=== PATIENT | female | born 1965 | race Caucasian/White ===

== ENCOUNTER 2024-07-08 11:24 | Emergency (ER) | payer SELFPAY ==
[2024-07-08] VITALS (16 sets, daily range): BP systolic 172–215; BP diastolic 90–110; PULSE 65–76; TEMP 36.6; O2SAT 98; BMI 21.8
[2024-07-08 12:30] LABS: Basophils Percent Auto 0.4 % (0.2-2.0); Hemoglobin 12.9 g/dL (12.0-16.0); Immature Granulocytes Abs Auto 0.01 10^3/uL (0.00-0.03); Immature Granulocytes Pct Auto 0.1 % (0.0-0.5); Lymphocytes Absolute Auto 2.1 10^3/uL (1.2-3.8); Lymphocytes Percent Auto 29.7 % (20.5-60.0); Mean Corpuscular HGB Conc 33.1 g/dL (29.9-35.2); Mean Corpuscular Hemoglobin 31.3 pg (26.7-34.0); Mean Corpuscular Volume 94.7 fL (81.0-99.0); Mean Platelet Volume 9.1 fL (9.5-13.5); Monocytes Absolute Auto 0.4 10^3/uL (0.3-0.8); Monocytes Percent Auto 5.6 % (1.7-12.0); Neutrophils Absolute Auto 4.5 10^3/uL (1.4-6.5); Neutrophils Percent Auto 64.2 % (43.0-75.0); Platelet Count 266 10^3/uL (150-450); Red Blood Count 4.12 10^6/uL (4.20-5.40); Red Cell Distribution Width 12.4 % (11.0-15.0)
[2024-07-08] MEDS: OXYMETAZOLINE HCL 0.05% NASAL SPRAY 2 SPRAY NS (12:37)
[2024-07-08 12:41] LABS: Prothrombin Time 9.8 sec (9.0-11.6)
[2024-07-08 12:43] LABS: Alanine Aminotransferase 20 U/L (14-59); Albumin Level 3.6 g/dL (3.4-5.0); Alkaline Phosphatase 122 U/L (46-116); Anion Gap 11.3; Aspartate Amino Transferase 14 U/L (15-37); Bilirubin Total 0.4 mg/dL (0.2-1.0); Carbon Dioxide 27.3 mmol/L (21.0-32.0); Chloride 107 mmol/L (98-107); Estimated GFR (African America >60 (>=60 mL/min/1.73m^2); Estimated GFR (Non-African Ame 57 (>=60 mL/min/1.73m^2); Globulin 3.6 g/dL; Glucose 116 mg/dL (74-106); Potassium 3.6 mmol/L (3.5-5.1); Sodium 142 mmol/L (136-145); Total Protein 7.2 g/dL (6.4-8.2)
[2024-07-08 12:49] LABS: INR <0.93
[2024-07-08] MEDS: CLONIDINE HCL 0.1 MG TABLET PO (13:07)
--- NOTE | 2024-07-08 13:10 | ED_ITS ---
HPI - Epistaxis General Chief Complaint: Epistaxis Stated Complaint: NOSE BLEED Time Seen by Provider: 07/08/24 11:47 Source: patient Mode of arrival: ambulance Limitations: no limitations History of Present Illness HPI Narrative: The patient have history of multiple myeloma being treated by onchology , patient is coming today with nosebleed that started within the last 24 hours and it has not been stopping as explained at least 4 times that she bled and stopped The patient have no history of such bleeding before and she also has a history of anticoagulation Patient has no primary care doctor she denies any history of hypertension although she mentioned the last time she went to her doctor she had some elevated blood pressure Patient denies any nasal trauma Related Data Home Medications ?Medication ?Instructions ?Recorded ?Confirmed cobimetinib 20 mg tablet (Cotellic) 60 mg PO Q24H 07/08/24 07/08/24 vemurafenib 240 mg tablet 1,200 mg PO Q12H 07/08/24 07/08/24 (Zelboraf) Previous Rx's ?Medication ?Instructions ?Recorded amlodipine 10 mg tablet 10 mg PO DAILY #20 tabs 07/08/24 blood pressure monitor #1 ea 07/08/24 cephalexin 500 mg capsule 500 mg PO BID #10 caps 07/08/24 Allergies Allergy/AdvReac Type Severity Reaction Status Date / Time No Known Drug Allergies Allergy Verified 07/08/24 11:26 Review of Systems ROS Status of ROS 10 or more systems reviewed and unremark able except as noted in history and below PFSH PFSH Social History Little interest or pleasure in doing things: not at all Feeling down, depressed, or hopeless: not at all Exam Narrative Exam Narrative: Nurses notes and vital signs reviewed and patient is not hypoxic. General: Well-appearing and in no apparent distress. Skin: Warm, dry, no pallor noted. No rash. Head: Normocephalic, atraumatic. Neck: Supple, non-tender. Eye: Pupils are equal, round and EOMI. No scleral icterus. Ears, Nose, Mouth, and Throat: Patient have a significant bleeding from the right nostril mostly posterior as I cannot see the bleeding source anteriorly Cardiovascular: Regular Rate and Rhythm without murmur, gallop or rub. Respiratory: No accessory muscle use or respiratory distress. Lungs are clear to auscultation, no wheezing, rales or rhonchi Chest Wall: no tenderness Back: No midline thoracic or lumbar vertebral tenderness. No CVA tenderness Musculoskeletal: normal ROM, no calf or popliteal tenderness, no lower extremity edema/swelling GI: Abdomen is soft, non-distended. Normal bowel sounds. No masses appreciated. No tenderness to palpation. No rebound, guarding, or rigidity noted. Neurological: A&O x4. No cranial nerve dysfunction observed. No truncal ataxia. Moves all extremities. Sensation intact. Psychiatric: Cooperative and interactive. Normal mood and affect. Constitutional Vital Signs, click to edit/add: Last Vital Signs Temp 97.8 F 07/08/24 11:26 Pulse 67 07/08/24 13:35 Resp 20 07/08/24 12:10 BP 187/109 H 07/08/24 14:22 Pulse Ox 98 07/08/24 11:26 O2 Del Method Room Air 07/08/24 11:26 Course Vital Signs Vital signs: Vital Signs Temperature 97.8 F 07/08/24 11:26 Pulse Rate 71 07/08/24 11:26 Respiratory Rate 18 07/08/24 11:26 Blood Pressure 196/110 H 07/08/24 11:26 Pulse Oximetry 98 07/08/24 11:26 Oxygen Delivery Method Room Air 07/08/24 11:26 Temperature 97.8 F 07/08/24 11:26 Pulse Rate 67 07/08/24 13:35 Respiratory Rate 20 07/08/24 12:10 Blood Pressure 187/109 H 07/08/24 14:22 Pulse Oximetry 98 07/08/24 11:26 Oxygen Delivery Method Room Air 07/08/24 11:26 MDM - Epistaxis MDM Narrative Medical decision making narrative: Initially pressure was not enough to control the bleeding then the patient had a Afrin applied and the Rhino Rocket applied to the right nostril After inflating and gradually the patient bleeding was controlled CBC and chemistry showed no acute pathology but the patient blood pressure was noted to be elevated around 200 systolic Patient was started on amlodipine and she was given clonidine here in the ER she was discharged with referral to primary care doctor for further evaluation for her blood pressure in addition to coming back tomorrow to remove the Rhino Rocket The patient also provided antibiotic and instructed not to keep the Rhino Rocket for more than 2 days The patient is to follow up with primary care physician in next 2-3 days or to return to the emergency department should any of the signs or symptoms worsen or new symptoms develop. The patient agrees with the following Diagnosis and Treatment plan and the patient will be discharged home. Lab Data Labs: Lab Results 07/08/24 Range/Units 12:20 WBC 7.0 (4.0-11.0) 10^3/uL RBC 4.12 L (4.20-5.40) 10^6/uL Hgb 12.9 (12.0-16.0) g/dL Hct 39.0 (36.0-48.0) % MCV 94.7 (81.0-99.0) fL MCH 31.3 (26.7-34.0) pg MCHC 33.1 (29.9-35.2) g/dL RDW 12.4 (11.0-15.0) % Plt Count 266 (150-450) 10^3/uL MPV 9.1 L (9.5-13.5) fL Neut % (Auto) 64.2 (43.0-75.0) % Lymph % (Auto) 29.7 (20.5-60.0) % Chester % (Auto) 5.6 (1.7-12.0) % Eos % (Auto) 0.0 L (0.9-7.0) % Baso % (Auto) 0.4 (0.2-2.0) % Neut # (Auto) 4.5 (1.4-6.5) 10^3/uL Lymph # (Auto) 2.1 (1.2-3.8) 10^3/uL Chester # (Auto) 0.4 (0.3-0.8) 10^3/uL Eos # (Auto) 0.0 (0.0-0.7) 10^3/uL Baso # (Auto) 0.0 (0.0-0.1) 10^3/uL Abs Immat Gran (auto) 0.01 (0.00-0.03) 10^3/uL Imm/Tot Granulo (auto) 0.1 (0.0-0.5) % PT 9.8 (9.0-11.6) sec INR <0.93 Sodium 142 (136-145) mmol/L Potassium 3.6 (3.5-5.1) mmol/L Chloride 107 (98-107) mmol/L Carbon Dioxide 27.3 (21.0-32.0) mmol/L Anion Gap 11.3 BUN 15.0 (7.0-18.0) mg/dL Creatinine 1.00 (0.55-1.02) mg/dL Est GFR ( Amer) >60 (>=60 mL/min/1.73m^2) Est GFR (Non-Af Amer) 57 L (>=60 mL/min/1.73m^2) BUN/Creatinine Ratio 15.0 Glucose 116 H (74-106) mg/dL Calcium 9.0 (8.5-10.1) mg/dL Total Bilirubin 0.4 (0.2-1.0) mg/dL AST 14 L (15-37) U/L ALT 20 (14-59) U/L Alkaline Phosphatase 122 H (46-116) U/L Total Protein 7.2 (6.4-8.2) g/dL Albumin 3.6 (3.4-5.0) g/dL Globulin 3.6 g/dL Albumin/Globulin Ratio 1.0 Discharge Plan Discharge Chief Complaint: Epistaxis Clinical Impression: Epistaxis, HTN (hypertension) Patient Disposition: Home, Self-Care Time of Disposition Decision: 14:52 Condition: Good Prescriptions / Home Meds: New amlodipine 10 mg tablet 10 mg PO DAILY Qty: 20 0RF cephalexin 500 mg capsule 500 mg PO BID Qty: 10 0RF (DME) blood pressure monitor Kit See Rx Instructions .Route Qty: 1 0RF Rx Instructions: As directed dx HTN No Action Cotellic 20 mg tablet 60 mg PO Q24H Zelboraf 240 mg tablet 1,200 mg PO Q12H Print Language: [place] Instructions: Nosebleed (ED), Hypertension (ED) Referrals: Physician,Non-Staff, MD [Primary Care Provider] - 1 week
--- NOTE | 2024-07-08 13:38 | PC.NURSE ---
1320 - Dr Bennett increased pressure in 7.5 Rhino miamiet d/t still having some small trickling out of R nare
--- NOTE | 2024-07-08 14:41 | PC.NURSE ---
PT NARE STOPPED BLEEDING AT THIS TIME RHINO ROCKET REMAINS IN PLACE
[2024-07-08] MEDS: KETOROLAC TROMETHAMINE 30 MG/ML VIAL IM (14:48)
== END 2024-07-08 15:06 | disposition home or self-care (01) ==
PROVIDERS: Emergency Provider Emergency Medicine
DX: R04.0 Epistaxis (principal); C90.00 Multiple myeloma not having achieved remission; I10 Essential (primary) hypertension
CPT/HCPCS: 30901; 36415; 80053; 85025; 85610; 96372; 99285; J1885

== ENCOUNTER 2024-07-09 14:11 | Emergency (ER) | payer MEDICARE, MEDICAID, SELFPAY ==
[2024-07-09 14:19] VITALS: BP 174/102; PULSE 86; TEMP 36.7; O2SAT 98
[2024-07-09 14:25] VITALS: BP 164/100
--- NOTE | 2024-07-09 14:26 | PC.NURSE ---
Haim rocket in place to right nostril, no bleeding at site. Denies feeling of bleeding in back of throat.
--- OUTSIDE RECORDS SUMMARY | 2024-07-09 14:31 | XMS_ITS | CCD ---
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 Name Role Phone Manuel DE DIOSN.Carly DICK Unavailable Marika HAYES, Thiago Unavailable Errol SWEET, Lacy Unavailable [phone] Unavailable Primary Care Provider UnavailAubrie Cortes Unavailable Manuel BOILERMAKER SHIP.Carly DICK Unavailable [phone] Dora Quintanilla MDek Unavailable Errol SWEET, Lacy Unavailable SHUBHAM Ramos Attending Provider Unavailable Primary Care Provider UnavailAubrie Cortes Attending Unavailable Aubrie Ramos Admitting Unavailable Tali Johnson Unavailable CONNOR Corona, DR VAZQUEZ Attending Unavailable [facility], DR SHOOK Primary Care Unavailable TAINA, DR JACQUIE Medeiros Consulting UnavailEyad Corona, DR VAZQUEZ Admitting Unavailable DOT ESTEVEZ Consulting Unavailable Kayla Guerrero Attending Unavailable Errol SWEET, Lacy Unavailable ABHYANKAR, THIAGO Referring Unavailable Pcp BOILERMAKER SHIP, No Primary Care Provider Unavailabl e ABHYANKAR, THIAGO Referring Unavailable ABHYANKAR, THIAGO Attending Unavailable ABHYANKAR, THIAGO Referring Unavailable ABHYANKAR, THIAGO Referring Unavailable ABHYANKAR, THIAGO Attending Unavailable ABHYANKAR, THIAGO Referring Unavailable ABHYANKAR, THIAGO Referring Unavailable ABHYANKAR, THIAGO Attending Unavailable ABHYANKAR, THIAGO Referring Unavailable Medications Current Medications Medication Drug Class(es) Dates Sig (Normalized) Sig (Original) clindamycin 150 mg oral capsule (2 sources) Lincosamide Antibacterial Start: 09-13-2015 take 2 capsules by mouth four times daily clindamycin (CLEOCIN) 150 MG capsule Indications: Malignant melanoma of skin of chest (HCC) , Cellulitis of chest wall Take 2 Capsules by mouth 4 times daily for 10 days. 80 Capsule 0 09/13/2015 Active cobimetinib 20 mg oral tablet (20 sources) Kinase Inhibitor Start: 10-27-2023 Cobimetinib (Cotellic) 20 mg tablet Active MG PO October 27, 2023 12:00am Start: 12-12-2022 End: 03-24-2024 COTELLIC 20 mg tab Indicatio ns: Malignant melanoma of torso excluding breast (HCC) TAKE 3 TABLETS BY MOUTH ONCE DAILY AT THE SAME TIME FOR 21 DAYS OF A 28 DAY CYCLE. MAY TAKE WITH OR WITHOUT FOOD 63 tablet 4 03/24/2024 Active Start: 08-02-2022 End: 12-10-2022 COTELLIC 20 mg tab Indicatio ns: Malignant melanoma of torso excluding breast (HCC) TAKE 3 TABLETS BY MOUTH ONCE DAILY AT THE SAME TIME FOR 21 DAYS OF A 28 DAY CYCLE. MAY TAKE WITH OR WITHOUT FOOD 63 tablet 4 08/02/2022 12/10/2022 Discontinued Start: 03-16-2021 End: 02-19-2022 COTELLIC 20 mg tab Indicatio ns: Malignant melanoma of torso excluding breast (HCC) TAKE 3 TABLETS BY MOUTH ONCE DAILY AT THE SAME TIME FOR 21 DAYS OF A 28 DAY CYCLE. MAY TAKE WITH OR WITHOUT FOOD 63 tablet 4 09/03/2021 02/19/2022 Discontinued take 1 tablet by [facility] every twenty-four hours Cotellic 20 MG 1 tablet Orally Once a day Active Comment on above: TAKE 3 TABLETS BY MO [facility] ONCE DAILY AT THE SAME TIME FOR 21 DAYS OF A 28 DAY CYCLE. MAY TAKE WITH OR WITHOUT FOOD docusate sodium 100 mg oral capsule (2 sources) Start: 2015 take 1 capsule by mouth twice daily docusate sodium (COLACE) 100 MG capsule Take 1 Capsule by mouth 2 times daily. 60 Capsule 1 08/28/2015 Active doxycycline monohydrate 100 mg oral capsule (1 source) Tetracycline-class Drug Start: 2022 take 1 capsule by mouth every twelve hours Doxycycline Monohydrate 100 MG 1 capsule Orally every 12 hrs for 10 days Oct, Active methylPREDNISolone 4 mg oral tablet (1 source) Corticosteroid Start: 2023 take 1 tablet by mouth once Methylprednisolone (Medrol (Mat)) 4 mg tablets,dose pack Active 0 PO per package directions October 27, 2023 12:00am PO PER PKG DIR for 6 days nicotine 2 mg oral lozenge (6 sources) Cholinergic Nicotinic Agonist Start: 2023 End: 2023 nicotine, polacrilex, (NICORETTE) 2 mg lzmn Indications: Metastatic melanoma (HCC) , Malignant melanoma of skin (HCC) , Malignant melanoma of torso excluding breast (HCC) Place 2 mg between cheek and gum four times daily. 30 Lozenge 3 12/19/2023 04/17/2024 Active tamsulosin hydrochloride 0.4 mg oral capsule (1 source) alpha-Adrenergic Deejay Start: 2022 take 1 capsule by mouth once daily tamsulosin 0.4 mg Cap 0.4 mg = 1 cap(s), Oral, Daily, # 30 cap(s), Refills(s) 0, Pharmacy: [id number] Start Date: 12/04/22 Status: Ordered vemurafenib 240 mg oral tablet (20 sources) Kinase Inhibitor Start: 2023 Vemurafenib (Zelboraf) 240 mg tablet Active MG PO October 27, 2023 12:00am Start: 08-02-2022 End: 03-24-2024 take 4 tablets by mouth every twelve hours vemurafenib (ZELBORAF) 240 mg tab Indications: Malignant melanoma of torso excluding breast (HCC) TAKE 4 TABLETS BY MOUTH EVERY 12 HOURS. MAY TAKE WITH OR WITHOUT FOOD. STORE IN ORIGINAL CONTAINER. AVOID GRAPEFRUIT PRODUCTS 224 tablet 4 03/24/2024 Active Start: 03-16-2021 End: 02-19-2022 take 4 tablets by mouth every twelve hours vemurafenib (ZELBORAF) 240 mg tab Indications: Malignant melanoma of torso excluding breast (HCC) TAKE 4 TABLETS BY MOUTH EVERY 12 HOURS. MAY TAKE WITH OR WITHOUT FOOD. STORE IN ORIGINAL CONTAINER. AVOID GRAPEFRUIT PRODUCTS 224 tablet 4 09/03/2021 02/19/2022 Discontinued Comment on above: TAKE 4 TABLETS BY MO UT EVERY 12 HOURS. MAY TAKE WITH OR WITHOUT FOOD. STORE IN ORIGINAL CONTAINER. AVOID GRAPEFRUIT PRODUCTS Completed/Discontinued Medications Medication Drug Class(es) Dates Sig (Normalized) Sig (Original) nitrofurantoin, macrocrystals 25 mg / nitrofurantoin, monohydrate 75 mg oral capsule (2 sources) Nitrofuran Antibacterial Start: 11-06-2022 take 1 capsule by mouth every twelve hours Macrobid 100 MG 1 cap(s) Orally 2 times a day for 5 day(s) Oct, Not-Taking perflutren lipid microspheres 1.3 mL in NaCl (PF) 0.9% 10 mL injection (DEFINITY) (5 sources) Start: 12-20-2020 End: 03-21-2022 perflutren lipid microspheres 1.3 mL in NaCl (PF) 0.9% 10 mL injection (DEFINITY) petrolatum 0.41 mg/mg topical ointment (10 sources) Start: 05-11-2021 End: 12-24-2022 white petrolatum (AQUAPHOR) 41 % topical ointment Apply to affected area as needed. 05/11/2021 12/24/2022 Discontinued (.All criteria met for discontinuation) Comment on above: Apply to affected ar ea as needed. phenazopyridine hydrochloride 200 mg oral tablet (2 sources) Start: 11-06-2022 take 1 tablet by mouth every eight hours Pyridium 200 MG 1 tablet after meals Orally Three times a day for 2 day(s) Oct, Not-Taking prochlorperazine 10 mg oral tablet (12 sources) Phenothiazine Start: 04-16-2023 End: 12-12-2023 take 1 tablet by mouth every eight hours as needed prochlorperazine (COMPAZINE) 10 mg tablet Indications: Malignant melanoma of torso excluding breast (HCC) , Metastatic melanoma (HCC) , Chemotherapy-induced nausea Take 1 tablet by mouth every 8 hours as needed. 180 tablet 3 04/16/2023 12/12/2023 Start: 05-02-2022 End: 12-19-2022 take 1 tablet by mouth every six hours as needed prochlorperazine (COMPAZINE) 10 mg tablet Take 10 mg by mouth every 6 hours as needed. 05/02/2022 11/19/2022 Discontinued Start: 04-11-2021 End: 07-09-2021 take 1 tablet by mouth every six hours as needed prochlorperazine (COMPAZINE) 10 mg tablet Indications: Metastatic melanoma (HCC) Take 1 tablet by mouth every 6 hours as needed. 30 tablet 1 04/11/2021 07/09/2021 Discontinued Comment on above: Take 10 mg by mouth every 6 hours as needed. Take 1 tablet by maryann th every 6 hours as needed. Take 1 tablet by maryann th every 8 hours as needed. 125 ml sodium chloride 9 mg/ml prefilled syringe (5 sources) Start: 12-20-2020 End: 03-21-2022 sodium chloride 0.9 % (flush) 10 mL (BD POSIFLUSH) Problems Active Problems Problem Classification Problem Date Documented Date Episodic/Chronic Abdominal pain (4 sources) Unspecified abdominal pain; Translations: [UNSPECIFIED ABDOMINAL PAIN] Onset: 11-30-2022 Episodic Calculus of urinary tract (1 source) Ureteric stone 12-03-2022 Episodic Cancer of breast (20 sources) Malignant neoplasm of female breast; Translations: [Malignant neoplasm of unspecified site of unspecified female breast] Onset: 04-18-2016 05-10-2021 Chronic Genitourinary symptoms and ill-defined conditions (4 sources) Dysuria; Translations: [Hematuria, unspecified] Onset: 11-06-2022 Episodic Melanomas of skin (20 sources) Metastatic malignant melanoma ; Translations: [Malignant melanoma of skin, unspecified] Onset: 07-04-2015 05-10-2021 Chronic Nonmalignant breast conditions (2 sources) Fibrocystic changes of bilateral breasts; Translations: [Diffuse cystic mastopathy of right breast] Onset: 07-04-2015 07-04-2015 Chronic Other aftercare (1 source) Other retirement (current) drug therapy; Translations: [OTH CUSTODIAL CURRENT DRUG THERAPY] Onset: 12-03-2022 Episodic Other circulatory disease (20 sources) Device in situ; Translations: [Presence of other vascular implants and grafts] Onset: 05-04-2021 05-04-2021 Chronic Other diseases of kidney and ureters (1 source) Hydronephrosis with renal and ureteral calculous obstruction; Translations: [HYDRONPHROS RENL AND URETRL CALCUL OBST] Onset: 12-03-2022 Episodic Other nervous system disorders (2 sources) Difficulty walking; Translations: [Difficulty in walking, not elsewhere classified] Chronic Other upper respiratory infections (1 source) Acute recurrent frontal sinusitis Episodic Screening and history of mental health and substance abuse codes (1 source) Personal history of nicotine dependence; Translations: [PERSONAL HISTORY OF NICOTINE DEPEND] Onset: 12-03-2022 Episodic Skin and subcutaneous tissue infections (1 source) Cellulitis 12-03-2022 Episodic Substance-related disorders (20 sources) Nicotine dependence; Translations: [Nicotine dependence, unspecified, uncomplicated] Onset: 05-11-2021 05-11-2021 Chronic Unclassified (1 source) CUSTODIAL DETENTION IMMUNOMOD/IMMUNOSUP; Translations: [CUSTODIAL DETENTION IMMUNOMOD/IMMUNOSUP] Onset: 12-03-2022 Urinary tract infections (2 sources) Urinary tract infection, site not specified; Translations: [Urinary tract infectious disease] Episodic Past or Other Problems Problem Classification Problem Date Documented Da te Episodic/Chronic Deficiency and other anemia (20 sources) Anemia; Translations: [Anemia, unspecified] Onset: 04-18-2016 04-18-2016 Episodic Fluid and electrolyte disorders (20 sources) Dehydration; Translations: [Dehydration] Onset: 06-05-2022 Episodic Nausea and vomiting (15 sources) Nausea; Translations: [Nausea] Onset: 04-16-2023 04-16-2023 Episodic Other gastrointestinal disorders (20 sources) Drug-induced constipation; Translations: [Drug induced constipation] Onset: 08-24-2018 08-24-2018 Episodic Residual codes; unclassified (20 sources) Tobacco use and exposure - finding; Translations: [Tobacco use] Onset: 05-04-2021 05-04-2021 Episodic Residual codes; unclassified (2 sources) Family history of breast cancer; Translations: [Family history of malignant neoplasm of breast] Onset: 07-04-2015 07-04-2015 Episodic Results Test Name Value Interpretation Reference Range Facility [facility] 04-09-2024 OVS Visit (SP) Office ([place]) KENNEDY PAULSON ([id number]) 1965 F Date Time Provider Department 04/09/24 10:00 AM THIAGO QUINTANILLA During your visit today, we recorded the following information about you: Temperature Pulse Respiration Blood pressure 97.4 degrees 66/minute 16/minute 150/91 Weight Height 59.4 kg 1.575 m Thiago Quintanilla MD 04/10/2024 8:46 AM Signed NAME: Kennedy Paulson CLINIC NO.: [id number] DATE OF SERVICE: April 09, 2024 (Marika) Some elements in this clinic note that are critical to medical decision making have been carefully reviewed and included from a prior clinic note dated: December 19, 2023 (Marika) Referring Provider: Arabella Lynch, DO Additional Clinicians involved in Kennedy Paulson's care: CC: Metastatic BRAF + Melanoma ASSESSMENT: She originally had L breast mastectomy for melanoma in [address] Mayorga. 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 Started Zelboraf and Cotellic 08/2018. Has maintained an excellent response measured on PET CT - through 04/08/2023 We discussed the potential for failure of BRAF inhibition occurring around 12-18 months but this hasn't been the case. Suspicious left cervical LN - left neck dissection resulted in benign findings with anthracotic changes only Kidney function varies because she can't reliably stay hydrated PLAN: Labs, PET, Mammogram of right breast in 14 weeks RTC in 16 weeks to review Exam on return Continue nicotine lozenges and smoking cessation Continue Zelboraf and Cotellic - HPI: CASE HISTORY: Reverse Chronological Order 04/02/2024 - PET/CT: PRIMARY: No FDG avid neoplasm. Postsurgical changes. LYMPH NODES: No metabolically active lymphadenopathy. METASTASES: No metabolically active metastases. 03/30/2024 - Diagnostic Mammogram Right: There is no mammographic evidence of malignancy. A return to screening mammogram in 1 year is recommended. BI-RADS Category 2: Benign 12/12/2023 - PET/CT: CHEST: No FDG avid neoplastic process. Stable tiny lung nodules below PET resolution likely benign. HEAD/NECK, ABDOMEN/PELVIS, MUSCULOSKELETAL: No FDG avid neoplastic process. 08/08/2023 - PET/CT: Neck: No suspicious hypermetabolic foci Chest: No evidence of FDG avid neoplastic process Abdomen and pelvis: No evidence of FDG avid neoplastic process Skeleton: No hypermetabolic osseous lesions 04/08/2023 - PET/CT remains negative. 10/23/2022 - PET remains negative - small focus of cutaneous activity in the right lateral distal forearm. Possibly inflammatory. 01/15/2022 - PET/CT: NECK: No FDG avid neoplastic process. CHEST: No FDG avid neoplastic process. Several subcentimeter pulmonary nodules stable since at least PET/CT 08/26/2018. Note that PET/CT is not sensitive for pulmonary nodules less than 8 mm. ABDOMEN/PELVIS: No FDG avid neoplastic process. EXTREMITIES/SKELETON: No suspicious FDG avid osseous process. 09/13/2021 - PET CT: NECK: interval resection of previously noted hypermetabolic left cervical lymph node. No new or enlarging hypermetabolic cervical lymphadenopathy. CHEST: stable postoperative changes of left mastectomy and bilateral axillary lymphadenectomy. No hypermetabolic soft tissue in the operative bed to suggest residual/recurrent neoplasm. PATCHY GROUNDGLASS ATTENUATION NON-FDG AVID RIGHT UPPER LOBE SUBPLEURAL OPACITY LATERALLY, NEW SINCE 04/03/2021. SUGGEST FOLLOW UP NONCONTRAST CHEST CT IN 3 MONTHS FOR ADDITIONAL EVALUATION. FEW SMALL (<0.6 CM) NON-FDG AVID PULMONARY NODULES, STABLE SINCE 12/13/2020. No hypermetabolic thoracic lymphadenopathy. ABDOMEN/PELVIS: no fdg avid neoplastic process. No hypermetabolic mass, adenopathy, or fluid collection. Stable nonobstructing right renal calculi. EXTREMITIES/SKELETON: no fdg avid neoplastic osseous process. 04/03/2021 - PET/CT: Head and Neck: New 0.8 cm hypermetabolic left cervical lymph node, presumably metastatic. Chest: No evidence of FDG avid neoplastic process. Multiple small (less than 6 mm) pulmonary nodules are stable compared to 12/13/2020, and not FDG avid. Stable findings, as described Abdomen and pelvis: No evidence of FDG avid neoplastic process. Stable nonobstructing right renal calculi measuring up to 0.5 cm. No hydronephrosis. Musculoskeletal: No neoplastic hypermetabolic lesions 01/03/2021 - Echo from [facility]: Normal EF 56% 12/13/2020 PET/CT: Neck: No suspicious hypermetabolic foci Chest: No evidence of FDG avid neoplastic process Abdomen and pelvis: No evidence of FDG avid neoplastic process Skeleton: No hypermetabolic osseou (more content not included)... Normal [facility] CNPNon 04-05-2024 CNPN Telephone (HEMT[place]) KENNEDY PAULSON ([id number]) 1965 F Date Time Provider Department 04/05/24 BELINDA MCNAMARA During your visit today, we recorded the following information about you: Belinda Mcnamara RN 04/05/2024 10:05 AM Signed ----- Message from Thiago Quintanilla MD sent at 04/03/2024 1:43 PM EDT ----- PET remains negative Belinda Mcnamara RN 04/05/2024 10:07 AM Signed Left negative results on voice mail that pt identified herself. Left call back number for questions or concerns. Belinda Mcnamara RN Allergies As of Date: 04/05/2024 (No Known Allergies) Date Reviewed: 12/19/2023 Reviewed by: Sandie Worley MA - Fully Assessed Prescriptions as of 04/05/2024 - vemurafenib (ZELBORAF) 240 mg tab TAKE 4 TABLETS BY MOUTH EVERY 12 HOURS. MAY TAKE WITH OR WITHOUT FOOD. STORE IN ORIGINAL CONTAINER. AVOID GRAPEFRUIT PRODUCTS - COTELLIC 20 mg tab TAKE 3 TABLETS BY MOUTH ONCE DAILY AT THE SAME TIME FOR 21 DAYS OF A 28 DAY CYCLE. MAY TAKE WITH OR WITHOUT FOOD - nicotine, polacrilex, (NICORETTE) [address] 2 mg between cheek and gum four times daily. Problem List As Of Date 04/05/2024 Noted Resolved Anemia [D64.9] 04/18/2016 Malignant neoplasm of female breast (HCC) [C50.*04/18/2016 Metastatic melanoma (HCC) [C43.9] 04/18/2016 Drug-induced constipation [K59.03] 08/24/2018 Tobacco use [Z72.0] 05/04/2021 Port-A-Cath in place [Z95.828] 05/04/2021 Nicotine use disorder, F17.2 [F17.200] 05/11/2021 Dehydration [E86.0] 06/05/2022 Malignant melanoma of torso excluding breast (H*04/16/2023 Chemotherapy-induced nausea [R11.0, T45.1X5A] 04/16/2023 Encounter Status:Closed by BELINDA MCNAMARA on 04/05/24 Normal [facility] CBC W Auto Differential pane l (Bld)on 04-02-2024 Basophils (Bld) [#/Vol] 0.03 10*3/uL [facility] Basophils/100 WBC (Bld) 0.6 % [facility] Differential cell count method Nom (Bld) Auto [facility] Eosinophils (Bld) [#/Vol] [facility] Eosinophils/100 WBC (Bld) 0.0 % [facility] Erythrocyte distribution width (RBC) [Ratio] 13.8 % 11.5 - 15.0 % [facility] Hematocrit (Bld) [Volume fraction] 35.9 % Low 36.0 - 46.0 % [facility] Hemoglobin (Bld) [Mass/Vol] 12.4 g/dL 11.5 - 15.5 g/dL [facility] Immature granulocytes (Bld) [#/Vol] [facility] Immature granulocytes/100 WBC (Bld) 0.4 % [facility] Interpretation and review of laboratory results Abnormal [facility] Lymphocytes (Bld) [#/Vol] 0.79 10*3/uL Low [facility] Lymphocytes/100 WBC (Bld) 16.6 % [facility] MCH (RBC) [Entitic mass] 32.0 pg 26.0 - 34.0 pg [facility] MCHC (RBC) [Mass/Vol] 34.5 g/dL 30.5 - 36.0 g/dL [facility] MCV (RBC) [Entitic vol] 92.8 fL 80.0 - 100.0 fL [facility] Monocytes (Bld) [#/Vol] 0.40 10*3/uL [facility] Monocytes/100 WBC (Bld) 8.4 % [facility] Neutrophils (Bld) [#/Vol] 3.52 10*3/uL [facility] Neutrophils/100 WBC (Bld) 74.0 % [facility] Nucleated RBC (Bld) [#/Vol] [facility] Nucleated RBC/100 WBC (Bld) [Ratio] 0.0 % /100 WBC [facility] Platelet mean volume (Bld) [Entitic vol] 9.3 fL 9.0 - 12.7 fL [facility] Platelets (Bld) [#/Vol] 199 10*3/uL [facility] RBC (Bld) [#/Vol] 3.87 10*6/uL Low 3.90 - 5.2 0 m/uL [facility] WBC (Bld) [#/Vol] 4.76 10*3/uL [facility] Basophils (Bld) [#/Vol] 0.03 10*3/uL Normal <0.11 [facility] Comment on above: Order Comment: Speci men Type: BLOOD SPECIMENOrdering Facility: [facility] Address: [address] [place] [id number] Performed By: #### 5 7021-8 ####[facility] [id number] [place] [address] Basophils/100 WBC (Bld) 0.6 % Normal [facility] Comment on above: Order Comment: Speci men Type: BLOOD SPECIMENOrdering Facility: [facility] Address: [address] [place] [address] Performed By: #### 5 7021-8 ####[facility] [id number] [place] [address] Differential cell count method Nom (Bld) Auto Normal [facility] Comment on above: Order Comment: Speci men Type: BLOOD SPECIMENOrdering Facility: [facility] Address: [address] [place] [address] Performed By: #### 5 7021-8 ####[facility] [id number] [place] [address] Eosinophils (Bld) [#/Vol] 10*3/uL Normal <0.46 [facility] Comment on above: Order Comment: Speci men Type: BLOOD SPECIMENOrdering Facility: [facility] Address: [address] [place] [address] Performed By: #### 5 7021-8 ####[facility] [id number] [place] [address] Eosinophils/100 WBC (Bld) 0.0 % Normal [facility] Comment on above: Order Comment: Speci men Type: BLOOD SPECIMENOrdering Facility: [facility] Address: [address] [place] [address] Performed By: #### 5 7021-8 ####[facility] [id number] [place] [address] Erythrocyte distribution width (RBC) [Ratio] 13.8 % Normal 11.5-15.0 [facility] Comment on above: Order Comment: Speci men Type: BLOOD SPECIMENOrdering Facility: [facility] Address: [address] [place] [address] Performed By: #### 5 7021-8 ####[facility] [id number] [place] [address] Hematocrit (Bld) [Volume fraction] 35.9 % Low 36.0-46.0 [facility] Comment on above: Order Comment: Speci men Type: BLOOD SPECIMENOrdering Facility: [facility] Address: [address] [place] [address] Performed By: #### 5 7021-8 ####[facility] [id number] [place] [address] Hemoglobin (Bld) [Mass/Vol] 12.4 g/dL Normal 11.5-15.5 [facility] Comment on above: Order Comment: Speci men Type: BLOOD SPECIMENOrdering Facility: [facility] Address: [address] [place] [address] Performed By: #### 5 7021-8 ####[facility] [id number] [place] [address] Immature granulocytes (Bld) [#/Vol] 10*3/uL Normal <0.10 [facility] Comment on above: Order Comment: Speci men Type: BLOOD SPECIMENOrdering Facility: [facility] Address: [address] [place] [address] Performed By: #### 5 7021-8 ####[facility] [id number] [place] [address] Immature granulocytes/100 WBC (Bld) 0.4 % Normal [facility] Comment on above: Order Comment: Speci men Type: BLOOD SPECIMENOrdering Facility: [facility] Address: [address] [place] [address] Performed By: #### 5 7021-8 ####[facility] [id number] [place] [address] Lymphocytes (Bld) [#/Vol] 0.79 10*3/uL Low 1.00-4.00 [facility] Comment on above: Order Comment: Speci men Type: BLOOD SPECIMENOrdering Facility: [facility] Address: [address] [place] [address] Performed By: #### 5 7021-8 ####[facility] [id number] [place] [address] Lymphocytes/100 WBC (Bld) 16.6 % Normal [facility] Comment on above: Order Comment: Speci men Type: BLOOD SPECIMENOrdering Facility: [facility] Address: [address] [place] [address] Performed By: #### 5 7021-8 ####[facility] [id number] [place] [address] MCH (RBC) [Entitic mass] 32.0 pg Normal 26.0-34.0 [facility] Comment on above: Order Comment: Speci men Type: BLOOD SPECIMENOrdering Facility: [facility] Address: [address] [place] [address] Performed By: #### 5 7021-8 ####[facility] [id number] [place] [address] MCHC (RBC) [Mass/Vol] 34.5 g/dL Normal 30.5-36.0 [facility] Comment on above: Order Comment: Speci men Type: BLOOD SPECIMENOrdering Facility: [facility] Address: [address] [place] [address] Performed By: #### 5 7021-8 ####[facility] [id number] [place] [address] MCV (RBC) [Entitic vol] 92.8 fL Normal 80.0-100.0 [facility] [facility] Comment on above: Order Comment: Speci men Type: BLOOD SPECIMENOrdering Facility: [facility] Address: [address] [place] [address] Performed By: #### 5 7021-8 ####[facility] LABCLIA [id number] [place] [address] Monocytes (Bld) [#/Vol] 0.40 10*3/uL Normal <0.87 [facility] Comment on above: Order Comment: Speci men Type: BLOOD SPECIMENOrdering Facility: [facility] Address: [address] [place] [address] Performed By: #### 5 7021-8 ####[facility] [id number] [place] [address] Monocytes/100 WBC (Bld) 8.4 % Normal [facility] Comment on above: Order Comment: Speci men Type: BLOOD SPECIMENOrdering Facility: [facility] Address: [address] [place] [address] Performed By: #### 5 7021-8 ####[facility]CL[facility] [id number] [place] [address] Neutrophils (Bld) [#/Vol] 3.52 10*3/uL Normal 1.45-7.50 [facility] Comment on above: Order Comment: Speci men Type: BLOOD SPECIMENOrdering Facility: [facility] Address: [address] [place] [address] Performed By: #### 5 7021-8 ####[facility]CL[facility] [id number] [place] [address] Neutrophils/100 WBC (Bld) 74.0 % Normal [facility] Comment on above: Order Comment: Speci men Type: BLOOD SPECIMENOrdering Facility: [facility] Address: [address] [place] [address] Performed By: #### 5 7021-8 ####[facility]CL[facility] [id number] [place] [address] Nucleated RBC (Bld) [#/Vol] 10*3/uL Normal <0.01 [facility] Comment on above: Order Comment: Speci men Type: BLOOD SPECIMENOrdering Facility: [facility] Address: [address] [place] [address] Performed By: #### 5 7021-8 ####[facility] [id number] [place] [address] Nucleated RBC/100 WBC (Bld) [Ratio] 0.0 /100 WBC Normal [facility] Comment on above: Order Comment: Speci men Type: BLOOD SPECIMENOrdering Facility: [facility] Address: [address] [place], [place] [address] Performed By: #### 5 7021-8 ####[facility] [id number] [place] [address] Platelet mean volume (Bld) [Entitic vol] 9.3 fL Normal 9.0-12.7 [facility] Comment on above: Order Comment: Speci men Type: BLOOD SPECIMENOrdering Facility: [facility] Address: [address] [place] [address] Performed By: #### 5 7021-8 ####[facility] LABIA [id number] [place] [address] Platelets (Bld) [#/Vol] 199 10*3/uL Normal 150-400 [facility] Comment on above: Order Comment: Speci men Type: BLOOD SPECIMENOrdering Facility: [facility] Address: [address] [place] [address] Performed By: #### 5 7021-8 ####[facility] [id number] [place] [address] RBC (Bld) [#/Vol] 3.87 10*6/uL Low 3.90-5.20 [facility] Comment on above: Order Comment: Speci men Type: BLOOD SPECIMENOrdering Facility: [facility] Address: [address] [place] [address] Performed By: #### 5 7021-8 ####[facility] LABIA [id number] [place] [address] WBC (Bld) [#/Vol] 4.76 10*3/uL Normal 3.70-11.00 [facility] Comment on above: Order Comment: Speci men Type: BLOOD SPECIMENOrdering Facility: [facility] Address: [address] [place] [address] [place] [address] Performed By: #### 5 7021-8 ####[facility] [id number] [place] [address] Comprehensive metabolic 2000 panelOrdered By: Louise Cuello on 04-02-2024 Albumin [Mass/Vol] 4.7 g/dL 3.9 - 4.9 g/dL [facility] ALP [Catalytic activity/Vol] 117 U/L 34 - 123 U/L [facility] ALT [Catalytic activity/Vol] 10 U/L 7 - 38 U/L [facility] Anion gap [Moles/Vol] 12 mmol/L 8 - 15 mmol/L [facility] AST [Catalytic activity/Vol] 13 U/L 13 - 35 U/L [facility] Bilirubin [Mass/Vol] 0.4 mg/dL 0.2 - 1.3 mg/dL [facility] Calcium [Mass/Vol] 9.6 mg/dL 8.5 - 10. 2 mg/dL [facility] Chloride [Moles/Vol] 110 mmol/L High 98 - 107 mmol/L [facility] CO2 [Moles/Vol] 21 mmol/L Low 22 - 30 mmol/L [facility] Creatinine [Mass/Vol] 0.99 mg/dL High 0.58 - 0.96 mg/dL [facility] GFR/1.73 sq M.predicted among non-blacks MDRD (S/P/Bld) [Vol rate/Area] 67 mL/min/{1.73_m2} - PINF [facility] Comment on above: Estimated Glomerular Filtration Rate (eGFR) is calculated using the 2020 CKD-EPI creatinine equation. This equation utilizes serum creatinine, sex, and age as parameters. The creatinine assay has traceable calibration to isotope dilution-mass spectrometry. Refer to KDIGO guidelines for clinical interpretation. In patients with unstable renal function, e.g. those with acute kidney injury, the eGFR may not accurately reflect actual GFR. Glucose [Mass/Vol] 102 mg/dL High 74 - 99 mg/dL [facility] Comment on above: The [place] Diabete s Association (ADA) provides guidance for cutoff values for fasting glucose and random glucose. The ADA defines fasting as no caloric intake for at least 8 hours. Fasting plasma glucose results between 100 to 125 mg/dL indicate increased risk for diabetes (prediabetes). Fasting plasma glucose results greater than or equal to 126 mg/dL meet the criteria for diagnosis of diabetes. In the absence of unequivocal hyperglycemia, results should be confirmed by repeat testing. In a patient with classic symptoms of hyperglycemia or hyperglycemic crisis, random plasma glucose results greater than or equal to 200 mg/dL meet the criteria for diagnosis of diabetes. Reference: Standards of Medical Care in Diabetes 2016, [place] Diabetes Association. Diabetes Care. 2016.39(Suppl 1). Interpretation and review of laboratory results Abnormal [facility] Potassium [Moles/Vol] 3.5 mmol/L Low 3.7 - 5.1 mmol/L [facility] Protein [Mass/Vol] 7.0 g/dL 6.3 - 8.0 g/dL [facility] Sodium [Moles/Vol] 143 mmol/L 136 - 144 mmol/L [facility] Urea nitrogen [Mass/Vol] 13 mg/dL 7 - 21 mg/dL [facility] Comprehensive metabolic 2000 panelon 04-02-2024 Albumin [Mass/Vol] 4.7 g/dL Normal 3.9-4.9 [facility] Comment on above: Order Comment: Speci men Type: BLOOD SPECIMENOrdering Facility: [facility] Address: [address] [place] [address] Performed By: #### 2 4323-8, 2531-0 ####[facility]CL[facility] [id number] [place] [address] ALP [Catalytic activity/Vol] 117 U/L Normal 34-123 [facility] Comment on above: Order Comment: Speci men Type: BLOOD SPECIMENOrdering Facility: [facility] Address: [address] [place] [address] Performed By: #### 2 4323-8, 2531-0 ####[facility]CL[facility] [id number] [place] [address] ALT [Catalytic activity/Vol] 10 U/L Normal 7-38 [facility] Comment on above: Order Comment: Speci men Type: BLOOD SPECIMENOrdering Facility: [facility] Address: [address] [place] [address] Performed By: #### 2 4323-8, 2531-0 ####[facility]CL[facility] [id number] [place] [address] Anion gap [Moles/Vol] 12 mmol/L Normal 8-15 [facility] Comment on above: Order Comment: Speci men Type: BLOOD SPECIMENOrdering Facility: [facility] Address: [address] [place] [address] Performed By: #### 2 432-8, 2531-0 ####[facility]CL[facility] [id number] [place] [address] AST [Catalytic activity/Vol] 13 U/L Normal 13-35 [facility] Comment on above: Order Comment: Speci men Type: BLOOD SPECIMENOrdering Facility: [facility] Address: [address] [place] [address] Performed By: #### 2 432-8, 2531-0 ####[facility]CL[facility] [id number] [place] [address] Bilirubin [Mass/Vol] 0.4 mg/dL Normal 0.2-1.3 [facility] Comment on above: Order Comment: Speci men Type: BLOOD SPECIMENOrdering Facility: [facility] Address: [address] [place] [address] Performed By: #### 2 4323-8, 2531-0 ####[facility]CL[facility] [id number] [place] [address] Calcium [Mass/Vol] 9.6 mg/dL Normal 8.5-10.2 [facility] Comment on above: Order Comment: Speci men Type: BLOOD SPECIMENOrdering Facility: [facility] Address: [address] [place], [place] [address] Performed By: #### 2 4323-8, 2532-0 ####[facility]CL[facility] [id number] [place] [address] Chloride [Moles/Vol] 110 mmol/L High 98-107 [facility] Comment on above: Order Comment: Speci men Type: BLOOD SPECIMENOrdering Facility: [facility] Address: [address] [place] [address] Performed By: #### 2 4323-8, 0 ####[facility]CLIA [id number] [place] [address] CO2 [Moles/Vol] 21 mmol/L Low 22-30 [facility] Comment on above: Order Comment: Speci men Type: BLOOD SPECIMENOrdering Facility: [facility] Address: [address] [place] [address] Performed By: #### 2 4323-8, ####[facility]CLIA [id number] [place] [address] Creatinine [Mass/Vol] 0.99 mg/dL High 0.58-0.96 [facility] Comment on above: Order Comment: Speci men Type: BLOOD SPECIMENOrdering Facility: [facility] Address: [address] [place] [address] Performed By: #### 2 4323-8, ####[facility]CLIA [id number] [place] [address] Creatinine and Glomerular filtration rate.predicted panel (S/P/Bld) 67 mL/min/1.73m??? Normal >=60 [facility] Comment on above: Order Comment: Speci men Type: BLOOD SPECIMENOrdering Facility: [facility] Address: [address] [place] [address] Result Comment: Johanna mated Glomerular Filtration Rate (eGFR) is calculated using the 2020 CKD-EPI creatinine equation. This equation utilizes serum creatinine, sex, and age as parameters. The creatinine assay has traceable calibration to isotope dilution-mass spectrometry. Refer to KDIGO guidelines for clinical interpretation. In patients with unstable renal function, e.g. those with acute kidney injury, the eGFR may not accurately reflect actual GFR. Performed By: #### 2 4323, ####[facility]CLIA [id number] [place] [address] Glucose [Mass/Vol] 102 mg/dL High 74-99 [facility] Comment on above: Order Comment: Speci men Type: BLOOD SPECIMENOrdering Facility: [facility] Address: [address] [place], [place] [address] Result Comment: The [place] Diabetes Association (ADA) provides guidance for cutoff values for fasting glucose and random glucose. The ADA defines fasting as no caloric intake for at least 8 hours. Fasting plasma glucose results between 100 to 125 mg/dL indicate increased risk for diabetes (prediabetes). Fasting plasma glucose results greater than or equal to 126 mg/dL meet the criteria for diagnosis of diabetes. In the absence of unequivocal hyperglycemia, results should be confirmed by repeat testing. In a patient with classic symptoms of hyperglycemia or hyperglycemic crisis, random plasma glucose results greater than or equal to 200 mg/dL meet the criteria for diagnosis of diabetes. Reference: Standards of Medical Care in Diabetes 2016, [place] Diabetes Association. Diabetes Care. 2016.39(Suppl 1). Performed By: #### 2 4328, ####[facility]CLIA [id number] [place] [address] Potassium [Moles/Vol] 3.5 mmol/L Low 3.7-5.1 [facility] Comment on above: Order Comment: Speci men Type: BLOOD SPECIMENOrdering Facility: [facility] Address: [address] [place] [address] Performed By: #### 2 4328, ####[facility]CLIA [id number] [place] [address] Protein [Mass/Vol] 7.0 g/dL Normal 6.3-8.0 [facility] Comment on above: Order Comment: Speci men Type: BLOOD SPECIMENOrdering Facility: [facility] Address: [address] [place], [place] [address] Performed By: #### 2 43210-02, ####[facility] LABCLIA [id number] [place] [address] Sodium [Moles/Vol] 143 mmol/L Normal 136-144 [facility] Comment on above: Order Comment: Speci men Type: BLOOD SPECIMENOrdering Facility: [facility] Address: [address] [place] [address] Performed By: #### 2 4323-8, 2532-0 ####[facility] LABCLIA [id number] [place] [address] Urea nitrogen [Mass/Vol] 13 mg/dL Normal 7-21 [facility] Comment on above: Order Comment: Speci men Type: BLOOD SPECIMENOrdering Facility: [facility] Address: [address] [place] [address] Performed By: #### 2 4323-8, 2532-0 ####[facility] LABCLIA [id number] [place] [address] GLUCOSE, BLOOD (POC)on 04-02 Glucose [Mass/Vol] 100 mg/dL Abnormal 74 - 99 mg/dL [facility] Comment on above: Location:[facility], [address] , [place], [place], [address] The Accu-Chek Inform II glucose meter has not been approved for testing on patients receiving intensive medical intervention or therapy and results from this point of care glucose test should not be used for patient management decisions in these cases. Inaccurate results may also occur from other interfering factors, such as N-acetylcysteine (blood concentrations of greater than 5mg/dL), galactose, extremes of hematocrit (<10 or >65), or high doses of ascorbic acid (vitamin C) greater than 3mg/dL. Consider alternate testing mechanisms (e.g. core lab, blood gas instrument) in the above situations. Interpretation and review of laboratory results Abnormal [facility] LACTATE DEHYDROGENASEon LDH [Catalytic activity/Vol] 184 U/L 135 - 214 U/L [facility] LDH SerPl-cCncon 04-02-2024 LDH [Catalytic activity/Vol] 184 U/L Normal 135-214 [facility] Comment on above: Order Comment: Speci men Type: BLOOD SPECIMENOrdering Facility: [facility] Address: [facility] [place] [address] Performed By: #### 2 4323-8, 2532-0 ####[facility] LABCLIA [id number] [place] [address] LDH [Catalytic activity/Vol] on 04-02-2024 Interpretation and review of laboratory results Normal [facility] NM PET/CT WHOLE BODY SUBQon 04-02-2024 NM PET/CT WHOLE BODY SUBQ * * *Final Report* * * DATE OF EXAM: Apr 02 2024 1:36PM NRN [id number] - NM PET/CT WHOLE BODY SUBQ / PROCEDURE REASON: multiple diagnoses * * * * Physician Interpretation * * * * RESULT: EXAMINATION: BODY FDG PET-CT CLINICAL HISTORY: Melanoma EXAM CATEGORY: Subsequent treatment strategy. TECHNIQUE: Radiopharmaceutical was administered intravenously followed by PET imaging from the skull vertex to feet. Free breathing, low dose CT of the same body region was acquired without IV contrast for attenuation correction and anatomic localization. Unenhanced imaging is limited for the evaluation of some pathology and the acquired CT was not designed to produce diagnostic CT scan quality. Physiologic/non-patholo gic uptake in some body regions could confound or obscure some pathology. * CT Dose-Length Product (DLP): 287 mGy*cm * CT Dose Reduction Employed: Yes * Blood glucose: 100 mg/dL * Injected activity: 7.2 mCi * Uptake Time: 55 minutes * Radiopharmaceutical: N04-Adfmalxlbzluqeeycg (FDG) COMPARISON: PET/CT 12/12/2023 RESULT: REFERENCES: FDG uptake is used as a surrogate marker for glucose metabolism. All reported standardized uptake values represent maximum SUV (SUVmax) per body weight, unless otherwise specified. SUV reference values, as follows: * Blood Pool (Descending Aorta): SUVmax 2.5 * Background Liver: SUVmax 2.8; SUVmean 2.2 Localizer Images: No additional findings. HEAD AND NECK: Head: No radiotracer avid lesion or mass effect in the imaged intracranial compartment. Aerodigestive Tract: No radiotracer avid lesion. Lymph Nodes: No radiotracer avid lymphadenopathy. Neck Soft Tissues: No radiotracer avid thyroid nodule. CHEST: Lungs and Pleura: No radiotracer avid mass, nodule, or consolidation. No pleural effusion. Scattered subcentimeter opacities below the resolution for PET. Lymph Nodes: No radiotracer avid lymphadenopathy. Surgical changes in the bilateral axillary regions. Mediastinum: No radiotracer avid mass. Cardiovascular: Blood pool activity. No pericardial effusion. Normal heart size. Right-sided chest port. Chest Wall: No radiotracer avid soft tissue lesion. Left mastectomy. ABDOMEN AND PELVIS: Hepatobiliary: No radiotracer avid lesion. No measurable mass. Spleen: No radiotracer avid lesion. No splenomegaly. Pancreas: No radiotracer avid lesion. Adrenals: No radiotracer avid nodule. Urinary Tract: Physiologic radiotracer excretion in the renal collecting systems and urinary bladder. No hydronephrosis. GI Tract: No radiotracer avid lesion. No bowel dilation. Linear activity in the esophagus possibly inflammatory. Peritoneum: No radiotracer avid lesion. No ascites. Lymph Nodes: No radiotracer avid lymphadenopathy. Vasculature: Blood pool activity. Pelvic Organs: No radiotracer avid lesion. Activity in the vulvar region can be related to tracer excretion or inflammation MUSCULOSKELETAL: Bones: No radiotracer avid lesion. No lytic or sclerotic lesion. Soft Tissues: No radiotracer avid lesion. IMPRESSION: PRIMARY: No FDG avid neoplasm. Postsurgical changes. LYMPH NODES: No metabolically active lymphadenopathy. METASTASES: No metabolically active metastases. Transcribe Date/Time: Apr 02 2024 4:52P Dictated by: ANDREW CUEVAS MD This examination was interpreted and the report reviewed and electronically signed by: ANDREW CUEVAS MD on Apr 02 2024 5:16PM EST Thank you for allowing us to participate in the care of your patient. Should there be any questions regarding this interpretation, please call [phone]. If you are unable to reach us at the number above, please feel free to contact [facility]Radiology at [phone]. [id number] Normal [facility] PET+CT Whole body Bone W 18F -NaF Emma 04-02-2024 IMPRESSION: PRIMARY: No FDG avid neoplasm. Postsurgical changes. LYMPH NODES: No metabolically active lymphadenopathy. METASTASES: No metabolically active metastases. Transcribe Date/Time: Apr 02 2024 4:52P Dictated by: ANDREW CUEVAS MD This examination was interpreted and the report reviewed and electronically signed by: ANDREW CUEVAS MD on Apr 02 2024 5:16PM EST Thank you for allowing us to participate in the care of your patient. Should there be any questions regarding this interpretation, please call [phone]. If you are unable to reach us at the number above, please feel free [facility] at [phone]. DIVISION OF RADIOLOGY * * *Final Report* * * DATE OF EXAM: Apr 02 2024 1:36PM NRN [id number] - NM PET/CT WHOLE BODY SUBQ / PROCEDURE REASON: multiple diagnoses * * * * Physician Interpretation * * * * RESULT: EXAMINATION: BODY FDG PET-CT CLINICAL HISTORY: Melanoma EXAM CATEGORY: Subsequent treatment strategy. TECHNIQUE: Radiopharmaceutical was administered intravenously followed by PET imaging from the skull vertex to feet. Free breathing, low dose CT of the same body region was acquired without IV contrast for attenuation correction and anatomic localization. Unenhanced imaging is limited for the evaluation of some pathology and the acquired CT was not designed to produce diagnostic CT scan quality. Physiologic/non-patholo gic uptake in some body regions could confound or obscure some pathology. * CT Dose-Length Product (DLP): 287 mGy*cm * CT Dose Reduction Employed: Yes * Blood glucose: 100 mg/dL * Injected activity: 7.2 mCi * Uptake Time: 55 minutes * Radiopharmaceutical: W21-Qadzdetlwpnxhysbeh (FDG) COMPARISON: PET/CT 12/12/2023 RESULT: REFERENCES: FDG uptake is used as a surrogate marker for glucose metabolism. All reported standardized uptake values represent maximum SUV (SUVmax) per body weight, unless otherwise specified. SUV reference values, as follows: * Blood Pool (Descending Aorta): SUVmax 2.5 * Background Liver: SUVmax 2.8; SUVmean 2.2 Localizer Images: No additional findings. HEAD AND NECK: Head: No radiotracer avid lesion or mass effect in the imaged intracranial compartment. Aerodigestive Tract: No radiotracer avid lesion. Lymph Nodes: No radiotracer avid lymphadenopathy. Neck Soft Tissues: No radiotracer avid thyroid nodule. CHEST: Lungs & Pleura: No radiotracer avid mass, nodule, or consolidation. No pleural effusion. Scattered subcentimeter opacities below the resolution for PET. Lymph Nodes: No radiotracer avid lymphadenopathy. Surgical changes in the bilateral axillary regions. Mediastinum: No radiotracer avid mass. Cardiovascular: Blood pool activity. No pericardial effusion. Normal heart size. Right-sided chest port. Chest Wall: No radiotracer avid soft tissue lesion. Left mastectomy. ABDOMEN AND PELVIS: Hepatobiliary: No radiotracer avid lesion. No measurable mass. Spleen: No radiotracer avid lesion. No splenomegaly. Pancreas: No radiotracer avid lesion. Adrenals: No radiotracer avid nodule. Urinary Tract: Physiologic radiotracer excretion in the renal collecting systems and urinary bladder. No hydronephrosis. GI Tract: No radiotracer avid lesion. No bowel dilation. Linear activity in the esophagus possibly inflammatory. Peritoneum: No radiotracer avid lesion. No ascites. Lymph Nodes: No radiotracer avid lymphadenopathy. Vasculature: Blood pool activity. Pelvic Organs: No radiotracer avid lesion. Activity in the vulvar region can be related to tracer excretion or inflammation MUSCULOSKELETAL: Bones: No radiotracer avid lesion. No lytic or sclerotic lesion. Soft Tissues: No radiotracer avid lesion. DIVISION OF RADIOLOGY Provider, [facility] - 04/02/2024 * * *Final Report* * * DATE OF EXAM: Apr 02 2024 1:36PM NRN [id number] - NM PET/CT WHOLE BODY SUBQ / PROCEDURE REASON: multiple diagnoses * * * * Physician Interpretation * * * * RESULT: EXAMINATION: BODY FDG PET-CT CLINICAL HISTORY: Melanoma EXAM CATEGORY: Subsequent treatment strategy. TECHNIQUE: Radiopharmaceutical was administered intravenously followed by PET imaging from the skull vertex to feet. Free breathing, low dose CT of the same body region was acquired without IV contrast for attenuation correction and anatomic localization. Unenhanced imaging is limited for the evaluation of some pathology and the acquired CT was not designed to produce diagnostic CT scan quality. Physiologic/non-patholo gic uptake in some body regions could confound or obscure some pathology. * CT Dose-Length Product (DLP): 287 mGy*cm * CT Dose Reduction Employed: Yes * Blood glucose: 100 mg/dL * Injected activity: 7.2 mCi * Uptake Time: 55 minutes * Radiopharmaceutical: S50-Gppiocgjbumjdokfit (FDG) COMPARISON: PET/CT 12/12/2023 RESULT: REFERENCES: FDG uptake is used as a surrogate marker for glucose metabolism. All reported standardized uptake values represent maximum SUV (SUVmax) per body weight, unless otherwise specified. SUV reference values, as follows: * Blood Pool (Descending Aorta): SUVmax 2.5 * Background Liver: SUVmax 2.8; SUVmean 2.2 Localizer Images: No additional findings. HEAD AND NECK: Head: No radiotracer avid lesion or mass effect in the imaged intracranial compartment. Aerodigestive Tract: No radiotracer avid lesion. Lymph Nodes: No radiotracer avid lymphadenopathy. Neck Soft Tissues: No radiotracer avid thyroid nodule. CHEST: Lungs & Pleura: No radiotracer avid mass, nodule, or consolidation. No pleural effusion. Scattered subcentimeter opacities below the resolution for PET. Lymph Nodes: No radiotracer avid lymphadenopathy. Surgical changes in the bilateral axillary regions. Mediastinum: No radiotracer avid mass. Cardiovascular: Blood pool activity. No pericardial effusion. Normal heart size. Right-sided chest port. Chest Wall: No radiotracer avid soft tissue lesion. Left mastectomy. ABDOMEN AND PELVIS: Hepatobiliary: No radiotracer avid lesion. No measurable mass. Spleen: No radiotracer avid lesion. No splenomegaly. Pancreas: No radiotracer avid lesion. Adrenals: No radiotracer avid nodule. Urinary Tract: Physiologic radiotracer excretion in the renal collecting systems and urinary bladder. No hydronephrosis. GI Tract: No radiotracer avid lesion. No bowel dilation. Linear activity in the esophagus possibly inflammatory. Peritoneum: No radiotracer avid lesion. No ascites. Lymph Nodes: No radiotracer avid lymphadenopathy. Vasculature: Blood pool activity. Pelvic Organs: No radiotracer avid lesion. Activity in the vulvar region can be related to tracer excretion or inflammation MUSCULOSKELETAL: Bones: No radiotracer avid lesion. No lytic or sclerotic lesion. Soft Tissues: No radiotracer avid lesion. IMPRESSION IMPRESSION: PRIMARY: No FDG avid neoplasm. Postsurgical changes. LYMPH NODES: No metabolically active lymphadenopathy. METASTASES: No metabolically active metastases. Transcribe Date/Time: Apr 02 2024 4:52P Dictated by: ANDREW CUEVAS MD This examination was interpreted and the report reviewed and electronically signed by: ANDREW CUEVAS MD on Apr 02 2024 5:16PM EST Thank you for allowing us to participate in the care of your patient. Should there be any questions regarding this interpretation, please call [phone]. If you are unable to reach us at the number above, please feel free to contact [facility] at [phone]. [facility] Rad[facility] Study observation (narrative) [facility] PET+CT Whole body Bone W 18F -NaF IVOrdered By: [facility]cf Provider on 04-02-2024 [facility] DBT Breast - right diagnosti c for implanton 03-30-2024 IMPRESSION: There is no mammographic evidence of malignancy. A return to screening mammogram in 1 year is recommended. BI-RADS Category 2: Benign RISK: Based on the Tyrer-Cuzick (TC) risk assessment model, this patient has a 11.6% lifetime risk of developing breast cancer, meaning they are at average risk for developing breast cancer.However, this is only an estimate based on available history provided on the patient's questionnaire.We encourage all patients talk with their providers about these results, further recommendations for managing breast health, and appropriate supplemental screening options if the patient has dense breast tissue. Tipple Operator: BETH Transcribe Date/Time: Mar 30 2024 11:46A Dictated by : MARYSE GONZALEZ MD This examination was interpreted and the report reviewed and electronically signed by: MARYSE GONZALEZ MD on Mar 30 2024 12:31PM EST [facility] * * *Final Report* * * DATE OF EXAM: Mar 30 2024 12:11PM [facility] 0629 - SAMEERA GÉNESISG Greg MOLINA RT / PROCEDURE REASON: multiple diagnoses * * * * Physician Interpretation * * * * RESULT: [facility] [id number] [place] [address] HISTORY: Patient is 58 years old and is seen for diagnostic exam. The patient has history of left mastectomy due to metastatic melanoma in 2017. COMPARISON STUDIES: The present examination has been compared to a prior imaging study dated 10/06/2020 (mammogram). MAMMOGRAM TECHNIQUE: The study was acquired using full field digital technology and interpreted from soft copy. Digital Breast Tomosynthesis (DBT) images were obtained and used to assist in the interpretation of this examination. Computer-aided detection was utilized by the radiologist in the interpretation of this examination. MAMMOGRAM FINDINGS: The breast is heterogeneously dense, which may obscure small masses. There are post-operative changes in the right axilla. Chemotherapy port projects over the right axilla. No suspicious masses, calcifications or other abnormalities are seen in the right breast. [facility] Provider, Andreea Winston [facility] - 03/30/2024 * * *Final Report* * * DATE OF EXAM: Mar 30 2024 12:11PM [facility] 0629 - SAMEERA KIM MOLINA RT / PROCEDURE REASON: multiple diagnoses * * * * Physician Interpretation * * * * RESULT: [facility] [id number] [place] [address] HISTORY: Patient is 58 years old and is seen for diagnostic exam. The patient has history of left mastectomy due to metastatic melanoma in 2017. COMPARISON STUDIES: The present examination has been compared to a prior imaging study dated 10/06/2020 (mammogram). MAMMOGRAM TECHNIQUE: The study was acquired using full field digital technology and interpreted from soft copy. Digital Breast Tomosynthesis (DBT) images were obtained and used to assist in the interpretation of this examination. Computer-aided detection was utilized by the radiologist in the interpretation of this examination. MAMMOGRAM FINDINGS: The breast is heterogeneously dense, which may obscure small masses. There are post-operative changes in the right axilla. Chemotherapy port projects over the right axilla. No suspicious masses, calcifications or other abnormalities are seen in the right breast. IMPRESSION IMPRESSION: There is no mammographic evidence of malignancy. A return to screening mammogram in 1 year is recommended. BI-RADS Category 2: Benign RISK: Based on the Tyrer-Cuzick (TC) risk assessment model, this patient has a 11.6% lifetime risk of developing breast cancer, meaning they are at average risk for developing breast cancer.However, this is only an estimate based on available history provided on the patient's questionnaire.We encourage all patients talk with their providers about these results, further recommendations for managing breast health, and appropriate supplemental screening options if the patient has dense breast tissue. Tipple Operator: BETH Transcribe Date/Time: Mar 30 2024 11:46A Dictated by : MARYSE GONZALEZ MD This examination was interpreted and the report reviewed and electronically signed by: MARYSE GONZALEZ MD on Mar 30 2024 12:31PM EST [facility] Rad[facility] Study observation (narrative) [facility] DBT Breast - right diagnosti c for implantOrdered By: [facility]cf Provider on 03-30-2024 [facility] SAMEERA DIAG W TRACY RTon 024 SAMEERA DIAG W TRACY RT * * *Final Report* * * DATE OF EXAM: Mar 30 2024 12:11PM [facility] 0629 - SAMEERA GÉNESISG W TRACY RT / PROCEDURE REASON: multiple diagnoses * * * * Physician Interpretation * * * * RESULT: [facility] [id number] [place] [address] HISTORY: Patient is 58 years old and is seen for diagnostic exam. The patient has history of left mastectomy due to metastatic melanoma in 2017. COMPARISON STUDIES: The present examination has been compared to a prior imaging study dated 10/06/2020 (mammogram). MAMMOGRAM TECHNIQUE: The study was acquired using full field digital technology and interpreted from soft copy. Digital Breast Tomosynthesis (DBT) images were obtained and used to assist in the interpretation of this examination. Computer-aided detection was utilized by the radiologist in the interpretation of this examination. MAMMOGRAM FINDINGS: The breast is heterogeneously dense, which may obscure small masses. There are post-operative changes in the right axilla. Chemotherapy port projects over the right axilla. No suspicious masses, calcifications or other abnormalities are seen in the right breast. IMPRESSION: There is no mammographic evidence of malignancy. A return to screening mammogram in 1 year is recommended. BI-RADS Category 2: Benign RISK: Based on the Tyrer-Cuzick (TC) risk assessment model, this patient has a 11.6% lifetime risk of developing breast cancer, meaning they are at average risk for developing breast cancer.However, this is only an estimate based on available history provided on the patient's questionnaire.We encourage all patients talk with their providers about these results, further recommendations for managing breast health, and appropriate supplemental screening options if the patient has dense breast tissue. Tipple Operator: BETH Transcribe Date/Time: Mar 30 2024 11:46A Dictated by : MARYSE GONZALEZ MD This examination was interpreted and the report reviewed and electronically signed by: MARYSE GONZALEZ MD on Mar 30 2024 12:31PM EST [id number] [facility] CNOVSPon 12-19-2023 CNOVSP Visit (SP) Office ([place]) LORENEKENNEDY RABAGO ([id number]) 1965 F Date Time Provider Department 12/19/23 10:00 AM THIAGO QUINTANILLA During your visit today, we recorded the following information about you: Temperature Pulse Respiration Blood pressure 97.3 degrees 69/minute 18/minute 189/100 Weight 61.1 kg Thiago Quintanilla MD 12/20/2023 4:08 PM Signed NAME: Kennedy Paulson CLINIC NO.: [id number] DATE OF SERVICE: December 19, 2023 (Marika) Some elements in this clinic note that are critical to medical decision making have been carefully reviewed and included from a prior clinic note dated: August 22, 2023 (Marika) Referring Provider: Arabella Lynch DO Additional Clinicians involved in Kennedy Paulson's care: CC: Metastatic BRAF + Melanoma ASSESSMENT: She originally had L breast mastectomy for melanoma in [address] Mayorga. 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 Started Zelboraf and Cotellic 08/2018. Has maintained an excellent response measured on PET CT - through 04/08/2023 We discussed the potential for failure of BRAF inhibition occurring around 12-18 months but this hasn't been the case. Suspicious left cervical LN - left neck dissection resulted in benign findings with anthracotic changes only Kidney function varies because she can't reliably stay hydrated PLAN: Labs, PET, Mammogram of right breast in 14 weeks RTC in 16 weeks to review Exam on return Rx sent for nicotine lozenges Continue Zelboraf and Cotellic - HPI: CASE HISTORY: Reverse Chronological Order 12/12/2023 - PET/CT: CHEST: No FDG avid neoplastic process. Stable tiny lung nodules below PET resolution likely benign. HEAD/NECK, ABDOMEN/PELVIS, MUSCULOSKELETAL: No FDG avid neoplastic process. 08/08/2023 - PET/CT: Neck: No suspicious hypermetabolic foci Chest: No evidence of FDG avid neoplastic process Abdomen and pelvis: No evidence of FDG avid neoplastic process Skeleton: No hypermetabolic osseous lesions 04/08/2023 - PET/CT remains negative. 10/23/2022 -PET remains negative - small focus of cutaneous activity in the right lateral distal forearm. Possibly inflammatory. 01/15/2022 - PET/CT: NECK: No FDG avid neoplastic process. CHEST: No FDG avid neoplastic process. Several subcentimeter pulmonary nodules stable since at least PET/CT 08/26/2018. Note that PET/CT is not sensitive for pulmonary nodules less than 8 mm. ABDOMEN/PELVIS: No FDG avid neoplastic process. EXTREMITIES/SKELETON: No suspicious FDG avid osseous process. 09/13/2021 - PET CT: NECK: interval resection of previously noted hypermetabolic left cervical lymph node. No new or enlarging hypermetabolic cervical lymphadenopathy. CHEST: stable postoperative changes of left mastectomy and bilateral axillary lymphadenectomy. No hypermetabolic soft tissue in the operative bed to suggest residual/recurrent neoplasm. PATCHY GROUNDGLASS ATTENUATION NON-FDG AVID RIGHT UPPER LOBE SUBPLEURAL OPACITY LATERALLY, NEW SINCE 04/03/2021. SUGGEST FOLLOW UP NONCONTRAST CHEST CT IN 3 MONTHS FOR ADDITIONAL EVALUATION. FEW SMALL (<0.6 CM) NON-FDG AVID PULMONARY NODULES, STABLE SINCE 12/13/2020. No hypermetabolic thoracic lymphadenopathy. ABDOMEN/PELVIS: no fdg avid neoplastic process. No hypermetabolic mass, adenopathy, or fluid collection. Stable nonobstructing right renal calculi. EXTREMITIES/SKELETON: no fdg avid neoplastic osseous process. 04/03/2021 - PET/CT: Head and Neck: New 0.8 cm hypermetabolic left cervical lymph node, presumably metastatic. Chest: No evidence of FDG avid neoplastic process. Multiple small (less than 6 mm) pulmonary nodules are stable compared to 12/13/2020, and not FDG avid. Stable findings, as described Abdomen and pelvis: No evidence of FDG avid neoplastic process. Stable nonobstructing right renal calculi measuring up to 0.5 cm. No hydronephrosis. Musculoskeletal: No neoplastic hypermetabolic lesions 01/03/2021 - Echo from TB: Normal EF 56% 12/13/2020 PET/CT: Neck: No suspicious hypermetabolic foci Chest: No evidence of FDG avid neoplastic process Abdomen and pelvis: No evidence of FDG avid neoplastic process Skeleton: No hypermetabolic osseous lesions 08/23/2020 PET/CT: HEAD AND NECK: No FDG avid neoplastic process. No mass, adenopathy, or fluid collection. CHEST: No FDG avid neoplastic process. No mass, adenopathy, or fluid collection. Stable tiny nodularity in both lungs unchanged. Tree-in-bud clustered nodularity anterolateral lingula not changed likely inflammatory. ABDOMEN/PELVIS: No FDG avid neoplastic process. No mass (more content not included)... Normal [facility] PET+CT Whole body Bone W 18F -NaF Emma 12-18-2023 IMPRESSION: HEAD/NECK: * No FDG avid neoplastic process. CHEST: * No FDG avid neoplastic process. Stable tiny lung nodules below PET resolution likely benign. ABDOMEN/PELVIS: * No FDG avid neoplastic process. MUSCULOSKELETAL: * No FDG avid neoplastic process. Transcribe Date/Time: Dec 18 2023 11:10A Dictated by: CHELI TRUONG MD This examination was interpreted and the report reviewed and electronically signed by: CHELI TRUONG MD on Dec 18 2023 11:17AM EST Thank you for allowing us to participate in the care of your patient. Should there be any questions regarding this interpretation, please call [phone]. If you are unable to reach us at the number above, please feel free to contact [facility] at [phone]. DIVISION OF RADIOLOGY * * *Final Report* * * DATE OF EXAM: Dec 12 2023 1:56PM NRN [id number] - NM PET/CT WHOLE BODY SUBQ / PROCEDURE REASON: Malignant melanoma of skin (HCC) * * * * Physician Interpretation * * * * RESULT: EXAMINATION: BODY FDG PET-CT CLINICAL HISTORY: 58 years old Female with Malignant melanoma of skin (HCC) . INDICATION: Subsequent treatment strategy. TECHNIQUE: Radiopharmaceutical was administered IV followed about 60 minutes later by PET imaging from vertex to feet. Free breathing, low dose CT of the same body region was acquired without IV contrast for attenuation correction and anatomic localization. * CT Dose-Length Product (DLP): 266 mGy*cm * CT Dose Reduction Employed: Yes * Blood glucose (mg/dL): 99 * Radiopharmaceutical Dose: 7.2 mCi * Radiopharmaceutical: C40-Ndxpicgbyvtlxsfgsi (FDG) COMPARISON: 08/08/2023 CORRELATION: No intervening imaging RESULT: REFERENCES: SUV reference values: * Blood pool (descending aorta) activity: SUVmax 2.1 * Background liver activity: SUVmax 3.0; SUVmean 2.2 Health Nurse (topogram) images: Unremarkable. Notes and limitations: * Standardized uptake values indicate the highest activity concentration (SUVmax) at a given location but can be variable and are not absolute. * Physiologic/non-neoplas tic uptake is common in the brain, extraocular muscles, oral cavity, tonsils, salivary glands, vocal cords, myocardium, liver, GI tract, urinary tract, and bone marrow among others. Certain regions and organ systems can have more intense uptake, which could confound or obscure some pathology. * Unenhanced imaging is limited for the evaluation of some pathology and the acquired CT was not designed to produce or replace diagnostic CT scan quality. * PET-CT is often not sensitive for pulmonary nodules less than 8 mm. HEAD AND NECK: Imaged Head: Physiologic uptake in the brain with no definite evidence of focal abnormalities. Neck & Lymph Nodes: No abnormal uptake. Thyroid: No abnormal uptake. CHEST: Lungs & Airways: No FDG avid lung nodules. Small nodules like 0.3 cm right upper lobe (4:1677) stable. Pleura & Pericardium: No abnormal uptake. Cardiovascular: No abnormal uptake. Mediastinum & Lymph Nodes: No abnormal uptake. Status post left mastectomy and bilateral axillary lymphadenectomy. . ABDOMEN AND PELVIS: Hepatobiliary: No abnormal uptake. Spleen: No abnormal uptake. Pancreas: No abnormal uptake. Adrenals: No abnormal uptake. Urinary Tract: No abnormal uptake. GI Tract: No abnormal uptake. Peritoneum: No abnormal uptake. Vasculature: No abnormal uptake. Retroperitoneum & Lymph Nodes: No abnormal uptake. Pelvis: No abnormal uptake. MUSCULOSKELETAL: Osseous: No abnormal uptake. Degenerative changes. Soft Tissues: No abnormal uptake. DIVISION OF RADIOLOGY Provider, [facility] - 12/18/2023 * * *Final Report* * * DATE OF EXAM: Dec 12 2023 1:56PM NRN [id number] - NM PET/CT WHOLE BODY SUBQ / PROCEDURE REASON: Malignant melanoma of skin (HCC) * * * * Physician Interpretation * * * * RESULT: EXAMINATION: BODY FDG PET-CT CLINICAL HISTORY: 58 years old Female with Malignant melanoma of skin (HCC) . INDICATION: Subsequent treatment strategy. TECHNIQUE: Radiopharmaceutical was administered IV followed about 60 minutes later by PET imaging from vertex to feet. Free breathing, low dose CT of the same body region was acquired without IV contrast for attenuation correction and anatomic localization. * CT Dose-Length Product (DLP): 266 mGy*cm * CT Dose Reduction Employed: Yes * Blood glucose (mg/dL): 99 * Radiopharmaceutical Dose: 7.2 mCi * Radiopharmaceutical: T51-Tjmbsebxbihpfluibw (FDG) COMPARISON: 08/08/2023 CORRELATION: No intervening imaging RESULT: REFERENCES: SUV reference values: * Blood pool (descending aorta) activity: SUVmax 2.1 * Background liver activity: SUVmax 3.0; SUVmean 2.2 Health Nurse (topogram) images: Unremarkable. Notes and limitations: * Standardized uptake values indicate the highest activity concentration (SUVmax) at a given location but can be variable and are not absolute. * Physiologic/non-neoplas tic uptake is common in the brain, extraocular muscles, oral cavity, tonsils, salivary glands, vocal cords, myocardium, liver, GI tract, urinary tract, and bone marrow among others. Certain regions and organ systems can have more intense uptake, which could confound or obscure some pathology. * Unenhanced imaging is limited for the evaluation of some pathology and the acquired CT was not designed to produce or replace diagnostic CT scan quality. * PET-CT is often not sensitive for pulmonary nodules less than 8 mm. HEAD AND NECK: Imaged Head: Physiologic uptake in the brain with no definite evidence of focal abnormalities. Neck & Lymph Nodes: No abnormal uptake. Thyroid: No abnormal uptake. CHEST: Lungs & Airways: No FDG avid lung nodules. Small nodules like 0.3 cm right upper lobe (4:1677) stable. Pleura & Pericardium: No abnormal uptake. Cardiovascular: No abnormal uptake. Mediastinum & Lymph Nodes: No abnormal uptake. Status post left mastectomy and bilateral axillary lymphadenectomy. . ABDOMEN AND PELVIS: Hepatobiliary: No abnormal uptake. Spleen: No abnormal uptake. Pancreas: No abnormal uptake. Adrenals: No abnormal uptake. Urinary Tract: No abnormal uptake. GI Tract: No abnormal uptake. Peritoneum: No abnormal uptake. Vasculature: No abnormal uptake. Retroperitoneum & Lymph Nodes: No abnormal uptake. Pelvis: No abnormal uptake. MUSCULOSKELETAL: Osseous: No abnormal uptake. Degenerative changes. Soft Tissues: No abnormal uptake. IMPRESSION IMPRESSION: HEAD/NECK: * No FDG avid neoplastic process. CHEST: * No FDG avid neoplastic process. Stable tiny lung nodules below PET resolution likely benign. ABDOMEN/PELVIS: * No FDG avid neoplastic process. MUSCULOSKELETAL: * No FDG avid neoplastic process. Transcribe Date/Time: Dec 18 2023 11:10A Dictated by: CHELI TRUONG MD This examination was interpreted and the report reviewed and electronically signed by: CHELI TRUONG MD on Dec 18 2023 11:17AM EST Thank you for allowing us to participate in the care of your patient. Should there be any questions regarding this interpretation, please call [phone]. If you are unable to reach us at the number above, please feel free to contact [facility] at [phone]. [facility] PET+CT Whole body Bone W 18F -NaF IVOrdered By: Ccf Provider on 12-18-2023 [facility] 12-17-2023 KAPILN Telephone ([place]) KENNEDY PAULSON ([id number]) 1965 F Date Time Provider Department 12/17/23 LACY PEÑA During your visit today, we recorded the following information about you: Lacy Peña RN 12/17/2023 3:49 PM Signed Pt calling for her PET results. Results from 12/12/23 are still pending. Pt notified and verbalizes understanding. MICKI Monique Rebecca, RN 12/18/2023 1:14 PM Signed Results final. Call placed to pt to review. No answer. Message left requesting call back. MICKI Monique Rebecca, RN 12/18/2023 3:15 PM Signed Missed call from pt. Return call made to pt. No answer. Message left requesting call back. MICKI Monique Rebecca, RN 12/18/2023 3:17 PM Signed Pt notified of results. Explained to pt that Dr would review in greater detail at tomorrow's appointment. Pt verbalizes understanding. Lacy Peña RN Allergies As of Date: 12/17/2023 (No Known Allergies) Date Reviewed: 08/22/2023 Reviewed by: Vicki Hernandez MA - Fully Assessed Reason for Visit: Care Coordination [2848] Cmt: PET Results Prescriptions as of 12/18/2023 - COTELLIC 20 mg tab TAKE 3 TABLETS BY MOUTH ONCE DAILY AT THE SAME TIME FOR 21 DAYS OF A 28 DAY CYCLE. MAY TAKE WITH OR WITHOUT FOOD - vemurafenib (ZELBORAF) 240 mg tab TAKE 4 TABLETS BY MOUTH EVERY 12 HOURS. MAY TAKE WITH OR WITHOUT FOOD. STORE IN ORIGINAL CONTAINER. AVOID GRAPEFRUIT PRODUCTS Problem List As Of Date 12/17/2023 Noted Resolved Anemia [D64.9] 04/18/2016 Malignant neoplasm of female breast (HCC) [C50.*04/18/2016 Metastatic melanoma (HCC) [C43.9] 04/18/2016 Drug-induced constipation [K59.03] 08/24/2018 Tobacco use [Z72.0] 05/04/2021 Port-A-Cath in place [Z95.828] 05/04/2021 Nicotine use disorder, F17.2 [F17.200] 05/11/2021 Dehydration [E86.0] 06/05/2022 Malignant melanoma of torso excluding breast (H*04/16/2023 Chemotherapy-induced nausea [R11.0, T45.1X5A] 04/16/2023 Encounter Status:Closed by LACY PEÑA on 12/18/23 Normal [facility] CBC W Auto Differential pane l (Bld)on 12-12-2023 Basophils (Bld) [#/Vol[facility] Basophils/100 WBC (Bld) 0.4 % [facility] Differential cell count method Nom (Bld) Auto [facility] Eosinophils (Bld) [#/Vol] [facility] Eosinophils/100 WBC (Bld) 0.2 % [facility] Erythrocyte distribution width (RBC) [Ratio] 14.4 % 11.5 - 15.0 % [facility] Hematocrit (Bld) [Volume fraction] 35.3 % Low 36.0 - 46.0 % [facility] Hemoglobin (Bld) [Mass/Vol] 11.6 g/dL 11.5 - 15.5 g/dL [facility] Immature granulocytes (Bld) [#/Vol] NINF [facility] Immature granulocytes/100 WBC (Bld) 0.2 % [facility] Interpretation and review of laboratory results Abnormal [facility] Lymphocytes (Bld) [#/Vol] 1.40 10*3/uL [facility] Lymphocytes/100 WBC (Bld) 26.1 % [facility] MCH (RBC) [Entitic mass] 31.2 pg 26.0 - 34.0 pg [facility] MCHC (RBC) [Mass/Vol] 32.9 g/dL 30.5 - 36.0 g/dL [facility] MCV (RBC) [Entitic vol] 94.9 fL 80.0 - 100.0 fL [facility] Monocytes (Bld) [#/Vol] 0.59 10*3/uL [facility] Monocytes/100 WBC (Bld) 11.0 % [facility] Neutrophils (Bld) [#/Vol] 3.33 10*3/uL [facility] Neutrophils/100 WBC (Bld) 62.1 % [facility] Nucleated RBC (Bld) [#/Vol] NINF [facility] Nucleated RBC/100 WBC (Bld) [Ratio] 0.0 % /100 WBC [facility] Platelet mean volume (Bld) [Entitic vol] 9.4 fL 9.0 - 12.7 fL [facility] Platelets (Bld) [#/Vol] 209 10*3/uL [facility] RBC (Bld) [#/Vol] 3.72 10*6/uL Low 3.90 - 5.2 0 m/uL [facility] WBC (Bld) [#/Vol] 5.36 10*3/uL [facility] Basophils (Bld) [#/Vol] 10*3/uL Normal <0.11 [facility] Comment on above: Order Comment: Speci men Type: BLOOD SPECIMENOrdering Facility: [facility] Address: [address] [place] [address] Performed By: #### 5 7021-8 ####[facility]CL[facility] [id number] [place] [address] Basophils/100 WBC (Bld) 0.4 % Normal [facility] Comment on above: Order Comment: Speci men Type: BLOOD SPECIMENOrdering Facility: [facility] Address: [address] [place] [address] Performed By: #### 5 7021-8 ####[facility]CL[facility] [id number] [place] [address] Differential cell count method Nom (Bld) Auto Normal [facility] Comment on above: Order Comment: Speci men Type: BLOOD SPECIMENOrdering Facility: [facility] Address: [address] [place] [address] Performed By: #### 5 7021-8 ####[facility] [id number] [place] [address] Eosinophils (Bld) [#/Vol] 10*3/uL Normal <0.46 [facility] Comment on above: Order Comment: Speci men Type: BLOOD SPECIMENOrdering Facility: [facility] Address: [address] [place] [address] Performed By: #### 5 7021-8 ####[facility] [id number] [place] [address] Eosinophils/100 WBC (Bld) 0.2 % Normal [facility] Comment on above: Order Comment: Speci men Type: BLOOD SPECIMENOrdering Facility: [facility] Address: [address] [place] [address] Performed By: #### 5 7021-8 ####[facility] [id number] [place] [address] Erythrocyte distribution width (RBC) [Ratio] 14.4 % Normal 11.5-15.0 [facility] Comment on above: Order Comment: Speci men Type: BLOOD SPECIMENOrdering Facility: [facility] Address: [address] [place] [address] Performed By: #### 5 7021-8 ####[facility] [id number] [place] [address] Hematocrit (Bld) [Volume fraction] 35.3 % Low 36.0-46.0 [facility] Comment on above: Order Comment: Speci men Type: BLOOD SPECIMENOrdering Facility: [facility] Address: [address] [place] [address] Performed By: #### 5 7021-8 ####[facility] [id number] [place] [address] Hemoglobin (Bld) [Mass/Vol] 11.6 g/dL Normal 11.5-15.5 [facility] Comment on above: Order Comment: Speci men Type: BLOOD SPECIMENOrdering Facility: [facility] Address: [address] [place] [address] Performed By: #### 5 7021-8 ####[facility] [id number] [place] [address] Immature granulocytes (Bld) [#/Vol] 10*3/uL Normal <0.10 [facility] Comment on above: Order Comment: Speci men Type: BLOOD SPECIMENOrdering Facility: [facility] Address: [address] [place] [address] Performed By: #### 5 7021-8 ####[facility] [id number] [place] [address] Immature granulocytes/100 WBC (Bld) 0.2 % Normal [facility] Comment on above: Order Comment: Speci men Type: BLOOD SPECIMENOrdering Facility: [facility] Address: [address] [place] [address] Performed By: #### 5 7021-8 ####[facility] [id number] [place] [address] Lymphocytes (Bld) [#/Vol] 1.40 10*3/uL Normal 1.00-4.00 [facility] Comment on above: Order Comment: Speci men Type: BLOOD SPECIMENOrdering Facility: [facility] Address: [address] [place] [address] Performed By: #### 5 7021-8 ####[facility] [id number] [place] [address] Lymphocytes/100 WBC (Bld) 26.1 % Normal [facility] Comment on above: Order Comment: Speci men Type: BLOOD SPECIMENOrdering Facility: [facility] Address: [address] [place] [address] Performed By: #### 5 7021-8 ####[facility] [id number] [place] [address] MCH (RBC) [Entitic mass] 31.2 pg Normal 26.0-34.0 [facility] Comment on above: Order Comment: Speci men Type: BLOOD SPECIMENOrdering Facility: [facility] Address: [address] [place] [address] Performed By: #### 5 7021-8 ####[facility] LABIA [id number] [place] [address] MCHC (RBC) [Mass/Vol] 32.9 g/dL Normal 30.5-36.0 [facility] Comment on above: Order Comment: Speci men Type: BLOOD SPECIMENOrdering Facility: [facility] Address: [address] [place] [address] Performed By: #### 5 7021-8 ####[facility] LABIA [id number] [place] [address] MCV (RBC) [Entitic vol] 94.9 fL Normal 80.0-100.0 [facility] Comment on above: Order Comment: Speci men Type: BLOOD SPECIMENOrdering Facility: [facility] Address: [address] [place] [address] Performed By: #### 5 7021-8 ####[facility] LABIA [id number] [place] [address] Monocytes (Bld) [#/Vol] 0.59 10*3/uL Normal <0.87 [facility] Comment on above: Order Comment: Speci men Type: BLOOD SPECIMENOrdering Facility: [facility] Address: [address] [place] [address] Performed By: #### 5 7021-8 ####[facility]IA [id number] [place] [address] Monocytes/100 WBC (Bld) 11.0 % Normal [facility] Comment on above: Order Comment: Speci men Type: BLOOD SPECIMENOrdering Facility: [facility] Address: [address] [place] [address] Performed By: #### 5 7021-8 ####[facility] [id number] [place] [address] Neutrophils (Bld) [#/Vol] 3.33 10*3/uL Normal 1.45-7.50 [facility] Comment on above: Order Comment: Speci men Type: BLOOD SPECIMENOrdering Facility: [facility] Address: [address] [place] [address] Performed By: #### 5 7021-8 ####[facility] [id number] [place] [address] Neutrophils/100 WBC (Bld) 62.1 % Normal [facility] Comment on above: Order Comment: Speci men Type: BLOOD SPECIMENOrdering Facility: [facility] Address: [address] [place] [address] Performed By: #### 5 7021-8 ####[facility] [id number] [place] [address] Nucleated RBC (Bld) [#/Vol] 10*3/uL Normal <0.01 [facility] Comment on above: Order Comment: Speci men Type: BLOOD SPECIMENOrdering Facility: [facility] Address: [address] [place] [address] Performed By: #### 5 7021-8 ####[facility] [id number] [place] [address] Nucleated RBC/100 WBC (Bld) [Ratio] 0.0 /100 WBC Normal [facility] Comment on above: Order Comment: Speci men Type: BLOOD SPECIMENOrdering Facility: [facility] Address: [address] [place] [address] Performed By: #### 5 7021-8 ####[facility] [id number] [place] [address] Platelet mean volume (Bld) [Entitic vol] 9.4 fL Normal 9.0-12.7 [facility] Comment on above: Order Comment: Speci men Type: BLOOD SPECIMENOrdering Facility: [facility] Address: [address] [place] [address] Performed By: #### 5 7021-8 ####[facility]CL[facility] [id number] [place] [address] Platelets (Bld) [#/Vol] 209 10*3/uL Normal 150-400 [facility] Comment on above: Order Comment: Speci men Type: BLOOD SPECIMENOrdering Facility: [facility] Address: [address] [place] [address] Performed By: #### 5 7021-8 ####[facility] LABIA [id number] [place] [address] RBC (Bld) [#/Vol] 3.72 10*6/uL Low 3.90-5.20 [facility] Comment on above: Order Comment: Speci men Type: BLOOD SPECIMENOrdering Facility: [facility] Address: [address] [place] [address] Performed By: #### 5 7021-8 ####[facility] LABIA [id number] [place] [address] WBC (Bld) [#/Vol] 5.36 10*3/uL Normal 3.70-11.00 [facility] Comment on above: Order Comment: Speci men Type: BLOOD SPECIMENOrdering Facility: [facility] Address: [address] [place] [address] Performed By: #### 5 7021-8 ####[facility] LABIA [id number] [place] [address] Comprehensive metabolic 2000 panelOrdered By: Jeny Galloway on 12-12-2023 Albumin [Mass/Vol] 4.5 g/dL 3.9 - 4.9 g/dL [facility] ALP [Catalytic activity/Vol] 132 U/L High 34 - 123 U/L [facility] ALT [Catalytic activity/Vol] 10 U/L 7 - 38 U/L [facility] Anion gap [Moles/Vol] 9 mmol/L 9 - 18 mmol/L [facility] AST [Catalytic activity/Vol] 14 U/L 13 - 35 U/L [facility] Bilirubin [Mass/Vol] 0.4 mg/dL 0.2 - 1.3 mg/dL [facility] Calcium [Mass/Vol] 9.9 mg/dL 8.5 - 10. 2 mg/dL [facility] Chloride [Moles/Vol] 112 mmol/L High 97 - 105 mmol/L [facility] CO2 [Moles/Vol] 26 mmol/L 22 - 30 mmol/L [facility] Creatinine [Mass/Vol] 0.96 mg/dL 0.58 - 0.96 mg/dL [facility] GFR/1.73 sq M.predicted among non-blacks MDRD (S/P/Bld) [Vol rate/Area] 69 mL/min/{1.73_m2} - PINF [facility] Comment on above: Estimated Glomerular Filtration Rate (eGFR) is calculated using the 2020 CKD-EPI creatinine equation. This equation utilizes serum creatinine, sex, and age as parameters. The creatinine assay has traceable calibration to isotope dilution-mass spectrometry. Refer to KDIGO guidelines for clinical interpretation. In patients with unstable renal function, e.g. those with acute kidney injury, the eGFR may not accurately reflect actual GFR. Glucose [Mass/Vol] 105 mg/dL High 74 - 99 mg/dL [facility] Comment on above: The [place] Diabete s Association (ADA) provides guidance for cutoff values for fasting glucose and random glucose. The ADA defines fasting as no caloric intake for at least 8 hours. Fasting plasma glucose results between 100 to 125 mg/dL indicate increased risk for diabetes (prediabetes). Fasting plasma glucose results greater than or equal to 126 mg/dL meet the criteria for diagnosis of diabetes. In the absence of unequivocal hyperglycemia, results should be confirmed by repeat testing. In a patient with classic symptoms of hyperglycemia or hyperglycemic crisis, random plasma glucose results greater than or equal to 200 mg/dL meet the criteria for diagnosis of diabetes. Reference: Standards of Medical Care in Diabetes 2016, [place] Diabetes Association. Diabetes Care. 2016.39(Suppl 1). Interpretation and review of laboratory results Abnormal [facility] Potassium [Moles/Vol] 3.7 mmol/L 3.7 - 5.1 mmol/L [facility] Protein [Mass/Vol] 7.4 g/dL 6.3 - 8.0 g/dL [facility] Sodium [Moles/Vol] 147 mmol/L High 136 - 144 mmol/L [facility] Urea nitrogen [Mass/Vol] 9 mg/dL 7 - 21 mg/dL [facility] Comprehensive metabolic 2000 panelon 12-12-2023 Albumin [Mass/Vol] 4.5 g/dL Normal 3.9-4.9 [facility] Comment on above: Order Comment: Speci men Type: BLOOD SPECIMENOrdering Facility: [facility] Address: [address] [place] [address] Performed By: #### 2 4323-8, 2531-0 ####[facility]CL[facility] [id number] [place] [address] ALP [Catalytic activity/Vol] 132 U/L High 34-123 [facility] Comment on above: Order Comment: Speci men Type: BLOOD SPECIMENOrdering Facility: [facility] Address: [address] [place], [place] [address] Performed By: #### 2 4323-8, 2531-0 ####[facility] LABIA [id number] [place] [address] ALT [Catalytic activity/Vol] 10 U/L Normal 7-38 [facility] Comment on above: Order Comment: Speci men Type: BLOOD SPECIMENOrdering Facility: [facility] Address: [address] [place] [address] Performed By: #### 2 4323-8, 2531-0 ####[facility] LABIA [id number] [place] [address] Anion gap [Moles/Vol] 9 mmol/L Normal 9-18 [facility] Comment on above: Order Comment: Speci men Type: BLOOD SPECIMENOrdering Facility: [facility] Address: [address] [place] [address] Performed By: #### 2 4323-8, 2531-0 ####[facility]CL[facility] [id number] [place] [address] AST [Catalytic activity/Vol] 14 U/L Normal 13-35 [facility] Comment on above: Order Comment: Speci men Type: BLOOD SPECIMENOrdering Facility: [facility] Address: [address] [place], [place] [address] Performed By: #### 2 432-8, 2531-0 ####[facility]CL[facility] [id number] [place] [address] Bilirubin [Mass/Vol] 0.4 mg/dL Normal 0.2-1.3 [facility] Comment on above: Order Comment: Speci men Type: BLOOD SPECIMENOrdering Facility: [facility] Address: [address] [place] [address] Performed By: #### 2 4328, 0 ####[facility]CL[facility] [id number] [place] [address] Calcium [Mass/Vol] 9.9 mg/dL Normal 8.5-10.2 [facility] Comment on above: Order Comment: Speci men Type: BLOOD SPECIMENOrdering Facility: [facility] Address: [address] [place], [place] [address] Performed By: #### 2 4323-8, 2531-0 ####[facility]CL[facility] [id number] [place] [address] Chloride [Moles/Vol] 112 mmol/L High 97-105 [facility] Comment on above: Order Comment: Speci men Type: BLOOD SPECIMENOrdering Facility: [facility] Address: [address] [place], [place] [address] Performed By: #### 2 4323-8, 2531-0 ####[facility]CLIA [id number] [place] [address] CO2 [Moles/Vol] 26 mmol/L Normal 22-30 [facility] Comment on above: Order Comment: Speci men Type: BLOOD SPECIMENOrdering Facility: [facility] Address: [address] [place] [address] Performed By: #### 2 4323-8, 2531-0 ####[facility] LABCLIA [id number] [place] [address] Creatinine [Mass/Vol] 0.96 mg/dL Normal 0.58-0.96 [facility] Comment on above: Order Comment: Speci men Type: BLOOD SPECIMENOrdering Facility: [facility] Address: [address] [place] [address] Performed By: #### 2 4323-8, 0 ####[facility]CL[facility] [id number] [place] [address] Creatinine and Glomerular filtration rate.predicted panel (S/P/Bld) 69 mL/min/1.73m??? Normal >=60 [facility] Comment on above: Order Comment: Speci men Type: BLOOD SPECIMENOrdering Facility: [facility] Address: [address] [place] [address] Result Comment: Johanna mated Glomerular Filtration Rate (eGFR) is calculated using the 2020 CKD-EPI creatinine equation. This equation utilizes serum creatinine, sex, and age as parameters. The creatinine assay has traceable calibration to isotope dilution-mass spectrometry. Refer to KDIGO guidelines for clinical interpretation. In patients with unstable renal function, e.g. those with acute kidney injury, the eGFR may not accurately reflect actual GFR. Performed By: #### 2 4323-8, 2531-0 ####[facility] LABIA [id number] [place] [address] Glucose [Mass/Vol] 105 mg/dL High 74-99 [facility] Comment on above: Order Comment: Speci men Type: BLOOD SPECIMENOrdering Facility: [facility] Address: [address] [place], [place] [address] Result Comment: The [place] Diabetes Association (ADA) provides guidance for cutoff values for fasting glucose and random glucose. The ADA defines fasting as no caloric intake for at least 8 hours. Fasting plasma glucose results between 100 to 125 mg/dL indicate increased risk for diabetes (prediabetes). Fasting plasma glucose results greater than or equal to 126 mg/dL meet the criteria for diagnosis of diabetes. In the absence of unequivocal hyperglycemia, results should be confirmed by repeat testing. In a patient with classic symptoms of hyperglycemia or hyperglycemic crisis, random plasma glucose results greater than or equal to 200 mg/dL meet the criteria for diagnosis of diabetes. Reference: Standards of Medical Care in Diabetes 2016, [place] Diabetes Association. Diabetes Care. 2016.39(Suppl 1). Performed By: #### 2 43238, 0 ####[facility]CL[facility] [id number] [place] [address] Potassium [Moles/Vol] 3.7 mmol/L Normal 3.7-5.1 [facility] Comment on above: Order Comment: Speci men Type: BLOOD SPECIMENOrdering Facility: [facility] Address: [address] [place] [address] Performed By: #### 2 43210-02, 0 ####[facility] LABIA [id number] [place] [address] Protein [Mass/Vol] 7.4 g/dL Normal 6.3-8.0 [facility] Comment on above: Order Comment: Speci men Type: BLOOD SPECIMENOrdering Facility: [facility] Address: [address] [place] [address] Performed By: #### 2 43210-02, 0 ####[facility]CL[facility] [id number] [place] [address] Sodium [Moles/Vol] 147 mmol/L High 136-144 [facility] Comment on above: Order Comment: Speci men Type: BLOOD SPECIMENOrdering Facility: [facility] Address: [address] [place] [address] Performed By: #### 2 4328, 0 ####[facility]CL[facility] [id number] [place] [address] Urea nitrogen [Mass/Vol] 9 mg/dL Normal 7-21 [facility] Comment on above: Order Comment: Speci men Type: BLOOD SPECIMENOrdering Facility: [facility] Address: [address] [place] [address] Performed By: #### 2 4323-8, 2532-0 ####[facility] [id number] [place] [address] GLUCOSE, BLOOD (POC)on 12-11 Glucose [Mass/Vol] 99 mg/dL 74 - 99 mg/dL [facility] Comment on above: Location:[facility], [address] , [place], [place], [address] The Accu-Chek Inform II glucose meter has not been approved for testing on patients receiving intensive medical intervention or therapy and results from this point of care glucose test should not be used for patient management decisions in these cases. Inaccurate results may also occur from other interfering factors, such as N-acetylcysteine (blood concentrations of greater than 5mg/dL), galactose, extremes of hematocrit (<10 or >65), or high doses of ascorbic acid (vitamin C) greater than 3mg/dL. Consider alternate testing mechanisms (e.g. core lab, blood gas instrument) in the above situations. [facility] LD LACTATE DEHYDROon 024 LDH [Catalytic activity/Vol] 205 U/L 135 - 214 U/L [facility] Comment on above: Hemolysis present. T he origin of the hemolysis, in vitro versus an in vivo hemolytic process, cannot be distinguished via this assay alone. In vitro hemolysis may lead to non-physiological (spurious) elevation in lactate dehydrogenase (LDH) results. The result should be interpreted in context of the clinical setting and other test results. Suggest reorder as clinically indicated. LDH SerPl-cCncon 12-12-2023 LDH [Catalytic activity/Vol] 205 U/L Normal 135-214 [facility] Comment on above: Order Comment: Speci men Type: BLOOD SPECIMENOrdering Facility: [facility] Address: [address] [place], [place] [address] Result Comment: Hemo lysis present. The origin of the hemolysis, in vitro versus an in vivo hemolytic process, cannot be distinguished via this assay alone. In vitro hemolysis may lead to non-physiological (spurious) elevation in lactate dehydrogenase (LDH) results. The result should be interpreted in context of the clinical setting and other test results. Suggest reorder as clinically indicated. Performed By: #### 2 4323-8, 2532-0 ####[facility] LABCLIA [id number] [place] [address] LDH [Catalytic activity/Vol] on 12-12-2023 Interpretation and review of laboratory results Normal [facility] NM PET/CT WHOLE BODY SUBQon 12-12-2023 NM PET/CT WHOLE BODY SUBQ * * *Final Report* * * DATE OF EXAM: Dec 12 2023 1:56PM NRN 0064 - NM PET/CT WHOLE BODY SUBQ / PROCEDURE REASON: Malignant melanoma of skin (HCC) * * * * Physician Interpretation * * * * RESULT: EXAMINATION: BODY FDG PET-CT CLINICAL HISTORY: 58 years old Female with Malignant melanoma of skin (HCC) . INDICATION: Subsequent treatment strategy. TECHNIQUE: Radiopharmaceutical was administered IV followed about 60 minutes later by PET imaging from vertex to feet. Free breathing, low dose CT of the same body region was acquired without IV contrast for attenuation correction and anatomic localization. * CT Dose-Length Product (DLP): 266 mGy*cm * CT Dose Reduction Employed: Yes * Blood glucose (mg/dL): 99 * Radiopharmaceutical Dose: 7.2 mCi * Radiopharmaceutical: N66-[id number] (FDG) COMPARISON: 08/08/2023 CORRELATION: No intervening imaging RESULT: REFERENCES: SUV reference values: * Blood pool (descending aorta) activity: SUVmax 2.1 * Background liver activity: SUVmax 3.0; SUVmean 2.2 Health Nurse (topogram) images: Unremarkable. Notes and limitations: * Standardized uptake values indicate the highest activity concentration (SUVmax) at a given location but can be variable and are not absolute. * Physiologic/non-neoplas tic uptake is common in the brain, extraocular muscles, oral cavity, tonsils, salivary glands, vocal cords, myocardium, liver, GI tract, urinary tract, and bone marrow among others. Certain regions and organ systems can have more intense uptake, which could confound or obscure some pathology. * Unenhanced imaging is limited for the evaluation of some pathology and the acquired CT was not designed to produce or replace diagnostic CT scan quality. * PET-CT is often not sensitive for pulmonary nodules less than 8 mm. HEAD AND NECK: Imaged Head: Physiologic uptake in the brain with no definite evidence of focal abnormalities. Neck and Lymph Nodes: No abnormal uptake. Thyroid: No abnormal uptake. CHEST: Lungs and Airways: No FDG avid lung nodules. Small nodules like 0.3 cm right upper lobe (4:1677) stable. Pleura and Pericardium: No abnormal uptake. Cardiovascular: No abnormal uptake. Mediastinum and Lymph Nodes: No abnormal uptake. Status post left mastectomy and bilateral axillary lymphadenectomy. . ABDOMEN AND PELVIS: Hepatobiliary: No abnormal uptake. Spleen: No abnormal uptake. Pancreas: No abnormal uptake. Adrenals: No abnormal uptake. Urinary Tract: No abnormal uptake. GI Tract: No abnormal uptake. Peritoneum: No abnormal uptake. Vasculature: No abnormal uptake. Retroperitoneum and Lymph Nodes: No abnormal uptake. Pelvis: No abnormal uptake. MUSCULOSKELETAL: Osseous: No abnormal uptake. Degenerative changes. Soft Tissues: No abnormal uptake. IMPRESSION: HEAD/NECK: * No FDG avid neoplastic process. CHEST: * No FDG avid neoplastic process. Stable tiny lung nodules below PET resolution likely benign. ABDOMEN/PELVIS: * No FDG avid neoplastic process. MUSCULOSKELETAL: * No FDG avid neoplastic process. Transcribe Date/Time: Dec 18 2023 11:10A Dictated by: CHELI TRUONG MD This examination was interpreted and the report reviewed and electronically signed by: CHELI TRUONG MD on Dec 18 2023 11:17AM EST Thank you for allowing us to participate in the care of your patient. Should there be any questions regarding this interpretation, please call [phone]. If you are unable to reach us at the number above, please feel free to contact [facility] at [phone]. [id number] Normal [facility] PET+CT Whole body Bone W 18F -NaF Emma 12-12-2023 Radiology Study observation (narrative) [facility] CNPJamee 11-07-2023 CNPN Telephone (Journeys) KENNEDY PAULSON ([id number]) 1965 F Date Time Provider Department 11/07/23 LACY PEÑA During your visit today, we recorded the following information about you: Lacy Peña, MICKI 11/07/2023 11:23 AM Signed Pt taking Zelboraf AND Cotellic. Would like to start taking Centrum Silver MVI. Calls to make sure that it will not interfere w/ her treatment. Per Up To Date: No interactions noted. Pt notified and verbalizes understanding. Lacy Peña RN Allergies As of Date: 11/07/2023 (No Known Allergies) Date Reviewed: 08/22/2023 Reviewed by: Vicki Hernandez MA - Fully Assessed Reason for Visit: Care Coordination [6354] Cmt: Medication Question Prescriptions as of 11/07/2023 - COTELLIC 20 mg tab TAKE 3 TABLETS BY MOUTH ONCE DAILY AT THE SAME TIME FOR 21 DAYS OF A 28 DAY CYCLE. MAY TAKE WITH OR WITHOUT FOOD - vemurafenib (ZELBORAF) 240 mg tab TAKE 4 TABLETS BY MOUTH EVERY 12 HOURS. MAY TAKE WITH OR WITHOUT FOOD. STORE IN ORIGINAL CONTAINER. AVOID GRAPEFRUIT PRODUCTS - prochlorperazine (COMPAZINE) 10 mg tablet Take 1 tablet by mouth every 8 hours as needed. Problem List As Of Date 11/07/2023 Noted Resolved Anemia [D64.9] 04/18/2016 Malignant neoplasm of female breast (HCC) [C50.*04/18/2016 Metastatic melanoma (HCC) [C43.9] 04/18/2016 Drug-induced constipation [K59.03] 08/24/2018 Tobacco use [Z72.0] 05/04/2021 Port-A-Cath in place [Z95.828] 05/04/2021 Nicotine use disorder, F17.2 [F17.200] 05/11/2021 Dehydration [E86.0] 06/05/2022 Malignant melanoma of torso excluding breast (H*04/16/2023 Chemotherapy-induced nausea [R11.0, T45.1X5A] 04/16/2023 Encounter Status:Closed by LACY PEÑA on 11/07/23 [facility] CNOVSPon 08-22-2023 CNOVSP Visit (SP) Office ([place]) LORENEKENNEDY RABAGO ([id number]) 1965 F Date Time Provider Department 08/22/23 10:45 AM THIAGO QUINTANILLA During your visit today, we recorded the following information about you: Temperature Pulse Respiration Blood pressure 97.6 degrees 72/minute 16/minute 138/90 Weight 60.4 kg Thiago Quintanilla MD 08/24/2023 10:05 AM Signed NAME: Chauncey Paulsona CLINIC NO.: [id number] DATE OF SERVICE: August 22, 2023 (Marika) Some elements in this clinic note that are critical to medical decision making have been carefully reviewed and included from a prior clinic note dated: April 16, 2023 (Marika). Referring Provider: Arabella Lynch DO Additional Clinicians involved in Kennedy Paulson's care: CC: Metastatic BRAF + Melanoma ASSESSMENT: She originally had L breast mastectomy for melanoma in [address] Mayorga. 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 Started Zelboraf and Cotellic 08/2018. Has maintained an excellent response measured on PET CT - through 04/08/2023 We discussed the potential for failure of BRAF inhibition occurring around 12-18 months but this hasn't been the case. Suspicious left cervical LN - left neck dissection resulted in benign findings with anthracotic changes only Kidney function varies because she can't reliably stay hydrated PLAN: Labs and PET in 16 weeks RTC afterwards to review. Exam on return Continue Zelboraf and Cotellic - HPI: CASE HISTORY: Reverse Chronological Order 08/08/2023 - PET/CT: Neck: No suspicious hypermetabolic foci Chest: No evidence of FDG avid neoplastic process Abdomen and pelvis: No evidence of FDG avid neoplastic process Skeleton: No hypermetabolic osseous lesions 04/08/2023 - PET/CT remains negative. 10/23/2022 -PET remains negative - small focus of cutaneous activity in the right lateral distal forearm. Possibly inflammatory. 01/15/2022 - PET/CT: NECK: No FDG avid neoplastic process. CHEST: No FDG avid neoplastic process. Several subcentimeter pulmonary nodules stable since at least PET/CT 08/26/2018. Note that PET/CT is not sensitive for pulmonary nodules less than 8 mm. ABDOMEN/PELVIS: No FDG avid neoplastic process. EXTREMITIES/SKELETON: No suspicious FDG avid osseous process. 09/13/2021 - PET CT: NECK: interval resection of previously noted hypermetabolic left cervical lymph node. No new or enlarging hypermetabolic cervical lymphadenopathy. CHEST: stable postoperative changes of left mastectomy and bilateral axillary lymphadenectomy. No hypermetabolic soft tissue in the operative bed to suggest residual/recurrent neoplasm. PATCHY GROUNDGLASS ATTENUATION NON-FDG AVID RIGHT UPPER LOBE SUBPLEURAL OPACITY LATERALLY, NEW SINCE 04/03/2021. SUGGEST FOLLOW UP NONCONTRAST CHEST CT IN 3 MONTHS FOR ADDITIONAL EVALUATION. FEW SMALL (<0.6 CM) NON-FDG AVID PULMONARY NODULES, STABLE SINCE 12/13/2020. No hypermetabolic thoracic lymphadenopathy. ABDOMEN/PELVIS: no fdg avid neoplastic process. No hypermetabolic mass, adenopathy, or fluid collection. Stable nonobstructing right renal calculi. EXTREMITIES/SKELETON: no fdg avid neoplastic osseous process. 04/03/2021 - PET/CT: Head and Neck: New 0.8 cm hypermetabolic left cervical lymph node, presumably metastatic. Chest: No evidence of FDG avid neoplastic process. Multiple small (less than 6 mm) pulmonary nodules are stable compared to 12/13/2020, and not FDG avid. Stable findings, as described Abdomen and pelvis: No evidence of FDG avid neoplastic process. Stable nonobstructing right renal calculi measuring up to 0.5 cm. No hydronephrosis. Musculoskeletal: No neoplastic hypermetabolic lesions 01/03/2021 - Echo from TB: Normal EF 56% 12/13/2020 PET/CT: Neck: No suspicious hypermetabolic foci Chest: No evidence of FDG avid neoplastic process Abdomen and pelvis: No evidence of FDG avid neoplastic process Skeleton: No hypermetabolic osseous lesions 08/23/2020 PET/CT: HEAD AND NECK: No FDG avid neoplastic process. No mass, adenopathy, or fluid collection. CHEST: No FDG avid neoplastic process. No mass, adenopathy, or fluid collection. Stable tiny nodularity in both lungs unchanged. Tree-in-bud clustered nodularity anterolateral lingula not changed likely inflammatory. ABDOMEN/PELVIS: No FDG avid neoplastic process. No mass, adenopathy, or fluid collection. EXTREMITIES/SKELETON: No FDG avid osseous process. No destructive/traumatic bony abnormality. 05/22/2020 PET/CT: Head and Neck: No hypermetabolic foci Chest: No evidence of FDG avid neoplastic process. Stapilar (more content not included)... Normal [facility] CNPJamee 08-11-2023 CNPN Telephone ([place]) KENNEDY PAULSON ([id number]) 1965 F Date Time Provider Department 08/11/23 LACY PEÑA During your visit today, we recorded the following information about you: Lacy Peña RN 08/11/2023 8:50 AM Signed ----- Message from Thiago Quintanilla MD sent at 08/09/2023 9:37 AM EST ----- Bisi's scan remains negative! Lacy Peña RN 08/11/2023 8:53 AM Signed Pt notified and verbalizes understanding. Lacy Peña RN Allergies As of Date: 08/11/2023 (No Known Allergies) Date Reviewed: 04/16/2023 Reviewed by: Naima Hughes MA - Fully Assessed Reason for Visit: Care Coordination [3491] Cmt: PET Results Prescriptions as of 08/11/2023 - vemurafenib (ZELBORAF) 240 mg tab TAKE 4 TABLETS BY MOUTH EVERY 12 HOURS. MAY TAKE WITH OR WITHOUT FOOD. STORE IN ORIGINAL CONTAINER. AVOID GRAPEFRUIT PRODUCTS - cobimetinib (COTELLIC) 20 mg tab TAKE 3 TABLETS BY MOUTH ONCE DAILY AT THE SAME TIME FOR 21 DAYS OF A 28 DAY CYCLE. MAY TAKE WITH OR WITHOUT FOOD - prochlorperazine (COMPAZINE) 10 mg tablet Take 1 tablet by mouth every 8 hours as needed. Problem List As Of Date 08/11/2023 Noted Resolved Anemia [D64.9] 04/18/2016 Malignant neoplasm of female breast (HCC) [C50.*04/18/2016 Metastatic melanoma (HCC) [C43.9] 04/18/2016 Drug-induced constipation [K59.03] 08/24/2018 Tobacco use [Z72.0] 05/04/2021 Port-A-Cath in place [Z95.828] 05/04/2021 Nicotine use disorder, F17.2 [F17.200] 05/11/2021 Dehydration [E86.0] 06/05/2022 Malignant melanoma of torso excluding breast (H*04/16/2023 Chemotherapy-induced nausea [R11.0, T45.1X5A] 04/16/2023 Encounter Status:Closed by LACY PEÑA on 08/11/23 Normal [facility] CBC W Auto Differential pane l (Bld)on 08-08-2023 Basophils (Bld) [#/Vol] 0.03 10*3/uL [facility] Basophils/100 WBC (Bld) 0.5 % [facility] Differential cell count method Nom (Bld) Auto [facility] Eosinophils (Bld) [#/Vol] 0.11 10*3/uL [facility] Eosinophils/100 WBC (Bld) 1.9 % [facility] Erythrocyte distribution width (RBC) [Ratio] 12.9 % 11.5 - 15.0 % [facility] Hematocrit (Bld) [Volume fraction] 38.3 % 36.0 - 46.0 % [facility] Hemoglobin (Bld) [Mass/Vol] 12.8 g/dL 11.5 - 15.5 g/dL [facility] Immature granulocytes (Bld) [#/Vol] [facility] Immature granulocytes/100 WBC (Bld) 0.3 % [facility] Lymphocytes (Bld) [#/Vol] 2.42 10*3/uL [facility] Lymphocytes/100 WBC (Bld) 42.2 % [facility] MCH (RBC) [Entitic mass] 31.7 pg 26.0 - 34.0 pg [facility] MCHC (RBC) [Mass/Vol] 33.4 g/dL 30.5 - 36.0 g/dL [facility] MCV (RBC) [Entitic vol] 94.8 fL 80.0 - 100.0 fL [facility] Monocytes (Bld) [#/Vol] 0.39 10*3/uL [facility] Monocytes/100 WBC (Bld) 6.8 % [facility] Neutrophils (Bld) [#/Vol] 2.76 10*3/uL [facility] Neutrophils/100 WBC (Bld) 48.3 % [facility] Nucleated RBC (Bld) [#/Vol] [facility] Nucleated RBC/100 WBC (Bld) [Ratio] 0.0 % /100 WBC [facility] Platelet mean volume (Bld) [Entitic vol] 9.2 fL 9.0 - 12.7 fL [facility] Platelets (Bld) [#/Vol] 211 10*3/uL [facility] RBC (Bld) [#/Vol] 4.04 10*6/uL 3.90 - 5.2 0 m/uL [facility] WBC (Bld) [#/Vol] 5.73 10*3/uL [facility] Basophils (Bld) [#/Vol] 0.03 10*3/uL Normal <0.11 [facility] Comment on above: Order Comment: Speci men Type: BLOOD SPECIMENOrdering Facility: [facility] Address: [address] [place] [address] Performed By: #### 5 7021-8 ####[facility] [id number] [place] [address] Basophils/100 WBC (Bld) 0.5 % Normal [facility] Comment on above: Order Comment: Speci men Type: BLOOD SPECIMENOrdering Facility: [facility] Address: [address] [place] [address] Performed By: #### 5 7021-8 ####[facility] [id number] [place] [address] Differential cell count method Nom (Bld) Auto Normal [facility] Comment on above: Order Comment: Speci men Type: BLOOD SPECIMENOrdering Facility: [facility] Address: [address] [place] [address] Performed By: #### 5 7021-8 ####[facility] [id number] [place] [address] Eosinophils (Bld) [#/Vol] 0.11 10*3/uL Normal <0.46 [facility] Comment on above: Order Comment: Speci men Type: BLOOD SPECIMENOrdering Facility: [facility] Address: [address] [place] [address] Performed By: #### 5 7021-8 ####[facility] [id number] [place] [address] Eosinophils/100 WBC (Bld) 1.9 % Normal [facility] Comment on above: Order Comment: Speci men Type: BLOOD SPECIMENOrdering Facility: [facility] Address: [address] [place] [address] Performed By: #### 5 7021-8 ####[facility] [id number] [place] [address] Erythrocyte distribution width (RBC) [Ratio] 12.9 % Normal 11.5-15.0 [facility] Comment on above: Order Comment: Speci men Type: BLOOD SPECIMENOrdering Facility: [facility] Address: [address] [place] [address] Performed By: #### 5 7021-8 ####[facility] [id number] [place] [address] Hematocrit (Bld) [Volume fraction] 38.3 % Normal 36.0-46.0 [facility] Comment on above: Order Comment: Speci men Type: BLOOD SPECIMENOrdering Facility: [facility] Address: [address] [place] [address] Performed By: #### 5 7021-8 ####[facility] [id number] [place] [address] Hemoglobin (Bld) [Mass/Vol] 12.8 g/dL Normal 11.5-15.5 [facility] Comment on above: Order Comment: Speci men Type: BLOOD SPECIMENOrdering Facility: [facility] Address: [address] [place] [address] Performed By: #### 5 7021-8 ####[facility] [id number] [place] [address] Immature granulocytes (Bld) [#/Vol] 10*3/uL Normal <0.10 [facility] Comment on above: Order Comment: Speci men Type: BLOOD SPECIMENOrdering Facility: [facility] Address: [address] [place] [address] Performed By: #### 5 7021-8 ####[facility] [id number] [place] [address] Immature granulocytes/100 WBC (Bld) 0.3 % Normal [facility] Comment on above: Order Comment: Speci men Type: BLOOD SPECIMENOrdering Facility: [facility] Address: [address] [place] [address] Performed By: #### 5 7021-8 ####[facility] [id number] [place] [address] Lymphocytes (Bld) [#/Vol] 2.42 10*3/uL Normal 1.00-4.00 [facility] Comment on above: Order Comment: Speci men Type: BLOOD SPECIMENOrdering Facility: [facility] Address: [address] [place] [address] Performed By: #### 5 7021-8 ####[facility] [id number] [place] [address] Lymphocytes/100 WBC (Bld) 42.2 % Normal [facility] Comment on above: Order Comment: Speci men Type: BLOOD SPECIMENOrdering Facility: [facility] Address: [address] [place] [address] Performed By: #### 5 7021-8 ####[facility] [id number] [place] [address] MCH (RBC) [Entitic mass] 31.7 pg Normal 26.0-34.0 [facility] Comment on above: Order Comment: Speci men Type: BLOOD SPECIMENOrdering Facility: [facility] Address: [address] [place] [address] Performed By: #### 5 7021-8 ####[facility] [id number] [place] [address] MCHC (RBC) [Mass/Vol] 33.4 g/dL Normal 30.5-36.0 [facility] Comment on above: Order Comment: Speci men Type: BLOOD SPECIMENOrdering Facility: [facility] Address: [address] [place] [address] Performed By: #### 5 7021-8 ####[facility] [id number] [place] [address] MCV (RBC) [Entitic vol] 94.8 fL Normal 80.0-100.0 [facility] Comment on above: Order Comment: Speci men Type: BLOOD SPECIMENOrdering Facility: [facility] Address: [address] [place] [address] Performed By: #### 5 7021-8 ####[facility] [id number] [place] [address] Monocytes (Bld) [#/Vol] 0.39 10*3/uL Normal <0.87 [facility] Comment on above: Order Comment: Speci men Type: BLOOD SPECIMENOrdering Facility: [facility] Address: [address] [place] [address] Performed By: #### 5 7021-8 ####[facility] [id number] [place] [address] Monocytes/100 WBC (Bld) 6.8 % Normal [facility] Comment on above: Order Comment: Speci men Type: BLOOD SPECIMENOrdering Facility: [facility] Address: [address] [place] [address] Performed By: #### 5 7021-8 ####[facility] [id number] [place] [address] Neutrophils (Bld) [#/Vol] 2.76 10*3/uL Normal 1.45-7.50 [facility] Comment on above: Order Comment: Speci men Type: BLOOD SPECIMENOrdering Facility: [facility] Address: [address] [place] [address] Performed By: #### 5 7021-8 ####[facility] [id number] [place] [address] Neutrophils/100 WBC (Bld) 48.3 % Normal [facility] Comment on above: Order Comment: Speci men Type: BLOOD SPECIMENOrdering Facility: [facility] Address: [address] [place] [address] Performed By: #### 5 7021-8 ####[facility] [id number] [place] [address] Nucleated RBC (Bld) [#/Vol] 10*3/uL Normal <0.01 [facility] Comment on above: Order Comment: Speci men Type: BLOOD SPECIMENOrdering Facility: [facility] Address: [address] [place] [address] Performed By: #### 5 7021-8 ####[facility] [id number] [place] [address] Nucleated RBC/100 WBC (Bld) [Ratio] 0.0 /100 WBC Normal [facility] Comment on above: Order Comment: Speci men Type: BLOOD SPECIMENOrdering Facility: [facility] Address: [address] [place] [address] Performed By: #### 5 7021-8 ####[facility] [id number] [place] [address] Platelet mean volume (Bld) [Entitic vol] 9.2 fL Normal 9.0-12.7 [facility] Comment on above: Order Comment: Speci men Type: BLOOD SPECIMENOrdering Facility: [facility] Address: [address] [place] [address] Performed By: #### 5 7021-8 ####[facility] [id number] [place] [address] Platelets (Bld) [#/Vol] 211 10*3/uL Normal 150-400 [facility] Comment on above: Order Comment: Speci men Type: BLOOD SPECIMENOrdering Facility: [facility] Address: [address] [place] [address] Performed By: #### 5 7021-8 ####[facility] [id number] [place] [address] RBC (Bld) [#/Vol] 4.04 10*6/uL Normal 3.90-5.20 [facility] Comment on above: Order Comment: Speci men Type: BLOOD SPECIMENOrdering Facility: [facility] Address: [place] [address] Performed By: #### 5 7021-8 ####[facility] [id number] [place] [address] WBC (Bld) [#/Vol] 5.73 10*3/uL Normal 3.70-11.00 [facility] Comment on above: Order Comment: Speci men Type: BLOOD SPECIMENOrdering Facility: [facility] Address: [place] [address] Performed By: #### 5 7021-8 ####[facility] [id number] [place] [address] Comprehensive metabolic 2000 panelOrdered By: Jeny Galloway on 08-08-2023 Albumin [Mass/Vol] 4.7 g/dL 3.9 - 4.9 g/dL [facility] ALP [Catalytic activity/Vol] 119 U/L 34 - 123 U/L [facility] ALT [Catalytic activity/Vol] 11 U/L 7 - 38 U/L [facility] Anion gap [Moles/Vol] 10 mmol/L 9 - 18 mmol/L [facility] AST [Catalytic activity/Vol] 16 U/L 13 - 35 U/L [facility] Bilirubin [Mass/Vol] 0.4 mg/dL 0.2 - 1.3 mg/dL [facility] Calcium [Mass/Vol] 9.6 mg/dL 8.5 - 10. 2 mg/dL [facility] Chloride [Moles/Vol] 108 mmol/L High 97 - 105 mmol/L [facility] CO2 [Moles/Vol] 24 mmol/L 22 - 30 mmol/L [facility] Creatinine [Mass/Vol] 1.02 mg/dL High 0.58 - 0.96 mg/dL [facility] GFR/1.73 sq M.predicted among non-blacks MDRD (S/P/Bld) [Vol rate/Area] 64 mL/min/{1.73_m2} - PINF [facility] Comment on above: Estimated Glomerular Filtration Rate (eGFR) is calculated using the 2020 CKD-EPI creatinine equation. This equation utilizes serum creatinine, sex, and age as parameters. The creatinine assay has traceable calibration to isotope dilution-mass spectrometry. Refer to KDIGO guidelines for clinical interpretation. In patients with unstable renal function, e.g. those with acute kidney injury, the eGFR may not accurately reflect actual GFR. Glucose [Mass/Vol] 90 mg/dL 74 - 99 mg/dL [facility] Comment on above: The [place] Diabete s Association (ADA) provides guidance for cutoff values for fasting glucose and random glucose. The ADA defines fasting as no caloric intake for at least 8 hours. Fasting plasma glucose results between 100 to 125 mg/dL indicate increased risk for diabetes (prediabetes). Fasting plasma glucose results greater than or equal to 126 mg/dL meet the criteria for diagnosis of diabetes. In the absence of unequivocal hyperglycemia, results should be confirmed by repeat testing. In a patient with classic symptoms of hyperglycemia or hyperglycemic crisis, random plasma glucose results greater than or equal to 200 mg/dL meet the criteria for diagnosis of diabetes. Reference: Standards of Medical Care in Diabetes 2016, [place] Diabetes Association. Diabetes Care. 2016.39(Suppl 1). Interpretation and review of laboratory results Abnormal [facility] Potassium [Moles/Vol] 3.8 mmol/L 3.7 - 5.1 mmol/L [facility] Protein [Mass/Vol] 7.1 g/dL 6.3 - 8.0 g/dL [facility] Sodium [Moles/Vol] 142 mmol/L 136 - 144 mmol/L [facility] Urea nitrogen [Mass/Vol] 13 mg/dL 7 - 21 mg/dL [facility] Comprehensive metabolic 2000 panelon 08-08-2023 Albumin [Mass/Vol] 4.7 g/dL Normal 3.9-4.9 [facility] Comment on above: Order Comment: Speci men Type: BLOOD SPECIMENOrdering Facility: [facility] Address: [place] [address] Performed By: #### 2 4323-8, 2532-0 ####[facility] [id number] [place] [address] ALP [Catalytic activity/Vol] 119 U/L Normal 34-123 [facility] Comment on above: Order Comment: Speci men Type: BLOOD SPECIMENOrdering Facility: [facility] Address: [address] [place] [address] Performed By: #### 2 4328, 2531-0 ####[facility]CLIA [id number] [place] [address] ALT [Catalytic activity/Vol] 11 U/L Normal 7-38 [facility] Comment on above: Order Comment: Speci men Type: BLOOD SPECIMENOrdering Facility: [facility] Address: [address] [place] [address] Performed By: #### 2 4323-02, 2531-0 ####[facility]IA [id number] [place] [address] Anion gap [Moles/Vol] 10 mmol/L Normal 9-18 [facility] Comment on above: Order Comment: Speci men Type: BLOOD SPECIMENOrdering Facility: [facility] Address: [address] [place] [address] Performed By: #### 2 4328, 2531-0 ####[facility] [id number] [place] [address] AST [Catalytic activity/Vol] 16 U/L Normal 13-35 [facility] Comment on above: Order Comment: Speci men Type: BLOOD SPECIMENOrdering Facility: [facility] Address: [address] [place] [id number] Performed By: #### 2 8, 2531-0 ####[facility] [id number] [place] [address] Bilirubin [Mass/Vol] 0.4 mg/dL Normal 0.2-1.3 [facility] Comment on above: Order Comment: Speci men Type: BLOOD SPECIMENOrdering Facility: [facility] Address: [address] [place] [address] Performed By: #### 2 4323-02, 2531-0 ####[facility] [id number] [place] [address] Calcium [Mass/Vol] 9.6 mg/dL Normal 8.5-10.2 [facility] Comment on above: Order Comment: Speci men Type: BLOOD SPECIMENOrdering Facility: [facility] Address: [address] [place] [address] Performed By: #### 2 4323-8, 2531-0 ####[facility] [id number] [place] [address] Chloride [Moles/Vol] 108 mmol/L High 97-105 [facility] Comment on above: Order Comment: Speci men Type: BLOOD SPECIMENOrdering Facility: [facility] Address: [address] [place] [address] Performed By: #### 2 4323-8, 2531-0 ####[facility] [id number] [place] [address] CO2 [Moles/Vol] 24 mmol/L Normal 22-30 [facility] Comment on above: Order Comment: Speci men Type: BLOOD SPECIMENOrdering Facility: [facility] Address: [address] [place] [address] Performed By: #### 2 4323-8, 2531-0 ####[facility] [id number] [place] [address] Creatinine [Mass/Vol] 1.02 mg/dL High 0.58-0.96 [facility] Comment on above: Order Comment: Speci men Type: BLOOD SPECIMENOrdering Facility: [facility] Address: [address] [place] [address] Performed By: #### 2 4323-8, 2531-0 ####[facility] [id number] [place] [address] Creatinine and Glomerular filtration rate.predicted panel (S/P/Bld) 64 mL/min/1.73m??? Normal >=60 [facility] Comment on above: Order Comment: Alvarado harvey Type: BLOOD SPECIMENOrdering Facility: [facility] Address: [address] [place] [address] Result Comment: Johanna mated Glomerular Filtration Rate (eGFR) is calculated using the 2020 CKD-EPI creatinine equation. This equation utilizes serum creatinine, sex, and age as parameters. The creatinine assay has traceable calibration to isotope dilution-mass spectrometry. Refer to KDIGO guidelines for clinical interpretation. In patients with unstable renal function, e.g. those with acute kidney injury, the eGFR may not accurately reflect actual GFR. Performed By: #### 2 4323-8, 253-0 ####[facility]IA [id number] [place] [address] Glucose [Mass/Vol] 90 mg/dL Normal 74-99 [facility] Comment on above: Order Comment: Alvarado harvey Type: BLOOD SPECIMENOrdering Facility: [facility] Address: [place] [address] Result Comment: The [place] Diabetes Association (ADA) provides guidance for cutoff values for fasting glucose and random glucose. The ADA defines fasting as no caloric intake for at least 8 hours. Fasting plasma glucose results between 100 to 125 mg/dL indicate increased risk for diabetes (prediabetes). Fasting plasma glucose results greater than or equal to 126 mg/dL meet the criteria for diagnosis of diabetes. In the absence of unequivocal hyperglycemia, results should be confirmed by repeat testing. In a patient with classic symptoms of hyperglycemia or hyperglycemic crisis, random plasma glucose results greater than or equal to 200 mg/dL meet the criteria for diagnosis of diabetes. Reference: Standards of Medical Care in Diabetes 2016, [place] Diabetes Association. Diabetes Care. 2016.39(Suppl 1). Performed By: #### 2 4323-8, 2531-0 ####[facility] [id number] [place] [address] Potassium [Moles/Vol] 3.8 mmol/L Normal 3.7-5.1 [facility] Comment on above: Order Comment: Alvarado harvey Type: BLOOD SPECIMENOrdering Facility: [facility] Address: [address] [place] [address] Performed By: #### 2 4323-8, 2531-0 ####[facility] LABCL[facility] [id number] [place] [address] Protein [Mass/Vol] 7.1 g/dL Normal 6.3-8.0 [facility] Comment on above: Order Comment: Speci men Type: BLOOD SPECIMENOrdering Facility: [facility] Address: [address] [place] [address] Performed By: #### 2 4323-8, 2531-0 ####[facility] LABCLIA [id number] [place] [address] Sodium [Moles/Vol] 142 mmol/L Normal 136-144 [facility] Comment on above: Order Comment: Speci men Type: BLOOD SPECIMENOrdering Facility: [facility] Address: [address] [place] [address] Performed By: #### 2 4323-8, 2531-0 ####[facility] [id number] [place] [address] Urea nitrogen [Mass/Vol] 13 mg/dL Normal 7-21 [facility] Comment on above: Order Comment: Speci men Type: BLOOD SPECIMENOrdering Facility: [facility] Address: [address] [place] [address] Performed By: #### 2 4323-8, 2531-0 ####[facility] [id number] [place] [address] GLUCOSE, BLOOD (POC)on 08-08 Glucose [Mass/Vol] 88 mg/dL 74 - 99 mg/dL [facility] Comment on above: Location:[facility], [address] [place] [address] , [place], [place], [address] The Accu-Chek Inform II glucose meter has not been approved for testing on patients receiving intensive medical intervention or therapy and results from this point of care glucose test should not be used for patient management decisions in these cases. Inaccurate results may also occur from other interfering factors, such as N-acetylcysteine (blood concentrations of greater than 5mg/dL), galactose, extremes of hematocrit (<10 or >65), or high doses of ascorbic acid (vitamin C) greater than 3mg/dL. Consider alternate testing mechanisms (e.g. core lab, blood gas instrument) in the above situations. [facility] LD LACTATE DEHYDROon 024 LDH [Catalytic activity/Vol] 222 U/L High 135 - 214 U/L [facility] LDH SerPl-cCncon 08-08-2023 LDH [Catalytic activity/Vol] 222 U/L High 135-214 [facility] Comment on above: Order Comment: Speci men Type: BLOOD SPECIMENOrdering Facility: [facility] Address: [facility] [place] [id number] Performed By: #### 2 4323-8, 2532-0 ####[facility] LABCLIA [id number] [place] [address] LDH [Catalytic activity/Vol] on 08-08-2023 Interpretation and review of laboratory results Abnormal [facility] NM PET/CT WHOLE BODY SUBQon 08-08-2023 NM PET/CT WHOLE BODY SUBQ * * *Final Report* * * DATE OF EXAM: Aug 08 2023 1:52PM NRN [id number] - NM PET/CT WHOLE BODY SUBQ / PROCEDURE REASON: multiple diagnoses * * * * Physician Interpretation * * * * RESULT: FDG PET/CT SCAN: CLINICAL HISTORY: Melanoma. INDICATION: Initial treatment strategy. TECHNIQUE: 7 mCi 18-FDG IV, followed about 1 hour later by PET imaging from top of the skull to feet. Non contrast CT was performed for attenuation correction and anatomic localization purposes. CT Dose-Length Product (DLP): 274 mGy*cm. CT Dose Reduction Employed: Yes BLOOD GLUCOSE: 88 mg/dL Comparison: Prior PET CT dated 04/08/2023. RESULT: HEAD AND NECK: Likely physiological activity in the oral cavity, tonsillar regions, salivary glands, visualized brain,larynx. No suspicious hypermetabolic foci. There is no hypermetabolic cervical lymphadenopathy. CHEST: Right-sided chest port. There is no hypermetabolic hilar or mediastinal lymphadenopathy. Surgical changes in the axillary regions. There is no hypermetabolic axillary lymphadenopathy. There are no hypermetabolic foci in the lungs. ABDOMEN AND PELVIS: The liver is slightly heterogeneous activity but no focal lesions are identified. There are no hypermetabolic foci in the liver, spleen, adrenals. There is no hypermetabolic abdominal or pelvic lymphadenopathy. Physiologic activity is noted in the liver, renal collecting system, bladder and bowel. SKELETON: There are no hypermetabolic osseous lesions. Injection site activity in the right elbow region. Linear activity laterally in the right proximal forearm possibly due to trauma or inflammation. Mild activity in the left proximal foot possibly due to inflammation. Health Nurse (topogram) images:No additional findings IMPRESSION: 1. Neck: No suspicious hypermetabolic foci 2. Chest: No evidence of FDG avid neoplastic process 3. Abdomen and pelvis: No evidence of FDG avid neoplastic process 4. Skeleton: No hypermetabolic osseous lesions Transcribe Date/Time: Aug 08 2023 2:10P Dictated by: ANDREW CUEVAS MD This examination was interpreted and the report reviewed and electronically signed by: ANDREW CUEVAS MD on Aug 08 2023 2:20PM EST Thank you for allowing us to participate in the care of your patient. Should there be any questions regarding this interpretation, please call [phone]. If you are unable to reach us at the number above, please feel free to contact [facility]Radiology at [phone]. [id number] Normal [facility] PET+CT Whole body Bone W 18F -NaF Emma 08-08-2023 IMPRESSION: 1. Neck: No suspicious hypermetabolic foci 2. Chest: No evidence of FDG avid neoplastic process 3. Abdomen and pelvis: No evidence of FDG avid neoplastic process 4. Skeleton: No hypermetabolic osseous lesions Transcribe Date/Time: Aug 08 2023 2:10P Dictated by: ANDREW CUEVAS MD This examination was interpreted and the report reviewed and electronically signed by: ANDREW CUEVAS MD on Aug 08 2023 2:20PM EST Thank you for allowing us to participate in the care of your patient. Should there be any questions regarding this interpretation, please call [phone]. If you are unable to reach us at the number above, please feel [facility] [phone]. DIVISION OF RADIOLOGY * * *Final Report* * * DATE OF EXAM: Aug 08 2023 1:52PM NRN [id number] - NM PET/CT WHOLE BODY SUBQ / PROCEDURE REASON: multiple diagnoses * * * * Physician Interpretation * * * * RESULT: FDG PET/CT SCAN: CLINICAL HISTORY: Melanoma. INDICATION: Initial treatment strategy. TECHNIQUE: 7 mCi 18-FDG IV, followed about 1 hour later by PET imaging from top of the skull to feet. Non contrast CT was performed for attenuation correction and anatomic localization purposes. CT Dose-Length Product (DLP): 274 mGy*cm. CT Dose Reduction Employed: Yes BLOOD GLUCOSE: 88 mg/dL Comparison: Prior PET CT dated 04/08/2023. RESULT: HEAD AND NECK: Likely physiological activity in the oral cavity, tonsillar regions, salivary glands, visualized brain,larynx. No suspicious hypermetabolic foci. There is no hypermetabolic cervical lymphadenopathy. CHEST: Right-sided chest port. There is no hypermetabolic hilar or mediastinal lymphadenopathy. Surgical changes in the axillary regions. There is no hypermetabolic axillary lymphadenopathy. There are no hypermetabolic foci in the lungs. ABDOMEN AND PELVIS: The liver is slightly heterogeneous activity but no focal lesions are identified. There are no hypermetabolic foci in the liver, spleen, adrenals. There is no hypermetabolic abdominal or pelvic lymphadenopathy. Physiologic activity is noted in the liver, renal collecting system, bladder and bowel. SKELETON: There are no hypermetabolic osseous lesions. Injection site activity in the right elbow region. Linear activity laterally in the right proximal forearm possibly due to trauma or inflammation. Mild activity in the left proximal foot possibly due to inflammation. Health Nurse (topogram) images:No additional findings DIVISION OF RADIOLOGY Provider, Andreea Barraza - 08/08/2023 * * *Final Report* * * DATE OF EXAM: Aug 08 2023 1:52PM NRN [id number] - NE PET/CT WHOLE BODY SUBQ / PROCEDURE REASON: multiple diagnoses * * * * Physician Interpretation * * * * RESULT: FDG PET/CT SCAN: CLINICAL HISTORY: Melanoma. INDICATION: Initial treatment strategy. TECHNIQUE: 7 mCi 18-FDG IV, followed about 1 hour later by PET imaging from top of the skull to feet. Non contrast CT was performed for attenuation correction and anatomic localization purposes. CT Dose-Length Product (DLP): 274 mGy*cm. CT Dose Reduction Employed: Yes BLOOD GLUCOSE: 88 mg/dL Comparison: Prior PET CT dated 04/08/2023. RESULT: HEAD AND NECK: Likely physiological activity in the oral cavity, tonsillar regions, salivary glands, visualized brain,larynx. No suspicious hypermetabolic foci. There is no hypermetabolic cervical lymphadenopathy. CHEST: Right-sided chest port. There is no hypermetabolic hilar or mediastinal lymphadenopathy. Surgical changes in the axillary regions. There is no hypermetabolic axillary lymphadenopathy. There are no hypermetabolic foci in the lungs. ABDOMEN AND PELVIS: The liver is slightly heterogeneous activity but no focal lesions are identified. There are no hypermetabolic foci in the liver, spleen, adrenals. There is no hypermetabolic abdominal or pelvic lymphadenopathy. Physiologic activity is noted in the liver, renal collecting system, bladder and bowel. SKELETON: There are no hypermetabolic osseous lesions. Injection site activity in the right elbow region. Linear activity laterally in the right proximal forearm possibly due to trauma or inflammation. Mild activity in the left proximal foot possibly due to inflammation. Health Nurse (topogram) images:No additional findings IMPRESSION IMPRESSION: 1. Neck: No suspicious hypermetabolic foci 2. Chest: No evidence of FDG avid neoplastic process 3. Abdomen and pelvis: No evidence of FDG avid neoplastic process 4. Skeleton: No hypermetabolic osseous lesions Transcribe Date/Time: Aug 08 2023 2:10P Dictated by: ANDREW CUEVAS MD This examination was interpreted and the report reviewed and electronically signed by: ANDREW CUEVAS MD on Aug 08 2023 2:20PM EST Thank you for allowing us to participate in the care of your patient. Should there be any questions regarding this interpretation, please call [phone]. If you are unable to reach us at the number above, please feel free to contact [facility] at [phone]. [facility] Radiology Study observation (narrative) [facility] PET+CT Whole body Bone W 18F -NaF IVOrdered By: [facility] Provider on 08-08-2023 [facility] PET+CT Whole body Bone W 18F -NaF Emma 04-09-2023 IMPRESSION: HEAD/NECK: * No FDG avid neoplastic process. CHEST: * Postsurgical changes of the bilateral axillae and left breast with no FDG avid neoplastic process. ABDOMEN/PELVIS: * No FDG avid neoplastic process. BONES/EXTREMITIES: * No suspicious FDG avid osseous lesion. Transcribe Date/Time: Apr 09 2023 9:52A Dictated by: KAY LAW MD This examination was interpreted and the report reviewed and electronically signed by: SAEID KAT MD on Apr 09 2023 12:56PM EST Thank you for allowing us to participate in the care of your patient. Should there be any questions regarding this interpretation, please call [phone]. If you are unable to reach us at the number above, please feel free to contact [facility] at [phone]. 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 INDICATION: Subsequent treatment strategy TECHNIQUE: 7.2 mCi of F18-FDG administered IV followed about 60 minutes later by PET imaging from skull vertex to toes. Free breathing low dose CT was performed without contrast for attenuation correction and anatomic localization. - Blood glucose before FDG injection: 93 mg/dL CT Dose-Length Product (DLP): 267 mGy*cm CT Dose Reduction Employed: Automated exposure control (AEC) COMPARISON: FDG PET/CT 10/23/2022, 05/29/2022, 01/15/2022, 09/13/2021, 05/01/2016 CORRELATION: CT abdomen/pelvis 07/28/2018 RESULTS: REFERENCES: SUV reference values: - Mediastinal blood pool activity (max SUV): 2.7 - Background liver activity (max SUV): 3.0 Health Nurse (topogram) images: No additional findings. HEAD AND NECK: Physiologic uptake in the visualized brain, extraocular muscles, parapharyngeal soft tissues, base of tongue, salivary glands, and vocal cords. Head & Neck: No focal tracer avid lesion. Lymph nodes: No tracer avid lymph nodes. Thyroid: No tracer avid lesion. CHEST: Lungs & Airways: No tracer avid consolidation, mass, or nodule. * Please note, PET/CT is not sensitive for pulmonary nodules less than than 8 mm. Pleura: No tracer avid lesion. No pleural effusion. Mediastinum: No tracer avid mass. Lymph Nodes: No tracer avid lymph nodes. Cardiovascular: Physiologic blood pool and myocardial activity. Atherosclerotic calcification without thoracic aortic aneurysm. Chest Wall: Center venous port catheter with the tip terminating in the lower third SVC. Surgical clips in the bilateral axillae. Left mastectomy. No tracer avid lesion. ABDOMEN AND PELVIS: Physiologic activity in the GI and tracts. Liver: No tracer avid lesion. Biliary: Unremarkable gallbladder. Spleen: No tracer avid lesion. No splenomegaly. Pancreas: No tracer avid lesion. Adrenals: No tracer avid lesion. Kidneys: No focal tracer avid lesion. No hydronephrosis or calculi. GI Tract: No focal tracer avid lesion. No dilated bowel. Lymph Nodes: No tracer avid lymph nodes. Mesentery/Peritoneum: No tracer avid lesion. No ascites. Retroperitoneum: No tracer avid lesion. Vasculature: No abdominal aortic aneurysm. Pelvis: Midline FDG activity in the vaginal introitus is likely physiologic. No suspicious tracer avid lesion. Abdominal Wall: No tracer avid lesion. BONES AND EXTREMITIES: No tracer avid lesion or suspicious osseous lesion. Multifocal degenerative osseous changes. 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 INDICATION: Subsequent treatment strategy TECHNIQUE: 7.2 mCi of F18-FDG administered IV followed about 60 minutes later by PET imaging from skull vertex to toes. Free breathing low dose CT was performed without contrast for attenuation correction and anatomic localization. - Blood glucose before FDG injection: 93 mg/dL CT Dose-Length Product (DLP): 267 mGy*cm CT Dose Reduction Employed: Automated exposure control (AEC) COMPARISON: FDG PET/CT 10/23/2022, 05/29/2022, 01/15/2022, 09/13/2021, 05/01/2016 CORRELATION: CT abdomen/pelvis 07/28/2018 RESULTS: REFERENCES: SUV reference values: - Mediastinal blood pool activity (max SUV): 2.7 - Background liver activity (max SUV): 3.0 Health Nurse (topogram) images: No additional findings. HEAD AND NECK: Physiologic uptake in the visualized brain, extraocular muscles, parapharyngeal soft tissues, base of tongue, salivary glands, and vocal cords. Head & Neck: No focal tracer avid lesion. Lymph nodes: No tracer avid lymph nodes. Thyroid: No tracer avid lesion. CHEST: Lungs & Airways: No tracer avid consolidation, mass, or nodule. * Please note, PET/CT is not sensitive for pulmonary nodules less than than 8 mm. Pleura: No tracer avid lesion. No pleural effusion. Mediastinum: No tracer avid mass. Lymph Nodes: No tracer avid lymph nodes. Cardiovascular: Physiologic blood pool and myocardial activity. Atherosclerotic calcification without thoracic aortic aneurysm. Chest Wall: Center venous port catheter with the tip terminating in the lower third SVC. Surgical clips in the bilateral axillae. Left mastectomy. No tracer avid lesion. ABDOMEN AND PELVIS: Physiologic activity in the GI and tracts. Liver: No tracer avid lesion. Biliary: Unremarkable gallbladder. Spleen: No tracer avid lesion. No splenomegaly. Pancreas: No tracer avid lesion. Adrenals: No tracer avid lesion. Kidneys: No focal tracer avid lesion. No hydronephrosis or calculi. GI Tract: No focal tracer avid lesion. No dilated bowel. Lymph Nodes: No tracer avid lymph nodes. Mesentery/Peritoneum: No tracer avid lesion. No ascites. Retroperitoneum: No tracer avid lesion. Vasculature: No abdominal aortic aneurysm. Pelvis: Midline FDG activity in the vaginal introitus is likely physiologic. No suspicious tracer avid lesion. Abdominal Wall: No tracer avid lesion. BONES AND EXTREMITIES: No tracer avid lesion or suspicious osseous lesion. Multifocal degenerative osseous changes. IMPRESSION IMPRESSION: HEAD/NECK: * No FDG avid neoplastic process. CHEST: * Postsurgical changes of the bilateral axillae and left breast with no FDG avid neoplastic process. ABDOMEN/PELVIS: * No FDG avid neoplastic process. BONES/EXTREMITIES: * No suspicious FDG avid osseous lesion. Transcribe Date/Time: Apr 09 2023 9:52A Dictated by: KAY LAW MD This examination was interpreted and the report reviewed and electronically signed by: SAEID KAT MD on Apr 09 2023 12:56PM EST Thank you for allowing us to participate in the care of your patient. Should there be any questions regarding this interpretation, please call [phone]. If you are unable to reach us at the number above, please feel free to contact [facility] at [phone]. [facility] PET+CT Whole body Bone W 18F -NaF IVOrdered By: [facility] Provider on 04-09-2023 [facility] CBC W Auto Differential pane l (Bld)on 04-08-2023 Basophils (Bld) [#/Vol] 0.03 10*3/uL [facility] Basophils/100 WBC (Bld) 0.5 % [facility] Differential cell count method Nom (Bld) Auto [facility] Eosinophils (Bld) [#/Vol] [facility] Eosinophils/100 WBC (Bld) 0.2 % [facility] Erythrocyte distribution width (RBC) [Ratio] 13.3 % 11.5 - 15.0 % [facility] Hematocrit (Bld) [Volume fraction] 40.5 % 36.0 - 46.0 % [facility] Hemoglobin (Bld) [Mass/Vol] 13.4 g/dL 11.5 - 15.5 g/dL [facility] Immature granulocytes (Bld) [#/Vol] [facility] Immature granulocytes/100 WBC (Bld) 0.2 % [facility] Lymphocytes (Bld) [#/Vol] 2.91 10*3/uL [facility] Lymphocytes/100 WBC (Bld) 47.6 % [facility] MCH (RBC) [Entitic mass] 30.0 pg 26.0 - 34.0 pg [facility] MCHC (RBC) [Mass/Vol] 33.1 g/dL 30.5 - 36.0 g/dL [facility] MCV (RBC) [Entitic vol] 90.8 fL 80.0 - 100.0 fL [facility] Monocytes (Bld) [#/Vol] 0.46 10*3/uL NINF [facility] Monocytes/100 WBC (Bld) 7.5 % [facility] Neutrophils (Bld) [#/Vol] 2.69 10*3/uL [facility] Neutrophils/100 WBC (Bld) 44.0 % [facility] Nucleated RBC (Bld) [#/Vol] NINF [facility] Nucleated RBC/100 WBC (Bld) [Ratio] 0.0 % /100 WBC [facility] Platelet mean volume (Bld) [Entitic vol] 9.0 fL 9.0 - 12.7 fL [facility] Platelets (Bld) [#/Vol] 236 10*3/uL [facility] RBC (Bld) [#/Vol] 4.46 10*6/uL 3.90 - 5.2 0 m/uL [facility] WBC (Bld) [#/Vol] 6.11 10*3/uL [facility] Comprehensive metabolic 2000 panelOrdered By: Louise Cuello on 04-08-2023 Albumin [Mass/Vol] 5.0 g/dL High 3.9 - 4.9 g/dL [facility] ALP [Catalytic activity/Vol] 126 U/L High 34 - 123 U/L [facility] ALT [Catalytic activity/Vol] 10 U/L 7 - 38 U/L [facility] Anion gap [Moles/Vol] 12 mmol/L 9 - 18 mmol/L [facility] AST [Catalytic activity/Vol] 16 U/L 13 - 35 U/L [facility] Bilirubin [Mass/Vol] 0.5 mg/dL 0.2 - 1.3 mg/dL [facility] Calcium [Mass/Vol] 9.8 mg/dL 8.5 - 10. 2 mg/dL [facility] Chloride [Moles/Vol] 107 mmol/L High 97 - 105 mmol/L [facility] CO2 [Moles/Vol] 25 mmol/L 22 - 30 mmol/L [facility] Creatinine [Mass/Vol] 1.01 mg/dL High 0.58 - 0.96 mg/dL [facility] GFR/1.73 sq M.predicted among non-blacks MDRD (S/P/Bld) [Vol rate/Area] 65 mL/min/{1.73_m2} - PINF [facility] Comment on above: Estimated Glomerular Filtration Rate (eGFR) is calculated using the 2020 CKD-EPI creatinine equation. This equation utilizes serum creatinine, sex, and age as parameters. The creatinine assay has traceable calibration to isotope dilution-mass spectrometry. Refer to KDIGO guidelines for clinical interpretation. In patients with unstable renal function, e.g. those with acute kidney injury, the eGFR may not accurately reflect actual GFR. Glucose [Mass/Vol] 99 mg/dL 74 - 99 mg/dL [facility] Comment on above: The [place] Diabete s Association (ADA) provides guidance for cutoff values for fasting glucose and random glucose. The ADA defines fasting as no caloric intake for at least 8 hours. Fasting plasma glucose results between 100 to 125 mg/dL indicate increased risk for diabetes (prediabetes). Fasting plasma glucose results greater than or equal to 126 mg/dL meet the criteria for diagnosis of diabetes. In the absence of unequivocal hyperglycemia, results should be confirmed by repeat testing. In a patient with classic symptoms of hyperglycemia or hyperglycemic crisis, random plasma glucose results greater than or equal to 200 mg/dL meet the criteria for diagnosis of diabetes. Reference: Standards of Medical Care in Diabetes 2016, [place] Diabetes Association. Diabetes Care. 2016.39(Suppl 1). Interpretation and review of laboratory results Abnormal [facility] Potassium [Moles/Vol] 4.2 mmol/L 3.7 - 5.1 mmol/L [facility] Protein [Mass/Vol] 7.3 g/dL 6.3 - 8.0 g/dL [facility] Sodium [Moles/Vol] 144 mmol/L 136 - 144 mmol/L [facility] Urea nitrogen [Mass/Vol] 13 mg/dL 7 - 21 mg/dL [facility] GLUCOSE, BLOOD (POC)on 04-08 Glucose [Mass/Vol] 93 mg/dL 74 - 99 mg/dL [facility] Comment on above: Location:[facility], [address] [place] [address] , [place], [place], [address] The Accu-Chek Inform II glucose meter has not been approved for testing on patients receiving intensive medical intervention or therapy and results from this point of care glucose test should not be used for patient management decisions in these cases. Inaccurate results may also occur from other interfering factors, such as N-acetylcysteine (blood concentrations of greater than 5mg/dL), galactose, extremes of hematocrit (<10 or >65), or high doses of ascorbic acid (vitamin C) greater than 3mg/dL. Consider alternate testing mechanisms (e.g. core lab, blood gas instrument) in the above situations. [facility] LD LACTATE DEHYDROon 023 LDH [Catalytic activity/Vol] 208 U/L 135 - 214 U/L [facility] LDH [Catalytic activity/Vol] on 04-08-2023 Interpretation and review of laboratory results Normal [facility] PET+CT Whole body Bone W 18F -NaF Emma 04-08-2023 Radiology Study observation (narrative) [facility] RAD - Ultrasound Reporton RAD - Ultrasound Report [id number] D:127 Normal [facility] ED Note-Physicianon 12-15-19 ED Note-Physician [id number]#1.00 CD:127 Normal [facility] Lab Reportson 12-14-2022 Lab Reports [id number]#1.00C D:127 Normal [facility] Facesheeton 12-04-2022 Facesheet [id number] [id number]#1.00 CD:127 Normal [facility] RAD - CT Reporton 12-04-2022 RAD - CT Report [id number]#1.00 CD:127 Normal [facility] CBC AUTO DIFFon 11-30-2022 BASO # 0.0 103/ul Normal 0.0-0.1 [facility] Comment on above: Performed By: #### C BC #### [facility] [address] [place] [address] Dr. Zaheer Martinez Basophils/100 WBC (Bld) 0.4 % Normal 0.2-2.0 [facility] Comment on above: Performed By: #### C BC #### [facility] [address] [place] [address] Dr. Zaheer Martinez EO # 0.0 103/ul Normal 0.0-0.7 [facility] Comment on above: Performed By: #### C BC #### [facility] [address] [place] [address] Dr. Zaheer Martinez Eosinophils/100 WBC (Bld) 0.0 % Critically low 0.9-7.0 [facility] Comment on above: Performed By: #### C BC #### [facility] [address] [place] [address] Dr. Zaheer Martinez Erythrocyte distribution width (RBC) [Ratio] 12.8 % Normal 11.0-15.0 [facility] Comment on above: Performed By: #### C BC #### [facility] [address] [place] [address] Dr. Zaheer Martinez Hematocrit (Bld) [Volume fraction] 33.4 % Critically low 36.0-48.0 [facility] Comment on above: Performed By: #### C BC #### [facility] [address] [place] [address] Dr. Zaheer Martinez Hemoglobin (Bld) [Mass/Vol] 11.0 g/dL Critically low 12.0-16.0 [facility] Comment on above: Performed By: #### C BC #### [facility] [address] [place] [address] Dr. Zaheer Martinez IG # 0.02 10e3/ul Normal 0.00-0.03 [facility] Comment on above: Performed By: #### C BC #### [facility] [address] [place] [address] Dr. Zaheer Martinez IG % 0.3 % Normal 0.0-0.5 [facility] Comment on above: Performed By: #### C BC #### [facility] [address] [place] [address] Dr. Zaheer Martinez LYMPH # 1.4 103/ul Normal 1.2-3.8 [facility] Comment on above: Performed By: #### C BC #### [facility] [address] [place] [address] Dr. Zaheer Martinez Lymphocytes/100 WBC (Bld) 20.2 % Critically low 20.5-60.0 [facility] Comment on above: Performed By: #### C BC #### [facility] [address] [place] [address] Dr. Zaheer Martinez MANUAL DIFF REQ NO Normal [facility] Comment on above: Performed By: #### C BC #### [facility] [address] [place] [address] Dr. Zaheer Martinez MCH (RBC) [Entitic mass] 29.4 pg Normal 26.7-34.0 [facility] Comment on above: Performed By: #### C BC #### [facility] [address] [place] [address] Dr. Zaheer Martinez MCHC (RBC) [Mass/Vol] 32.9 g/dL Normal 29.9-35.2 [facility] Comment on above: Performed By: #### C BC #### [facility] [address] [place] [address] Dr. Zaheer Martinez MCV (RBC) [Entitic vol] 89.3 fL Normal 81.0-99.0 [facility] Comment on above: Performed By: #### C BC #### [facility] [address] [place] [address] Dr. Zaheer Martinez MONO # 0.6 103/ul Normal 0.3-0.8 [facility] Comment on above: Performed By: #### C BC #### [facility] [address] [place] [address] Dr. Zaheer Martinez Monocytes/100 WBC (Bld) 7.9 % Normal 1.7-12.0 [facility] Comment on above: Performed By: #### C BC #### [facility] [address] [place] [address] Dr. Zaheer Martinez NEUT # 5.1 103/ul Normal 1.4-6.5 [facility] Comment on above: Performed By: #### C BC #### [facility] [address] [place] [address] Dr. Zaheer Martinez Neutrophils/100 WBC (Bld) 71.2 % Normal 43.0-75.0 [facility] Comment on above: Performed By: #### C BC #### [facility] [address] [place] [address] Dr. Zaheer Martinez Platelet mean volume (Bld) [Entitic vol] 8.6 fL Critically low 9.5-13.5 [facility] Comment on above: Performed By: #### C BC #### [facility] [address] [place] [address] Dr. Zaheer Martinez PLT 277 103/ul Normal 150-450 [facility] Comment on above: Performed By: #### C BC #### [facility] [address] [place] [address] Dr. Zaheer Martinez RBC 3.74 106/ul Critically low 4.20-5.40 [facility] Comment on above: Performed By: #### C BC #### [facility] [address] [place] [address] Dr. Zaheer Martinez WBC 7.1 103/ul Normal 4.0-11.0 [facility] Comment on above: Performed By: #### C BC #### [facility] [address] [place] [address] ABD/PELVIS WO CONon 11-30 CT ABD/PELVIS WO CON CT ABDOMEN AND PELVIS WITHOUT CONTRAST: 11/30/2022 2:07 PM EDT Clinical Data: UNSPECIFIED ABDOMINAL PAIN Comparison: No previous Unenhanced helically acquired data per protocol. The lack of IV contrast material hampers evaluation of the viscera, for adenopathy, and of the vasculature. The lack of oral contrast medium to some extent hampers evaluation of the bowel. All CT scans at this facility use dose modulation, iterative reconstruction, and/or weight based dosing when appropriate to reduce radiation dose to as low as reasonably achievable. FINDINGS: LOWER THORAX: Unremarkable. LIVER: No acute findings. SPLEEN: No acute findings. GB/BILIARY: No acute findings at CT. PANCREAS: No acute findings. ADRENALS: No acute findings. KIDNEYS/URETERS: Potential punctate left renal calculus. No left hydronephrosis or hydroureter. No right renal calculi. The right kidney is larger than the left and is of lower density than the left. There is significant right hydronephrosis and hydroureter to a position just superior just proximal to the UV junction. At this point there is a 6 mm ureteral calculus. VESSELS: No AAA ABDOMINAL NODES: No obvious adenopathy. PELVIC NODES: No obvious adenopathy. BLADDER: Nearly empty. No calculi REPRODUCTIVE: The uterus is anteverted. What may be the right ovary is fairly small. The left is unremarkable PERITONEUM: No free air. No free fluid. EXTRAPERITONEUM: No acute findings. BOWEL: No GI obstruction. Moderate amount of stool within aspects of the colon. Mild vague hyperdensity aspects of large bowel may represent ingested medication BODY WALL: No acute findings. BONES: No acute findings. Modest levoscoliosis centered upper lumbar region. OTHER: No acute findings. IMPRESSION: 1. Greater than 6 mm calculus distal right ureter. Significant right hydronephrosis and hydroureter. Edematous right kidney.. Electronically authenticated by: DOT ESTEVEZ Date: 2022-11-30 15:12 Normal [facility] ER URINE PROFILEon 3 Bilirubin Ql (U) Negative Normal NEGATIVE [facility] Comment on above: Performed By: #### E MJ ICRO #### [facility] [address] [address] [address] Zaheer Martinez Clarity (U) CLOUDY Abnormal CLEAR [facility] Comment on above: Performed By: #### E MJ UMJACKIRO #### [facility] [address] [place], [place] [address] Dr. Zaheer Martinez Color (U) RED Abnormal YELLOW [facility] Comment on above: Performed By: #### E CHETANR, UMICRO #### [facility] [address] [place] [address] Dr. Zaheer MIRANDA A micrscopic examination will be performed if indicated. Normal [facility] Comment on above: Performed By: #### Fariba BARKER UMICRO #### [facility] [address] [place] [address] Dr. Zaheer Martinez Glucose Ql (U) Negative Normal NEGATIVE [facility] Comment on above: Performed By: #### Fariba BARKER UMICRO #### [facility] [address] [place] [address] Dr. Zaheer Martinez Hemoglobin Ql (U) LARGE Abnormal NEGATIVE [facility] Comment on above: Performed By: #### Fariba BARKER UMICRO #### [facility] [address] [place] [address] Dr. Zaheer Martinez Ketones Ql (U) Negative Normal NEGATIVE [facility] Comment on above: Performed By: #### Fariba BARKER UMICRO #### [facility] [address] [place] [address] Dr. Zaheer Martinez LEUKOCYTES Negative Normal NEGATIVE [facility] Comment on above: Performed By: #### Fariba BARKER UMICRO #### [facility] [address] [place] [address] Dr. Zaheer Martinez Nitrite Ql (U) Negative Normal NEGATIVE [facility] Comment on above: Performed By: #### Fariba BARKER UMICRO #### [facility] [address] [place] [address] Dr. Zaheer Martinez pH (U) 6.5 [pH] Normal 5-9 [facility] Comment on above: Performed By: #### Fariba BARKER UMICRO #### [facility] [address] [place] [address] Dr. Zaheer Martinez Protein (U) [Mass/Vol] 100 mg/dL Abnormal NEGATIVE/ TRACE [facility] Comment on above: Performed By: #### Fariba BARKER UMICRO #### [facility] [address] [place] [address] Dr. Zaheer Martinez SPEC GRAVITY 1.020 Normal 1.005-<=1.02 5 [facility] Comment on above: Performed By: #### CAPRI CHRISTIANSON #### [facility] [address] [place] [address] Dr. Zaheer Martinez UR MICRO IND INDICATED Normal [facility] Comment on above: Performed By: #### CAPRI CHRISTIANSON #### [facility] [address] [place] [address] Dr. Zaheer Martinez Urobilinogen Qn (U) 0.2 {Ben'U}/dL Normal 0.2 - 1. 0 [facility] Comment on above: Performed By: #### CAPRI CHRISTIANSON #### [facility] [address] [place] [address] Dr. Zaheer Martinez PROF CHEM 8 (BAS METB)on Anion gap [Moles/Vol] 13.8 mmol/L Normal [facility] Comment on above: Performed By: #### B MP #### [facility] [address] [place] [address] Dr. Zaheer Martinez Calcium [Mass/Vol] 9.0 mg/dL Normal 8.5-10.1 [facility] Comment on above: Performed By: #### B MP #### [facility] [address] [place] [address] Dr. Zaheer Martinez Chloride [Moles/Vol] 103 mmol/L Normal 98-107 [facility] Comment on above: Performed By: #### B MP #### [facility] [address] [place] [address] Dr. Zaheer Martinez CO2 [Moles/Vol] 25.9 mmol/L Normal 21.0-32.[address] [facility] Comment on above: Performed By: #### B MP #### [facility] [address] [place] [address] Dr. Zaheer Martinez Creatinine [Mass/Vol] 1.20 mg/dL Critically high 0.55-1.02 [facility] Comment on above: Performed By: #### B MP #### [facility] [address] [address] [address] Zaheer Martinez EGFR-AF NIUEAN 56 mL/min/1.73m2 Critically low >=60 [facility] Comment on above: Performed By: #### B MP #### [facility] [id number] Zaheer Martinez EGFR-NON AF NIUEAN 46 mL/min/1.73m2 Critically low >=60 [facility] Comment on above: Performed By: #### B MP #### [facility] [address] [address] [address] Zaheer Martinez Glucose [Mass/Vol] 104 mg/dL Normal 74-106 [facility] Comment on above: Performed By: #### B MP #### [facility] [address] [address] [address] Zaheer Martinez Potassium [Moles/Vol] 2.7 mmol/L Critically low 3.5-5.1 [facility] Comment on above: Performed By: #### B MP #### [facility] [address] [address] [address] Zaheer Martinez Sodium [Moles/Vol] 138 mmol/L Normal 136-145 [facility] [place] Comment on above: Performed By: #### B MP #### [facility] [address] [address] [address] Zaheer Martinez Urea nitrogen [Mass/Vol] 21.0 mg/dL Critically high 7.0-18.0 [facility] Comment on above: Performed By: #### B MP #### [facility] [address] [address] [address] Zaheer Martinez Urea nitrogen/Creatinine [Mass ratio] 17.5 mg/mg Normal [facility] Comment on above: Performed By: #### B MP #### [facility] [id number] Zaheer Martinez URINE MICROSCOPIC ONLYon BACTERIA NONE SEEN Normal NONE SEEN [facility] Comment on above: Performed By: #### E CAPRI BARKER #### [facility] [address] [place] [address] Dr. Zaheer Martinez Bacteria identified Cx Nom (U) NOT INDICATED Normal [facility] Comment on above: Performed By: #### Fariba BARKER UMICRO #### [facility] [address] [place] [address] Dr. Zaheer Martinez CAST NONE SEEN Normal NONE SEEN [facility] Comment on above: Performed By: #### Fariba BARKER, UMICRO #### [facility] [address] [place] [address] Dr. Zaheer Martinez Crystals LM Nom (Urine sed) NONE SEEN Normal NONE SEEN [facility] Comment on above: Performed By: #### Fariba BARKER UMICRO #### [facility] [address] [place] [address] Dr. Zaheer Martinez Epithelial cells LM Ql (Urine sed) RARE Normal NONE SEEN /RARE [facility] Comment on above: Performed By: #### Fariba BARKER UMICRO #### [facility] [address] [place] [address] Dr. Zaheer Martinez MUCOUS NONE SEEN Normal NONE SEEN [facility] Comment on above: Performed By: #### Fariba BARKER UMICRO #### [facility] [address] [place] [address] Dr. Zaheer Martinez RBC (U) [#/Vol] /uL Abnormal 0-2 [facility] Comment on above: Performed By: #### Fariba BARKER UMICRO #### [facility] [address] [place] [address] Dr. Zaheer Martinez WBC 5-10 Abnormal NONE SEEN [facility] Comment on above: Performed By: #### Fariba BARKER, UMICRO #### [facility] [address] [place] [address] Dr. Zaheer Martinez Urinalysis - AUTOMATEDon Appearance (U) cloudy [employer] Other Bilirubin Ql (U) Negative [employer] Other Color (U) yellow [employer] Other Glucose Ql (U) Negative [employer] Other Hemoglobin Ql (U) large [email or web address] Other Ketones Ql (U) Negative [employer] Other Leukocyte esterase Test strip Ql (U) small [employer] Other Nitrite Ql (U) Negative [employer] Other pH (U) 7.0 [pH] [employer] Other Protein Ql (U) 30 [employer] Other Specific gravity (U) [Rel density] 1.010 [employer] Other Urobilinogen (U) [Mass/Vol] 0.2 mg/dL [employer] Other Urinalysis - AUTOMATED [employer] Other Urine Cultureon 11-06-2022 Bacteria identified Cx Nom (U) ORGANISM: Escherichia coli (O:ESCCOL) Closter Count >100,000 Aerobic EH Charge ([id number]) -- SUSCEPTIBILITY - ORGANISM: O:ESCCOL ANTIBIOTIC INTERPRETATION EH Amikacin S <16 Amoxacillin/K Clavulanate S <8 Ampicillin S <8 Ampicillin/Sulbactam S <4 Aztreonam S <4 Cefazolin S <2 Cefepime S <2 Ceftazidime S <1 Ceftazidime/Avibactam S <4 Ceftolozane/Tazobactam S <2 Ceftriaxone S <1 Cefuroxime S <4 Ciprofloxacin S <0.25 Ertapenem S <0.5 Gentamicin S <2 Levofloxacin S <0.5 Meropenem S <1 Meropenem/Vaborbactam S <2 Nitrofurantoin S <32 Piperacillin/Tazobactam S <8 Tetracycline S <4 Tigecycline S <2 Tobramycin S <2 Trimethoprim/Sulfametho xazole S <0.5 S = SUSCEPTIBLE I = INTERMEDIATE R = RESISTANT BLANK = DATA NOT AVAILABLE, OR DRUG NOT ADVISABLE OR TESTED R* = RESISTANCE DUE TO EXTENDED SPECTRUM BETA-LACTAMASES ESBL = EXTENDED SPECTRUM BETA-LACTAMASE TFG = THYMIDINE-DEPENDENT STRAIN ALONSO = BETA-LACTAMASE POSITIVE IB = INDUCIBLE BETA-LACTAMASE. APPEARS IN PLACE OF 'S' WITH SPECIES KNOWN TO POSSESS INDUCIBLE BETA-LACTAMASES. POTENTIALLY THEY MAY BECOME RESISTANT TO ALL B-LACTAM DRUGS. PERFORMED BY: [place] [address] PATHOLOGIST ENGINEER ASSISTANT JOÃO SULLIVAN M.D. Normal [facility] Comment on above: Performed By: #### C UU #### [address] CBC W Auto Differential pane l (Bld)on 10-23-2022 Basophils (Bld) [#/Vol] 0.04 10*3/uL [facility] Basophils/100 WBC (Bld) 0.7 % [facility] Differential cell count method Nom (Bld) Auto [facility] Eosinophils (Bld) [#/Vol] [facility] Eosinophils/100 WBC (Bld) 0.2 % [facility] Erythrocyte distribution width (RBC) [Ratio] 13.3 % 11.5 - 15.0 % [facility] Hematocrit (Bld) [Volume fraction] 39.0 % 36.0 - 46.0 % [facility] Hemoglobin (Bld) [Mass/Vol] 13.2 g/dL 11.5 - 15.5 g/dL [facility] Immature granulocytes (Bld) [#/Vol] [facility] Immature granulocytes/100 WBC (Bld) 0.2 % [facility] Interpretation and review of laboratory results Abnormal [facility] Lymphocytes (Bld) [#/Vol] 2.43 10*3/uL [facility] Lymphocytes/100 WBC (Bld) 42.7 % [facility] MCH (RBC) [Entitic mass] 30.8 pg 26.0 - 34.0 pg [facility] MCHC (RBC) [Mass/Vol] 33.8 g/dL 30.5 - 36.0 g/dL [facility] MCV (RBC) [Entitic vol] 90.9 fL 80.0 - 100.0 fL [facility] Monocytes (Bld) [#/Vol] 0.44 10*3/[facility]L [facility] Monocytes/100 WBC (Bld) 7.7 % [facility] Neutrophils (Bld) [#/Vol] 2.76 10*3/uL [facility] Neutrophils/100 WBC (Bld) 48.5 % [facility] Nucleated RBC (Bld) [#/Vol] NINF [facility] Nucleated RBC/100 WBC (Bld) [Ratio] 0.0 % /100 WBC [facility] Platelet mean volume (Bld) [Entitic vol] 8.9 fL Low 9.0 - 12.7 fL [facility] Platelets (Bld) [#/Vol] 254 10*3/uL [facility] RBC (Bld) [#/Vol] 4.29 10*6/uL 3.90 - 5.2 0 m/uL [facility] WBC (Bld) [#/Vol] 5.69 10*3/uL [facility] This is an appended report. These results have been appended to a previously verified report. [facility] Comprehensive metabolic 2000 panelon 10-23-2022 Albumin [Mass/Vol] 4.6 g/dL 3.9 - 4.9 g/dL [facility] ALP [Catalytic activity/Vol] 127 U/L High 34 - 123 U/L [facility] ALT [Catalytic activity/Vol] 11 U/L 7 - 38 U/L [facility] Anion gap [Moles/Vol] 11 mmol/L 9 - 18 mmol/L [facility] AST [Catalytic activity/Vol] 17 U/L 13 - 35 U/L [facility] Bilirubin [Mass/Vol] 0.4 mg/dL 0.2 - 1.3 mg/dL [facility] Calcium [Mass/Vol] 9.3 mg/dL 8.5 - 10. 2 mg/dL [facility] Chloride [Moles/Vol] 107 mmol/L High 97 - 105 mmol/L [facility] CO2 [Moles/Vol] 25 mmol/L 22 - 30 mmol/L [facility] Creatinine [Mass/Vol] 1.07 mg/dL High 0.58 - 0.96 mg/dL [facility] GFR/1.73 sq M.predicted among non-blacks MDRD (S/P/Bld) [Vol rate/Area] 61 mL/min/{1.73_m2} - PINF [facility] Comment on above: Estimated Glomerular Filtration Rate (eGFR) is calculated using the 2020 CKD-EPI creatinine equation. This equation utilizes serum creatinine, sex, and age as parameters. The creatinine assay has traceable calibration to isotope dilution-mass spectrometry. Refer to KDIGO guidelines for clinical interpretation. In patients with unstable renal function, e.g. those with acute kidney injury, the eGFR may not accurately reflect actual GFR. Glucose [Mass/Vol] 100 mg/dL High 74 - 99 mg/dL [facility] Comment on above: The [place] Diabete s Association (ADA) provides guidance for cutoff values for fasting glucose and random glucose. The ADA defines fasting as no caloric intake for at least 8 hours. Fasting plasma glucose results between 100 to 125 mg/dL indicate increased risk for diabetes (prediabetes). Fasting plasma glucose results greater than or equal to 126 mg/dL meet the criteria for diagnosis of diabetes. In the absence of unequivocal hyperglycemia, results should be confirmed by repeat testing. In a patient with classic symptoms of hyperglycemia or hyperglycemic crisis, random plasma glucose results greater than or equal to 200 mg/dL meet the criteria for diagnosis of diabetes. Reference: Standards of Medical Care in Diabetes 2016, [place] Diabetes Association. Diabetes Care. 2016.39(Suppl 1). Interpretation and review of laboratory results Abnormal [facility] Potassium [Moles/Vol] 3.4 mmol/L Low 3.7 - 5.1 mmol/L [facility] Protein [Mass/Vol] 7.0 g/dL 6.3 - 8.0 g/dL [facility] Sodium [Moles/Vol] 143 mmol/L 136 - 144 mmol/L [facility] Urea nitrogen [Mass/Vol] 15 mg/dL 7 - 21 mg/dL [facility] GLUCOSE, BLOOD (POC)on 10-23 Glucose [Mass/Vol] 96 mg/dL 74 - 99 mg/dL [facility] Comment on above: Location:[facility], [address] [place] [address] , [place], [place], [facility] The Accu-Chek Inform II glucose meter has not been approved for testing on patients receiving intensive medical intervention or therapy and results from this point of care glucose test should not be used for patient management decisions in these cases. Inaccurate results may also occur from other interfering factors, such as N-acetylcysteine (blood concentrations of greater than 5mg/dL), galactose, extremes of hematocrit (<10 or >65), or high doses of ascorbic acid (vitamin C) greater than 3mg/dL. Consider alternate testing mechanisms (e.g. core lab, blood gas instrument) in the above situations. [facility] LD LACTATE DEHYDROOrdered By : Jeny Galloway on 10-23-2022 LDH [Catalytic activity/Vol] 227 U/L High 135 - 214 U/L [facility] LDH [Catalytic activity/Vol] Ordered By: Jeny Galloway on 10-23-2022 Interpretation and review of laboratory results Abnormal [facility] PET+CT Whole body Bone W 18F -NaF Emma 10-23-2022 IMPRESSION: 1. Neck: No suspicious hypermetabolic foci 2. Chest: No evidence of FDG avid neoplastic process 3. Abdomen and pelvis: No evidence of FDG avid neoplastic process 4. Skeleton: No hypermetabolic osseous lesions. Small focus of cutaneous activity in the right lateral distal forearm. Possibly inflammatory. Clinical correlation suggested Transcribe Date/Time: Oct 23 2022 5:50P Dictated by: ANDREW CUEVAS MD This examination was interpreted and the report reviewed and electronically signed by: ANDREW CUEVAS MD on Oct 23 2022 6:02PM EST Thank you for allowing us to participate in the care of your patient. Should there be any questions regarding this interpretation, please call [phone]. If you are unable to reach us at the number above, please feel free to contact [facility]iology at [phone]. DIVISION OF RADIOLOGY * * *Final Report* * * DATE OF EXAM: Oct 23 2022 11:23AM NRN [id number] - NM PET/CT WHOLE BODY SUBQ / PROCEDURE REASON: Malignant melanoma of skin (HCC) * * * * Physician Interpretation * * * * RESULT: FDG PET/CT SCAN: CLINICAL HISTORY: Melanoma. INDICATION: Subsequent treatment strategy. TECHNIQUE: 6.8 mCi 18-FDG IV, followed about 1 hour later by PET imaging from top of the skull to feet. Non contrast CT was performed for attenuation correction and anatomic localization purposes. CT Dose-Length Product (DLP): 266 mGy*cm. CT Dose Reduction Employed: Yes BLOOD GLUCOSE: 96 mg/dL Comparison: Prior PET CT dated 05/29/2022. RESULT: HEAD AND NECK: Likely physiological activity in the oral cavity, tonsillar regions, salivary glands, visualized brain. Few mildly active upper cervical lymph nodes likely reactive. Surgical changes in the left neck. CHEST: Right-sided chest port. There is no hypermetabolic hilar or mediastinal lymphadenopathy. There is no hypermetabolic axillary lymphadenopathy. Surgical changes in the axillary regions. There are no hypermetabolic foci in the lungs. ABDOMEN AND PELVIS: The liver is slightly heterogeneous activity but no focal lesions are identified. There are no hypermetabolic foci in the liver, spleen, adrenals. There is no hypermetabolic abdominal or pelvic lymphadenopathy. Physiologic activity is noted in the liver, renal collecting system, bladder and bowel. Activity in the distal urethral region likely contamination. SKELETON: There are no hypermetabolic osseous lesions. Small cutaneous activity in the right distal forearm laterally possibly inflammatory. Clinical correlation suggested. Health Nurse (topogram) images:No additional findings. DIVISION OF RADIOLOGY Provider, [facility] - 10/23/2022 * * *Final Report* * * DATE OF EXAM: Oct 23 2022 11:23AM NRN [id number] - NM PET/CT WHOLE BODY SUBQ / PROCEDURE REASON: Malignant melanoma of skin (HCC) * * * * Physician Interpretation * * * * RESULT: FDG PET/CT SCAN: CLINICAL HISTORY: Melanoma. INDICATION: Subsequent treatment strategy. TECHNIQUE: 6.8 mCi 18-FDG IV, followed about 1 hour later by PET imaging from top of the skull to feet. Non contrast CT was performed for attenuation correction and anatomic localization purposes. CT Dose-Length Product (DLP): 266 mGy*cm. CT Dose Reduction Employed: Yes BLOOD GLUCOSE: 96 mg/dL Comparison: Prior PET CT dated 05/29/2022. RESULT: HEAD AND NECK: Likely physiological activity in the oral cavity, tonsillar regions, salivary glands, visualized brain. Few mildly active upper cervical lymph nodes likely reactive. Surgical changes in the left neck. CHEST: Right-sided chest port. There is no hypermetabolic hilar or mediastinal lymphadenopathy. There is no hypermetabolic axillary lymphadenopathy. Surgical changes in the axillary regions. There are no hypermetabolic foci in the lungs. ABDOMEN AND PELVIS: The liver is slightly heterogeneous activity but no focal lesions are identified. There are no hypermetabolic foci in the liver, spleen, adrenals. There is no hypermetabolic abdominal or pelvic lymphadenopathy. Physiologic activity is noted in the liver, renal collecting system, bladder and bowel. Activity in the distal urethral region likely contamination. SKELETON: There are no hypermetabolic osseous lesions. Small cutaneous activity in the right distal forearm laterally possibly inflammatory. Clinical correlation suggested. Health Nurse (topogram) images:No additional findings. IMPRESSION IMPRESSION: 1. Neck: No suspicious hypermetabolic foci 2. Chest: No evidence of FDG avid neoplastic process 3. Abdomen and pelvis: No evidence of FDG avid neoplastic process 4. Skeleton: No hypermetabolic osseous lesions. Small focus of cutaneous activity in the right lateral distal forearm. Possibly inflammatory. Clinical correlation suggested Transcribe Date/Time: Oct 23 2022 5:50P Dictated by: ANDREW CUEVAS MD This examination was interpreted and the report reviewed and electronically signed by: ANDREW CUEVAS MD on Oct 23 2022 6:02PM EST Thank you for allowing us to participate in the care of your patient. Should there be any questions regarding this interpretation, please call [phone]. If you are unable to reach us at the number above, please feel free to contact [facility] at [phone]. [facility] Radiology Study observation (narrative) [facility] PET+CT Whole body Bone W 18F -NaF IVOrdered By: [facility] Provider on 10-23-2022 [facility] CBC W Auto Differential pane l (Bld)on 05-29-2022 Basophils (Bld) [#/Vol[facility] Basophils/100 WBC (Bld) 0.5 % [facility] Differential cell count method Nom (Bld) Auto [facility] Eosinophils (Bld) [#/Vol] NINF [facility] Eosinophils/100 WBC (Bld) 0.2 % [facility] Erythrocyte distribution width (RBC) [Ratio] 13.6 % 11.5 - 15.0 % [facility] Hematocrit (Bld) [Volume fraction] 36.7 % 36.0 - 46.0 % [facility] Hemoglobin (Bld) [Mass/Vol] 12.1 g/dL 11.5 - 15.5 g/dL [facility] Immature granulocytes (Bld) [#/Vol] NINF [facility] Immature granulocytes/100 WBC (Bld) 0.2 % [facility] Lymphocytes (Bld) [#/Vol] 1.44 10*3/uL [facility] Lymphocytes/100 WBC (Bld) 33.0 % [facility] MCH (RBC) [Entitic mass] 30.3 pg 26.0 - 34.0 pg [facility] MCHC (RBC) [Mass/Vol] 33.0 g/dL 30.5 - 36.0 g/dL [facility] MCV (RBC) [Entitic vol] 91.8 fL 80.0 - 100.0 fL [facility] Monocytes (Bld) [#/Vol] 0.41 10*3/uL [facility] Monocytes/100 WBC (Bld) 9.4 % [facility] Neutrophils (Bld) [#/Vol] 2.47 10*3/uL [facility] Neutrophils/100 WBC (Bld) 56.7 % [facility] Nucleated RBC (Bld) [#/Vol] NINF [facility] Nucleated RBC/100 WBC (Bld) [Ratio] 0.0 % /100 WBC [facility] Platelet mean volume (Bld) [Entitic vol] 9.0 fL 9.0 - 12.7 fL [facility] Platelets (Bld) [#/Vol] 205 10*3/uL [facility] RBC (Bld) [#/Vol] 4.00 10*6/uL 3.90 - 5.2 0 m/uL [facility] WBC (Bld) [#/Vol] 4.36 10*3/uL [facility] This is an appended report. These results have been appended to a previously verified report. [facility] Comprehensive metabolic 2000 panelon 05-29-2022 Albumin [Mass/Vol] 4.6 g/dL 3.9 - 4.9 g/dL [facility] ALP [Catalytic activity/Vol] 136 U/L High 34 - 123 U/L [facility] ALT [Catalytic activity/Vol] 10 U/L 7 - 38 U/L [facility] Anion gap [Moles/Vol] 7 mmol/L Low 9 - 18 mmol/L [facility] AST [Catalytic activity/Vol] 15 U/L 13 - 35 U/L [facility] Bilirubin [Mass/Vol] 0.2 mg/dL 0.2 - 1.3 mg/dL [facility] Calcium [Mass/Vol] 9.8 mg/dL 8.5 - 10. 2 mg/dL [facility] Chloride [Moles/Vol] 107 mmol/L High 97 - 105 mmol/L [facility] CO2 [Moles/Vol] 28 mmol/L 22 - 30 mmol/L [facility] Creatinine [Mass/Vol] 1.06 mg/dL High 0.58 - 0.96 mg/dL [facility] GFR/1.73 sq M.predicted among non-blacks MDRD (S/P/Bld) [Vol rate/Area] 62 mL/min/{1.73_m2} - PINF [facility] Comment on above: Estimated Glomerular Filtration Rate (eGFR) is calculated using the 2020 CKD-EPI creatinine equation. This equation utilizes serum creatinine, sex, and age as parameters. The creatinine assay has traceable calibration to isotope dilution-mass spectrometry. Refer to KDIGO guidelines for clinical interpretation. In patients with unstable renal function, e.g. those with acute kidney injury, the eGFR may not accurately reflect actual GFR. Glucose [Mass/Vol] 98 mg/dL 74 - 99 mg/dL [facility] Comment on above: The [place] Diabete s Association (ADA) provides guidance for cutoff values for fasting glucose and random glucose. The ADA defines fasting as no caloric intake for at least 8 hours. Fasting plasma glucose results between 100 to 125 mg/dL indicate increased risk for diabetes (prediabetes). Fasting plasma glucose results greater than or equal to 126 mg/dL meet the criteria for diagnosis of diabetes. In the absence of unequivocal hyperglycemia, results should be confirmed by repeat testing. In a patient with classic symptoms of hyperglycemia or hyperglycemic crisis, random plasma glucose results greater than or equal to 200 mg/dL meet the criteria for diagnosis of diabetes. Reference: Standards of Medical Care in Diabetes 2016, [place] Diabetes Association. Diabetes Care. 2016.39(Suppl 1). Interpretation and review of laboratory results Abnormal [facility] Potassium [Moles/Vol] 3.4 mmol/L Low 3.7 - 5.1 mmol/L [facility] Protein [Mass/Vol] 6.7 g/dL 6.3 - 8.0 g/dL [facility] Sodium [Moles/Vol] 142 mmol/L 136 - 144 mmol/L [facility] Urea nitrogen [Mass/Vol] 13 mg/dL 7 - 21 mg/dL [facility] GLUCOSE, BLOOD (POC)on 05-29 Glucose [Mass/Vol] 93 mg/dL 74 - 99 mg/dL [facility] Comment on above: Location:[facility], [address] [place] [address] [place], [place], [facility] The Accu-Chek Inform II glucose meter has not been approved for testing on patients receiving intensive medical intervention or therapy and results from this point of care glucose test should not be used for patient management decisions in these cases. Inaccurate results may also occur from other interfering factors, such as N-acetylcysteine (blood concentrations of greater than 5mg/dL), galactose, extremes of hematocrit (<10 or >65), or high doses of ascorbic acid (vitamin C) greater than 3mg/dL. Consider alternate testing mechanisms (e.g. core lab, blood gas instrument) in the above situations. [facility] LD LACTATE DEHYDROOrdered By : Jeny Galloway on 05-29-2022 LDH [Catalytic activity/Vol] 216 U/L High 135 - 214 U/L [facility] LDH [Catalytic activity/Vol] Ordered By: Jeny Galloway on 05-29-2022 Interpretation and review of laboratory results Abnormal [facility] PET+CT Whole body Bone W 18F -NaF Emma 05-29-2022 IMPRESSION: 1. Neck: No suspicious hypermetabolic foci 2. Chest: No evidence of FDG avid neoplastic process 3. Abdomen and pelvis: No evidence of FDG avid neoplastic process 4. Skeleton: No hypermetabolic osseous lesions Transcribe Date/Time: May 29 2022 5:34P Dictated by: ANDREW CUEVAS MD This examination was interpreted and the report reviewed and electronically signed by: ANDREW CUEVAS MD on May 29 2022 11:25PM EST Thank you for allowing us to participate in the care of your patient. Should there be any questions regarding this interpretation, please call [phone]. If you are unable to reach us at the number above, please feel free to contact [facility] at [phone]. DIVISION OF RADIOLOGY * * *Final Report* * * DATE OF EXAM: May 29 2022 3:08PM NRN [id number] - NM PET/CT WHOLE BODY SUBQ / PROCEDURE REASON: Malignant melanoma of skin (HCC) * * * * Physician Interpretation * * * * RESULT: FDG PET/CT SCAN: CLINICAL HISTORY: Melanoma. INDICATION: Subsequent treatment strategy. TECHNIQUE: 92 mCi 18-FDG IV, followed about 1 hour later by PET imaging from top of the skull to feet. Non contrast CT was performed for attenuation correction and anatomic localization purposes. CT Dose-Length Product (DLP): 285 mGy*cm. CT Dose Reduction Employed: Yes Comparison: Prior PET CT dated 01/15/2022 RESULT: HEAD AND NECK: Likely physiological activity in the oral cavity, tonsillar regions, salivary glands, visualized brain. No suspicious hypermetabolic foci. There is no hypermetabolic cervical lymphadenopathy. CHEST: Right-sided chest port. There is no hypermetabolic hilar or mediastinal lymphadenopathy. Surgical clips in the bilateral axillary regions. There is no hypermetabolic axillary lymphadenopathy. Scattered subcentimeter non-FDG avid lung nodules. There are no hypermetabolic foci in the lungs. ABDOMEN AND PELVIS: The liver is slightly heterogeneous activity but no focal lesions are identified. There are no hypermetabolic foci in the liver, spleen, adrenals. Right renal calculi. There is no hypermetabolic abdominal or pelvic lymphadenopathy. Physiologic activity is noted in the liver, renal collecting system, bladder and bowel. SKELETON and extremities: There are no hypermetabolic osseous lesions. Activity in the feet and ankles is likely inflammatory. Health Nurse (topogram) images:No additional findings. DIVISION OF RADIOLOGY Provider, Andreea Barraza - 05/29/2022 * * *Final Report* * * DATE OF EXAM: May 29 2022 3:08PM NRN [id number] - NM PET/CT WHOLE BODY SUBQ / PROCEDURE REASON: Malignant melanoma of skin (HCC) * * * * Physician Interpretation * * * * RESULT: FDG PET/CT SCAN: CLINICAL HISTORY: Melanoma. INDICATION: Subsequent treatment strategy. TECHNIQUE: 92 mCi 18-FDG IV, followed about 1 hour later by PET imaging from top of the skull to feet. Non contrast CT was performed for attenuation correction and anatomic localization purposes. CT Dose-Length Product (DLP): 285 mGy*cm. CT Dose Reduction Employed: Yes Comparison: Prior PET CT dated 01/15/2022 RESULT: HEAD AND NECK: Likely physiological activity in the oral cavity, tonsillar regions, salivary glands, visualized brain. No suspicious hypermetabolic foci. There is no hypermetabolic cervical lymphadenopathy. CHEST: Right-sided chest port. There is no hypermetabolic hilar or mediastinal lymphadenopathy. Surgical clips in the bilateral axillary regions. There is no hypermetabolic axillary lymphadenopathy. Scattered subcentimeter non-FDG avid lung nodules. There are no hypermetabolic foci in the lungs. ABDOMEN AND PELVIS: The liver is slightly heterogeneous activity but no focal lesions are identified. There are no hypermetabolic foci in the liver, spleen, adrenals. Right renal calculi. There is no hypermetabolic abdominal or pelvic lymphadenopathy. Physiologic activity is noted in the liver, renal collecting system, bladder and bowel. SKELETON and extremities: There are no hypermetabolic osseous lesions. Activity in the feet and ankles is likely inflammatory. Health Nurse (topogram) images:No additional findings. IMPRESSION IMPRESSION: 1. Neck: No suspicious hypermetabolic foci 2. Chest: No evidence of FDG avid neoplastic process 3. Abdomen and pelvis: No evidence of FDG avid neoplastic process 4. Skeleton: No hypermetabolic osseous lesions Transcribe Date/Time: May 29 2022 5:34P Dictated by: ANDREW CUEVAS MD This examination was interpreted and the report reviewed and electronically signed by: ANDREW CUEVAS MD on May 29 2022 11:25PM EST Thank you for allowing us to participate in the care of your patient. Should there be any questions regarding this interpretation, please call [phone]. If you are unable to reach us at the number above, please feel free to contact [facility] at [phone]. [facility] Rad[facility] Study observation (narrative) [facility] PET+CT Whole body Bone W 18F -NaF IVOrdered By: [facility] Provider on 05-29-2022 [facility] CBC W Auto Differential pane l (Bld)on 01-15-2022 Basophils (Bld) [#/Vol] 0.03 10*3/uL [facility] Basophils/100 WBC (Bld) 0.6 % [facility] Differential cell count method Nom (Bld) Auto [facility] Eosinophils (Bld) [#/Vol] [facility] Eosinophils/100 WBC (Bld) 0.2 % [facility] Erythrocyte distribution width (RBC) [Ratio] 13.2 % 11.5 - 15.0 % [facility] Hematocrit (Bld) [Volume fraction] 35.7 % Low 36.0 - 46.0 % [facility] Hemoglobin (Bld) [Mass/Vol] 12.1 g/dL 11.5 - 15.5 g/dL [facility] Immature granulocytes (Bld) [#/Vol] [facility] Immature granulocytes/100 WBC (Bld) 0.0 % [facility] Interpretation and review of laboratory results Abnormal [facility] Lymphocytes (Bld) [#/Vol] 2.08 10*3/uL [facility] Lymphocytes/100 WBC (Bld) 44.8 % [facility] MCH (RBC) [Entitic mass] 29.8 pg 26.0 - 34.0 pg [facility] MCHC (RBC) [Mass/Vol] 33.9 g/dL 30.5 - 36.0 g/dL [facility] MCV (RBC) [Entitic vol] 87.9 fL 80.0 - 100.0 fL [facility] Monocytes (Bld) [#/Vol] 0.34 10*3/uL [facility] Monocytes/100 WBC (Bld) 7.3 % [facility] Neutrophils (Bld) [#/Vol] 2.18 10*3/uL [facility] Neutrophils/100 WBC (Bld) 47.1 % [facility] Nucleated RBC (Bld) [#/Vol] NINF [facility] Nucleated RBC/100 WBC (Bld) [Ratio] 0.0 % /100 WBC [facility] Platelet mean volume (Bld) [Entitic vol] 8.8 fL Low 9.0 - 12.7 fL [facility] Platelets (Bld) [#/Vol] 265 10*3/uL [facility] RBC (Bld) [#/Vol] 4.06 10*6/uL 3.90 - 5.2 0 m/uL [facility] WBC (Bld) [#/Vol] 4.64 10*3/uL [facility] This is an appended report. These results have been appended to a previously verified report. [facility] Comprehensive metabolic 2000 panelon 01-15-2022 Albumin [Mass/Vol] 4.6 g/dL 3.9 - 4.9 g/dL [facility] ALP [Catalytic activity/Vol] 157 U/L High 34 - 123 U/L [facility] ALT [Catalytic activity/Vol] 8 U/L 7 - 38 U/L [facility] Anion gap [Moles/Vol] 8 mmol/L Low 9 - 18 mmol/L [facility] AST [Catalytic activity/Vol] 14 U/L 13 - 35 U/L [facility] Bilirubin [Mass/Vol] 0.3 mg/dL 0.2 - 1.3 mg/dL [facility] Calcium [Mass/Vol] 9.4 mg/dL 8.5 - 10. 2 mg/dL [facility] Chloride [Moles/Vol] 109 mmol/L High 97 - 105 mmol/L [facility] CO2 [Moles/Vol] 22 mmol/L 22 - 30 mmol/L [facility] Creatinine [Mass/Vol] 0.90 mg/dL 0.58 - 0.96 mg/dL [facility] GFR/1.73 sq M.predicted among non-blacks MDRD (S/P/Bld) [Vol rate/Area] 76 mL/min/{1.73_m2} - [facility] Comment on above: Estimated Glomerular Filtration Rate (eGFR) is calculated using the 2020 CKD-EPI creatinine equation. This equation utilizes serum creatinine, sex, and age as parameters. The creatinine assay has traceable calibration to isotope dilution-mass spectrometry. Refer to KDIGO guidelines for clinical interpretation. In patients with unstable renal function, e.g. those with acute kidney injury, the eGFR may not accurately reflect actual GFR. Glucose [Mass/Vol] 102 mg/dL High 74 - 99 mg/dL [facility] Comment on above: The [place] Diabete s Association (ADA) provides guidance for cutoff values for fasting glucose and random glucose. The ADA defines fasting as no caloric intake for at least 8 hours. Fasting plasma glucose results between 100 to 125 mg/dL indicate increased risk for diabetes (prediabetes). Fasting plasma glucose results greater than or equal to 126 mg/dL meet the criteria for diagnosis of diabetes. In the absence of unequivocal hyperglycemia, results should be confirmed by repeat testing. In a patient with classic symptoms of hyperglycemia or hyperglycemic crisis, random plasma glucose results greater than or equal to 200 mg/dL meet the criteria for diagnosis of diabetes. Reference: Standards of Medical Care in Diabetes 2016, [place] Diabetes Association. Diabetes Care. 2016.39(Suppl 1). Interpretation and review of laboratory results Abnormal [facility] Potassium [Moles/Vol] 3.4 mmol/L Low 3.7 - 5.1 mmol/L [facility] Protein [Mass/Vol] 6.8 g/dL 6.3 - 8.0 g/dL [facility] Sodium [Moles/Vol] 139 mmol/L 136 - 144 mmol/L [facility] Urea nitrogen [Mass/Vol] 12 mg/dL 7 - 21 mg/dL [facility] GLUCOSE, BLOOD (POC)on 01-15 Glucose [Mass/Vol] 98 mg/dL 74 - 99 mg/dL [facility] Comment on above: Location:[facility], [address] [place] [address] , [place], [place], [facility] The Accu-Chek Inform II glucose meter has not been approved for testing on patients receiving intensive medical intervention or therapy and results from this point of care glucose test should not be used for patient management decisions in these cases. Inaccurate results may also occur from other interfering factors, such as N-acetylcysteine (blood concentrations of greater than 5mg/dL), galactose, extremes of hematocrit (<10 or >65), or high doses of ascorbic acid (vitamin C) greater than 3mg/dL. Consider alternate testing mechanisms (e.g. core lab, blood gas instrument) in the above situations. [facility] LD LACTATE DEHYDROOrdered By : Yoelamy Clements on 01-15-2022 LDH [Catalytic activity/Vol] 207 U/L 135 - 214 U/L [facility] LDH [Catalytic activity/Vol] Ordered By: Yoel Penay on 01-15-2022 Interpretation and review of laboratory results Normal [facility] PET+CT Whole body Bone W 18F -NaF Emma 01-15-2022 IMPRESSION: 1. NECK: No FDG avid neoplastic process. 2. CHEST: No FDG avid neoplastic process. Several subcentimeter pulmonary nodules stable since at least PET/CT 08/26/2018. Note that PET/CT is not sensitive for pulmonary nodules less than 8 mm. 3. ABDOMEN/PELVIS: No FDG avid neoplastic process. 4. EXTREMITIES/SKELETON: No suspicious FDG avid osseous process. Transcribe Date/Time: Jan 15 2022 10:42A Dictated by: JORGE LUIS MCKEON MD This examination was interpreted and the report reviewed and electronically signed by: MITCH STORY MD on Jan 15 2022 11:36AM EST Thank you for allowing us to participate in the care of your patient. Should there be any questions regarding this interpretation, please call [phone]. If you are unable to reach us at the number above, please feel free to contact [facility] at [phone]. [email or web address]_ DIVISION OF RADIOLOGY * * *Final Report* * * DATE OF EXAM: Jan 15 2022 10:41AM NRN [id number] - NM PET/CT WHOLE BODY SUBQ / PROCEDURE REASON: Malignant melanoma of skin (HCC) * * * * Physician Interpretation * * * * RESULT: EXAMINATION: NM PET/CT WHOLE BODY SUBQ HISTORY: Malignant melanoma of skin (HCC). INDICATION: Study performed for subsequent treatment strategy. TECHNIQUE: F18-FDG administered IV was followed about 60 minutes later by PET imaging from skull vertex to toes. Free breathing low dose CT was performed without contrast for attenuation correction and anatomic localization. Blood glucose before FDG injection: 98 mg/dL FDG radionuclide dose: 7.[address] Dose-Length Product (DLP): 300 mGy*cm. CT Dose Reduction Employed: Automated exposure control (AEC) was used COMPARISON: FDG PET/CT dated 09/13/2011, 04/03/2021, and 08/26/2018 CORRELATION: CT neck soft tissue 05/18/[address] abdomen/pelvis 07/28/2018 RESULT: REFERENCE: - Mediastinal blood pool: Max SUV 2.1 - Liver background activity: Max SUV 2.4 NECK: Physiologic FDG uptake seen in the visualized brain, parapharyngeal soft tissues, base of tongue, vocal cords, and salivary glands. Surgical clips in the left lower neck. No hypermetabolic cervical lymphadenopathy or masses. No focal hypermetabolic thyroid lesion. CHEST: Physiologic FDG uptake in the heart and mediastinum. Right chest wall port catheter with tip in the mid SVC. Lungs and tracheobronchial tree: Biapical scarring. Interval resolution of patchy groundglass opacity in the right middle lobe seen on prior PET/CT 09/13/2021. 0.8 cm groundglass opacity in the left apex (5:112), unchanged since PET/CT 08/26/2018. Stable 0.5 cm nodule in the right apex (5:122) and 0.3 cm nodule in the right middle lobe (5:165). Note that PET/CT is not sensitive for pulmonary nodules less than 8 mm. No hypermetabolic pulmonary consolidation, mass or nodules. Pleura: No hypermetabolic pleural or pericardial effusion, or pleural mass. Mediastinum and Lymph nodes: No hypermetabolic axillary, hilar, or mediastinal lymphadenopathy. No hypermetabolic mediastinal mass. Chest wall: Postsurgical changes in the axilla. Left mastectomy. ABDOMEN AND PELVIS: Physiologic FDG uptake seen in the and GI tracts. Liver: No hypermetabolic hepatic lesions. Biliary: No bile duct dilation. Gallbladder is unremarkable. Spleen: No hypermetabolic splenic mass. No splenomegaly. Pancreas: No hypermetabolic mass or duct dilation. Adrenals: No hypermetabolic adrenal lesion. Kidneys: Subcentimeter nonobstructing calculi in the right kidney. No hydronephrosis or hypermetabolic lesion. GI tract: No dilation or wall thickening. Lymph nodes: No hypermetabolic abdominal or pelvic lymphadenopathy. Mesentery/Peritoneum: No ascites or mass. Vasculature: Vascular patency cannot be assessed due to lack of IV contrast. There are atherosclerotic calcifications without aneurysmal dilation. BONES AND EXTREMITIES: No suspicious FDG avid osseous foci are detected. The imaged portions of the skeleton disclose age-related degenerative changes, with no detectable destructive lytic or sclerotic lesions. Levoscoliosis of the thoracolumbar spine. SUPPORT ARCHITECT (TOPOGRAM) IMAGES: No additional findings. ====== [facility]_DO_NOT_USE_ DIVISION OF RADIOLOGY Provider, Jennifer Tish medeiros Lynn - 01/15/2022 * * *Final Report* * * DATE OF EXAM: Jan 15 2022 10:41AM NRN [id number] - NM PET/CT WHOLE BODY SUBQ / PROCEDURE REASON: Malignant melanoma of skin (HCC) * * * * Physician Interpretation * * * * RESULT: EXAMINATION: NM PET/CT WHOLE BODY SUBQ HISTORY: Malignant melanoma of skin (HCC). INDICATION: Study performed for subsequent treatment strategy. TECHNIQUE: F18-FDG administered IV was followed about 60 minutes later by PET imaging from skull vertex to toes. Free breathing low dose CT was performed without contrast for attenuation correction and anatomic localization. Blood glucose before FDG injection: 98 mg/dL FDG radionuclide dose: 7.[address] Dose-Length Product (DLP): 300 mGy*cm. CT Dose Reduction Employed: Automated exposure control (AEC) was used COMPARISON: FDG PET/CT dated 09/13/2011, 04/03/2021, and 08/26/2018 CORRELATION: CT neck soft tissue 05/18/[address] abdomen/pelvis 07/28/2018 RESULT: REFERENCE: - Mediastinal blood pool: Max SUV 2.1 - Liver background activity: Max SUV 2.4 NECK: Physiologic FDG uptake seen in the visualized brain, parapharyngeal soft tissues, base of tongue, vocal cords, and salivary glands. Surgical clips in the left lower neck. No hypermetabolic cervical lymphadenopathy or masses. No focal hypermetabolic thyroid lesion. CHEST: Physiologic FDG uptake in the heart and mediastinum. Right chest wall port catheter with tip in the mid SVC. Lungs and tracheobronchial tree: Biapical scarring. Interval resolution of patchy groundglass opacity in the right middle lobe seen on prior PET/CT 09/13/2021. 0.8 cm groundglass opacity in the left apex (5:112), unchanged since PET/CT 08/26/2018. Stable 0.5 cm nodule in the right apex (5:122) and 0.3 cm nodule in the right middle lobe (5:165). Note that PET/CT is not sensitive for pulmonary nodules less than 8 mm. No hypermetabolic pulmonary consolidation, mass or nodules. Pleura: No hypermetabolic pleural or pericardial effusion, or pleural mass. Mediastinum and Lymph nodes: No hypermetabolic axillary, hilar, or mediastinal lymphadenopathy. No hypermetabolic mediastinal mass. Chest wall: Postsurgical changes in the axilla. Left mastectomy. ABDOMEN AND PELVIS: Physiologic FDG uptake seen in the and GI tracts. Liver: No hypermetabolic hepatic lesions. Biliary: No bile duct dilation. Gallbladder is unremarkable. Spleen: No hypermetabolic splenic mass. No splenomegaly. Pancreas: No hypermetabolic mass or duct dilation. Adrenals: No hypermetabolic adrenal lesion. Kidneys: Subcentimeter nonobstructing calculi in the right kidney. No hydronephrosis or hypermetabolic lesion. GI tract: No dilation or wall thickening. Lymph nodes: No hypermetabolic abdominal or pelvic lymphadenopathy. Mesentery/Peritoneum: No ascites or mass. Vasculature: Vascular patency cannot be assessed due to lack of IV contrast. There are atherosclerotic calcifications without aneurysmal dilation. BONES AND EXTREMITIES: No suspicious FDG avid osseous foci are detected. The imaged portions of the skeleton disclose age-related degenerative changes, with no detectable destructive lytic or sclerotic lesions. Levoscoliosis of the thoracolumbar spine. SUPPORT ARCHITECT (TOPOGRAM) IMAGES: No additional findings. ====== IMPRESSION IMPRESSION: 1. NECK: No FDG avid neoplastic process. 2. CHEST: No FDG avid neoplastic process. Several subcentimeter pulmonary nodules stable since at least PET/CT 08/26/2018. Note that PET/CT is not sensitive for pulmonary nodules less than 8 mm. 3. ABDOMEN/PELVIS: No FDG avid neoplastic process. 4. EXTREMITIES/SKELETON: No suspicious FDG avid osseous process. Transcribe Date/Time: Jan 15 2022 10:42A Dictated by: JORGE LUIS MCKEON MD This examination was interpreted and the report reviewed and electronically signed by: MITCH STORY MD on Jan 15 2022 11:36AM EST Thank you for allowing us to participate in the care of your patient. Should there be any questions regarding this interpretation, please call [phone]. If you are unable to reach us at the number above, please feel free to contact [facility] at [phone]. [facility] Radiology Study observation (narrative) [facility] PET+CT Whole body Bone W 18F -NaF IVOrdered By: [facility] Provider on 01-15-2022 [facility] PET+CT Whole body Bone W 18F -NaF Emma 09-14-2021 IMPRESSION: 1. NECK: * INTERVAL RESECTION OF PREVIOUSLY NOTED HYPERMETABOLIC LEFT CERVICAL LYMPH NODE. * NO NEW OR ENLARGING HYPERMETABOLIC CERVICAL LYMPHADENOPATHY. 2. CHEST: * STABLE POSTOPERATIVE CHANGES OF LEFT MASTECTOMY AND BILATERAL AXILLARY LYMPHADENECTOMY. * NO HYPERMETABOLIC SOFT TISSUE IN THE OPERATIVE BED TO SUGGEST RESIDUAL/RECURRENT NEOPLASM. * PATCHY GROUNDGLASS ATTENUATION NON-FDG AVID RIGHT UPPER LOBE SUBPLEURAL OPACITY LATERALLY, NEW SINCE 04/03/2021. SUGGEST FOLLOW UP NONCONTRAST CHEST CT IN 3 MONTHS FOR ADDITIONAL EVALUATION. * FEW SMALL (<0.6 CM) NON-FDG AVID PULMONARY NODULES, STABLE SINCE 12/13/2020. * NO HYPERMETABOLIC THORACIC LYMPHADENOPATHY. 3. ABDOMEN/PELVIS: * NO FDG AVID NEOPLASTIC PROCESS. * NO HYPERMETABOLIC MASS, ADENOPATHY, OR FLUID COLLECTION. * STABLE NONOBSTRUCTING RIGHT RENAL CALCULI. 4. EXTREMITIES/SKELETON: * NO FDG AVID NEOPLASTIC OSSEOUS PROCESS.. Transcribe Date/Time: Sep 13 2021 10:36A Dictated by: SHAZIA HU MD This examination was interpreted and the report reviewed and electronically signed by: KIRSTIN ENRIQUE MD on Sep 14 2021 9:58AM EST Thank you for allowing us to participate in the care of your patient. Should there be any questions regarding this interpretation, please call [phone]. If you are unable to reach us at the number above, please feel free to contact [facility] at [phone]. DIVISION OF RADIOLOGY * * *Final Report* * * DATE OF EXAM: Sep 13 2021 10:35AM NRN [id number] - NM PET/CT WHOLE BODY SUBQ / PROCEDURE REASON: multiple diagnoses * * * * Physician Interpretation * * * * RESULT: EXAMINATION: SKULL [id number] FDG PET/CT SCAN HISTORY: 56 years old Female with Metastatic BRAF + Melanoma status post 3 x 2.5 cm promise level IV melanoma resected from the anterior chest wall (near xyphoid process) May of 2015 and subsequent recurrence with?left breast mastectomy (for melanoma) in 2017. Current therapy:Zelboraf and Cotellic started 08/2018. ? INDICATION: Indication for PET: Subsequent Treatment Strategy TECHNIQUE: F18-FDG administered IV was followed about 60 minutes later by PET imaging from skull vertex to toes (whole body). Free breathing low dose CT was performed without contrast for attenuation correction and anatomic localization. FDG radionuclide dose: 7.[address] Dose-Length Product (DLP): 260 mGy*cm CT Dose Reduction Employed: Automated exposure control (AEC) COMPARISON: PET/CT dated 04/03/2021, 12/13/2020 CORRELATION: None . RESULT: REFERENCE: Mediastinal blood pool: Max SUV 1.6 Liver: Max SUV 2.5 Health Nurse (topogram) images: No additional findings. HEAD AND NECK: Physiologic uptake seen in the visualized brain, parapharyngeal soft tissues, base of tongue, vocal cords, and salivary glands. Uptake throughout the visualized cerebral and cerebellar hemispheres appear symmetric without discrete hyper or hypometabolic foci. Mass: No FDG avid mass. Lymph Nodes: No FDG avid cervical lymphadenopathy. Surgical clips in the region of the previously noted hypermetabolic LEFT level 4 node from interval dissection. Thyroid: No FDG avid thyroid lesion. CHEST: Physiologic uptake in the heart and mediastinum. Lines, tubes, and devices: RIGHT IJ portacatheter tip in the middle third SVC. Lungs and tracheobronchial tree: There is patchy groundglass attenuation non-FDG avid right upper lobe subpleural opacity laterally (4:162, max SUV 0.9), new since 04/03/2021. Few pulmonary nodules are again noted which do not demonstrate significant FDG avidity above the background blood pool. For example, 1.0 cm groundglass nodule in the LEFT lung apex (7:112) appears unchanged in size from multiple prior studies. Additional scattered small (less than 0.6 cm) pulmonary nodules are noted including a 0.4 cm RIGHT middle lobe nodule (7:151) and 0.4 cm subpleural right lower lobe (7:176). Note that PET/CT is not sensitive for pulmonary nodules less than 0.8 cm. Pleura: No FDG avid pleural effusion or pleural mass. Mediastinum and Lymph nodes: No FDG avid supraclavicular, mediastinal, hilar lymphadenopathy. Heart and great vessels: -Aorta: Normal in course and caliber. -Pulmonary vasculature: Normal in caliber. -Heart: Physiologic heart and blood pool activity. -Pericardium: No FDG avid effusion. Chest wall and axilla: Stable postoperative changes of bilateral axillary lymphadenectomy and LEFT mastectomy. No FDG avid soft tissue in the surgical beds to suggest residual/recurrent neoplasm. ABDOMEN AND PELVIS: Physiologic uptake seen in the and GI tracts. Liver: No FDG avid mass. Normal morphology. Biliary: The gallbladder is unremarkable. Spleen: No FDG avid mass. No splenomegaly. Pancreas: No FDG avid mass or pancreas duct dilation. Adrenals: No FDG avid lesion.. Kidneys: Excreted activity limits evaluation of kidneys and collecting system. No obstructing stones, hydronephrosis, or FDG avid lesions. . Few RIGHT-sided nonobstructing stones measuring up to 0.5 cm in the LOWER pole calyx, unchanged. GI tract: No FDG avid lesions. No bowel dilation or wall thickening. Lymph nodes: No abdominal or pelvic FDG avid lymphadenopathy. Mesentery/Peritoneum: No ascites or FDG avid mass. Retroperitoneum: No mass. Vasculature: Vascular patency cannot be assessed due to lack of IV contrast. There are atherosclerotic calcifications without aneurysmal dilation. Pelvis: No FDG avid mass or ascites.. Excreted activity limites evaluation of bladder. Abdominopelvic wall: Unremarkable BONES AND EXTREMITIES: No suspicious FDG avid foci are detected. Age-related degenerative changes throughout the imaged axial and appendicular skeleton. Levoscoliosis of the lumbar spine centered at L2-3. DIVISION OF RADIOLOGY Provider, [facility] - 09/14/2021 * * *Final Report* * * DATE OF EXAM: Sep 13 2021 10:35AM NRN [id number] - NM PET/CT WHOLE BODY SUBQ / PROCEDURE REASON: multiple diagnoses * * * * Physician Interpretation * * * * RESULT: EXAMINATION: SKULL [id number] FDG PET/CT SCAN HISTORY: 56 years old Female with Metastatic BRAF + Melanoma status post 3 x 2.5 cm promise level IV melanoma resected from the anterior chest wall (near xyphoid process) May of 2015 and subsequent recurrence with?left breast mastectomy (for melanoma) in 2017. Current therapy:Zelboraf and Cotellic started 08/2018. ? INDICATION: Indication for PET: Subsequent Treatment Strategy TECHNIQUE: F18-FDG administered IV was followed about 60 minutes later by PET imaging from skull vertex to toes (whole body). Free breathing low dose CT was performed without contrast for attenuation correction and anatomic localization. FDG radionuclide dose: 7.[address] Dose-Length Product (DLP): 260 mGy*cm CT Dose Reduction Employed: Automated exposure control (AEC) COMPARISON: PET/CT dated 04/03/2021, 12/13/2020 CORRELATION: None . RESULT: REFERENCE: Mediastinal blood pool: Max SUV 1.6 Liver: Max SUV 2.5 Health Nurse (topogram) images: No additional findings. HEAD AND NECK: Physiologic uptake seen in the visualized brain, parapharyngeal soft tissues, base of tongue, vocal cords, and salivary glands. Uptake throughout the visualized cerebral and cerebellar hemispheres appear symmetric without discrete hyper or hypometabolic foci. Mass: No FDG avid mass. Lymph Nodes: No FDG avid cervical lymphadenopathy. Surgical clips in the region of the previously noted hypermetabolic LEFT level 4 node from interval dissection. Thyroid: No FDG avid thyroid lesion. CHEST: Physiologic uptake in the heart and mediastinum. Lines, tubes, and devices: RIGHT IJ portacatheter tip in the middle third SVC. Lungs and tracheobronchial tree: There is patchy groundglass attenuation non-FDG avid right upper lobe subpleural opacity laterally (4:162, max SUV 0.9), new since 04/03/2021. Few pulmonary nodules are again noted which do not demonstrate significant FDG avidity above the background blood pool. For example, 1.0 cm groundglass nodule in the LEFT lung apex (7:112) appears unchanged in size from multiple prior studies. Additional scattered small (less than 0.6 cm) pulmonary nodules are noted including a 0.4 cm RIGHT middle lobe nodule (7:151) and 0.4 cm subpleural right lower lobe (7:176). Note that PET/CT is not sensitive for pulmonary nodules less than 0.8 cm. Pleura: No FDG avid pleural effusion or pleural mass. Mediastinum and Lymph nodes: No FDG avid supraclavicular, mediastinal, hilar lymphadenopathy. Heart and great vessels: -Aorta: Normal in course and caliber. -Pulmonary vasculature: Normal in caliber. -Heart: Physiologic heart and blood pool activity. -Pericardium: No FDG avid effusion. Chest wall and axilla: Stable postoperative changes of bilateral axillary lymphadenectomy and LEFT mastectomy. No FDG avid soft tissue in the surgical beds to suggest residual/recurrent neoplasm. ABDOMEN AND PELVIS: Physiologic uptake seen in the and GI tracts. Liver: No FDG avid mass. Normal morphology. Biliary: The gallbladder is unremarkable. Spleen: No FDG avid mass. No splenomegaly. Pancreas: No FDG avid mass or pancreas duct dilation. Adrenals: No FDG avid lesion.. Kidneys: Excreted activity limits evaluation of kidneys and collecting system. No obstructing stones, hydronephrosis, or FDG avid lesions. . Few RIGHT-sided nonobstructing stones measuring up to 0.5 cm in the LOWER pole calyx, unchanged. GI tract: No FDG avid lesions. No bowel dilation or wall thickening. Lymph nodes: No abdominal or pelvic FDG avid lymphadenopathy. Mesentery/Peritoneum: No ascites or FDG avid mass. Retroperitoneum: No mass. Vasculature: Vascular patency cannot be assessed due to lack of IV contrast. There are atherosclerotic calcifications without aneurysmal dilation. Pelvis: No FDG avid mass or ascites.. Excreted activity limites evaluation of bladder. Abdominopelvic wall: Unremarkable BONES AND EXTREMITIES: No suspicious FDG avid foci are detected. Age-related degenerative changes throughout the imaged axial and appendicular skeleton. Levoscoliosis of the lumbar spine centered at L2-3. IMPRESSION IMPRESSION: 1. NECK: * INTERVAL RESECTION OF PREVIOUSLY NOTED HYPERMETABOLIC LEFT CERVICAL LYMPH NODE. * NO NEW OR ENLARGING HYPERMETABOLIC CERVICAL LYMPHADENOPATHY. 2. CHEST: * STABLE POSTOPERATIVE CHANGES OF LEFT MASTECTOMY AND BILATERAL AXILLARY LYMPHADENECTOMY. * NO HYPERMETABOLIC SOFT TISSUE IN THE OPERATIVE BED TO SUGGEST RESIDUAL/RECURRENT NEOPLASM. * PATCHY GROUNDGLASS ATTENUATI (more content not included)... [facility] PET+CT Whole body Bone W 18F -NaF IVOrdered By: [facility] Provider on 09-14-2021 [facility] GLUCOSE, BLOOD (POC)on 09-13 Glucose [Mass/Vol] 94 mg/dL 74 - 99 mg/dL [facility] Comment on above: Location:[facility], [address] [place] [address] , [place], [place], [address] The Accu-Chek Inform II glucose meter has not been approved for testing on patients receiving intensive medical intervention or therapy and results from this point of care glucose test should not be used for patient management decisions in these cases. Inaccurate results may also occur from other interfering factors, such as N-acetylcysteine (blood concentrations of greater than 5mg/dL), galactose, extremes of hematocrit (<10 or >65), or high doses of ascorbic acid (vitamin C) greater than 3mg/dL. Consider alternate testing mechanisms (e.g. core lab, blood gas instrument) in the above situations. [facility] PET+CT Whole body Bone W 18F -NaF Emma 09-13-2021 Radiology Study observation (narrative) [facility] XR Chest PA and Lateralon IMPRESSION: Findings as described above. Tipple Operator: PSCB Transcribe Date/Time: May 04 2021 3:34P Dictated by : HANSA WATERS MD This examination was interpreted and the report reviewed and electronically signed by: HANSA WATERS MD on May 04 2021 3:38PM [facility] DIVISION OF RADIOLOGY * * *Final Report* * * DATE OF EXAM: May 04 2021 3:26PM [id number] [id number] - XR CHEST 2V FRONTAL/LAT / PROCEDURE REASON: multiple diagnoses * * * * Physician Interpretation * * * * EXAMINATION: CHEST RADIOGRAPH (2 VIEW FRONTAL & LATERAL) CLINICAL HISTORY: Preop examination Metastatic melanoma (HCC) MQ: XC2_6 EXAM DATE/TIME: 05/04/2021 3:26 PM COMPARISON: No relevant prior studies available. RESULT: Lines, tubes, and devices: There is a right chest port catheter in place, with tip extending to the mid SVC. Lungs and pleura: There are biapical scarring and subpleural opacities, likely postinflammatory. The lungs are otherwise clear without consolidations. No mass lesion noted. No pleural effusions or pneumothorax. Cardiomediastinal silhouette: Unremarkable cardiomediastinal silhouette. Bones and soft tissues: The spine shows degenerative changes. There are surgical clips overlying the bilateral axillae. DIVISION OF RADIOLOGY Provider, [facility] T[facility] - 05/04/2021 * * *Final Report* * * DATE OF EXAM: May 04 2021 3:26PM [id number] [id number] - XR CHEST 2V FRONTAL/LAT / PROCEDURE REASON: multiple diagnoses * * * * Physician Interpretation * * * * EXAMINATION: CHEST RADIOGRAPH (2 VIEW FRONTAL & LATERAL) CLINICAL HISTORY: Preop examination Metastatic melanoma (HCC) MQ: XC2_6 EXAM DATE/TIME: 05/04/2021 3:26 PM COMPARISON: No relevant prior studies available. RESULT: Lines, tubes, and devices: There is a right chest port catheter in place, with tip extending to the mid SVC. Lungs and pleura: There are biapical scarring and subpleural opacities, likely postinflammatory. The lungs are otherwise clear without consolidations. No mass lesion noted. No pleural effusions or pneumothorax. Cardiomediastinal silhouette: Unremarkable cardiomediastinal silhouette. Bones and soft tissues: The spine shows degenerative changes. There are surgical clips overlying the bilateral axillae. IMPRESSION IMPRESSION: Findings as described above. Tipple Operator: PSCB Transcribe Date/Time: May 04 2021 3:34P Dictated by : HANSA WATERS MD This examination was interpreted and the report reviewed and electronically signed by: HANSA WATERS MD on May 04 2021 3:38PM EST [facility] Radiology Study observation (narrative) [facility] XR Chest PA and LateralOrder ed By: [facility] Provider on 05-04-2021 [facility] Vital Signs Date Time Vital Sign Value Performing Clinician Facility 04-09-2024 09:49-0400 Body height 157.5 cm Thiago Quintanilla MD Work Phone: [facility] 04-09-2024 09:49-0400 Body mass index (BMI) [Ratio] 23.95 kg/m2 Thiago Quintanilla MD Work Phone: [facility] 04-09-2024 09:49-0400 Body temperature 97.39 [degF] Thiago Quintanilla MD Work Phone: [facility] 04-09-2024 09:49-0400 Body weight 59.4 kg Thiago Quintanilla MD Work Phone: [facility] 04-09-2024 09:49-0400 Diastolic blood pressure 91 mm[Hg] Thiago Quintanilla MD Work Phone: [facility] 04-09-2024 09:49-0400 Heart rate 66 /min Thiago Quintanilla MD Work Phone: [facility] 04-09-2024 09:49-0400 Respiratory rate 16 /min Thiago Quintanilla MD Work Phone: [facility] 04-09-2024 09:49-0400 SaO2% (BldA) [Mass fraction] 99 % Thiago Quintanilla MD Work Phone: [facility] 04-09-2024 09:49-0400 Systolic blood pressure 150 mm[Hg] Thiago Quintanilla MD Work Phone: [facility] 12-19-2023 09:52-0400 Body mass index (BMI) [Ratio] 24.61 kg/m2 Thiago Quintanilla MD Work Phone: [facility] 12-19-2023 09:52-0400 Body temperature 97.3 [degF] Thiago Quintanilla MD Work Phone: [facility] 12-19-2023 09:52-0400 Body weight 61.05 kg Thiago Quintanilla MD Work Phone: [facility] 12-19-2023 09:52-0400 Diastolic blood pressure 100 mm[Hg] Thiago Quintanilla MD Work Phone: [facility] 12-19-2023 09:52-0400 Heart rate 69 /min Thiago Quintanilla MD Work Phone: [facility] 12-19-2023 09:52-0400 Respiratory rate 18 /min Thiago Quintanilla MD Work Phone: [facility] 12-19-2023 09:52-0400 SaO2% (BldA) [Mass fraction] 99 % Thiago Quintanilla MD Work Phone: [facility] 12-19-2023 09:52-0400 Systolic blood pressure 189 mm[Hg] Thiago Quintanilla MD Work Phone: [facility] 10-27-2023 13:59-0400 Body height 157.48 cm [facility] 10-27-2023 13:59-0400 Body mass index (BMI) [Ratio] 24.3 kg/m2 [facility] 10-27-2023 13:59-0400 Body temperature 98 [degF] [facility] 10-27-2023 13:59-0400 Body weight 60.32 kg [facility] 10-27-2023 13:59-0400 Heart rate 101 /min [facility] 10-27-2023 13:59-0400 Respiratory rate 16 /min [facility] 10-27-2023 13:59-0400 SaO2% (BldA) [Mass fraction] 97 % [facility] 08-22-2023 10:35-0500 Body temperature 97.59 [degF] Thiago Quintanilla MD Work Phone: [facility] 08-22-2023 10:35-0500 Body weight 60.4 kg Thiago Quintanilla MD Work Phone: [facility] 08-22-2023 10:35-0500 Diastolic blood pressure 90 mm[Hg] Thiago Quintanilla MD Work Phone: [facility] 08-22-2023 10:35-0500 Heart rate 72 /min Thiago Quintanilla MD Work Phone: [facility] 08-22-2023 10:35-0500 Respiratory rate 16 /min Thiago Quintanilla MD Work Phone: [facility] 08-22-2023 10:35-0500 SaO2% (BldA) [Mass fraction] 99 % Thiago Quintanilla MD Work Phone: [facility] 08-22-2023 10:35-0500 Systolic blood pressure 138 mm[Hg] Thiago Quintanilla MD Work Phone: [facility] 11-21-2022 17:20-0400 Body height 157.48 cm Tali Johnson Other [facility] Other 11-21-2022 17:20-0400 Body mass index (BMI) [Ratio] 24.1 kg/m2 Tali Johnson Other [facility] Other 11-21-2022 17:20-0400 Body temperature 97.8 [degF] Tali Johnson Other [facility] Other 11-21-2022 17:20-0400 Body weight 59.78 kg Tali Johnson Other [facility] Other 11-21-2022 17:20-0400 Diastolic blood pressure 89 mm[Hg] Tali Johnson Other [facility] Other 11-21-2022 17:20-0400 Respiratory rate 18 /min Tali Johnson Other [facility] Other 11-21-2022 17:20-0400 SaO2% (BldA) [Mass fraction] 99 % Tali Johnson Other [facility] Other 11-21-2022 17:20-0400 Systolic blood pressure 162 mm[Hg] Tali Johnson Other [facility] Other 11-19-2022 13:56-0400 Body height 157.5 cm Thiago Quintanilla MD Work Phone: [facility] 04-25-2023 13:56-0400 Body temperature 97.2 [degF] Thiago Quintanilla MD Work Phone: [facility] 11-19-2022 13:56-0400 Body weight 59.33 kg Thiago Quintanilla MD Work Phone: [facility] 11-19-2022 13:56-0400 Diastolic blood pressure 85 mm[Hg] Thiago Quintanilla MD Work Phone: [facility] 11-19-2022 13:56-0400 Heart rate 75 /min Thiago Quintanilla MD Work Phone: [facility] 11-19-2022 13:56-0400 Respiratory rate 16 /min Thiago Quintanilla MD Work Phone: [facility] 11-19-2022 13:56-0400 SaO2% (BldA) [Mass fraction] 99 % Thiago Quintanilla MD Work Phone: [facility] 11-19-2022 13:56-0400 Systolic blood pressure 150 mm[Hg] Thiago Quintanilla MD Work Phone: [facility] 11-06-2022 12:35-0400 Body height 157.48 cm Aubrie Ramos Other [facility] Other 11-06-2022 12:35-0400 Body mass index (BMI) [Ratio] 21.95 kg/m2 Aubrie Ramos Other [facility] Other 11-06-2022 12:35-0400 Body temperature 98.2 [degF] Aubrie Ramos Other [facility] Other 11-06-2022 12:35-0400 Body weight 54.43 kg Aubrie Ramos Other [facility] Other 11-06-2022 12:35-0400 Diastolic blood pressure 113 mm[Hg] Aubrie Ramos Other [facility] Other 11-06-2022 12:35-0400 Respiratory rate 18 /min Aubrie Ramos Other [facility] Other 11-06-2022 12:35-0400 SaO2% (BldA) [Mass fraction] 100 % Aubrie Ramos Other [facility] Other 11-06-2022 12:35-0400 Systolic blood pressure 181 mm[Hg] Aubrie Ramos Other [facility] Other 06-24-2022 13:10-0500 Body temperature 98.1 [degF] Chair Shooger Work Phone: [facility] 06-24-2022 13:10-0500 Diastolic blood pressure 80 mm[Hg] Chair Nadya Work Phone: [facility] 06-24-2022 13:10-0500 Heart rate 67 /min Chair Nadya Work Phone: [facility] 06-24-2022 13:10-0500 Respiratory rate 16 /min Chair [place] Work Phone: [facility] 06-24-2022 13:10-0500 Systolic blood pressure 147 mm[Hg] Chair Nadya Work Phone: [facility] Encounters Encounter Date Encounter Type Care Provider Facility Start: 06-14-2024 End: 06-14-2024 ambulatory Saadia Lacy MA [facility] Start: 06-14-2024 End: 06-14-2024 Patient encounter procedure Saadia Layc MA [facility] Comment on above: Population Health Na vigation Outreach (ACO No PCP . - SharePoint Worksheet - Multiple Locations) Start: 04-09-2024 End: 04-09-2024 ambulatory THIAGO QUINTANILLA Facility:[facility] Start: 04-09-2024 End: 04-09-2024 Office outpatient visit 25 minutes Thiago Quintanilla MD Work Phone: Hematology/Oncology Comment on above: Malignant melanoma o f skin of breast (HCC) (Primary Dx); Metastatic melanoma (HCC); Malignant melanoma of torso excluding breast (HCC) Start: 04-05-2024 End: 04-05-2024 Telephone encounter Belinda Mcnamara RN Hematology/Oncology Start: 04-02-2024 End: 04-02-2024 ambulatory [facility] Facility:[facility] Start: 04-02-2024 End: 04-02-2024 Subsequent hospital visit by physician Arrival Time Radiology Work Phone: Radiology Pet CT Comment on above: Metastatic melanoma (HCC) [C43.9] Start: 03-30-2024 ambulatory [facility] Facilit y:[facility] Start: 03-30-2024 End: 03-30-2024 Subsequent hospital visit by physician Screen/Diag Mammo [facility] Work Phone: [facility] Radiology Mammography Start: 03-24-2024 End: 03-24-2024 Refill Thiago Quintanilla MD Work Phone: Hematology/Oncology Comment on above: Refill Request Start: 12-19-2023 End: 12-19-2023 [facility] Start: 12-19-2023 End: 12-19-2023 Office outpatient visit 25 minutes Thiago Quintanilla MD Work Phone: Hematology/Oncology Comment on above: Metastatic melanoma (HCC) (Primary Dx); Malignant melanoma of skin (HCC); Malignant melanoma of torso excluding breast (HCC); Malignant melanoma of skin of breast (HCC) Start: 12-17-2023 Telephone encounter Lacy bronson RN Work Phone: Hematology/Oncology Comment on above: Care Coordination (P ET Results) Start: 12-12-2023 End: 12-12-2023 ambulatory [facility] Facility:[facility] Start: 12-12-2023 End: 12-12-2023 Subsequent hospital visit by physician Arrival Time Radiology Work Phone: Radiology Pet CT Comment on above: Malignant melanoma o f skin (HCC) [C43.9] Start: 11-07-2023 Telephone encounter Lacy bronson RN Work Phone: Hematology/Oncology Comment on above: Care Coordination (M edication Question) Start: 10-30-2023 Refill Thiago smith MD Work Phone: Hematology/Oncology Comment on above: Refill Request Start: 10-27-2023 End: 10-27-2023 ambulatory [facility] Work Phone: Start: 10-27-2023 End: 10-27-2023 Patient encounter procedure [facility] Work Phone: Start: 08-22-2023 End: 08-22-2023 ambulatory THIAGO QUINTANILLA Facility:[facility] Start: 08-22-2023 End: 08-22-2023 Office outpatient visit 25 minutes Thiago Quintanilla MD Work Phone: Hematology/Oncology Comment on above: Malignant melanoma o f skin (HCC) (Primary Dx); Malignant melanoma of torso excluding breast (HCC); Metastatic melanoma (HCC); Chemotherapy-induced nausea; Dehydration Start: 08-08-2023 End: 08-08-2023 ambulatory THIAGO LM Facility:[facility] Start: 08-08-2023 End: 08-08-2023 Subsequent hospital visit by physician Arrival Time Radiology Work Phone: Radiology Pet CT Comment on above: Malignant melanoma o f torso excluding breast (HCC) [C43.59] Start: 06-10-2023 Refill Thiago smith MD Work Phone: Hematology/Oncology Comment on above: Refill Request Start: 04-08-2023 End: 04-08-2023 Subsequent hospital visit by physician Arrival Time Radiology Work Phone: Radiology Pet CT Comment on above: Malignant melanoma o f skin (HCC) [C43.9] Start: 01-29-2023 Refill Thiago smith MD Work Phone: Hematology/Oncology Comment on above: Refill Request Start: 12-25-2022 End: 12-26-2022 ambulatory Kayla Guerrero Facility:[facility] Start: 12-25-2022 End: 12-25-2022 Patient encounter procedure [facility] Start: 12-20-2022 Refill Thiago smith MD Work Phone: Hematology/Oncology Comment on above: Refill Request Start: 12-04-2022 ambulatory Kayla Guerrero Facility:[facility] Start: 12-03-2022 ambulatory Kayla Guerrero Facility:[facility] Start: 11-30-2022 End: 11-30-[address] TAYLOR RYAN . Facility: Start: 11-21-2022 End: 11-21-2022 ambulatory Tali Johnson Other [employer] Other Start: 11-21-2022 Office outpatient vi sit 15 minutes Tali Johnson [facility] Start: 11-19-2022 End: 11-19-2022 Office outpatient visit 25 minutes Thiago Quintanilla MD Work Phone: Hematology/Oncology Comment on above: Malignant melanoma o f skin (HCC) (Primary Dx); Metastatic melanoma (HCC) Start: 11-10-2022 Letter encounter Oscar hayes Start: 11-06-2022 Office outpatient ne w 30 minutes Aubrie Ramos [facility] Start: 11-06-2022 Telephone encounter Lelo Sharp RN Hematology/Oncology Comment on above: Results Start: 11-06-2022 End: 11-06-2022 ambulatory Aubrie Ramos [employer] Other Start: 11-06-2022 End: 11-06-2022 Departed Referred [employer] WORKER-C Aubrie Ramos Work Phone: [facility] [place] Work Phone: Start: 10-23-2022 End: 10-23-2022 Subsequent hospital visit by physician Arrival Time Radiology Work Phone: Radiology Pet CT Comment on above: Malignant melanoma o f skin (HCC) [C43.9] Start: 08-05-2022 Letter encounter marioRocael freddy Start: 06-24-2022 End: 06-24-2022 ambulatory Chair 21 Nadya Work Phone: Hematology/Oncology Comment on above: Dehydration (Primary Dx) Start: 05-31-2022 Telephone encounter Lacy Peña Hematology/Oncology Comment on above: Care Coordination (S can Results) Start: 05-29-2022 End: 05-29-2022 Subsequent hospital visit by physician Arrival Time Radiology Work Phone: Radiology Pet CT Comment on above: Malignant melanoma o f skin (HCC) [C43.9] Start: 02-15-2022 Refill Thiago smith MD Work Phone: Hematology/Oncology Comment on above: Refill Request Start: 02-04-2022 Telephone encounter Lacy bronson RN Work Phone: Hematology/Oncology Comment on above: Care Coordination (E mergency Room Call Back) Start: 02-01-2022 Telephone encounter Lacy bronson RN Work Phone: Hematology/Oncology Comment on above: Care Coordination (S kin changes, Itching, Burning Pain) Start: 01-15-2022 End: 01-15-2022 Subsequent hospital visit by physician Arrival Time Radiology Work Phone: Radiology Pet CT Comment on above: Malignant melanoma o f skin (HCC) [C43.9] Start: 09-13-2021 End: 09-13-2021 Subsequent hospital visit by physician Arrival Time Radiology Work Phone: Radiology Pet CT Comment on above: Malignant melanoma o f skin (HCC) [C43.9] Start: 05-04-2021 End: 05-04-2021 Preprocedural examination done Xr Daja Work Phone: [facility] Start: 05-04-2021 End: 05-04-2021 Subsequent hospital visit by physician Xr [facility] Work Phone: Radiology Comment on above: Preop examination [Z 01.818] Procedures Date Procedure Procedure Detail Performing Clinician Start: 04-02-[address] attenuation whole body Thiago Quintanilla MD Work Phone: Start: 04-02-2024 End: 04-02-2024 Blood count complete auto&auto difrntl wbc Thiago Quintanilla MD Work Phone: Start: 03-30-2024 Digital breast tomosynthesis unilateral Thiago Quintanilla MD Work Phone: Start: 12-12-[address] attenuation whole body Thiago Quintanilla MD Work Phone: Start: 12-12-2023 End: 12-12-2023 Blood count complete auto&auto difrntl wbc Thiago Quintanilla MD Work Phone: Start: 08-08-[address] attenuation whole body Thiago Quintanilla MD Work Phone: Start: 08-08-2023 End: 08-08-2023 Blood count complete auto&auto difrntl wbc Thiago Quintanilla MD Work Phone: Start: 04-08-[address] attenuation whole body Thiago Quintanilla MD Work Phone: Start: 04-08-2023 End: 04-08-2023 Blood count complete auto&auto difrntl wbc Thiago Quintanilla MD Work Phone: Start: 10-23-[address] attenuation whole body Thiago Quintanilla MD Work Phone: Start: 10-23-2022 End: 10-23-2022 Blood count complete auto&auto difrntl wbc Thiago Quintanilla MD Work Phone: Start: 05-29-[address] attenuation whole body Thiago Quintanilla MD Work Phone: Start: 05-29-2022 End: 05-29-2022 Blood count complete auto&auto difrntl wbc Thiago Quintanilla MD Work Phone: Start: 01-23-2022 Adult depression scr eening assessment Lacy Peña RN Work Phone: Start: 01-15-[address] attenuation whole body Thiago Quintanilla MD Work Phone: Start: 01-15-2022 End: 01-15-2022 Blood count complete auto&auto difrntl wbc Thiago Quintanilla MD Work Phone: Start: 09-13-[address] attenuation whole body Thiago Quintanilla MD Work Phone: Start: 09-13-2021 Gluc bld gluc mntr d ev cleared fda spec home use [facility] Provider Start: 05-04-2021 Radiologic exam ches t 2 views Ana Paula Nguyen PA-C Work Phone: Start: 10-06-2020 Mammography Lacy bronson RN Work Phone: Plan of Treatment Date Care Activity Detail Author Start: 04-02-2027 Diabetes Screening Diabetes Screenin g [facility] Start: 12-11-2026 Diabetes Screening Diabetes Screenin g [facility] Start: 08-08-2026 Diabetes Screening Diabetes Screenin g [facility] Start: 04-08-2026 Diabetes Screening Diabetes Screenin g [facility] Start: 10-23-2025 DIABETES SCREEN DIABETES SCREEN [facility] Start: 05-29-2025 DIABETES SCREEN DIABETES SCREEN [facility] Start: 01-15-2025 DIABETES SCREEN DIABETES SCREEN [facility] Start: 08-04-2024 End: 08-04-2024 Follow-up encounter 08/04/2024 10:40 AM EST Visit (SP) Office Hematology/Oncology [address] [place] [address] [place] [address] Thiago Quintanilla MD [address] [place] [address] 16 WEEK FOLLOW UP Hematology/Oncology Comment on above: 16 WEEK FOLLOW UP Start: 07-30-2024 End: 07-30-2024 Follow-up encounter 07/30/2024 11:45 AM EST Visit (SP) Office Hematology/Oncology [address] [facility] [place] [address] Thiago Quintanilla MD [address] [facility] [place] [address] 16 WEEK FOLLOW UP Hematology/Oncology Comment on above: 16 WEEK FOLLOW UP Start: 07-16-2024 End: 04-09-2025 CBC W Auto Differential panel - Blood COMPLETE BLOOD COUNT AND DIFFERENTIAL Lab Routine Metastatic melanoma (HCC) Malignant melanoma of skin of breast (HCC) Expected: 07/16/2024 (Approximate), Expires: 04/09/2025 [facility] Comment on above: Expected: 07/16/2024 (Approximate), Expires: 04/09/2025 Start: 07-16-2024 End: 04-09-2025 Comprehensive metabolic 2000 panel - Serum or Plasma COMPREHENSIVE METABOLIC PANEL Lab Routine Metastatic melanoma (HCC) Malignant melanoma of skin of breast (HCC) Expected: 07/16/2024 (Approximate), Expires: 04/09/2025 [facility] Comment on above: Expected: 07/16/2024 (Approximate), Expires: 04/09/2025 Start: 07-16-2024 End: 04-09-2025 Lactate dehydrogenase [Enzymatic activity/volume] in Serum or Plasma LACTATE DEHYDROGENASE Lab Routine Metastatic melanoma (HCC) Malignant melanoma of skin of breast (HCC) Expected: 07/16/2024 (Approximate), Expires: 04/09/2025 [facility] Work Phone: Comment on above: Expected: 07/16/2024 (Approximate), Expires: 04/09/2025 Start: 07-16-2024 End: 05-09-2025 PET+CT Whole body Bone W 18F-NaF IV NM PET/CT WHOLE BODY SUBSEQUENT Radiology Routine Metastatic melanoma (HCC) Malignant melanoma of skin of breast (HCC) Expected: 07/16/2024 (Approximate), Expires: 05/09/2025 [facility] Comment on above: Expected: 07/16/2024 (Approximate), Expires: 05/09/2025 Start: 07-16-2024 End: 07-16-2024 Patient encounter procedure 07/16/2024 12:00 PM EST Appointment Radiology Pet CT [address] [place] [address] Comment on above: PET Start: 04-09-2024 End: 04-09-2024 Follow-up encounter 04/09/2024 10:00 AM EDT Visit (SP) Office Hematology/Oncology [address] [place] [address] Thiago Quintanilla MD [address] [facility] [place] [address] follow up after pet scan and lab Hematology/Oncology Comment on above: follow up after pet scan and lab Start: 04-02-2024 End: 04-02-2024 Patient encounter procedure 04/02/2024 12:15 PM EDT Appointment Radiology Pet [facility] [address] [place] [address] Pet scan and lab Radiology Pet CT Comment on above: Pet scan and lab Start: 03-30-2024 End: 03-30-2024 Patient encounter procedure 03/30/2024 11:40 AM EDT Appointment [facility] Radiology Mammography [address] [place], [place] [id number] Diagnostic R Mammogram Dr Thiago Quintanilla [facility] Radiology Mammography Comment on above: Diagnostic R Mammogr am Dr Thiago Quintanilla Start: 03-28-2024 Covid-19 Vaccine ( season) Covid-19 Vaccine ( season) [facility] Start: 03-28-2024 Covid-19 Vaccine ( season) Covid-19 Vaccine ( season) [facility] Start: 03-28-2024 Influenza vaccination [facility] Start: 03-26-2024 End: 12-18-2024 CBC W Auto Differential panel - Blood COMPLETE BLOOD COUNT AND DIFFERENTIAL Lab Routine Metastatic melanoma (HCC) Malignant melanoma of skin (HCC) Malignant melanoma of skin of breast (HCC) Expected: 03/26/2024 (Approximate), Expires: 12/18/2024 [facility] Comment on above: Expected: 03/26/2024 (Approximate), Expires: 12/18/2024 Start: 03-26-2024 End: 12-18-2024 Comprehensive metabolic 2000 panel - Serum or Plasma COMPREHENSIVE METABOLIC PANEL Lab Routine Metastatic melanoma (HCC) Malignant melanoma of skin (HCC) Malignant melanoma of skin of breast (HCC) Expected: 03/26/2024 (Approximate), Expires: 12/18/2024 [facility] Comment on above: Expected: 03/26/2024 (Approximate), Expires: 12/18/2024 Start: 03-26-2024 End: 12-18-2024 Lactate dehydrogenase [Enzymatic activity/volume] in Serum or Plasma LACTATE DEHYDROGENASE Lab Routine Metastatic melanoma (HCC) Malignant melanoma of skin (HCC) Malignant melanoma of skin of breast (HCC) Expected: 03/26/2024 (Approximate), Expires: 12/18/2024 [facility] Comment on above: Expected: 03/26/2024 (Approximate), Expires: 12/18/2024 Start: 03-26-2024 End: 01-17-2025 MG Breast - right Diagnostic for implant SAMEERA DIAGNOSTIC RIGHT Radiology Routine Metastatic melanoma (HCC) Malignant melanoma of skin of breast (HCC) Expected: 03/26/2024 (Approximate), Expires: 01/17/2025 [facility] Comment on above: Expected: 03/26/2024 (Approximate), Expires: 01/17/2025 Start: 03-26-2024 End: 01-17-2025 PET+CT Whole body Bone W 18F-NaF IV NM PET/CT WHOLE BODY SUBSEQUENT Radiology Routine Metastatic melanoma (HCC) Malignant melanoma of skin (HCC) Malignant melanoma of skin of breast (HCC) Expected: 03/26/2024 (Approximate), Expires: 01/17/2025 [facility] Work Phone: Comment on above: Expected: 03/26/2024 (Approximate), Expires: 01/17/2025 Start: 12-19-2023 End: 12-19-2023 Follow-up encounter 12/19/2023 10:00 AM EDT Visit (SP) Office Hematology/Oncology [address] [place] [address] Thiago Quintanilla MD [address] [facility] [place] [address] 17 week follow up after pet scan 12/11 and lab Hematology/Oncology Comment on above: [address] pet scan 12/11 and lab Start: 12-12-2023 End: 08-22-2024 CBC W Auto Differential panel - Blood CBC + DIFF Lab Routine Malignant melanoma of skin (HCC) Expected: 12/12/2023 (Approximate), Expires: 08/22/2024 [facility] Work Phone: Comment on above: Expected: 12/12/2023 (Approximate), Expires: 08/22/2024 Start: 12-12-2023 End: 08-22-2024 Comprehensive metabolic 2000 panel - Serum or Plasma COMP METABOLIC PANEL Lab Routine Malignant melanoma of skin (HCC) Expected: 12/12/2023 (Approximate), Expires: 08/22/2024 [facility] Work Phone: Comment on above: Expected: 12/12/2023 (Approximate), Expires: 08/22/2024 Start: 12-12-2023 End: 08-22-2024 Lactate dehydrogenase [Enzymatic activity/volume] in Serum or Plasma LD LACTATE DEHYDRO Lab Routine Malignant melanoma of skin (HCC) Expected: 12/12/2023 (Approximate), Expires: 08/22/2024 [facility] Work Phone: Comment on above: Expected: 12/12/2023 (Approximate), Expires: 08/22/2024 Start: 12-12-2023 End: 09-20-2024 NM PET/CT WHOLE BODY SUBSEQUENT NM PET/CT WHOLE BODY SUBSEQUENT Radiology Routine Malignant melanoma of skin (HCC) Expected: 12/12/2023 (Approximate), Expires: 09/20/2024 [facility] Work Phone: Comment on above: Expected: 12/12/2023 (Approximate), Expires: 09/20/2024 Start: 07-28-2023 Behavioral Health Screening Behavioral Health Screening [facility] Start: 07-28-2023 Depression Assessment Depression Ass essment [facility] Start: 04-08-2023 End: 11-20-2023 CBC W Auto Differential panel - Blood CBC + DIFF Lab Routine Malignant melanoma of skin (HCC) Expected: 04/08/2023 (Approximate), Expires: 11/20/2023 [facility] Work Phone: Comment on above: Expected: 04/08/2023 (Approximate), Expires: 11/20/2023 Start: 04-08-2023 End: 11-20-2023 Comprehensive metabolic 2000 panel - Serum or Plasma COMP METABOLIC PANEL Lab Routine Malignant melanoma of skin (HCC) Expected: 04/08/2023 (Approximate), Expires: 11/20/2023 [facility] Work Phone: Comment on above: Expected: 04/08/2023 (Approximate), Expires: 11/20/2023 Start: 04-08-2023 End: 11-20-2023 Lactate dehydrogenase [Enzymatic activity/volume] in Serum or Plasma LD LACTATE DEHYDRO Lab Routine Malignant melanoma of skin (HCC) Expected: 04/08/2023 (Approximate), Expires: 11/20/2023 [facility] Work Phone: Comment on above: Expected: 04/08/2023 (Approximate), Expires: 11/20/2023 Start: 04-08-2023 End: 12-19-2023 NM PET/CT WHOLE BODY SUBSEQUENT NM PET/CT WHOLE BODY SUBSEQUENT Radiology Routine Malignant melanoma of skin (HCC) Expected: 04/08/2023 (Approximate), Expires: 12/19/2023 [facility] Work Phone: Comment on above: Expected: 04/08/2023 (Approximate), Expires: 12/19/2023 Start: 03-28-2023 Covid-19 Vaccine ( season) Covid-19 Vaccine () [facility] Start: 03-28-[address] [facility] Start: 01-23-2023 Adult depression screening assessment DEPRESSION SCREENING [facility] Start: 11-06-2022 Bacteria identified in Urine by Culture Urine Culture [facility] Start: 07-28-2022 [facility] Start: 04-27-2022 Influenza vaccination [facility] Start: 03-28-2022 Influenza vaccination INFLUENZA (#1) [facility] Start: 10-06-2021 Mammography [facility] Start: 10-06-2021 Screening for malign ant neoplasm of breast Mammogram Screening [facility] Start: 07-28-2021 DEPRESSION ASSESSMENT [facility] Start: 07-19-2016 Screening for malign ant neoplasm of breast Mammography [facility] Start: 2016 Measurement of occul t blood in single stool specimen FIT [facility] Start: 2016 Screening for malign ant neoplasm of colon CRC Screening [facility] Start: 2016 Shingles (RZV) Vacci ne (1 of 2) Shingles (RZV) Vaccine (1 of 2) [facility] Start: 2016 SHINGRIX VACCINE (1 of 2) SHINGRIX VACCINE (1 of 2) [facility] Start: 2011 Cholesterol [Mass/volume] in Serum or Plasma Cholesterol [facility] Start: 2011 COLOGUARD (FIT-DNA) COLOGUARD (FIT-D NA) [facility] Start: 2011 Colonoscopy COLONOSCOPY [facility] Start: 2011 COLORECTAL CANCER SCREENING COLORECTAL CANCER SCREENING [facility] Start: [address] COLONOGRAPHY [facility] Start: 2011 FECAL OCCULT BLOOD FECAL OCCULT BLOO D [facility] Start: 2011 Lipid 1996 panel - Serum or Plasma Lipid Screening [facility] Start: 2011 Lipid panel Lipid Screening [facility] Start: 2011 LIPID SCREEN LIPID SCREEN [facility] Start: 2011 Screening for malign ant neoplasm of colon [facility] Start: 2011 SIGMOIDOSCOPY SIGMOIDOSCOPY [facility] Start: 1996 HPV TESTING HPV TESTING [facility] Start: 1996 Screening for malign ant neoplasm of cervix HPV Testing [facility] Start: 1987 PAP TESTING PAP TESTING [facility] Start: 1987 Screening for malign ant neoplasm of cervix [facility] Start: 1985 Hepatitis B Vaccine (1 of 3 - 19+ 3-dose series) Hepatitis B Vaccine (1 of 3 - 19+ 3-dose series) [facility] Start: 1985 SHINGRIX VACCINE (1 of 2) SHINGRIX VACCINE (1 of 2) [facility] Start: 1985 Urine microalbumin profile [facility] Start: 1984 Anxiety Screening Anxiety Screening [facility] Start: 1984 Depression Screening Depression Scre ening [facility] Start: 1984 HEPATITIS C SCREENING HEPATITIS C SC REENING [facility] Start: 1984 Hepatitis C screening M [facility] Start: 1984 HIV SCREENING HIV SCREENING [facility] Start: 1984 HIV screening HIV Screening [facility] Start: 1984 Tetanus + diphtheria + acellular pertussis vaccine (product) Tdap Booster [facility] Start: 1981 HIV screening HIV Test [facility] Start: 1972 PNEUMOCOCCAL (1 - PCV) PNEUMOCOCCAL (1 - PCV) [facility] Start: 1972 Pneumococcal vaccination [facility] Start: 1971 COVID-19 VACCINE (#1) COVID-19 VACCI NE (#1) [facility] Start: 1967 Dermatology visit Dermatology visit [facility] Start: 1966 COVID-19 VACCINE (#1) COVID-19 VACCI NE (#1) [facility] Start: 1966 HEPATITIS B (1 of 3 - 3-dose series) HEPATITIS B (1 of 3 - 3-dose series) [facility] Start: 1966 Hepatitis B Vaccine (1 of 3 - 3-dose series) Hepatitis B Vaccine (1 of 3 - 3-dose series) [facility] Start: 1966 Screening for malign ant neoplasm of colon [facility] Immunizations Immunization Date Immunization Notes Care Provider Arturo pina NEGATED: Highlighted row has not occurred!08-10-2018 influenza, high dose seasonal, preservative-free Patient Objection Aubrie Ramos Other [employer] Other Payers Date Payer Category Payer Self-pay 2020 Medicaid MEDICAID [facility] MEDICAID [id number] 2020-Present [phone] [address] [place] [address] Medicaid [id number] 2020 Medicaid MEDICAID [facility] MEDICAID [id number] 2020-Present [phone] [address] [place] [address] Medicaid [id number] 2020 Medicare MEDICARE MEDICAR E A AND B [id number] 2020-Present [phone] [place] [address] Medicare [id number] 2020 Medicare MEDICARE MEDICAR E A AND B [id number] 2020-Present [phone] [place] [address] Medicare [id number] 2015 Private Health Insurance [employer] - HMO/PPO/POS [employer] ALF/HMO/ELECTCHO ICE/MANAGED CHOICE [id number] 2015-Present [employer] [address] [place] [address] POS [id number] 1966 Unknown [id number] 1959 Medicaid [id number] 1958 Medicare [id number] Unknown [id number] Social History Date Type Detail Facility Start: 02-28-2020 End: 11-19-2022 Tobacco smoking status NHIS Smokes tobacco daily [facility] History of tobacco use Cigarette Smoker [facility] Start: 02-28-2020 End: 04-16-2023 Cigarettes smoked current (pack per day) - Reported 0.5 [facility] Start: 02-28-2020 End: 11-19-2022 Tobacco use and exposure Smokeless tobacco non-user [facility] Start: 01-23-2022 End: 04-09-2024 Alcohol intake Ex-drinker (finding) [facility] Start: 1965 Sex Assigned At Female [facility] Start: 04-04-2021 End: 06-24-2022 Exposure to SARS-CoV-2 (event) Not sure [facility] Start: 10-27-2023 History of tobacco use Smoker (findi ng) [facility] Start: 07-04-2015 Tobacco use and exposure Former smokeless tobacco user [facility] End: 07-04-2013 History of tobacco use User of smokeless tobacco [facility] Start: 09-20-2015 Alcohol intake Current non-dr ribbon inker of alcohol (finding) [facility] Start: 07-04-2015 Tobacco Comment switched to e-cig [facility] Start: 1965 Sex Assigned At Not on file [facility] Start: 11-19-2022 End: 04-16-2023 Sex Assigned At [facility] History of tobacco use Passive smoker [facility] Tobacco smoking status No Smokin g Status Entered [facility] Start: 01-14-2022 Gender identity Identifies as female gender (finding) [facility] Adult Depression Screening Assessment 0 [facility] Clinical Notes 05-04-2021 to 06-14-2024 Saadia Lacy MA - 06/14/2024 10:53 AM Thiago Mclaughlin MD - 04/09/2024 10:00 AM EDTPatient InstructionsTelephone Encounter - Belinda Mcnamara RN - 04/05/2024 10:05 AM EDTPatient Instructions Note Date & Type Note Facility 06-14-2024 Note HNO ID: [id number] Author: SAADIA LACY MA Service: ? Author Type: Heat Treat Puller Type: Progress Notes Filed: 06/14/2024 11:16 Note Text: POPULATION HEALTH NAVIGATION OUTREACH Action/FYI Patient Outreach for Establishing Care with Primary Care Has patient established care a primary care provider and/or has an appointment to establish care? No - Calling to see if patient would like to establish care with a [facility] primary care provider. Outcomes: Ran and updated Care Everywhere. No updates found. Called patient - left message on voice mail - patient not on MyChart. Reason for Outreach Care Gap/HCC or Scheduling Wellness Visits Care Gaps due: Establish Care Appointment Patient Contacted: Unable or unnecessary to reach patient: Left message Navigation Signature: Saadia Lacy MA June 14, 2024 10:53 AM [facility] 06-14-2024 History of Presen t illness Narrative POPULATION HEALTH NAVIGATION OUTREACH Action/FYI Patient Outreach for Establishing Care with Primary Care Has patient established care a primary care provider and/or has an appointment to establish care? No - Calling to see if patient would like to establish care with a [facility] primary care provider. Outcomes: Ran and updated Care Everywhere. No updates found. Called patient - left message on voice mail - patient not on MyChart. Reason for Outreach Care Gap/HCC or Scheduling Wellness Visits Care Gaps due: Establish Care Appointment Patient Contacted: Unable or unnecessary to reach patient: Left message Navigation Signature: Saadia Lacy MA June 14, 2024 10:53 AM documented in this encounter [facility] 06-14-2024 Note Patient Outreach (TRACEY TNMACEY) KENNEDY PAULSON ([id number]) 1965 F Date Time Provider Department 06/14/24 SAADIA LACY During your visit today, we recorded the following information about you: Saadia Lacy MA 06/14/2024 11:16 AM Signed POPULATION HEALTH NAVIGATION OUTREACH Action/ Patient Outreach for Establishing Care with Primary Care Has patient established care a primary care provider and/or has an appointment to establish care? No - Calling to see if patient would like to establish care with a [facility] primary care provider. Outcomes: Ran and updated Care Everywhere. No updates found. Called patient - left message on voice mail - patient not on [employer]. Reason for Outreach Care Gap/HCC or Scheduling Wellness Visits Care Gaps due: Establish Care Appointment Patient Contacted: Unable or unnecessary to reach patient: Left message Navigation Signature: Saadia Lacy MA June 14, 2024 10:53 AM Allergies As of Date: 06/14/2024 (No Known Allergies) Date Reviewed: 04/09/2024 Reviewed by: Sandie Worley MA - Fully Assessed Reason for Visit: Population Health Navigation Outreach [3910] Cmt: ACO No PCP . - SharePoint Worksheet - Multiple Locations Prescriptions as of 06/14/2024 - vemurafenib (ZELBORAF) 240 mg tab TAKE 4 TABLETS BY MOUTH EVERY 12 HOURS. MAY TAKE WITH OR WITHOUT FOOD. STORE IN ORIGINAL CONTAINER. AVOID GRAPEFRUIT PRODUCTS - COTELLIC 20 mg tab TAKE 3 TABLETS BY MOUTH ONCE DAILY AT THE SAME TIME FOR 21 DAYS OF A 28 DAY CYCLE. MAY TAKE WITH OR WITHOUT FOOD Problem List As Of Date 06/14/2024 Noted Resolved Anemia [D64.9] 04/18/2016 Malignant neoplasm of female breast (HCC) [C50.*04/18/2016 Metastatic melanoma (HCC) [C43.9] 04/18/2016 Drug-induced constipation [K59.03] 08/24/2018 Tobacco use [Z72.0] 05/04/2021 Port-A-Cath in place [Z95.828] 05/04/2021 Nicotine use disorder, F17.2 [F17.200] 05/11/2021 Dehydration [E86.0] 06/05/2022 Malignant melanoma of torso excluding breast (H*04/16/2023 Chemotherapy-induced nausea [R11.0, T45.1X5A] 04/16/2023 Encounter Status:Closed by SAADIA LACY on 06/14/24 [facility] 04-09-2024 History of Presen t illness Narrative Images from the original note were not included. NAME: Kennedy Paulson CLINIC NO.: [id number] DATE OF SERVICE: April 09, 2024 (sailm) Some elements in this clinic note that are critical to medical decision making have been carefully reviewed and included from a prior clinic note dated: December 19, 2023 (Marika) Referring Provider: Arabella Lynch DO Additional Clinicians involved in Kennedy Paulson's care: CC: Metastatic BRAF + Melanoma ASSESSMENT: She originally had L breast mastectomy for melanoma in [address] Mayorga. 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 Started Zelboraf and Cotellic 08/2018. Has maintained an excellent response measured on PET CT - through 04/08/2023 We discussed the potential for failure of BRAF inhibition occurring around 12-18 months but this hasn't been the case. Suspicious left cervical LN - left neck dissection resulted in benign findings with anthracotic changes only Kidney function varies because she can't reliably stay hydrated PLAN: Labs, PET, Mammogram of right breast in 14 weeks RTC in 16 weeks to review Exam on return Continue nicotine lozenges and smoking cessation Continue Zelboraf and Cotellic HPI: CASE HISTORY: Reverse Chronological Order 04/02/2024 - PET/CT: PRIMARY: No FDG avid neoplasm. Postsurgical changes. LYMPH NODES: No metabolically active lymphadenopathy. METASTASES: No metabolically active metastases. 03/30/2024 - Diagnostic Mammogram Right: There is no mammographic evidence of malignancy. A return to screening mammogram in 1 year is recommended. BI-RADS Category 2: Benign 12/12/2023 - PET/CT: CHEST: No FDG avid neoplastic process. Stable tiny lung nodules below PET resolution likely benign. HEAD/NECK, ABDOMEN/PELVIS, MUSCULOSKELETAL: No FDG avid neoplastic process. 08/08/2023 - PET/CT: Neck: No suspicious hypermetabolic foci Chest: No evidence of FDG avid neoplastic process Abdomen and pelvis: No evidence of FDG avid neoplastic process Skeleton: No hypermetabolic osseous lesions 04/08/2023 - PET/CT remains negative. 10/23/2022 - PET remains negative - small focus of cutaneous activity in the right lateral distal forearm. Possibly inflammatory. 01/15/2022 - PET/CT: NECK: No FDG avid neoplastic process. CHEST: No FDG avid neoplastic process. Several subcentimeter pulmonary nodules stable since at least PET/CT 08/26/2018. Note that PET/CT is not sensitive for pulmonary nodules less than 8 mm. ABDOMEN/PELVIS: No FDG avid neoplastic process. EXTREMITIES/SKELETON: No suspicious FDG avid osseous process. 09/13/2021 - PET CT: NECK: interval resection of previously noted hypermetabolic left cervical lymph node. No new or enlarging hypermetabolic cervical lymphadenopathy. CHEST: stable postoperative changes of left mastectomy and bilateral axillary lymphadenectomy. No hypermetabolic soft tissue in the operative bed to suggest residual/recurrent neoplasm. PATCHY GROUNDGLASS ATTENUATION NON-FDG AVID RIGHT UPPER LOBE SUBPLEURAL OPACITY LATERALLY, NEW SINCE 04/03/2021. SUGGEST FOLLOW UP NONCONTRAST CHEST CT IN 3 MONTHS FOR ADDITIONAL EVALUATION. FEW SMALL (<0.6 CM) NON-FDG AVID PULMONARY NODULES, STABLE SINCE 12/13/2020. No hypermetabolic thoracic lymphadenopathy. ABDOMEN/PELVIS: no fdg avid neoplastic process. No hypermetabolic mass, adenopathy, or fluid collection. Stable nonobstructing right renal calculi. EXTREMITIES/SKELETON: no fdg avid neoplastic osseous process. 04/03/2021 - PET/CT: Head and Neck: New 0.8 cm hypermetabolic left cervical lymph node, presumably metastatic. Chest: No evidence of FDG avid neoplastic process. Multiple small (less than 6 mm) pulmonary nodules are stable compared to 12/13/2020, and not FDG avid. Stable findings, as described Abdomen and pelvis: No evidence of FDG avid neoplastic process. Stable nonobstructing right renal calculi measuring up to 0.5 cm. No hydronephrosis. Musculoskeletal: No neoplastic hypermetabolic lesions 01/03/2021 - Echo from TB: Normal EF 56% 12/13/2020 PET/CT: Neck: No suspicious hypermetabolic foci Chest: No evidence of FDG avid neoplastic process Abdomen and pelvis: No evidence of FDG avid neoplastic process Skeleton: No hypermetabolic osseous lesions 08/23/2020 PET/CT: HEAD AND NECK: No FDG avid neoplastic process. No mass, adenopathy, or fluid collection. CHEST: No FDG avid neoplastic process. No mass, adenopathy, or fluid collection. Stable tiny nodularity in both lungs unchanged. Tree-in-bud clustered nodularity anterolateral lingula not changed likely inflammatory. ABDOMEN/PELVIS: No FDG avid neoplastic process. No mass, adenopathy, or fluid collection. EXTREMITIES/SKELETON: No FDG avid osseous process. No destructive/traumatic bony abnormality. 05/22/2020 PET/CT: Head and Neck: No hypermetabolic foci Chest: No evidence of FDG avid neoplastic process. Stable bilateral sub-5 mm pulmonary nodules. Recommend follow-up imaging. Abdomen and pelvis: No evidence of FDG avid neoplastic process Musculoskeletal: New focal uptake in the posterior right mid thigh is favored to be vascular in origin, and may be secondary to active atherosclerosis, although thrombosis cannot be excluded. Recommend clinical correlation regarding the need for Doppler evaluation. 02/18/2020 - PET/CT: NECK: No FDG avid neoplastic process. No hypermetabolic mass, adenopathy, or fluid collection. CHEST: No FDG avid neoplastic process. No hypermetabolic mass, adenopathy, or fluid collection. ABDOMEN/PELVIS: No FDG avid neoplastic process. No hypermetabolic mass, adenopathy, or fluid collection. BONES AND SOFT TISSUES: Interval resolution of previously seen mild FDG activity associated with the right T11/T12 paraspinal soft tissues. Interval reduction in FDG avidity by osteolytic right transverse process of T11. No suspicious FDG avid osseous process. 11/03/2019 - PET/CT: Neck: No suspicious hypermetabolic foci Chest: Interval resolution of the previously present hypermetabolic focus in the left parasternal region. Significant interval improvement in the right paraspinal soft tissue mass now with mild residual focus of uptake. Abdomen and pelvis: No evidence of FDG avid metastases Skeleton: significant interval decrease in size and activity associated with the right T11/T12 region costovertebral region mass, now a small residual focus of mild uptake 09/16/2018 - Started on vemurafenib/cobemetinib 08/26/2018- PET/CT: FDG avid left anterior and the right posterior chest wall soft tissue mass is consistent with metastases. T12 and the right posterior medial 12th rib destruction by adjacent soft tissue metastases. 08/14/2018 - Excision of the soft tissue mass where the mass was excised in total. Pathology showed malignant melanoma. Pathologically, there were 2 excisions and in the first excision 7.3 cm in size was negative for neoplasm. The second mass was 2.4 cm in size with results consistent with melanoma. Her melanoma was BRAF positive. 07/28/2018 - CT Scan: Showed a soft tissue mass 5.9 x 4.1 cm in axial dimension extending off the field of view along the right paraspinal muscles extending to the pleura with lytic change of the adjacent ribs and vertebral bodies. There was also pancreatic head enlargement poorly visualized on noncontrast exam. PET scan 05/01/16 showed right axillary node uptake and uptake in Left internal mammary nodes. Updated Visit, April 09, 2024: Bisi returns today for a follow up. PET/CT and mammogram show no evidence of malignancy. Will defer our exam as she is expecting one soon with dermatology. She continues working on smoking cessation, she is managing stress well at home. Updated Visit, December 19, 2023: Bisi returns today for a follow up. She is doing well overall. Last week's PET scan is stable and negative. Defer exam today as she has no concerns. Nausea and diarrhea during 3rd week of treatment continues, resolves during her off week. I encouraged her to establish with a PCP. I ordered mammograms - her last was about 2 years ago. She would like to quit smoking and asked for assistance - I suggested nicotine gum and/or patches, I prescribed lozenges for her as well. Updated Visit, August 22, 2023: Bisi returns today, feeling good. She is still smoking. Kidney function is unchanged. LDH is slightly elevated, she typically fluctuates. Labs unremarkable. PET in 16 weeks. She reports nausea and diarrhea during the 3rd week of anti-braf treatment treatment. She has been dating her previous S/O again. Updated Visit, April 16, 2023: Exam is benign. Labs are stable and without concerning abnormalities. Physical exam today, noted below. Updated Visit, November 19, 2022: No palpable abnormality on exam However had and age spot on her lateral right bicep that was taken off just prior to Pet - (Ak. Keratosis) Updated Visit, June 05, 2022: Continues on BRAF and MET inhibition with continued excellent response and no evidence of disease. Minimal AE's Updated Visit, January 23, 2022: Bisi returns in follow up for metastatic melanoma currently controlled with Zelboraf/Cotellic (Vemurafenib/Cobemetanib). She continues to do very well. She is smoking less. PET/CT was reviewed and no uptake noted. Updated Visit, September 27, 2021: Bisi is 56 and continues on treatment with Vemurafenib/Cobemetanib (Zelboraf/Cotellic). A year ago she and her son were kicked out of their house (broke-up with her SO 08/2020) Adult daughter, son and daughter's 4 yo son all live together and all are doing ok. Reviewed scans and no new disease noted. Small opacity in Right upper lobe - will need follow up CT in 3 months. Smoking less since COVID-19 early 06/2021. Minor symptoms. Updated Visit, May 24, 2021: Bisi is 56 yo and returns to review her results from ercent cervical eldon dissection which thankfully came back benign. She is relieved and is doing well. Neck is healing nicely. She will continue with BRAF/MEK inhibition. Updated Visit, April 11, 2021: Bisi is 55 yo and continues to do well clinically but has a left cervical LN that is 0.8 cm with FDG uptake that is new and concerning for metastatic disease. Would like to send for biopsy to confirm diagnostic suspicion and maximize tissue sampling for molecular studies. Node is difficult to palpate Updated Visit, December 20, 2020: Bisi is 55 years old and returns for monitoring of her BRAF positive melanoma began on her left chest wall. She is status post left mastectomy and axillary eldon dissection in July 2018. Her current PET scan remains JUDITH. Updated Visit, August 30, 2020: Bisi is 55 Yo and returns for BRAF + melanoma that began in her left chest wall. She is s/p left mastectomy and axillary eldon dissection and remains on Zelboraf and Cotellic with excellent disease control. Mammograms pending Broke up with her boyfriend and he asked her to move out. Has to find a new place moving with daughter. She is otherwise doing well. We reviewed her PET CT which remains without disease progression. Updated Visit, May 29, 2020: Bisi is 55 years old and has BRAF positive metastatic melanoma and returns for review of her restaging PET scan. Doing well overall and is very active. PET reviewed and no correlation on exam of right posterior thigh is un revealing. She has no pain associated with deep palpation and there is no mass either. We will continue monitoring. 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 She has been on Zelboraf and Cotellic since August 2018 and presents to review her PET scans from late last month. Overall review is detailed below but demonstrates no evidence of recurrence. Updated Visit, November 10, 2019: Kennedy Paulson presents today Hematology and Oncology evaluation. She is a 54 year old female who presents in follow-up on Zelboraf and Cotellic for BRAF positive melanoma. She had a hx of a 3 x 2.5 cm promise level IV melanoma resected from the chest wall May of 2015. She was taken to surgery by Dr Mayorga. She did have resection of 2/13 nodes out of the axilla consistent with melanoma. PET scan 05/01/16 showed right axillary node uptake and uptake in Left internal mammary nodes. She was then taken back to surgery by Dr Mayorga who excised two additional nodes. There was nothing to excise in the internal mammary chain he could find. Then in July 2018, she presented with back pain and was found to have a right sided paraspinal mass. CT scan on July 28 showed a soft tissue mass 5.9 x 4.1 cm in axial dimension extending off the field of view along the right paraspinal muscles extending to the pleura with lytic change of the adjacent ribs and vertebral bodies. There was also pancreatic head enlargement poorly visualized on noncontrast exam. Ultrasound of the chest on August 14 showed a 9.2 cm mass in the right posterior paraspinal thorax. She was taken on August 14, 2018 to have an excision of the soft tissue mass where the mass was excised in total. Pathology showed malignant melanoma. Pathologically, there were 2 excisions and in the first excision 7.3 cm in size was negative for neoplasm. The second mass was 2.4 cm in size with results consistent with melanoma. Her melanoma was BRAF positive. She was started on vemurafenib/cobemetinib 09/16/18 with patients pain quickly escalating. She had a wonderful response with resolution of pain and exam findings in her back. She continues to do well but is somewhat surprised with the discussion of potential failure of therapy in the next several months based on normal failure rates and times noted in the current literature. PATHOLOGIC PROFILE/MOLECULAR DATA: Reviewed on November 10, 2019 05/09/2021 Left Cervical Neck Dissection: Specimen #: [id number] Submitting Physician: NATHAN KIDD MD FINAL DIAGNOSIS 1. Left level 2, dissection (A) - Five lymph nodes, negative for malignancy (0/5). 2. Left level 3, dissection (B) - Twelve lymph nodes, negative for malignancy (0/12). 3. Left level 4, dissection (C) - Seventeen lymph nodes, negative for malignancy (0/17). She was taken on August 14, 2018 to have an excision of the soft tissue mass where the mass was excised in total. Pathology showed malignant melanoma. Pathologically, there were 2 excisions and in the first excision 7.3 cm in size was negative for neoplasm. The second mass was 2.4 cm in size with results consistent with melanoma. 2. See EMR 1. See EMR REVIEW OF SYSTEMS Per HPI and otherwise negative by full review of organ systems. ECOG PERFORMANCE STATUS: 0 PHYSICAL EXAMINATION: Vitals: BP 150/91 Pulse 66 Temp (Src) 97.4 (Temporal) Resp 16 Ht 5' 2.008 (1.58m) Wt 130 lb 15.3 oz (59.4kg) SpO2 99% BMI 23.95 kg/(m^2). Body surface area is 1.61 meters squared. Exam limited to gross visualization where appropriate. Gen.: This is an age-appropriate patient in no acute distress. Head: Appears atraumatic with no visible lesions. Eyes: Pupils equally round and reactive to light, extraocular muscles are intact. Neck: Supple. Respiratory: Appears to be respiring comfortably. Neurologic: Nonfocal to gross visualization. Alert and oriented 3. Psychiatric: No evidence of inappropriate anxiety or depression. Skin: Visible areas of skin without rash, lesions, wounds or petechiae. Prior breast and skin exam: (Zoie Posey) 04/16/2023: entire skin surface evaluated with no evidence of concerning lesion. Did not examine skin overlying pubis or between buttocks. Right breast normal female with no lumps or masses. Bilateral axillary eldon exam is negative. Underside of right breast is a horizontal scar that is healed and without in-transit lesions. Left breast mastectomy sight is healed and without concerning lesions and no in-transit lesions. ALLERGIES: ALLERGIES No Known Allergies MEDICATIONS: vemurafenib (ZELBORAF) 240 mg tab TAKE 4 TABLETS BY MOUTH EVERY 12 HOURS. MAY TAKE WITH OR WITHOUT FOOD. STORE IN ORIGINAL CONTAINER. AVOID GRAPEFRUIT PRODUCTS COTELLIC 20 mg tab TAKE 3 TABLETS BY MOUTH ONCE DAILY AT THE SAME TIME FOR 21 DAYS OF A 28 DAY CYCLE. MAY TAKE WITH OR WITHOUT FOOD nicotine, polacrilex, (NICORETTE) [address] 2 mg between cheek and gum four times daily. LABORATORY VALUES: WBC (k/uL) Date Value 04/02/2024 4.76 RBC (m/uL) Date Value 04/02/2024 3.87 (L) Hemoglobin (g/dL) Date Value 04/02/2024 12.4 Hematocrit (%) Date Value 04/02/2024 35.9 (L) MCV (fL) Date Value 04/02/2024 92.8 MCH (pg) Date Value 04/02/2024 32.0 MCHC (g/dL) Date Value 04/02/2024 34.5 RDW-CV (%) Date Value 04/02/2024 13.8 Platelet Count (k/uL) Date Value 04/02/2024 199 MPV (fL) Date Value 04/02/2024 9.3 Glucose (mg/dL) Date Value 04/02/2024 102 (H) BUN (mg/dL) Date Value 04/02/2024 13 Creatinine (mg/dL) Date Value 04/02/2024 0.99 (H) Sodium (mmol/L) Date Value 04/02/2024 143 Potassium (mmol/L) Date Value 04/02/2024 3.5 (L) Chloride (mmol/L) Date Value 04/02/2024 110 (H) CO2 (mmol/L) Date Value 04/02/2024 21 (L) Protein, Total (g/dL) Date Value 04/02/2024 7.0 Albumin (g/dL) Date Value 04/02/2024 4.7 Calcium, Total (mg/dL) Date Value 04/02/2024 9.6 Alkaline Phosphatase (U/L) Date Value 04/02/2024 117 Bilirubin, Total (mg/dL) Date Value 04/02/2024 0.4 AST (U/L) Date Value 04/02/2024 13 ALT (U/L) Date Value 04/02/2024 10 DIAGNOSIS: (C43.52) Malignant melanoma of skin of breast (HCC) (primary encounter diagnosis) Plan: LACTATE DEHYDROGENASE, COMPLETE BLOOD COUNT AND DIFFERENTIAL, COMPREHENSIVE METABOLIC PANEL, NM PET/CT WHOLE BODY SUBSEQUENT (C43.9) Metastatic melanoma (HCC) Plan: LACTATE DEHYDROGENASE, COMPLETE BLOOD COUNT AND DIFFERENTIAL, COMPREHENSIVE METABOLIC PANEL, NM PET/CT WHOLE BODY SUBSEQUENT (C43.59) Malignant melanoma of torso excluding breast (HCC) PAST MEDICAL HISTORY Diagnosis Date Melanoma (HCC) PAST SURGICAL HISTORY Procedure Laterality Date AXILLARY LYMPHADENECTOMY Right 2016 BONE BIOPSY,TROCAR/NEEDLE SUPERF 2019 spine biopsy MASTECTOMY, MODIFIED RADICAL Left 2016 AND SKIN BIOPSY HX 2015 melanoma mid chest TUBAL LIGATION HX Social History Tobacco Use Smoking status: Every Day Current packs/day: 0.50 Average packs/day: 0.5 packs/day for 30.0 years (15.0 ttl pk-yrs) Types: Cigarettes Passive exposure: Current Smokeless tobacco: Never Vaping Use Vaping status: Never Used Substance Use Topics Alcohol use: Not Currently Drug use: No FAMILY HISTORY Problem Relation Age of Onset Cancer Mother Breast Cancer Mother Stroke Father I spent a total of 30 minutes on the date of the service which included preparing to see the patient, [id number] patient care, completing clinical documentation, performing a medically appropriate examination, counseling and educating the patient/family/caregiver, ordering medications, tests, or procedures, independently interpreting results (not separately reported), communicating results to the patient/family/caregiver, and care coordination (not separately reported). Thiago Quintanilla MD, CPE Hematology and Oncology Services Provided at: [place], [place] Scribe Attestation: This note was scribed by Kusum Mario on April 09, 2024 under the direction and supervision of Dr. Thiago Quintanilla. I attest that all of the information documented is correct to the best of my knowledge. Provider Attestation: I, Thiago Quintanilla MD, attest that all information documented by the above scribe is correct, and was supervised by me and under my direction. CC: Dr. Mayorga. Arabella Lynch, DO [facility] [id number] documented in this encounter [facility] 04-09-2024 Instructions Kusum Mario - 04/09/2024 10:00 AM EDT Labs, PET, Mammogram of right breast in 14 weeks RTC in 16 weeks to review Exam on return Continue nicotine lozenges and smoking cessation Continue Zelboraf and Cotellic documented in this encounter [facility] 04-09-2024 Note HNO ID: [id number] Author: THIAGO QUINTANILLA MD Service: ? Author Type: Physician Type: Progress Notes Filed: 04/10/2024 08:46 Note Text: NAME: Kennedy Paulson CLINIC NO.: [id number] DATE OF SERVICE: April 09, 2024 ([facility]) Some elements in this clinic note that are critical to medical decision making have been carefully reviewed and included from a prior clinic note dated: December 19, 2023 (Marika) Referring Provider: Arabella Lynch, DO Additional Clinicians involved in Kennedy Paulson's care: CC: Metastatic BRAF + Melanoma ASSESSMENT: She originally had L breast mastectomy for melanoma in [address] Mayorga. 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 Started Zelboraf and Cotellic 08/2018. Has maintained an excellent response measured on PET CT - through 04/08/2023 We discussed the potential for failure of BRAF inhibition occurring around 12-18 months but this hasn't been the case. Suspicious left cervical LN - left neck dissection resulted in benign findings with anthracotic changes only Kidney function varies because she can't reliably stay hydrated PLAN: Labs, PET, Mammogram of right breast in 14 weeks RTC in 16 weeks to review Exam on return Continue nicotine lozenges and smoking cessation Continue Zelboraf and Cotellic HPI: CASE HISTORY: Reverse Chronological Order 04/02/2024 - PET/CT: PRIMARY: No FDG avid neoplasm. Postsurgical changes. LYMPH NODES: No metabolically active lymphadenopathy. METASTASES: No metabolically active metastases. 03/30/2024 - Diagnostic Mammogram Right: There is no mammographic evidence of malignancy. A return to screening mammogram in 1 year is recommended. BI-RADS Category 2: Benign 12/12/2023 - PET/CT: CHEST: No FDG avid neoplastic process. Stable tiny lung nodules below PET resolution likely benign. HEAD/NECK, ABDOMEN/PELVIS, MUSCULOSKELETAL: No FDG avid neoplastic process. 08/08/2023 - PET/CT: Neck: No suspicious hypermetabolic foci Chest: No evidence of FDG avid neoplastic process Abdomen and pelvis: No evidence of FDG avid neoplastic process Skeleton: No hypermetabolic osseous lesions 04/08/2023 - PET/CT remains negative. 10/23/2022 - PET remains negative - small focus of cutaneous activity in the right lateral distal forearm. Possibly inflammatory. 01/15/2022 - PET/CT: NECK: No FDG avid neoplastic process. CHEST: No FDG avid neoplastic process. Several subcentimeter pulmonary nodules stable since at least PET/CT 08/26/2018. Note that PET/CT is not sensitive for pulmonary nodules less than 8 mm. ABDOMEN/PELVIS: No FDG avid neoplastic process. EXTREMITIES/SKELETON: No suspicious FDG avid osseous process. 09/13/2021 - PET CT: NECK: interval resection of previously noted hypermetabolic left cervical lymph node. No new or enlarging hypermetabolic cervical lymphadenopathy. CHEST: stable postoperative changes of left mastectomy and bilateral axillary lymphadenectomy. No hypermetabolic soft tissue in the operative bed to suggest residual/recurrent neoplasm. PATCHY GROUNDGLASS ATTENUATION NON-FDG AVID RIGHT UPPER LOBE SUBPLEURAL OPACITY LATERALLY, NEW SINCE 04/03/2021. SUGGEST FOLLOW UP NONCONTRAST CHEST CT IN 3 MONTHS FOR ADDITIONAL EVALUATION. FEW SMALL (<0.6 CM) NON-FDG AVID PULMONARY NODULES, STABLE SINCE 12/13/2020. No hypermetabolic thoracic lymphadenopathy. ABDOMEN/PELVIS: no fdg avid neoplastic process. No hypermetabolic mass, adenopathy, or fluid collection. Stable nonobstructing right renal calculi. EXTREMITIES/SKELETON: no fdg avid neoplastic osseous process. 04/03/2021 - PET/CT: Head and Neck: New 0.8 cm hypermetabolic left cervical lymph node, presumably metastatic. Chest: No evidence of FDG avid neoplastic process. Multiple small (less than 6 mm) pulmonary nodules are stable compared to 12/13/2020, and not FDG avid. Stable findings, as described Abdomen and pelvis: No evidence of FDG avid neoplastic process. Stable nonobstructing right renal calculi measuring up to 0.5 cm. No hydronephrosis. Musculoskeletal: No neoplastic hypermetabolic lesions 01/03/2021 - Echo from [facility]: Normal EF 56% 12/13/2020 PET/CT: Neck: No suspicious hypermetabolic foci Chest: No evidence of FDG avid neoplastic process Abdomen and pelvis: No evidence of FDG avid neoplastic process Skeleton: No hypermetabolic osseous lesions 08/23/2020 PET/CT: HEAD AND NECK: No FDG avid neoplastic process. No mass, adenopathy, or fluid collection. CHEST: No FDG avid neoplastic process. No mass, adenopathy, or fluid collection. Stable tiny nodularity in both lungs unchanged. Tree-in-bud clustered nodularity anterolateral lingula not changed (more content not included)... [facility] 04-05-2024 Telephone encounter Note Left negative results on voice mail that pt identified herself. Left call back number for questions or concerns. Belinda Mcnamara RN [facility] 04-05-2024 Telephone encounter Note ----- Message from Thiago Quintanilla MD sent at 04/03/2024 1:43 PM EDT ----- PET remains negative [facility] 04-05-2024 Miscellaneous Notes Left negative results on voice mail that pt identified herself. Left call back number for questions or concerns. Belinda Mcnamara RN ----- Message from Thiago Quintanilla MD sent at 04/03/2024 1:43 PM EDT ----- PET remains negative documented in this encounter [facility] 04-02-2024 History of Presen t illness Narrative Radiology Service Progress Note DATE OF SERVICE: April 02, 2024 TIME: 12:05 PM PATIENT IDENTITY VERIFICATION COMPLETED USING TWO (2) STANDARD IDENTIFIERS: Name and Date of confirmed by patient verbally. FALL SCREENING: Has the patient had 2 falls in the last year or 1 fall with injury or currently using an Ambulatory Assistive Device (Walker, Cane, Wheelchair, Crutches, etc.)? No PATIENT GENDER DATA: Female. status: : No status: NO. EXAM: CT -CON TRAST INDUCED NEPHROPATHY RISK FACTORS: Not applicable CREATININE: Creatinine Date Value Ref Range Status 12/12/2023 0.96 0.58 - 0.96 mg/dL Final 08/08/2023 1.02 (H) 0.58 - 0.96 mg/dL Final 04/08/2023 1.01 (H) 0.58 - 0.96 mg/dL Final Estimated Glomerular Filtration Rate Date Value Ref Range Status 12/12/2023 69 >=60 mL/min/1.73m Final Comment: Estimated Glomerular Filtration Rate (eGFR) is calculated using the 2020 CKD-EPI creatinine equation. This equation utilizes serum creatinine, sex, and age as parameters. The creatinine assay has traceable calibration to isotope dilution-mass spectrometry. Refer to KDIGO guidelines for clinical interpretation. In patients with unstable renal function, e.g. those with acute kidney injury, the eGFR may not accurately reflect actual GFR. eGFR- Date Value Ref Range Status 09/13/2021 >60 Final P.O.C.T. RESULTS: N/A April 02, 2024 TREATMENT: N/A IV SITE: Ambulatory: A peripheral IV was started in the Left antecubital site with a Angio cath: 22 gauge. IV SITE APPEARANCE: Clean,Dry and Intact SIGNATURE: Ministerio Parikh RN PATIENT NAME: Kennedy Paulson DATE: April 02, 2024 TIME: 12:05 PM RADIOLOGY SERVICE PROGRESS NOTE SERVICE DATE: 04/02/2024 SERVICE TIME: 1:14 PM PATIENT IDENTITY VERIFICATION COMPLETED USING TWO (2) STANDARD IDENTIFIERS: Name and Date of confirmed by patient verbally POST EXAM PIV STATUS: Discontinued PROCEDURE TYPE: NM INJECT: PET/CT BODY SCAN. 7.2 mCi F18 FDG. No other medications given.. ADMINISTRATION TIME: 1205 PATIENT DISCHARGED TO: Ambulatory patient, left NM department area. A Diagnostic radioactive procedure has taken place, with no further precautions necessary other than routine body substance precautions. More information regarding radiation safety can be found using this link: [email or web address]% 20Nuclear%20Medicine%20Procedur [email or web address] SIGNATURE: HUSSEIN Lozano) PATIENT NAME: Kennedy Paulson DATE: April 02, 2024 TIME: 1:14 PM PAGER/CONTACT #: documented in this encounter [facility] 04-02-2024 Miscellaneous Notes PET remains negative documented in this encounter [facility] 04-02-2024 Note HNO ID: [id number] Author: LACY BLOOM RT(R) Service: ? Author Type: Technologist Type: Progress Notes Filed: 04/02/2024 13:15 Note Text: RADIOLOGY SERVICE PROGRESS NOTE SERVICE DATE: 04/02/2024 SERVICE TIME: 1:14 PM PATIENT IDENTITY VERIFICATION COMPLETED USING TWO (2) STANDARD IDENTIFIERS: Name and Date of confirmed by patient verbally POST EXAM PIV STATUS: Discontinued PROCEDURE TYPE: NM INJECT: PET/CT BODY SCAN. 7.2 mCi F18 FDG. No other medications given.. ADMINISTRATION TIME: 1205 PATIENT DISCHARGED TO: Ambulatory patient, left NM department area. A Diagnostic radioactive procedure has taken place, with no further precautions necessary other than routine body substance precautions. More information regarding radiation safety can be found using this link: [email or web address] 20Diagnostic%20Nuclear%20Medici [email or web address] SIGNATURE: RT Blake(R) PATIENT NAME: Kennedy Paulson DATE: April 02, 2024 TIME: 1:14 PM PAGER/CONTACT #: [facility] 04-02-2024 Note HNO ID: [id number] Author: MINISTERIO PARIKH RN Service: ? Author Type: Registered Nurse Type: Progress Notes Filed: 04/02/2024 12:06 Note Text: Radiology Service Progress Note DATE OF SERVICE: April 02, 2024 TIME: 12:05 PM PATIENT IDENTITY VERIFICATION COMPLETED USING TWO (2) STANDARD IDENTIFIERS: Name and Date of confirmed by patient verbally. FALL SCREENING: Has the patient had 2 falls in the last year or 1 fall with injury or currently using an Ambulatory Assistive Device (Walker, Cane, Wheelchair, Crutches, etc.)? No PATIENT GENDER DATA: Female. status: : No status: NO. EXAM: CT -CON TRAST INDUCED NEPHROPATHY RISK FACTORS: Not applicable CREATININE: Creatinine Date Value Ref Range Status 12/12/2023 0.96 0.58 - 0.96 mg/dL Final 08/08/2023 1.02 (H) 0.58 - 0.96 mg/dL Final 04/08/2023 1.01 (H) 0.58 - 0.96 mg/dL Final Estimated Glomerular Filtration Rate Date Value Ref Range Status 12/12/2023 69 >=60 mL/min/1.73m? Final Comment: Estimated Glomerular Filtration Rate (eGFR) is calculated using the 2020 CKD-EPI creatinine equation. This equation utilizes serum creatinine, sex, and age as parameters. The creatinine assay has traceable calibration to isotope dilution-mass spectrometry. Refer to KDIGO guidelines for clinical interpretation. In patients with unstable renal function, e.g. those with acute kidney injury, the eGFR may not accurately reflect actual GFR. eGFR- Date Value Ref Range Status 09/13/2021 >60 Final P.O.C.T. RESULTS: N/A April 02, 2024 TREATMENT: N/A IV SITE: Ambulatory: A peripheral IV was started in the Left antecubital site with a Angio cath: 22 gauge. IV SITE APPEARANCE: Clean,Dry and Intact SIGNATURE: Ministerio Parikh RN PATIENT NAME: Kennedy Paulson DATE: April 02, 2024 TIME: 12:05 PM [facility] 04-02-2024 Progress note Formatting of t his note might be different from the original. PET remains negative [facility] 12-19-2023 Instructions Kusum Gasca - 12/19/2023 10:13 AM EDT Labs, PET, Mammogram of right breast in 14 weeks RTC in 16 weeks to review Exam on return Rx sent for nicotine lozenges Continue Zelboraf and Cotellic documented in this encounter [facility] 12-19-2023 History of Presen t illness Narrative Images from the original note were not included. NAME: Kennedy Paulson CLINIC NO.: [id number] DATE OF SERVICE: December 19, 2023 (Marika) Some elements in this clinic note that are critical to medical decision making have been carefully reviewed and included from a prior clinic note dated: August 22, 2023 (Marika) Referring Provider: Arabella Lynch DO Additional Clinicians involved in Kennedy Paulson's care: CC: Metastatic BRAF + Melanoma ASSESSMENT: She originally had L breast mastectomy for melanoma in [address] Mayorga. 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 Started Zelboraf and Cotellic 08/2018. Has maintained an excellent response measured on PET CT - through 04/08/2023 We discussed the potential for failure of BRAF inhibition occurring around 12-18 months but this hasn't been the case. Suspicious left cervical LN - left neck dissection resulted in benign findings with anthracotic changes only Kidney function varies because she can't reliably stay hydrated PLAN: Labs, PET, Mammogram of right breast in 14 weeks RTC in 16 weeks to review Exam on return Rx sent for nicotine lozenges Continue Zelboraf and Cotellic HPI: CASE HISTORY: Reverse Chronological Order 12/12/2023 - PET/CT: CHEST: No FDG avid neoplastic process. Stable tiny lung nodules below PET resolution likely benign. HEAD/NECK, ABDOMEN/PELVIS, MUSCULOSKELETAL: No FDG avid neoplastic process. 08/08/2023 - PET/CT: Neck: No suspicious hypermetabolic foci Chest: No evidence of FDG avid neoplastic process Abdomen and pelvis: No evidence of FDG avid neoplastic process Skeleton: No hypermetabolic osseous lesions 04/08/2023 - PET/CT remains negative. 10/23/2022 -PET remains negative - small focus of cutaneous activity in the right lateral distal forearm. Possibly inflammatory. 01/15/2022 - PET/CT: NECK: No FDG avid neoplastic process. CHEST: No FDG avid neoplastic process. Several subcentimeter pulmonary nodules stable since at least PET/CT 08/26/2018. Note that PET/CT is not sensitive for pulmonary nodules less than 8 mm. ABDOMEN/PELVIS: No FDG avid neoplastic process. EXTREMITIES/SKELETON: No suspicious FDG avid osseous process. 09/13/2021 - PET CT: NECK: interval resection of previously noted hypermetabolic left cervical lymph node. No new or enlarging hypermetabolic cervical lymphadenopathy. CHEST: stable postoperative changes of left mastectomy and bilateral axillary lymphadenectomy. No hypermetabolic soft tissue in the operative bed to suggest residual/recurrent neoplasm. PATCHY GROUNDGLASS ATTENUATION NON-FDG AVID RIGHT UPPER LOBE SUBPLEURAL OPACITY LATERALLY, NEW SINCE 04/03/2021. SUGGEST FOLLOW UP NONCONTRAST CHEST CT IN 3 MONTHS FOR ADDITIONAL EVALUATION. FEW SMALL (<0.6 CM) NON-FDG AVID PULMONARY NODULES, STABLE SINCE 12/13/2020. No hypermetabolic thoracic lymphadenopathy. ABDOMEN/PELVIS: no fdg avid neoplastic process. No hypermetabolic mass, adenopathy, or fluid collection. Stable nonobstructing right renal calculi. EXTREMITIES/SKELETON: no fdg avid neoplastic osseous process. 04/03/2021 - PET/CT: Head and Neck: New 0.8 cm hypermetabolic left cervical lymph node, presumably metastatic. Chest: No evidence of FDG avid neoplastic process. Multiple small (less than 6 mm) pulmonary nodules are stable compared to 12/13/2020, and not FDG avid. Stable findings, as described Abdomen and pelvis: No evidence of FDG avid neoplastic process. Stable nonobstructing right renal calculi measuring up to 0.5 cm. No hydronephrosis. Musculoskeletal: No neoplastic hypermetabolic lesions 01/03/2021 - Echo from [facility]: Normal EF 56% 12/13/2020 PET/CT: Neck: No suspicious hypermetabolic foci Chest: No evidence of FDG avid neoplastic process Abdomen and pelvis: No evidence of FDG avid neoplastic process Skeleton: No hypermetabolic osseous lesions 08/23/2020 PET/CT: HEAD AND NECK: No FDG avid neoplastic process. No mass, adenopathy, or fluid collection. CHEST: No FDG avid neoplastic process. No mass, adenopathy, or fluid collection. Stable tiny nodularity in both lungs unchanged. Tree-in-bud clustered nodularity anterolateral lingula not changed likely inflammatory. ABDOMEN/PELVIS: No FDG avid neoplastic process. No mass, adenopathy, or fluid collection. EXTREMITIES/SKELETON: No FDG avid osseous process. No destructive/traumatic bony abnormality. 05/22/2020 PET/CT: Head and Neck: No hypermetabolic foci Chest: No evidence of FDG avid neoplastic process. Stable bilateral sub-5 mm pulmonary nodules. Recommend follow-up imaging. Abdomen and pelvis: No evidence of FDG avid neoplastic process Musculoskeletal: New focal uptake in the posterior right mid thigh is favored to be vascular in origin, and may be secondary to active atherosclerosis, although thrombosis cannot be excluded. Recommend clinical correlation regarding the need for Doppler evaluation. 02/18/2020 - PET/CT: NECK: No FDG avid neoplastic process. No hypermetabolic mass, adenopathy, or fluid collection. CHEST: No FDG avid neoplastic process. No hypermetabolic mass, adenopathy, or fluid collection. ABDOMEN/PELVIS: No FDG avid neoplastic process. No hypermetabolic mass, adenopathy, or fluid collection. BONES AND SOFT TISSUES: Interval resolution of previously seen mild FDG activity associated with the right T11/T12 paraspinal soft tissues. Interval reduction in FDG avidity by osteolytic right transverse process of T11. No suspicious FDG avid osseous process. 11/03/2019 - PET/CT: Neck: No suspicious hypermetabolic foci Chest: Interval resolution of the previously present hypermetabolic focus in the left parasternal region. Significant interval improvement in the right paraspinal soft tissue mass now with mild residual focus of uptake. Abdomen and pelvis: No evidence of FDG avid metastases Skeleton: significant interval decrease in size and activity associated with the right T11/T12 region costovertebral region mass, now a small residual focus of mild uptake 09/16/2018 - started on vemurafenib/cobemetinib 08/26/2018- PET/CT: FDG avid left anterior and the right posterior chest wall soft tissue mass is consistent with metastases. T12 and the right posterior medial 12th rib destruction by adjacent soft tissue metastases. 08/14/2018 - excision of the soft tissue mass where the mass was excised in total. Pathology showed malignant melanoma. Pathologically, there were 2 excisions and in the first excision 7.3 cm in size was negative for neoplasm. The second mass was 2.4 cm in size with results consistent with melanoma. Her melanoma was BRAF positive. 07/28/2018 - CT Scan: showed a soft tissue mass 5.9 x 4.1 cm in axial dimension extending off the field of view along the right paraspinal muscles extending to the pleura with lytic change of the adjacent ribs and vertebral bodies. There was also pancreatic head enlargement poorly visualized on noncontrast exam. PET scan 05/01/16 showed right axillary node uptake and uptake in Left internal mammary nodes. Updated Visit, December 19, 2023: Bisi returns today for a follow up. She is doing well overall. Last week's PET scan is stable and negative. Defer exam today as she has no concerns. Nausea and diarrhea during 3rd week of treatment continues, resolves during her off week. I encouraged her to establish with a PCP. I ordered mammograms - her last was about 2 years ago. She would like to quit smoking and asked for assistance - I suggested nicotine gum and/or patches, I prescribed lozenges for her as well. Updated Visit, August 22, 2023: Bisi returns today, feeling good. She is still smoking. Kidney function is unchanged. LDH is slightly elevated, she typically fluctuates. Labs unremarkable. PET in 16 weeks. She reports nausea and diarrhea during the 3rd week of anti-braf treatment treatment. She has been dating her previous S/O again. Updated Visit, April 16, 2023: Exam is benign. Labs are stable and without concerning abnormalities. Physical exam today, noted below. Updated Visit, November 19, 2022: No palpable abnormality on exam However had and age spot on her lateral right bicep that was taken off just prior to Pet - (Ak. Keratosis) Updated Visit, June 05, 2022: Continues on BRAF and MET inhibition with continued excellent response and no evidence of disease. Minimal AE's Updated Visit, January 23, 2022: Bisi returns in follow up for metastatic melanoma currently controlled with Zelboraf/Cotellic (Vemurafenib/Cobemetanib). She continues to do very well. She is smoking less. PET/CT was reviewed and no uptake noted. Updated Visit, September 27, 2021: Bisi is 56 and continues on treatment with Vemurafenib/Cobemetanib (Zelboraf/Cotellic). A year ago she and her son were kicked out of their house (broke-up with her SO 08/2020) Adult daughter, son and daughter's 4 yo son all live together and all are doing ok. Reviewed scans and no new disease noted. Small opacity in Right upper lobe - will need follow up CT in 3 months. Smoking less since COVID-19 early 06/2021. Minor symptoms. Updated Visit, May 24, 2021: Bisi is 56 yo and returns to review her results from ercent cervical eldon dissection which thankfully came back benign. She is relieved and is doing well. Neck is healing nicely. She will continue with BRAF/MEK inhibition. Updated Visit, April 11, 2021: Bisi is 55 yo and continues to do well clinically but has a left cervical LN that is 0.8 cm with FDG uptake that is new and concerning for metastatic disease. Would like to send for biopsy to confirm diagnostic suspicion and maximize tissue sampling for molecular studies. Node is difficult to palpate Updated Visit, December 20, 2020: Bisi is 55 years old and returns for monitoring of her BRAF positive melanoma began on her left chest wall. She is status post left mastectomy and axillary eldon dissection in July 2018. Her current PET scan remains JUDITH. Updated Visit, August 30, 2020: Bisi is 55 Yo and returns for BRAF + melanoma that began in her left chest wall. She is s/p left mastectomy and axillary eldon dissection and remains on Zelboraf and Cotellic with excellent disease control. Mammograms pending Broke up with her boyfriend and he asked her to move out. Has to find a new place moving with daughter. She is otherwise doing well. We reviewed her PET CT which remains without disease progression. Updated Visit, May 29, 2020: Bisi is 55 years old and has BRAF positive metastatic melanoma and returns for review of her restaging PET scan. Doing well overall and is very active. PET reviewed and no correlation on exam of right posterior thigh is un revealing. She has no pain associated with deep palpation and there is no mass either. We will continue monitoring. 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 She has been on Zelboraf and Cotellic since August 2018 and presents to review her PET scans from late last month. Overall review is detailed below but demonstrates no evidence of recurrence. Updated Visit, November 10, 2019: Kennedy Paulson presents today Hematology and Oncology evaluation. She is a 54 year old female who presents in follow-up on Zelboraf and Cotellic for BRAF positive melanoma. She had a hx of a 3 x 2.5 cm promise level IV melanoma resected from the chest wall May of 2015. She was taken to surgery by Dr Mayorga. She did have resection of 2/13 nodes out of the axilla consistent with melanoma. PET scan 05/01/16 showed right axillary node uptake and uptake in Left internal mammary nodes. She was then taken back to surgery by Dr Mayorga who excised two additional nodes. There was nothing to excise in the internal mammary chain he could find. Then in July 2018, she presented with back pain and was found to have a right sided paraspinal mass. CT scan on July 28 showed a soft tissue mass 5.9 x 4.1 cm in axial dimension extending off the field of view along the right paraspinal muscles extending to the pleura with lytic change of the adjacent ribs and vertebral bodies. There was also pancreatic head enlargement poorly visualized on noncontrast exam. Ultrasound of the chest on August 14 showed a 9.2 cm mass in the right posterior paraspinal thorax. She was taken on August 14, 2018 to have an excision of the soft tissue mass where the mass was excised in total. Pathology showed malignant melanoma. Pathologically, there were 2 excisions and in the first excision 7.3 cm in size was negative for neoplasm. The second mass was 2.4 cm in size with results consistent with melanoma. Her melanoma was BRAF positive. She was started on vemurafenib/cobemetinib 09/16/18 with patients pain quickly escalating. She had a wonderful response with resolution of pain and exam findings in her back. She continues to do well but is somewhat surprised with the discussion of potential failure of therapy in the next several months based on normal failure rates and times noted in the current literature. PATHOLOGIC PROFILE/MOLECULAR DATA: Reviewed on November 10, 2019 05/09/2021 Left Cervical Neck Dissection: Specimen #: [id number] Submitting Physician: NATHAN KIDD MD FINAL DIAGNOSIS 1. Left level 2, dissection (A) - Five lymph nodes, negative for malignancy (0/5). 2. Left level 3, dissection (B) - Twelve lymph nodes, negative for malignancy (0/12). 3. Left level 4, dissection (C) - Seventeen lymph nodes, negative for malignancy (0/17). She was taken on August 14, 2018 to have an excision of the soft tissue mass where the mass was excised in total. Pathology showed malignant melanoma. Pathologically, there were 2 excisions and in the first excision 7.3 cm in size was negative for neoplasm. The second mass was 2.4 cm in size with results consistent with melanoma. 2. See EMR 1. See EMR REVIEW OF SYSTEMS Per HPI and otherwise negative by full review of organ systems. ECOG PERFORMANCE STATUS: 0 PHYSICAL EXAMINATION: Vitals: BP 189/100 Pulse 69 Temp (Src) 97.3 (Temporal) Resp 18 Wt 134 lb 9.6 oz (61.1kg) SpO2 99% Body surface area is 1.63 meters squared. Exam limited to gross visualization where appropriate. Gen.: This is an age-appropriate patient in no acute distress. Head: Appears atraumatic with no visible lesions. Eyes: Pupils equally round and reactive to light, extraocular muscles are intact. Neck: Supple. Mouth: Masked. Respiratory: Appears to be respiring comfortably. Neurologic: Nonfocal to gross visualization. Alert and oriented 3. Psychiatric: No evidence of inappropriate anxiety or depression. Prior breast and skin exam today: (Zoie Posey) 04/16/2023: entire skin surface evaluated with no evidence of concerning lesion. Did not examine skin overlying pubis or between buttocks. Right breast normal female with no lumps or masses. Bilateral axillary eldon exam is negative. Underside of right breast is a horizontal scar that is healed and without in-transit lesions. Left breast mastectomy sight is healed and without concerning lesions and no in-transit lesions. ALLERGIES: ALLERGIES No Known Allergies MEDICATIONS: COTELLIC 20 mg tab TAKE 3 TABLETS BY MOUTH ONCE DAILY AT THE SAME TIME FOR 21 DAYS OF A 28 DAY CYCLE. MAY TAKE WITH OR WITHOUT FOOD vemurafenib (ZELBORAF) 240 mg tab TAKE 4 TABLETS BY MOUTH EVERY 12 HOURS. MAY TAKE WITH OR WITHOUT FOOD. STORE IN ORIGINAL CONTAINER. AVOID GRAPEFRUIT PRODUCTS nicotine, polacrilex, (NICORETTE) [address] 2 mg between cheek and gum four times daily. LABORATORY VALUES: WBC (k/uL) Date Value 12/12/2023 5.36 RBC (m/uL) Date Value 12/12/2023 3.72 (L) Hemoglobin (g/dL) Date Value 12/12/2023 11.6 Hematocrit (%) Date Value 12/12/2023 35.3 (L) MCV (fL) Date Value 12/12/2023 94.9 MCH (pg) Date Value 12/12/2023 31.2 MCHC (g/dL) Date Value 12/12/2023 32.9 RDW-CV (%) Date Value 12/12/2023 14.4 Platelet Count (k/uL) Date Value 12/12/2023 209 MPV (fL) Date Value 12/12/2023 9.4 Glucose (mg/dL) Date Value 12/12/2023 105 (H) BUN (mg/dL) Date Value 12/12/2023 9 Creatinine (mg/dL) Date Value 12/12/2023 0.96 Sodium (mmol/L) Date Value 12/12/2023 147 (H) Potassium (mmol/L) Date Value 12/12/2023 3.7 Chloride (mmol/L) Date Value 12/12/2023 112 (H) CO2 (mmol/L) Date Value 12/12/2023 26 Protein, Total (g/dL) Date Value 12/12/2023 7.4 Albumin (g/dL) Date Value 12/12/2023 4.5 Calcium, Total (mg/dL) Date Value 12/12/2023 9.9 Alkaline Phosphatase (U/L) Date Value 12/12/2023 132 (H) Bilirubin, Total (mg/dL) Date Value 12/12/2023 0.4 AST (U/L) Date Value 12/12/2023 14 ALT (U/L) Date Value 12/12/2023 10 DIAGNOSIS: (C43.9) Metastatic melanoma (HCC) (primary encounter diagnosis) Plan: nicotine, polacrilex, (NICORETTE) 2 mg lzmn, NM PET/CT WHOLE BODY SUBSEQUENT, SAMEERA DIAGNOSTIC RIGHT, LACTATE DEHYDROGENASE, COMPLETE BLOOD COUNT AND DIFFERENTIAL, COMPREHENSIVE METABOLIC PANEL (C43.9) Malignant melanoma of skin (HCC) Plan: nicotine, polacrilex, (NICORETTE) 2 mg lzmn, NM PET/CT WHOLE BODY SUBSEQUENT, LACTATE DEHYDROGENASE, COMPLETE BLOOD COUNT AND DIFFERENTIAL, COMPREHENSIVE METABOLIC PANEL (C43.59) Malignant melanoma of torso excluding breast (HCC) Plan: nicotine, polacrilex, (NICORETTE) 2 mg lzmn (C43.52) Malignant melanoma of skin of breast (HCC) Plan: NM PET/CT WHOLE BODY SUBSEQUENT, SAMEERA DIAGNOSTIC RIGHT, LACTATE DEHYDROGENASE, COMPLETE BLOOD COUNT AND DIFFERENTIAL, COMPREHENSIVE METABOLIC PANEL PAST MEDICAL HISTORY Diagnosis Date Melanoma (HCC) PAST SURGICAL HISTORY Procedure Laterality Date AXILLARY LYMPHADENECTOMY Right 2016 BONE BIOPSY,TROCAR/NEEDLE SUPERF 2019 spine biopsy MASTECTOMY, MODIFIED RADICAL Left 2016 AND SKIN BIOPSY HX 2015 melanoma mid chest TUBAL LIGATION HX Social History Tobacco Use Smoking status: Every Day Packs/day: 0.50 Years: 30.00 Additional pack years: 0.00 Total pack years: 15.00 Types: Cigarettes Passive exposure: Current Smokeless tobacco: Never Vaping Use Vaping Use: Never used Substance Use Topics Alcohol use: Not Currently Drug use: No FAMILY HISTORY Problem Relation Age of Onset Cancer Mother Breast Cancer Mother Stroke Father I spent a total of 30 minutes on the date of the service which included preparing to see the patient, [id number] patient care, completing clinical documentation, performing a medically appropriate examination, counseling and educating the patient/family/caregiver, ordering medications, tests, or procedures, independently interpreting results (not separately reported), communicating results to the patient/family/caregiver, and care coordination (not separately reported). Thiago Quintanilla MD, CPE Hematology and Oncology Services Provided at: [place], [place] Scribe Attestation: This note was scribed by Kusum Gasca on December 19, 2023 under the direction and supervision of Dr. Thiago Quintanilla. I attest that all of the information documented is correct to the best of my knowledge. Provider Attestation: I, Thiago Quintanilla MD, attest that all information documented by the above scribe is correct, and was supervised by me and under my direction. CC: Dr. Mayorga. Arabella Lynch DO [address] [facility] [id number] documented in this encounter [facility] 12-19-2023 Note HNO ID: [id number] Author: THIAGO QUINTANILLA MD Service: ? Author Type: Physician Type: Progress Notes Filed: 12/20/2023 16:08 Note Text: NAME: Kennedy Pauslon CLINIC NO.: [id number] DATE OF SERVICE: December 19, 2023 (Marika) Some elements in this clinic note that are critical to medical decision making have been carefully reviewed and included from a prior clinic note dated: August 22, 2023 (Marika) Referring Provider: Arabella Lynch DO Additional Clinicians involved in Kennedy Paulson's care: CC: Metastatic BRAF + Melanoma ASSESSMENT: She originally had L breast mastectomy for melanoma in [address] Mayorga. 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 Started Zelboraf and Cotellic 08/2018. Has maintained an excellent response measured on PET CT - through 04/08/2023 We discussed the potential for failure of BRAF inhibition occurring around 12-18 months but this hasn't been the case. Suspicious left cervical LN - left neck dissection resulted in benign findings with anthracotic changes only Kidney function varies because she can't reliably stay hydrated PLAN: Labs, PET, Mammogram of right breast in 14 weeks RTC in 16 weeks to review Exam on return Rx sent for nicotine lozenges Continue Zelboraf and Cotellic HPI: CASE HISTORY: Reverse Chronological Order 12/12/2023 - PET/CT: CHEST: No FDG avid neoplastic process. Stable tiny lung nodules below PET resolution likely benign. HEAD/NECK, ABDOMEN/PELVIS, MUSCULOSKELETAL: No FDG avid neoplastic process. 08/08/2023 - PET/CT: Neck: No suspicious hypermetabolic foci Chest: No evidence of FDG avid neoplastic process Abdomen and pelvis: No evidence of FDG avid neoplastic process Skeleton: No hypermetabolic osseous lesions 04/08/2023 - PET/CT remains negative. 10/23/2022 -PET remains negative - small focus of cutaneous activity in the right lateral distal forearm. Possibly inflammatory. 01/15/2022 - PET/CT: NECK: No FDG avid neoplastic process. CHEST: No FDG avid neoplastic process. Several subcentimeter pulmonary nodules stable since at least PET/CT 08/26/2018. Note that PET/CT is not sensitive for pulmonary nodules less than 8 mm. ABDOMEN/PELVIS: No FDG avid neoplastic process. EXTREMITIES/SKELETON: No suspicious FDG avid osseous process. 09/13/2021 - PET CT: NECK: interval resection of previously noted hypermetabolic left cervical lymph node. No new or enlarging hypermetabolic cervical lymphadenopathy. CHEST: stable postoperative changes of left mastectomy and bilateral axillary lymphadenectomy. No hypermetabolic soft tissue in the operative bed to suggest residual/recurrent neoplasm. PATCHY GROUNDGLASS ATTENUATION NON-FDG AVID RIGHT UPPER LOBE SUBPLEURAL OPACITY LATERALLY, NEW SINCE 04/03/2021. SUGGEST FOLLOW UP NONCONTRAST CHEST CT IN 3 MONTHS FOR ADDITIONAL EVALUATION. FEW SMALL (<0.6 CM) NON-FDG AVID PULMONARY NODULES, STABLE SINCE 12/13/2020. No hypermetabolic thoracic lymphadenopathy. ABDOMEN/PELVIS: no fdg avid neoplastic process. No hypermetabolic mass, adenopathy, or fluid collection. Stable nonobstructing right renal calculi. EXTREMITIES/SKELETON: no fdg avid neoplastic osseous process. 04/03/2021 - PET/CT: Head and Neck: New 0.8 cm hypermetabolic left cervical lymph node, presumably metastatic. Chest: No evidence of FDG avid neoplastic process. Multiple small (less than 6 mm) pulmonary nodules are stable compared to 12/13/2020, and not FDG avid. Stable findings, as described Abdomen and pelvis: No evidence of FDG avid neoplastic process. Stable nonobstructing right renal calculi measuring up to 0.5 cm. No hydronephrosis. Musculoskeletal: No neoplastic hypermetabolic lesions 01/03/2021 - Echo from TB: Normal EF 56% 12/13/2020 PET/CT: Neck: No suspicious hypermetabolic foci Chest: No evidence of FDG avid neoplastic process Abdomen and pelvis: No evidence of FDG avid neoplastic process Skeleton: No hypermetabolic osseous lesions 08/23/2020 PET/CT: HEAD AND NECK: No FDG avid neoplastic process. No mass, adenopathy, or fluid collection. CHEST: No FDG avid neoplastic process. No mass, adenopathy, or fluid collection. Stable tiny nodularity in both lungs unchanged. Tree-in-bud clustered nodularity anterolateral lingula not changed likely inflammatory. ABDOMEN/PELVIS: No FDG avid neoplastic process. No mass, adenopathy, or fluid collection. EXTREMITIES/SKELETON: No FDG avid osseous process. No destructive/traumatic bony abnormality. 05/22/2020 PET/CT: Head and Neck: No hypermetabolic foci Chest: No evidence of FDG avid neoplastic process. Stable bilateral sub-5 mm pulmonary nodules. Recommend foll (more content not included)... [facility] 12-18-2023 Telephone encounter Note Pt notified of results. Explained to pt that Dr would review in greater detail at tomorrow's appointment. Pt verbalizes understanding. Lacy Peña RN [facility] Work Phone: 12-18-2023 Miscellaneous Notes Pt notified of results. Explained to pt that Dr would review in greater detail at tomorrow's appointment. Pt verbalizes understanding. Lacy Peña RN Missed call from pt. Return call made to pt. No answer. Message left requesting call back. Lacy Peña RN Results final. Call placed to pt to review. No answer. Message left requesting call back. Lacy Peña RN Pt calling for her PET results. Results from 12/12/23 are still pending. Pt notified and verbalizes understanding. Lacy Peña RN documented in this encounter [facility] 12-18-2023 Telephone encounter Note Missed call from pt. Return call made to pt. No answer. Message left requesting call back. Lacy Peña RN [facility] 12-18-2023 Telephone encounter Note Results final. Call placed to pt to review. No answer. Message left requesting call back. Lacy Peña RN [facility] 12-17-2023 Telephone encounter Note Pt calling for her PET results. Results from 12/12/23 are still pending. Pt notified and verbalizes understanding. Lacy Peña RN [facility] 12-12-2023 History of Presen t illness Narrative Radiology Service Progress Note DATE OF SERVICE: December 12, 2023 TIME: 12:27 PM PATIENT IDENTITY VERIFICATION COMPLETED USING TWO (2) STANDARD IDENTIFIERS: Name and Date of confirmed by patient verbally. FALL SCREENING: Has the patient had 2 falls in the last year or 1 fall with injury or currently using an Ambulatory Assistive Device (Walker, Cane, Wheelchair, Crutches, etc.)? No PATIENT GENDER DATA: Female. status: : No status: NO. EXAM: CT -CONTRAST INDUCED NEPHROPATHY RISK FACTORS: Not applicable CREATININE: Creatinine Date Value Ref Range Status 08/08/2023 1.02 (H) 0.58 - 0.96 mg/dL Final 04/08/2023 1.01 (H) 0.58 - 0.96 mg/dL Final 10/23/2022 1.07 (H) 0.58 - 0.96 mg/dL Final Estimated Glomerular Filtration Rate Date Value Ref Range Status 08/08/2023 64 >=60 mL/min/1.73m Final Comment: Estimated Glomerular Filtration Rate (eGFR) is calculated using the 2020 CKD-EPI creatinine equation. This equation utilizes serum creatinine, sex, and age as parameters. The creatinine assay has traceable calibration to isotope dilution-mass spectrometry. Refer to KDIGO guidelines for clinical interpretation. In patients with unstable renal function, e.g. those with acute kidney injury, the eGFR may not accurately reflect actual GFR. eGFR- Date Value Ref Range Status 09/13/2021 >60 Final P.O.C.T. RESULTS: N/A December 12, 2023 TREATMENT: N/A IV SITE: Ambulatory: A peripheral IV was started in the Right antecubital site with a Angio cath: 22 gauge. IV SITE APPEARANCE: Clean,Dry and Intact SIGNATURE: Ministerio Parikh RN PATIENT NAME: Kennedy Paulson DATE: December 12, 2023 TIME: 12:27 PM RADIOLOGY SERVICE PROGRESS NOTE SERVICE DATE: 12/12/2023 SERVICE TIME: 12:46 PM PATIENT IDENTITY VERIFICATION COMPLETED USING TWO (2) STANDARD IDENTIFIERS: Name and Date of confirmed by patient verbally POST EXAM PIV STATUS: Discontinued PROCEDURE TYPE: NM INJECT: PET/CT BODY SCAN. 7.2 mCi F18 FDG. No other medications given.. ADMINISTRATION TIME: 1212 PATIENT DISCHARGED TO: Ambulatory patient, left NE department area. A Diagnostic radioactive procedure has taken place, with no further precautions necessary other than routine body substance precautions. More information regarding radiation safety can be found using this link: [email or web address]% 20Nuclear%20Medicine%20Procedur [email or web address] SIGNATURE: HUSSEIN Lozano) PATIENT NAME: Kennedy Paulson DATE: December 12, 2023 TIME: 12:46 PM PAGER/CONTACT #: documented in this encounter [facility] 12-12-2023 Note HNO ID: [id number] Author: LACY BLOOM RT(R) Service: ? Author Type: Technologist Type: Progress Notes Filed: 12/12/2023 12:46 Note Text: RADIOLOGY SERVICE PROGRESS NOTE SERVICE DATE: 12/12/2023 SERVICE TIME: 12:46 PM PATIENT IDENTITY VERIFICATION COMPLETED USING TWO (2) STANDARD IDENTIFIERS: Name and Date of confirmed by patient verbally POST EXAM PIV STATUS: Discontinued PROCEDURE TYPE: NM INJECT: PET/CT BODY SCAN. 7.2 mCi F18 FDG. No other medications given.. ADMINISTRATION TIME: 1212 PATIENT DISCHARGED TO: Ambulatory patient, left NE department area. A Diagnostic radioactive procedure has taken place, with no further precautions necessary other than routine body substance precautions. More information regarding radiation safety can be found using this link: [email or web address] 20Diagnostic%20Nuclear%20Medici [email or web address] SIGNATURE: RT Blake(R) PATIENT NAME: Kennedy Paulson DATE: December 12, 2023 TIME: 12:46 PM PAGER/CONTACT #: [facility] 12-12-2023 Note HNO ID: [id number] Author: MINISTERIO PARIKH RN Service: ? Author Type: Registered Nurse Type: Progress Notes Filed: 12/12/2023 12:27 Note Text: Radiology Service Progress Note DATE OF SERVICE: December 12, 2023 TIME: 12:27 PM PATIENT IDENTITY VERIFICATION COMPLETED USING TWO (2) STANDARD IDENTIFIERS: Name and Date of confirmed by patient verbally. FALL SCREENING: Has the patient had 2 falls in the last year or 1 fall with injury or currently using an Ambulatory Assistive Device (Walker, Cane, Wheelchair, Crutches, etc.)? No PATIENT GENDER DATA: Female. status: : No status: NO. EXAM: CT -CONTRAST INDUCED NEPHROPATHY RISK FACTORS: Not applicable CREATININE: Creatinine Date Value Ref Range Status 08/08/2023 1.02 (H) 0.58 - 0.96 mg/dL Final 04/08/2023 1.01 (H) 0.58 - 0.96 mg/dL Final 10/23/2022 1.07 (H) 0.58 - 0.96 mg/dL Final Estimated Glomerular Filtration Rate Date Value Ref Range Status 08/08/2023 64 >=60 mL/min/1.73m? Final Comment: Estimated Glomerular Filtration Rate (eGFR) is calculated using the 2020 CKD-EPI creatinine equation. This equation utilizes serum creatinine, sex, and age as parameters. The creatinine assay has traceable calibration to isotope dilution-mass spectrometry. Refer to KDIGO guidelines for clinical interpretation. In patients with unstable renal function, e.g. those with acute kidney injury, the eGFR may not accurately reflect actual GFR. eGFR- Date Value Ref Range Status 09/13/2021 >60 Final P.O.C.T. RESULTS: N/A December 12, 2023 TREATMENT: N/A IV SITE: Ambulatory: A peripheral IV was started in the Right antecubital site with a Angio cath: 22 gauge. IV SITE APPEARANCE: Clean,Dry and Intact SIGNATURE: Ministerio Parikh RN PATIENT NAME: Kennedy Paulson DATE: December 12, 2023 TIME: 12:27 PM [facility] 11-07-2023 Miscellaneous Notes Images from the original note were not included. Pt taking Zelboraf & Cotellic. Would like to start taking Centrum Silver MVI. Calls to make sure that it will not interfere w/ her treatment. Per Up To Date: No interactions noted. Pt notified and verbalizes understanding. Lacy Peña RN documented in this encounter [facility] 08-22-2023 Instructions Thiago Quintanilla MD - 08/22/2023 10:50 AM EST Labs and PET in 16 weeks RTC afterwards to review. Exam on return Continue Zelboraf and Cotellic documented in this encounter [facility] 08-22-2023 History of Presen t illness Narrative Images from the original note were not included. NAME: Kennedy Paulson CLINIC NO.: [id number] DATE OF SERVICE: August 22, 2023 (Marika) Some elements in this clinic note that are critical to medical decision making have been carefully reviewed and included from a prior clinic note dated: April 16, 2023 (Marika). Referring Provider: Arabella Lynch DO Additional Clinicians involved in Kennedy Paulson's care: CC: Metastatic BRAF + Melanoma ASSESSMENT: She originally had L breast mastectomy for melanoma in [address] Mayorga. 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 Started Zelboraf and Cotellic 08/2018. Has maintained an excellent response measured on PET CT - through 04/08/2023 We discussed the potential for failure of BRAF inhibition occurring around 12-18 months but this hasn't been the case. Suspicious left cervical LN - left neck dissection resulted in benign findings with anthracotic changes only Kidney function varies because she can't reliably stay hydrated PLAN: Labs and PET in 16 weeks RTC afterwards to review. Exam on return Continue Zelboraf and Cotellic HPI: CASE HISTORY: Reverse Chronological Order 08/08/2023 - PET/CT: Neck: No suspicious hypermetabolic foci Chest: No evidence of FDG avid neoplastic process Abdomen and pelvis: No evidence of FDG avid neoplastic process Skeleton: No hypermetabolic osseous lesions 04/08/2023 - PET/CT remains negative. 10/23/2022 -PET remains negative - small focus of cutaneous activity in the right lateral distal forearm. Possibly inflammatory. 01/15/2022 - PET/CT: NECK: No FDG avid neoplastic process. CHEST: No FDG avid neoplastic process. Several subcentimeter pulmonary nodules stable since at least PET/CT 08/26/2018. Note that PET/CT is not sensitive for pulmonary nodules less than 8 mm. ABDOMEN/PELVIS: No FDG avid neoplastic process. EXTREMITIES/SKELETON: No suspicious FDG avid osseous process. 09/13/2021 - PET CT: NECK: interval resection of previously noted hypermetabolic left cervical lymph node. No new or enlarging hypermetabolic cervical lymphadenopathy. CHEST: stable postoperative changes of left mastectomy and bilateral axillary lymphadenectomy. No hypermetabolic soft tissue in the operative bed to suggest residual/recurrent neoplasm. PATCHY GROUNDGLASS ATTENUATION NON-FDG AVID RIGHT UPPER LOBE SUBPLEURAL OPACITY LATERALLY, NEW SINCE 04/03/2021. SUGGEST FOLLOW UP NONCONTRAST CHEST CT IN 3 MONTHS FOR ADDITIONAL EVALUATION. FEW SMALL (<0.6 CM) NON-FDG AVID PULMONARY NODULES, STABLE SINCE 12/13/2020. No hypermetabolic thoracic lymphadenopathy. ABDOMEN/PELVIS: no fdg avid neoplastic process. No hypermetabolic mass, adenopathy, or fluid collection. Stable nonobstructing right renal calculi. EXTREMITIES/SKELETON: no fdg avid neoplastic osseous process. 04/03/2021 - PET/CT: Head and Neck: New 0.8 cm hypermetabolic left cervical lymph node, presumably metastatic. Chest: No evidence of FDG avid neoplastic process. Multiple small (less than 6 mm) pulmonary nodules are stable compared to 12/13/2020, and not FDG avid. Stable findings, as described Abdomen and pelvis: No evidence of FDG avid neoplastic process. Stable nonobstructing right renal calculi measuring up to 0.5 cm. No hydronephrosis. Musculoskeletal: No neoplastic hypermetabolic lesions 01/03/2021 - Echo from TB: Normal EF 56% 12/13/2020 PET/CT: Neck: No suspicious hypermetabolic foci Chest: No evidence of FDG avid neoplastic process Abdomen and pelvis: No evidence of FDG avid neoplastic process Skeleton: No hypermetabolic osseous lesions 08/23/2020 PET/CT: HEAD AND NECK: No FDG avid neoplastic process. No mass, adenopathy, or fluid collection. CHEST: No FDG avid neoplastic process. No mass, adenopathy, or fluid collection. Stable tiny nodularity in both lungs unchanged. Tree-in-bud clustered nodularity anterolateral lingula not changed likely inflammatory. ABDOMEN/PELVIS: No FDG avid neoplastic process. No mass, adenopathy, or fluid collection. EXTREMITIES/SKELETON: No FDG avid osseous process. No destructive/traumatic bony abnormality. 05/22/2020 PET/CT: Head and Neck: No hypermetabolic foci Chest: No evidence of FDG avid neoplastic process. Stable bilateral sub-5 mm pulmonary nodules. Recommend follow-up imaging. Abdomen and pelvis: No evidence of FDG avid neoplastic process Musculoskeletal: New focal uptake in the posterior right mid thigh is favored to be vascular in origin, and may be secondary to active atherosclerosis, although thrombosis cannot be excluded. Recommend clinical correlation regarding the need for Doppler evaluation. 02/18/2020 - PET/CT: NECK: No FDG avid neoplastic process. No hypermetabolic mass, adenopathy, or fluid collection. CHEST: No FDG avid neoplastic process. No hypermetabolic mass, adenopathy, or fluid collection. ABDOMEN/PELVIS: No FDG avid neoplastic process. No hypermetabolic mass, adenopathy, or fluid collection. BONES AND SOFT TISSUES: Interval resolution of previously seen mild FDG activity associated with the right T11/T12 paraspinal soft tissues. Interval reduction in FDG avidity by osteolytic right transverse process of T11. No suspicious FDG avid osseous process. 11/03/2019 - PET/CT: Neck: No suspicious hypermetabolic foci Chest: Interval resolution of the previously present hypermetabolic focus in the left parasternal region. Significant interval improvement in the right paraspinal soft tissue mass now with mild residual focus of uptake. Abdomen and pelvis: No evidence of FDG avid metastases Skeleton: significant interval decrease in size and activity associated with the right T11/T12 region costovertebral region mass, now a small residual focus of mild uptake 09/16/2018 - started on vemurafenib/cobemetinib 08/26/2018- PET/CT: FDG avid left anterior and the right posterior chest wall soft tissue mass is consistent with metastases. T12 and the right posterior medial 12th rib destruction by adjacent soft tissue metastases. 08/14/2018 - excision of the soft tissue mass where the mass was excised in total. Pathology showed malignant melanoma. Pathologically, there were 2 excisions and in the first excision 7.3 cm in size was negative for neoplasm. The second mass was 2.4 cm in size with results consistent with melanoma. Her melanoma was BRAF positive. 07/28/2018 - CT Scan: showed a soft tissue mass 5.9 x 4.1 cm in axial dimension extending off the field of view along the right paraspinal muscles extending to the pleura with lytic change of the adjacent ribs and vertebral bodies. There was also pancreatic head enlargement poorly visualized on noncontrast exam. PET scan 05/01/16 showed right axillary node uptake and uptake in Left internal mammary nodes. Updated Visit, August 22, 2023: Bisi returns today, feeling good. She is still smoking. Kidney function is unchanged. LDH is slightly elevated, she typically fluctuates. Labs unremarkable. PET in 16 weeks. She reports nausea and diarrhea during the 3rd week of anti-braf treatment treatment. She has been dating her previous S/O again. Updated Visit, April 16, 2023: Exam is benign. Labs are stable and without concerning abnormalities. Physical exam today, noted below. Updated Visit, November 19, 2022: No palpable abnormality on exam However had and age spot on her lateral right bicep that was taken off just prior to Pet - (Ak. Keratosis) Updated Visit, June 05, 2022: Continues on BRAF and MET inhibition with continued excellent response and no evidence of disease. Minimal AE's Updated Visit, January 23, 2022: Bisi returns in follow up for metastatic melanoma currently controlled with Zelboraf/Cotellic (Vemurafenib/Cobemetanib). She continues to do very well. She is smoking less. PET/CT was reviewed and no uptake noted. Updated Visit, September 27, 2021: Bisi is 56 and continues on treatment with Vemurafenib/Cobemetanib (Zelboraf/Cotellic). A year ago she and her son were kicked out of their house (broke-up with her SO 08/2020) Adult daughter, son and daughter's 4 yo son all live together and all are doing ok. Reviewed scans and no new disease noted. Small opacity in Right upper lobe - will need follow up CT in 3 months. Smoking less since COVID-19 early 06/2021. Minor symptoms. Updated Visit, May 24, 2021: Bisi is 56 yo and returns to review her results from ercent cervical eldon dissection which thankfully came back benign. She is relieved and is doing well. Neck is healing nicely. She will continue with BRAF/MEK inhibition. Updated Visit, April 11, 2021: Bisi is 55 yo and continues to do well clinically but has a left cervical LN that is 0.8 cm with FDG uptake that is new and concerning for metastatic disease. Would like to send for biopsy to confirm diagnostic suspicion and maximize tissue sampling for molecular studies. Node is difficult to palpate Updated Visit, December 20, 2020: Bisi is 55 years old and returns for monitoring of her BRAF positive melanoma began on her left chest wall. She is status post left mastectomy and axillary eldon dissection in July 2018. Her current PET scan remains JUDITH. Updated Visit, August 30, 2020: Bisi is 55 Yo and returns for BRAF + melanoma that began in her left chest wall. She is s/p left mastectomy and axillary eldon dissection and remains on Zelboraf and Cotellic with excellent disease control. Mammograms pending Broke up with her boyfriend and he asked her to move out. Has to find a new place moving with daughter. She is otherwise doing well. We reviewed her PET CT which remains without disease progression. Updated Visit, May 29, 2020: Bisi is 55 years old and has BRAF positive metastatic melanoma and returns for review of her restaging PET scan. Doing well overall and is very active. PET reviewed and no correlation on exam of right posterior thigh is un revealing. She has no pain associated with deep palpation and there is no mass either. We will continue monitoring. 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 She has been on Zelboraf and Cotellic since August 2018 and presents to review her PET scans from late last month. Overall review is detailed below but demonstrates no evidence of recurrence. Updated Visit, November 10, 2019: Kennedy Paulson presents today Hematology and Oncology evaluation. She is a 54 year old female who presents in follow-up on Zelboraf and Cotellic for BRAF positive melanoma. She had a hx of a 3 x 2.5 cm promise level IV melanoma resected from the chest wall May of 2015. She was taken to surgery by Dr Mayorga. She did have resection of 2/13 nodes out of the axilla consistent with melanoma. PET scan 05/01/16 showed right axillary node uptake and uptake in Left internal mammary nodes. She was then taken back to surgery by Dr Mayorga who excised two additional nodes. There was nothing to excise in the internal mammary chain he could find. Then in July 2018, she presented with back pain and was found to have a right sided paraspinal mass. CT scan on July 28 showed a soft tissue mass 5.9 x 4.1 cm in axial dimension extending off the field of view along the right paraspinal muscles extending to the pleura with lytic change of the adjacent ribs and vertebral bodies. There was also pancreatic head enlargement poorly visualized on noncontrast exam. Ultrasound of the chest on August 14 showed a 9.2 cm mass in the right posterior paraspinal thorax. She was taken on August 14, 2018 to have an excision of the soft tissue mass where the mass was excised in total. Pathology showed malignant melanoma. Pathologically, there were 2 excisions and in the first excision 7.3 cm in size was negative for neoplasm. The second mass was 2.4 cm in size with results consistent with melanoma. Her melanoma was BRAF positive. She was started on vemurafenib/cobemetinib 09/16/18 with patients pain quickly escalating. She had a wonderful response with resolution of pain and exam findings in her back. She continues to do well but is somewhat surprised with the discussion of potential failure of therapy in the next several months based on normal failure rates and times noted in the current literature. PATHOLOGIC PROFILE/MOLECULAR DATA: Reviewed on November 10, 2019 05/09/2021 Left Cervical Neck Dissection: Specimen #: [id number] Submitting Physician: NATHAN KIDD MD FINAL DIAGNOSIS 1. Left level 2, dissection (A) - Five lymph nodes, negative for malignancy (0/5). 2. Left level 3, dissection (B) - Twelve lymph nodes, negative for malignancy (0/12). 3. Left level 4, dissection (C) - Seventeen lymph nodes, negative for malignancy (0/17). She was taken on August 14, 2018 to have an excision of the soft tissue mass where the mass was excised in total. Pathology showed malignant melanoma. Pathologically, there were 2 excisions and in the first excision 7.3 cm in size was negative for neoplasm. The second mass was 2.4 cm in size with results consistent with melanoma. 2. See EMR 1. See EMR REVIEW OF SYSTEMS Per HPI and otherwise negative by full review of organ systems. ECOG PERFORMANCE STATUS: 0 PHYSICAL EXAMINATION: Vitals: BP 138/90 Pulse 72 Temp (Src) 97.6 (Temporal) Resp 16 Wt 133 lb 2.5 oz (60.4kg) SpO2 99% Body surface area is 1.63 meters squared. Exam limited to gross visualization where appropriate. Gen.: This is an age-appropriate patient in no acute distress. Head: Appears atraumatic with no visible lesions. Eyes: Pupils equally round and reactive to light, extraocular muscles are intact. Neck: Supple. Mouth: Masked. Respiratory: Appears to be respiring comfortably. Neurologic: Nonfocal to gross visualization. Alert and oriented 3. Psychiatric: No evidence of inappropriate anxiety or depression. Prior breast and skin exam today: (Zoie Posey) 04/16/2023: entire skin surface evaluated with no evidence of concerning lesion. Did not examine skin overlying pubis or between buttocks. Right breast normal female with no lumps or masses. Bilateral axillary eldon exam is negative. Underside of right breast is a horizontal scar that is healed and without in-transit lesions. Left breast mastectomy sight is healed and without concerning lesions and no in-transit lesions. ALLERGIES: ALLERGIES No Known Allergies MEDICATIONS: vemurafenib (ZELBORAF) 240 mg tab TAKE 4 TABLETS BY MOUTH EVERY 12 HOURS. MAY TAKE WITH OR WITHOUT FOOD. STORE IN ORIGINAL CONTAINER. AVOID GRAPEFRUIT PRODUCTS cobimetinib (COTELLIC) 20 mg tab TAKE 3 TABLETS BY MOUTH ONCE DAILY AT THE SAME TIME FOR 21 DAYS OF A 28 DAY CYCLE. MAY TAKE WITH OR WITHOUT FOOD prochlorperazine (COMPAZINE) 10 mg tablet Take 1 tablet by mouth every 8 hours as needed. LABORATORY VALUES: WBC (k/uL) Date Value 08/08/2023 5.73 RBC (m/uL) Date Value 08/08/2023 4.04 Hemoglobin (g/dL) Date Value 08/08/2023 12.8 Hematocrit (%) Date Value 08/08/2023 38.3 MCV (fL) Date Value 08/08/2023 94.8 MCH (pg) Date Value 08/08/2023 31.7 MCHC (g/dL) Date Value 08/08/2023 33.4 RDW-CV (%) Date Value 08/08/2023 12.9 Platelet Count (k/uL) Date Value 08/08/2023 211 MPV (fL) Date Value 08/08/2023 9.2 Glucose (mg/dL) Date Value 08/08/2023 90 BUN (mg/dL) Date Value 08/08/2023 13 Creatinine (mg/dL) Date Value 08/08/2023 1.02 (H) Sodium (mmol/L) Date Value 08/08/2023 142 Potassium (mmol/L) Date Value 08/08/2023 3.8 Chloride (mmol/L) Date Value 08/08/2023 108 (H) CO2 (mmol/L) Date Value 08/08/2023 24 Protein, Total (g/dL) Date Value 08/08/2023 7.1 Albumin (g/dL) Date Value 08/08/2023 4.7 Calcium, Total (mg/dL) Date Value 08/08/2023 9.6 Alkaline Phosphatase (U/L) Date Value 08/08/2023 119 Bilirubin, Total (mg/dL) Date Value 08/08/2023 0.4 AST (U/L) Date Value 08/08/2023 16 ALT (U/L) Date Value 08/08/2023 11 DIAGNOSIS: (C43.9) Malignant melanoma of skin (HCC) (primary encounter diagnosis) Plan: NM PET/CT WHOLE BODY SUBSEQUENT, LD LACTATE DEHYDRO, CBC + DIFF, COMP METABOLIC PANEL (C43.59) Malignant melanoma of torso excluding breast (HCC) (C43.9) Metastatic melanoma (HCC) (R11.0, T45.1X5A) Chemotherapy-induced nausea (E86.0) Dehydration PAST MEDICAL HISTORY Diagnosis Date Melanoma (HCC) PAST SURGICAL HISTORY Procedure Laterality Date AXILLARY LYMPHADENECTOMY Right 2016 BONE BIOPSY,TROCAR/NEEDLE SUPERF 2019 spine biopsy MASTECTOMY, MODIFIED RADICAL Left 2016 AND SKIN BIOPSY HX 2015 melanoma mid chest TUBAL LIGATION HX Social History Tobacco Use Smoking status: Every Day Packs/day: 0.50 Years: 30.00 Additional pack years: 0.00 Total pack years: 15.00 Types: Cigarettes Passive exposure: Current Smokeless tobacco: Never Vaping Use Vaping Use: Never used Substance Use Topics Alcohol use: Not Currently Drug use: No FAMILY HISTORY Problem Relation Age of Onset Cancer Mother Breast Cancer Mother Stroke Father I spent a total of 30 minutes on the date of the service which included preparing to see the patient, [id number] patient care, completing clinical documentation, performing a medically appropriate examination, counseling and educating the patient/family/caregiver, ordering medications, tests, or procedures, independently interpreting results (not separately reported), communicating results to the patient/family/caregiver, and care coordination (not separately reported). Thiago Quintanilla MD, CPE Hematology and Oncology Services Provided at: [place], [place] Scribe Attestation: This note was scribed by Kusum Gasca on August 22, 2023 under the direction and supervision of Dr. Thiago Quintanilla. I attest that all of the information documented is correct to the best of my knowledge. Provider Attestation: I, Thiago Quintanilla MD, attest that all information documented by the above scribe is correct, and was supervised by me and under my direction. CC: Dr. Mayorga. Arabella Lynch DO [address] [facility] [id number] documented in this encounter [facility] 08-22-2023 Note HNO ID: [id number] Author: THIAGO QUINTANILLA MD Service: ? Author Type: Physician Type: Progress Notes Filed: 08/24/2023 10:05 Note Text: NAME: Kennedy Paulson [facility] NO.: [id number] DATE OF SERVICE: August 22, 2023 (Marika) Some elements in this clinic note that are critical to medical decision making have been carefully reviewed and included from a prior clinic note dated: April 16, 2023 (Marika). Referring Provider: Arabella Lynch DO Additional Clinicians involved in Kennedy Paulson's care: CC: Metastatic BRAF + Melanoma ASSESSMENT: She originally had L breast mastectomy for melanoma in [address] Mayorga. 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 Started Zelboraf and Cotellic 08/2018. Has maintained an excellent response measured on PET CT - through 04/08/2023 We discussed the potential for failure of BRAF inhibition occurring around 12-18 months but this hasn't been the case. Suspicious left cervical LN - left neck dissection resulted in benign findings with anthracotic changes only Kidney function varies because she can't reliably stay hydrated PLAN: Labs and PET in 16 weeks RTC afterwards to review. Exam on return Continue Zelboraf and Cotellic HPI: CASE HISTORY: Reverse Chronological Order 08/08/2023 - PET/CT: Neck: No suspicious hypermetabolic foci Chest: No evidence of FDG avid neoplastic process Abdomen and pelvis: No evidence of FDG avid neoplastic process Skeleton: No hypermetabolic osseous lesions 04/08/2023 - PET/CT remains negative. 10/23/2022 -PET remains negative - small focus of cutaneous activity in the right lateral distal forearm. Possibly inflammatory. 01/15/2022 - PET/CT: NECK: No FDG avid neoplastic process. CHEST: No FDG avid neoplastic process. Several subcentimeter pulmonary nodules stable since at least PET/CT 08/26/2018. Note that PET/CT is not sensitive for pulmonary nodules less than 8 mm. ABDOMEN/PELVIS: No FDG avid neoplastic process. EXTREMITIES/SKELETON: No suspicious FDG avid osseous process. 09/13/2021 - PET CT: NECK: interval resection of previously noted hypermetabolic left cervical lymph node. No new or enlarging hypermetabolic cervical lymphadenopathy. CHEST: stable postoperative changes of left mastectomy and bilateral axillary lymphadenectomy. No hypermetabolic soft tissue in the operative bed to suggest residual/recurrent neoplasm. PATCHY GROUNDGLASS ATTENUATION NON-FDG AVID RIGHT UPPER LOBE SUBPLEURAL OPACITY LATERALLY, NEW SINCE 04/03/2021. SUGGEST FOLLOW UP NONCONTRAST CHEST CT IN 3 MONTHS FOR ADDITIONAL EVALUATION. FEW SMALL (<0.6 CM) NON-FDG AVID PULMONARY NODULES, STABLE SINCE 12/13/2020. No hypermetabolic thoracic lymphadenopathy. ABDOMEN/PELVIS: no fdg avid neoplastic process. No hypermetabolic mass, adenopathy, or fluid collection. Stable nonobstructing right renal calculi. EXTREMITIES/SKELETON: no fdg avid neoplastic osseous process. 04/03/2021 - PET/CT: Head and Neck: New 0.8 cm hypermetabolic left cervical lymph node, presumably metastatic. Chest: No evidence of FDG avid neoplastic process. Multiple small (less than 6 mm) pulmonary nodules are stable compared to 12/13/2020, and not FDG avid. Stable findings, as described Abdomen and pelvis: No evidence of FDG avid neoplastic process. Stable nonobstructing right renal calculi measuring up to 0.5 cm. No hydronephrosis. Musculoskeletal: No neoplastic hypermetabolic lesions 01/03/2021 - Echo from [facility]: Normal EF 56% 12/13/2020 PET/CT: Neck: No suspicious hypermetabolic foci Chest: No evidence of FDG avid neoplastic process Abdomen and pelvis: No evidence of FDG avid neoplastic process Skeleton: No hypermetabolic osseous lesions 08/23/2020 PET/CT: HEAD AND NECK: No FDG avid neoplastic process. No mass, adenopathy, or fluid collection. CHEST: No FDG avid neoplastic process. No mass, adenopathy, or fluid collection. Stable tiny nodularity in both lungs unchanged. Tree-in-bud clustered nodularity anterolateral lingula not changed likely inflammatory. ABDOMEN/PELVIS: No FDG avid neoplastic process. No mass, adenopathy, or fluid collection. EXTREMITIES/SKELETON: No FDG avid osseous process. No destructive/traumatic bony abnormality. 05/22/2020 PET/CT: Head and Neck: No hypermetabolic foci Chest: No evidence of FDG avid neoplastic process. Stable bilateral sub-5 mm pulmonary nodules. Recommend follow-up imaging. Abdomen and pelvis: No evidence of FDG avid neoplastic process Musculoskeletal: New focal uptake in the posterior right mid thigh is favored to be vascular in origin, and may be secondary to active atherosclerosis, although thrombo (more content not included)... [facility] 08-08-2023 History of Presen t illness Narrative Radiology Service Progress Note DATE OF SERVICE: August 08, 2023 TIME: 12:12 PM PATIENT IDENTITY VERIFICATION COMPLETED USING TWO (2) STANDARD IDENTIFIERS: Name and Date of confirmed by patient verbally. FALL SCREENING: Has the patient had 2 falls in the last year or 1 fall with injury or currently using an Ambulatory Assistive Device (Walker, Cane, Wheelchair, Crutches, etc.)? No PATIENT GENDER DATA: Female. status: : No status: NO. EXAM: CT -CONTRAST INDUCED NEPHROPATHY RISK FACTORS: Not applicable CREATININE: Creatinine Date Value Ref Range Status 04/08/2023 1.01 (H) 0.58 - 0.96 mg/dL Final 10/23/2022 1.07 (H) 0.58 - 0.96 mg/dL Final 05/29/2022 1.06 (H) 0.58 - 0.96 mg/dL Final Estimated Glomerular Filtration Rate Date Value Ref Range Status 04/08/2023 65 >=60 mL/min/1.73m Final Comment: Estimated Glomerular Filtration Rate (eGFR) is calculated using the 2020 CKD-EPI creatinine equation. This equation utilizes serum creatinine, sex, and age as parameters. The creatinine assay has traceable calibration to isotope dilution-mass spectrometry. Refer to KDIGO guidelines for clinical interpretation. In patients with unstable renal function, e.g. those with acute kidney injury, the eGFR may not accurately reflect actual GFR. eGFR- Date Value Ref Range Status 09/13/2021 >60 Final P.O.C.T. RESULTS: N/A August 08, 2023 TREATMENT: N/A IV SITE: Ambulatory: A peripheral IV was started in the Right antecubital site with a Angio cath: 22 gauge. IV SITE APPEARANCE: Clean,Dry and Intact SIGNATURE: Ministerio Parikh RN PATIENT NAME: Kennedy Paulson DATE: August 08, 2023 TIME: 12:12 PM RADIOLOGY SERVICE PROGRESS NOTE SERVICE DATE: 08/08/2023 SERVICE TIME: 1:12 PM PATIENT IDENTITY VERIFICATION COMPLETED USING TWO (2) STANDARD IDENTIFIERS: Name and Date of confirmed by patient verbally POST EXAM PIV STATUS: Discontinued PROCEDURE TYPE: NM INJECT: PET/CT BODY SCAN. 7.0 mCi F18 FDG. No other medications given.. ADMINISTRATION TIME: 1210 PATIENT DISCHARGED TO: Ambulatory patient, left NM department area. A Diagnostic radioactive procedure has taken place, with no further precautions necessary other than routine body substance precautions. More information regarding radiation safety can be found using this link: [email or web address]% 20Nuclear%20Medicine%20Procedur [email or web address] SIGNATURE: RT Blake(R) PATIENT NAME: Kennedy Paulson DATE: August 08, 2023 TIME: 1:12 PM PAGER/CONTACT #: documented in this encounter [facility] 08-08-2023 Note HNO ID: [id number] Author: LACY BLOOM RT(R) Service: ? Author Type: Technologist Type: Progress Notes Filed: 08/08/2023 13:12 Note Text: RADIOLOGY SERVICE PROGRESS NOTE SERVICE DATE: 08/08/2023 SERVICE TIME: 1:12 PM PATIENT IDENTITY VERIFICATION COMPLETED USING TWO (2) STANDARD IDENTIFIERS: Name and Date of confirmed by patient verbally POST EXAM PIV STATUS: Discontinued PROCEDURE TYPE: NM INJECT: PET/CT BODY SCAN. 7.0 mCi F18 FDG. No other medications given.. ADMINISTRATION TIME: 1210 PATIENT DISCHARGED TO: Ambulatory patient, left NM department area. A Diagnostic radioactive procedure has taken place, with no further precautions necessary other than routine body substance precautions. More information regarding radiation safety can be found using this link: [email or web address] 20Diagnostic%20Nuclear%20Medici [email or web address] SIGNATURE: RT Blake(R) PATIENT NAME: Kennedy Paulson DATE: August 08, 2023 TIME: 1:12 PM PAGER/CONTACT #: [facility] 08-08-2023 Note HNO ID: [id number] Author: MINISTERIO PARIKH RN Service: ? Author Type: Registered Nurse Type: Progress Notes Filed: 08/08/2023 12:13 Note Text: Radiology Service Progress Note DATE OF SERVICE: August 08, 2023 TIME: 12:12 PM PATIENT IDENTITY VERIFICATION COMPLETED USING TWO (2) STANDARD IDENTIFIERS: Name and Date of confirmed by patient verbally. FALL SCREENING: Has the patient had 2 falls in the last year or 1 fall with injury or currently using an Ambulatory Assistive Device (Walker, Cane, Wheelchair, Crutches, etc.)? No PATIENT GENDER DATA: Female. status: : No status: NO. EXAM: CT -CONTRAST INDUCED NEPHROPATHY RISK FACTORS: Not applicable CREATININE: Creatinine Date Value Ref Range Status 04/08/2023 1.01 (H) 0.58 - 0.96 mg/dL Final 10/23/2022 1.07 (H) 0.58 - 0.96 mg/dL Final 05/29/2022 1.06 (H) 0.58 - 0.96 mg/dL Final Estimated Glomerular Filtration Rate Date Value Ref Range Status 04/08/2023 65 >=60 mL/min/1.73m? Final Comment: Estimated Glomerular Filtration Rate (eGFR) is calculated using the 2020 CKD-EPI creatinine equation. This equation utilizes serum creatinine, sex, and age as parameters. The creatinine assay has traceable calibration to isotope dilution-mass spectrometry. Refer to KDIGO guidelines for clinical interpretation. In patients with unstable renal function, e.g. those with acute kidney injury, the eGFR may not accurately reflect actual GFR. eGFR- Date Value Ref Range Status 09/13/2021 >60 Final P.O.C.T. RESULTS: N/A August 08, 2023 TREATMENT: N/A IV SITE: Ambulatory: A peripheral IV was started in the Right antecubital site with a Angio cath: 22 gauge. IV SITE APPEARANCE: Clean,Dry and Intact SIGNATURE: Ministerio Parikh RN PATIENT NAME: Kennedy Paulson DATE: August 08, 2023 TIME: 12:12 PM [facility] 04-08-2023 History of Presen t illness Narrative Radiology Service Progress Note DATE OF SERVICE: April 08, 2023 TIME: 9:19 AM PATIENT IDENTITY VERIFICATION COMPLETED USING TWO (2) STANDARD IDENTIFIERS: Name and Date of confirmed by patient verbally. FALL SCREENING: Has the patient had 2 falls in the last year or 1 fall with injury or currently using an Ambulatory Assistive Device (Walker, Cane, Wheelchair, Crutches, etc.)? No PATIENT GENDER DATA: Female. status: : No status: NO. EXAM: CT -CONTRAST INDUCED NEPHROPATHY RISK FACTORS: Not applicable CREATININE: Creatinine Date Value Ref Range Status 10/23/2022 1.07 (H) 0.58 - 0.96 mg/dL Final 05/29/2022 1.06 (H) 0.58 - 0.96 mg/dL Final 01/15/2022 0.90 0.58 - 0.96 mg/dL Final Estimated Glomerular Filtration Rate Date Value Ref Range Status 10/23/2022 61 >=60 mL/min/1.73m Final Comment: Estimated Glomerular Filtration Rate (eGFR) is calculated using the 2020 CKD-EPI creatinine equation. This equation utilizes serum creatinine, sex, and age as parameters. The creatinine assay has traceable calibration to isotope dilution-mass spectrometry. Refer to KDIGO guidelines for clinical interpretation. In patients with unstable renal function, e.g. those with acute kidney injury, the eGFR may not accurately reflect actual GFR. eGFR- Date Value Ref Range Status 09/13/2021 >60 Final P.O.C.T. RESULTS: N/A April 08, 2023 TREATMENT: N/A IV SITE: Ambulatory: A peripheral IV was started in the Right antecubital site with a Angio cath: 22 gauge. IV SITE APPEARANCE: Clean,Dry and Intact SIGNATURE: Ministerio Parikh RN PATIENT NAME: Kennedy Paulson DATE: April 08, 2023 TIME: 9:19 AM RADIOLOGY SERVICE PROGRESS NOTE SERVICE DATE: 04/08/2023 SERVICE TIME: 9:23 AM PATIENT IDENTITY VERIFICATION COMPLETED USING TWO (2) STANDARD IDENTIFIERS: Name and Date of confirmed by patient verbally POST EXAM PIV STATUS: Discontinued PROCEDURE TYPE: NM INJECT: PET/CT BODY SCAN. 7.2 mCi F18 FDG. No other medications given.. ADMINISTRATION TIME: 915 PATIENT DISCHARGED TO: Ambulatory patient, left NE department area. A Diagnostic radioactive procedure has taken place, with no further precautions necessary other than routine body substance precautions. More information regarding radiation safety can be found using this link: [email or web address]% [email or web address]%[email or web address] [email or web address] SIGNATURE: Lacy Merle RT(R) PATIENT NAME: Kennedy Paulson DATE: April 08, 2023 TIME: 9:23 AM PAGER/CONTACT #: documented in this encounter [facility] 12-04-2022 Hospital Discharg e instructions Follow Up Care 12/04/2022 10:35:09 With:Cesar HAYES, CADE Sol, URO Address: [address] [place] [phone] When: Unknown [facility] 11-21-2022 Evaluation note Encounter Date Diagnosis Assessment Notes Oct, Acute recurrent frontal sinusitis (ICD-10 - J01.11) Pt is to take abx as prescribed with food. Push fluids and rest. Pt denied work note today. Pt is to take otc antipyretic prn for fever and aches. Pt is to take otc cough suppressant prn for cough. Pt is to be re-evaluated after tx if sx worsen or don't improve by pcp or UC. Pt is to call the office with any questions or concerns regarding dx and tx. Pt understood and agreed to tx plan. Survature Other 04-25-2023 History of Present illness Narrative* Thiago Quintanilla MD - 11/19/2022 2:15 PM EDT Images from the original note were not included. NAME: Kennedy Paulson CLINIC NO.: [id number] DATE OF SERVICE: November 19, 2022 (Marika) Some elements in this clinic note that are critical to medical decision making have been carefully reviewed and included from a prior clinic note dated:June 09, 2022 (Marika) Referring Provider: Arabella Lynch, DO Additional Clinicians involved in Kennedy Paulosn's care: CC: Metastatic BRAF + Melanoma ASSESSMENT: She originally had L breast mastectomy for melanoma in [address] Mayorga. 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 Started Zelboraf and Cotellic 08/2018. Has maintained an excellent response measured on PET CT We discussed the potential for failure of BRAF inhibition occurring around 12-18 months but this hasn't been the case. Suspicious left cervical LN - left neck dissection resulted in benign findings with anthracotic changes only Kidney function varies because she can't reliably stay hydrated PLAN: Labs and PET in 20 weeks RTC afterwards to review. Deferred exam today - she was seen by Derm recently. Exam on return Continue Zelboraf and Cotellic Hold off on Hydration. TREATMENT TO DATE: She was started on vemurafenib/cobemetinib 09/16/18 with patients pain quickly escalating. She had awonderful response with resolution of pain and exam findings in her back. She was taken on August 14, 2018 to have an excision of the soft tissue mass where the mass was excised in total. Pathology showed malignant melanoma. Pathologically, there were 2 excisions and in the first excision 7.3 cm in size was negative for neoplasm. The second mass was 2.4 cm in size with results consistent with melanoma. Her melanoma was BRAF positive. _ HPI: Updated Visit, November 19, 2022: 10/23/2022 -PET remains negative - small focus of cutaneous activity in the right lateral distal forearm. Possibly inflammatory No palpable abnormality on exam However had and age spot on her lateral right bicep that was taken off just prior to Pet - (Ak. Keratosis) Updated Visit, June 05, 2022: Continues on BRAF and MET inhibition with continued excellent response and no evidence of disease. Minimal AE's Updated Visit, January 23, 2022: Bisi returns in follow up for metastatic melanoma currently controlled with Zelboraf/Cotellic (Vemurafenib/Cobemetanib). She continues to do very well. She is smoking less. PET/CT was reviewed and no uptake noted. Updated Visit, September 27, 2021: Bisi is 56 and continues on treatment with Vemurafenib/Cobemetanib (Zelboraf/Cotellic). A year agorose and her son were kicked out of their house (broke-up with her SO 08/2020) Adult daughter, son and daughter's 4 yo son all live together and all are doing ok. Reviewed scans and no new disease noted. Small opacity in Right upper lobe - will need follow up CTin 3 months. Smoking less since COVID-19 early 06/2021. Minor symptoms. Updated Visit, May 24, 2021: Bisi is 56 yo and returns to review her results from ercent cervical eldon dissection which thankfully came back benign. She is relieved and is doing well. Neck is healing nicely. She will continue with BRAF/MEK inhibition. Updated Visit, April 11, 2021: Bisi is 55 yo and continues to do well clinically but has a left cervical LN that is 0.8 cm with FDG uptake that is new and concerning for metastatic disease. Would like to send for biopsy to confirm diagnostic suspicion and maximize tissue sampling for molecular studies. Node is difficult to palpate Updated Visit, December 20, 2020: Bisi is 55 years old and returns for monitoring of her BRAF positive melanoma began on her left chest wall. She is status post left mastectomy and axillary eldon dissection in July 2018. Her current PET scan remains JUDITH. Updated Visit, August 30, 2020: Bisi is 55 Yo and returns for BRAF + melanoma that began in her left chest wall. She is s/p left mastectomy and axillary eldon dissection and remains on Zelboraf and Cotellic with excellent disease control. Mammograms pending Broke up with her boyfriend and he asked her to move out. Has to find a new place moving with daughter. She is otherwise doing well. We reviewed her PET CT which remains without disease progression. Updated Visit, May 29, 2020: Bisi is 55 years old and has BRAF positive metastatic melanoma and returns for review of her restaging PET scan. Doing well overall and is very active. PET reviewed and no correlation on exam of right posterior thigh is un revealing. She has no pain associated with deep palpation and there is no mass either. We will continue monitoring. 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 She has been on Zelboraf and Cotellic since August 2018 and presents to review her PET scans from late last month. Overall review is detailed below but demonstrates no evidence of recurrence. Updated Visit, November 10, 2019: Kennedy Paulson presents today Hematology and Oncology evaluation. She is a 54 year old female who presents in follow-up on Zelboraf and Cotellic for BRAF positive melanoma. She had a hx of a 3 x 2.5 cm promise level IV melanoma resected from the chest wall May of 2015.She was taken to surgery by Dr Mayorga. She did have resection of 2/13 nodes out of the axilla consistent with melanoma. PET scan 05/01/16 showed right axillary node uptake and uptake in Left internal mammary nodes. She was then taken back to surgery by Dr Mayorga who excised two additional nodes. There was nothing to excise in the internal mammary chain he could find. Then in July 2018, she presented with back pain and was found to have a right sided paraspinal mass. CT scan on July 28 showed a soft tissue mass 5.9 x 4.1 cm in axial dimension extending off the field of view along the right paraspinal muscles extending to the pleura with lytic change of the adjacent ribs and vertebral bodies. There was also pancreatic head enlargement poorly visualized on noncontrast exam. Ultrasound of the chest on August 14 showed a 9.2 cm mass in the right posterior paraspinal thorax. She was taken on August 14, 2018 to have an excision of the soft tissue mass where the mass was excised in total. Pathology showed malignant melanoma. Pathologically, there were 2 excisions and in the first excision 7.3 cm in size was negative for neoplasm. The second mass was 2.4 cm in size with results consistent with melanoma. Her melanoma was BRAF positive. She was started on vemurafenib/cobemetinib 09/16/18 with patients pain quickly escalating. She had a wonderful response with resolution of pain and exam findings in herback. She continues to do well but is somewhat surprised with the discussion of potential failure of therapy in the next several months based on normal failure rates and times noted in the current literature. RADIOGRAPHIC DATA: Reviewed on January 23, 2022 11. 01/15/2022 PET/CT: 1. NECK: No FDG avid neoplastic process. 2. CHEST: No FDG avid neoplastic process. Several subcentimeter pulmonary nodules stable since at least PET/CT 08/26/2018. Note that PET/CT is not sensitive for pulmonary nodules less than 8 mm. 3. ABDOMEN/PELVIS: No FDG avid neoplastic process. 4. EXTREMITIES/SKELETON: No suspicious FDG avid osseous process. . 09/13/[address]: 1. NECK: * INTERVAL RESECTION OF PREVIOUSLY NOTED HYPERMETABOLIC LEFT CERVICAL LYMPH NODE. * NO NEW OR ENLARGING HYPERMETABOLIC CERVICAL LYMPHADENOPATHY. 2. CHEST: * STABLE POSTOPERATIVE CHANGES OF LEFT MASTECTOMY AND BILATERAL AXILLARY LYMPHADENECTOMY. * NO HYPERMETABOLIC SOFT TISSUE IN THE OPERATIVE BED TO SUGGEST RESIDUAL/RECURRENT NEOPLASM. * PATCHY GROUNDGLASS ATTENUATION NON-FDG AVID RIGHT UPPER LOBE SUBPLEURAL OPACITY LATERALLY, NEW SINCE 04/03/2021. SUGGEST FOLLOW UP NONCONTRAST CHEST CT IN 3 MONTHS FOR ADDITIONAL EVALUATION. * FEW SMALL (<0.6 CM) NON-FDG AVID PULMONARY NODULES, STABLE SINCE 12/13/2020. * NO HYPERMETABOLIC THORACIC LYMPHADENOPATHY. 3. ABDOMEN/PELVIS: * NO FDG AVID NEOPLASTIC PROCESS. * NO HYPERMETABOLIC MASS, ADENOPATHY, OR FLUID COLLECTION. * STABLE NONOBSTRUCTING RIGHT RENAL CALCULI. 4. EXTREMITIES/SKELETON: * NO FDG AVID NEOPLASTIC OSSEOUS PROCESS. . 04/03/2021 PET/CT: Head and Neck: * New 0.8 cm hypermetabolic left cervical lymph node, presumably metastatic. Chest: * No evidence of FDG avid neoplastic process * Multiple small (less than 6 mm) pulmonary nodules are stable compared to 12/13/2020, and not FDG avid. * Stable findings, as described Abdomen and pelvis: * No evidence of FDG avid neoplastic process * Stable nonobstructing right renal calculi measuring up to 0.5 cm. No hydronephrosis. Musculoskeletal: * No neoplastic hypermetabolic lesions 8. 01/03/2021 Echo from [facility]: Normal EF 56% 7. 12/13/2020 PET/CT: 1. Neck: No suspicious hypermetabolic foci 2. Chest: No evidence of FDG avid neoplastic process 3. Abdomen and pelvis: No evidence of FDG avid neoplastic process 4. Skeleton: No hypermetabolic osseous lesions 6. 08/23/2020 PET/CT: IMPRESSION: 1. HEAD AND NECK: No FDG avid neoplastic process. No mass, adenopathy, or fluid collection. 2. CHEST: No FDG avid neoplastic process. No mass, adenopathy, or fluid collection. Stable tiny nodularity in both lungs unchanged. Tree-in-bud clustered nodularity anterolateral lingula not changed likely inflammatory. 3. ABDOMEN/PELVIS: No FDG avid neoplastic process. No mass, adenopathy, or fluid collection. 4. EXTREMITIES/SKELETON: No FDG avid osseous process. No destructive/traumatic bony abnormality. 5. 05/22/2020 PET/CT: Head and Neck: * No hypermetabolic foci Chest: * No evidence of FDG avid neoplastic process * Stable bilateral sub-5 mm pulmonary nodules. Recommend follow-up imaging. Abdomen and pelvis: * No evidence of FDG avid neoplastic process Musculoskeletal: * New focal uptake in the posterior right mid thigh is favored to be vascular in origin, and may be secondary to active atherosclerosis, although thrombosis cannot be excluded. Recommend clinical correlation regarding the need for Doppler evaluation. 4. 02/18/2020 PET/CT:1. NECK: No FDG avid neoplastic process. No hypermetabolic mass, adenopathy, orfluid collection. 2. CHEST: No FDG avid neoplastic process. No hypermetabolic mass, adenopathy, or fluid collection. 3. ABDOMEN/PELVIS: No FDG avid neoplastic process. No hypermetabolic mass, adenopathy, or fluid collection. 4. BONES AND SOFT TISSUES: Interval resolution of previously seen mild FDG activity associated withthe right T11/T12 paraspinal soft tissues. Interval reduction in FDG avidity by osteolytic right transverse process of T11. No suspicious FDG avid osseous process. 3. 11/03/2019 PET/CT: Neck: No suspicious hypermetabolic foci Chest: Interval resolution of the previously present hypermetabolic focus in the left parasternal region. Significant interval improvement in the right paraspinal soft tissue mass now with mild residual focus of uptake. Abdomen and pelvis:No evidence of FDG avid metastases Skeleton: significant interval decrease in size and activity associated with the right T11/T12 region costovertebral region mass, now a small residual focus of milduptake 2. PET scan from August 26, 2018 FDG avid left anterior and the right posterior chest wall soft tissue mass is consistent with metastases. T12 and the right posterior medial 12th rib destruction by adjacent soft tissue metastases. 1. CT scan on July 28, 2018 showed a soft tissue mass 5.9 x 4.1 cm in axial dimension extending off the field of view along the right paraspinal muscles extending to the pleura with lytic change ofthe adjacent ribs and vertebral bodies. There was also pancreatic head enlargement poorly visualized on noncontrast exam. PET scan 05/01/16 showed right axillary node uptake and uptake in Left internal mammary nodes. ___ PATHOLOGIC PROFILE/MOLECULAR DATA: Reviewed on November 10, 2019 4. 05/09/2021 Left cervical neck dissection: Specimen #: [id number] Submitting Physician: NATHAN KIDD MD FINAL DIAGNOSIS 1. Left level 2, dissection (A) - Five lymph nodes, negative for malignancy (0/5). 2. Left level 3, dissection (B) - Twelve lymph nodes, negative for malignancy (0/12). 3. Left level 4, dissection (C) - Seventeen lymph nodes, negative for malignancy (0/17). 3. She was taken on August 14, 2018 to have an excision of the soft tissue mass where the mass wasexcised in total. Pathology showed malignant melanoma. Pathologically, there were 2 excisions and in the first excision 7.3 cm in size was negative for neoplasm. The second mass was 2.4 cm in size with results consistent with melanoma. 2. See EMR 1. See EMR REVIEW OF SYSTEMS Per HPI and otherwise negative by full review of organ systems. ECOG PERFORMANCE STATUS: 0 PHYSICAL EXAMINATION: Vitals: BP 150/85 Pulse 75 Temp (Src) 97.2 (Temporal) Resp 16 Ht 5' 2.008 (1.58m) Wt 130lb 12.8 oz (59.3kg) SpO2 99% BMI 23.92 kg/(m^2). Body surface area is 1.61 meters squared. Exam limited to gross visualization where appropriate. Gen.: This is an age-appropriate patient in no acute distress. Head: Appears atraumatic with no visible lesions. Eyes: Pupils equally round and reactive to light, extraocular muscles are intact. Neck: Supple. Mouth: Masked. Respiratory: Appears to be respiring comfortably. Neurologic: Nonfocal to gross visualization. Alert and oriented 3. Psychiatric: No evidence of inappropriate anxiety or depression. Skin: Visible areas of skin without rash, lesions, wounds or petechiae. ALLERGIES: ALLERGIES No Known Allergies MEDICATIONS: COTELLIC 20 mg tab TAKE 3 TABLETS BY MOUTH ONCE DAILY AT THE SAME TIME FOR 21 DAYS OF A 28 DAY CYCLE. MAY TAKE WITH OR WITHOUT FOOD vemurafenib (ZELBORAF) 240 mg tab TAKE 4 TABLETS BY MOUTH EVERY 12 HOURS. MAY TAKE WITH OR WITHOUT FOOD. STORE IN ORIGINAL CONTAINER. AVOID GRAPEFRUIT PRODUCTS prochlorperazine (COMPAZINE) 10 mg tablet Take 10 mg by mouth every 6 hours as needed. white petrolatum (AQUAPHOR) 41 % topical ointment Apply to affected area as needed. LABORATORY VALUES: WBC (k/uL) Date Value 10/23/2022 5.69 RBC (m/uL) Date Value 10/23/2022 4.29 Hemoglobin (g/dL) Date Value 10/23/2022 13.2 Hematocrit (%) Date Value 10/23/2022 39.0 MCV (fL) Date Value 10/23/2022 90.9 MCH (pg) Date Value 10/23/2022 30.8 MCHC (g/dL) Date Value 10/23/2022 33.8 RDW-CV (%) Date Value 10/23/2022 13.3 Platelet Count (k/uL) Date Value 10/23/2022 254 MPV (fL) Date Value 10/23/2022 8.9 (L) Glucose (mg/dL) Date Value 10/23/2022 100 (H) BUN (mg/dL) Date Value 10/23/2022 15 Creatinine (mg/dL) Date Value 10/23/2022 1.07 (H) Sodium (mmol/L) Date Value 10/23/2022 143 Potassium (mmol/L) Date Value 10/23/2022 3.4 (L) Chloride (mmol/L) Date Value 10/23/2022 107 (H) CO2 (mmol/L) Date Value 10/23/2022 25 Protein, Total (g/dL) Date Value 10/23/2022 7.0 Albumin (g/dL) Date Value 10/23/2022 4.6 Calcium, Total (mg/dL) Date Value 10/23/2022 9.3 Alkaline Phosphatase (U/L) Date Value 10/23/2022 127 (H) Bilirubin, Total (mg/dL) Date Value 10/23/2022 0.4 AST (U/L) Date Value 10/23/2022 17 ALT (U/L) Date Value 10/23/2022 11 DIAGNOSIS: (C43.9) Malignant melanoma of skin (HCC) (primary encounter diagnosis) Plan: NM PET/CT WHOLE BODY SUBSEQUENT, LD LACTATE DEHYDRO, CBC + DIFF, COMP METABOLIC PANEL (C43.9) Metastatic melanoma (HCC) PAST MEDICAL HISTORY Diagnosis Date Melanoma (HCC) PAST SURGICAL HISTORY Procedure Laterality Date AXILLARY LYMPHADENECTOMY Right 2016 BONE BIOPSY,TROCAR/NEEDLE SUPERF 2019 spine biopsy MASTECTOMY, MODIFIED RADICAL Left 2016 AND SKIN BIOPSY HX 2015 melanoma mid chest TUBAL LIGATION HX Social History Tobacco Use Smoking status: Every Day Packs/day: 0.50 Years: 30.00 Pack years: 15.00 Types: Cigarettes Smokeless tobacco: Never Vaping Use Vaping Use: Never used Substance Use Topics Alcohol use: Not Currently Drug use: No FAMILY HISTORY Problem Relation Age of Onset Cancer Mother Breast Cancer Mother Stroke Father I spent a total of 30 minutes on the date of the service which included preparing to see the patient, [id number] patient care, completing clinical documentation, performing a medically appropriate examination, counseling and educating the patient/family/caregiver and ordering medications, tests, or procedures. Thiago Quintanilla MD, [facility] [place], [place] CC: Dr. Mayorga. Arabella Lynch, DO [address] [facility] [id number] [facility] Instructions* Patient Instructions* Thiago Quintanilla MD - 11/19/2022 2:15 PM EDT Labs and PET in 20 weeks RTC afterwards to review. Deferred exam today - she was seen by Derm recently. Exam on return Continue Zelboraf and Cotellic Hold off on Hydration. documented in [facility] Nurse Note* Naima Hughes MA - 11/19/2022 1:59 PM EDT Patient had an age spot removed from right arm, biopsy was negative. Naima Hughes MA documented in [facility]23 Miscellaneous Notes* Telephone Encounter - Lelo Sharp RN - 11/06/2022 2:17 PM EDT Received call from pt requesting PET results. Results given. Pt verbalizes understanding and deniesfurther needs at this time. Lelo Sharp RN documented in this [facility]04-12-2023 Evaluation note* Encounter Date Diagnosis Assessment Notes Treatment Notes Treatment Clinical Notes 12 Apr, 2023 Dysuria (ICD-10 - R30.0) Oct, Urinary tract infection, site not specified (ICD-10 - N39.0) Urinary tract infection (UTI) home care material was printed Drink plenty fluids, get plenty of rest. Take the Macrobid and Pyridium as prescribed until gone. Continue home medications as prescribed. Take Tylenol or Motrin as needed for aches pains or fevers. Follow-up with your family physician if no improvement in 2 to 3 days Oct, Hematuria, unspecified (ICD-10 - R31.9) Survature Other 03-29-2023 History of Present illness Narrative* Lacy Bloom RT(R) - 10/23/2022 9:00 AM EDT RADIOLOGY SERVICE PROGRESS NOTE SERVICE DATE: 10/23/2022 SERVICE TIME: 9:21 AM PATIENT IDENTITY VERIFICATION COMPLETED USING TWO (2) STANDARD IDENTIFIERS: Name and Date of confirmed by patient verbally POST EXAM PIV STATUS: Discontinued PROCEDURE TYPE: NM INJECT: PET/CT BODY SCAN. 6.8 mCi F18 FDG. No other medications given.. ADMINISTRATION TIME: 912 PATIENT DISCHARGED TO: Ambulatory patient, left NE department area. A Diagnostic radioactive procedure has taken place, with no further precautions necessary other than routine body substance precautions. More information regarding radiation safety can be found usingthis link: [email or web address] SIGNATURE: HUSSEIN Lozano) PATIENT NAME: Kennedy Paulson DATE: October 23, 2022 TIME: 9:21 AM PAGER/CONTACT #: documented in this [facility]11-[facility]22 Miscellaneous Notes* Telephone Encounter - Lacy Peña RN - 05/31/2022 12:28 PM EDT Pt notified and verbalizes understanding. Lacy Peña RN * Telephone Encounter - Lacy Peña RN - 05/31/2022 11:56 AM EDT Call placed to pt. No answer. Message left requesting call back. Lacy Peña RN * Telephone Encounter - Lacy Peña RN - 05/31/2022 11:56 AM EDT ----- Message from Thiago Quintanilla MD sent at 05/30/2022 8:31 PM EDT ----- PET scan is still negative!! Great news. documented in this encounterT[facility]11-[facility]22 History of Present illness Narrative* Maria E Baires RN - 05/29/2022 12:45 PM EDT Radiology Service Progress Note DATE OF SERVICE: May 29, 2022 TIME: 1:05 PM PATIENT WEIGHT: 132 LBS PATIENT IDENTITY VERIFICATION COMPLETED USING TWO (2) STANDARD IDENTIFIERS: Name and Date of confirmed by patient verbally. FALL SCREENING: Has the patient had 2 falls in the last year or 1 fall with injury or currently using an Ambulatory Assistive Device (Walker, Cane, Wheelchair, Crutches, etc.)? No PATIENT GENDER DATA: Female. status: : No status: NO. ALLERGIES: Reviewed and unchanged EXAM: CT -CONTRAST INDUCED NEPHROPATHY RISK FACTORS: Not applicable CREATININE: Creatinine Date Value Ref Range Status 01/15/2022 0.90 0.58 - 0.96 mg/dL Final 09/13/2021 0.99 (H) 0.58 - 0.96 mg/dL Final 05/24/2021 1.18 (H) 0.58 - 0.96 mg/dL Final Estimated Glomerular Filtration Rate Date Value Ref Range Status 01/15/2022 76 >=60 mL/min/1.73m Final Comment: Estimated Glomerular Filtration Rate (eGFR) is calculated using the 2020 CKD-EPI creatinine equation. This equation utilizes serum creatinine, sex, and age as parameters. The creatinine assay has traceable calibration to isotope dilution- mass spectrometry. Refer to KDIGO guidelines for clinical interpretation. In patients with unstable renal function, e.g. those with acute kidney injury, the eGFRmay not accurately reflect actual GFR. eGFR- Date Value Ref Range Status 09/13/2021 >60 Final P.O.C.T. RESULTS: POC done: Yes, See Lab Tab May 29, 2022 TREATMENT: N/A IV SITE: Ambulatory: A peripheral IV was started in the Right antecubital site with a Angio cath: 22 gauge. IV SITE APPEARANCE: Clean,Dry and Intact SIGNATURE: Maria E Baires RN PATIENT NAME: Kennedy Paulson DATE: May 29, 2022 TIME: 1:05 PM * Lacy Bloom RT(R) - 05/29/2022 12:45 PM EDT RADIOLOGY SERVICE PROGRESS NOTE SERVICE DATE: 05/29/2022 SERVICE TIME: 1:40 PM PATIENT IDENTITY VERIFICATION COMPLETED USING TWO (2) STANDARD IDENTIFIERS: Name and Date of confirmed by patient verbally POST EXAM PIV STATUS: Discontinued PROCEDURE TYPE: NM INJECT: PET/CT BODY SCAN. 6.3 mCi F18 FDG. No other medications given.. ADMINISTRATION TIME: 1304 PATIENT DISCHARGED TO: Ambulatory patient, left [place] department area. A Diagnostic radioactive procedure has taken place, with no further precautions necessary other than routine body substance precautions. More information regarding radiation safety can be found usingthis link: [email or web address]%20Nuclear%20Medicine%[email or web address] SIGNATURE: RT Blake(R) PATIENT NAME: Kennedy Paulson DATE: May 29, 2022 TIME: 1:40 PM PAGER/CONTACT #: [facility] Miscellaneous Notes* Telephone Encounter - Lacy Peña RN - 02/05/2022 12:59 PM EDT Voicemail message received from pt. Reports her arm/foot is healing. Has been using OTC cream to the affected areas. Burning sensation has resolved. Lacy Peña RN * Telephone Encounter - Lacy Peña RN - 02/05/2022 10:49 AM EDT Per Jo Ann Benoit, there is no record of pt being seen @ [facility] ER on Friday or over the weekend. 2nd attempt made to contact pt. No answer. Message left requesting call back. Lacy Peña RN * Telephone Encounter - Lacy Peña RN - 02/04/2022 2:29 PM EDT EMERGENCY ROOM CALL BACK Today's date: February 04, 2022 Call placed to pt. No answer. Message left requesting call back. Records requested from HIM. Lacy Peña RN documented in this encounterT[facility]07-08-[facility]22 Miscellaneous Notes* Telephone Encounter - Lacy Peña RN - 02/01/2022 4:23 PM EDT Pt notified and verbalizes understanding. Agrees to go to [facility] ER. Report called. Last office note and med list faxed. Lacy Peña RN * Telephone Encounter - hTiago Quintanilla MD - 02/01/2022 4:09 PM EDT Sounds like a pretty severe burn - I would send er to ER for possible second degree moore. Zelboraf/Cotellic can cause extreme sun sensitivity as well as second non- melanoma skin cancers * Telephone Encounter - Lacy Peña RN - 02/01/2022 1:49 PM EDT Pt reports sunburn to her left arm and left foot. Skin on her left arm is red w/ raised bumps. Leftfoot is red and blistered. C/o burning pain and itching to her foot. Has applied OTC anti-itch cream as well as aloe w/ little relief. Symptoms began last night. What do you advise? Lacy Peña RN documented in this encounterT[facility]06-21-2022 History of Present illness Narrative* Maria E Baires RN - 01/15/2022 9:00 AM EDT Radiology Service Progress Note DATE OF SERVICE: January 15, 2022 TIME: 9:07 AM PATIENT WEIGHT: 124LBS PATIENT IDENTITY VERIFICATION COMPLETED USING TWO (2) STANDARD IDENTIFIERS: Name and Date of confirmed by patient verbally. FALL SCREENING: Has the patient had 2 falls in the last year or 1 fall with injury or currently using an Ambulatory Assistive Device (Walker, Cane, Wheelchair, Crutches, etc.)? No PATIENT GENDER DATA: Female. status: : No status: NO. ALLERGIES: Reviewed and unchanged EXAM: CT -CONTRAST INDUCED NEPHROPATHY RISK FACTORS: Not applicable CREATININE: Creatinine Date Value Ref Range Status 09/13/2021 0.99 (H) 0.58 - 0.96 mg/dL Final 05/24/2021 1.18 (H) 0.58 - 0.96 mg/dL Final 04/03/2021 0.98 (H) 0.58 - 0.96 mg/dL Final eGFR-All Other Races Date Value Ref Range Status 09/13/2021 58 . Final Comment: eGFR (Estimated GFR) Units of measure: mL/min/1.73 meters squared eGFR is derived from the reexpressed MDRD Study equation using the following parameters: serum creatinine, age, gender and race. The creatinine assay has been calibrated to be traceable to IDMS. An eGFR <60 mL/min/1.73m2 for >3 months is consistent with chronic kidney disease. Refer to KDOQI guidelines for clinical interpretation. In patients with unstable renal function, e.g. those with acute kidney injury, the eGFR may not accurately reflect actual GFR. Note: On 09/22/2021, the eGFR calculation will be updated to the NKF-ASN Task Force recommended 2020 CKD-EPI creatinine equation which does not include a race variable. For more information or to access a 2020 CKD-EPI calculator, visit the National Kidney [employer] website at kidney.org/professionals/kdoqi/gfr_calculator. eGFR- Date Value Ref Range Status 09/13/2021 >60 Final P.O.C.T. RESULTS: POC done: Yes, See Lab Tab January 15, 2022 TREATMENT: N/A IV SITE: Ambulatory: A peripheral IV was started in the Right antecubital site with a Angio cath: 20 gauge. IV SITE APPEARANCE: Clean,Dry and Intact SIGNATURE: Maria E Baires RN PATIENT NAME: Kennedy Paulson DATE: January 15, 2022 TIME: 9:07 AM * Lacy Bloom, RT(R) - 01/15/2022 9:00 AM EDT RADIOLOGY SERVICE PROGRESS NOTE SERVICE DATE: 01/15/2022 SERVICE TIME: 9:39 AM PATIENT IDENTITY VERIFICATION COMPLETED USING TWO (2) STANDARD IDENTIFIERS: Name and Date of confirmed by patient verbally POST EXAM PIV STATUS: Discontinued PROCEDURE TYPE: NM INJECT: PET/CT WHOLE BODY SCAN. 7.2 mCi F18 FDG. No other medications given.. ADMINISTRATION TIME: 906 PATIENT DISCHARGED TO: Ambulatory patient, left [place] department area. A Diagnostic radioactive procedure has taken place, with no further precautions necessary other than routine body substance precautions. More information regarding radiation safety can be found usingthis link: [email or web address] 20Diagnostic%20Nuclear%20Medicine%[email or web address] SIGNATURE: RT Blake(R) PATIENT NAME: Kennedy Paulson DATE: January 15, 2022 TIME: 9:39 AM PAGER/CONTACT #: documented in this encounterTuscarawas Hospital02-17-2022 History of Present illness Narrative* Lacy Bloom RT(R) - 09/13/2021 9:00 AM EST RADIOLOGY SERVICE PROGRESS NOTE SERVICE DATE: 09/13/2021 SERVICE TIME: 9:42 AM PATIENT IDENTITY VERIFICATION COMPLETED USING TWO (2) STANDARD IDENTIFIERS: Name and Date of confirmed by patient verbally FALL SCREENING: Has the patient had 2 falls in the last year or 1 fall with injury or currently using an Ambulatory Assistive Device (Walker, Cane, Wheelchair, Crutches, etc.)? No PATIENT GENDER DATA: .female ALLERGIES: Reviewed and unchanged MEDICATIONS REVIEWED: Not applicable PATIENT RELEVANT IMPLANT DATA REVIEWED: Not Applicable CREATININE: Creatinine Date Value Ref Range Status 09/13/2021 0.99 (H) 0.58 - 0.96 mg/dL Final 05/24/2021 1.18 (H) 0.58 - 0.96 mg/dL Final 04/03/2021 0.98 (H) 0.58 - 0.96 mg/dL Final eGFR-All Other Races Date Value Ref Range Status 09/13/2021 58 . Final Comment: eGFR (Estimated GFR) Units of measure: mL/min/1.73 meters squared eGFR is derived from the reexpressed MDRD Study equation using the following parameters: serum creatinine, age, gender and race. The creatinine assay has been calibrated to be traceable to IDMS. An eGFR <60 mL/min/1.73m2 for >3 months is consistent with chronic kidney disease. Refer to KDOQI guidelines for clinical interpretation. In patients with unstable renal function, e.g. those with acute kidney injury, the eGFR may not accurately reflect actual GFR. Note: On 09/22/2021, the eGFR calculation will be updated to the NKF-ASN Task Force recommended 2020 CKD-EPI creatinine equation which does not include a race variable. For more information or to access a 2020 CKD-EPI calculator, visit the National Kidney Foundation website at kidney.org/professionals/kdoqi/gfr_calculator. eGFR- Date Value Ref Range Status 09/13/2021 >60 Final P.O.C.T. RESULTS: POC done: Yes, See Lab Tab September 13, [address] PERFORMED: No IV SITE: Ambulatory: A peripheral IV was started in the Right antecubital site with a Angio cath: 20 gauge. POST EXAM PIV STATUS: Discontinued PROCEDURE TYPE: NM INJECT: PET/CT WHOLE BODY SCAN. 7.1 mCi F18 FDG. No other medications given.. ADMINISTRATION TIME: 08 PATIENT DISCHARGED TO: Ambulatory patient, left [place] department area. A Diagnostic radioactive procedure has taken place, with no further precautions necessary other than routine body substance precautions. More information regarding radiation safety can be found usingSpineForms link: [email or web address]%20Nuclear%[email or web address] SIGNATURE: HUSSEIN Lozano) PATIENT NAME: Kennedy Paulson DATE: September 13, 2021 TIME: 9:42 AM PAGER/CONTACT #: documented in this encounterTuscaraw[facility]10-08-2021 History of Present illness Narrative* [place]ry [place] RT(R) - 05/04/2021 3:15 PM EDT Radiology Service Progress Note PATIENT NAME: Kennedy Paulson DATE OF SERVICE: May 04, 2021 TIME: 3:25 PM PATIENT IDENTITY VERIFICATION COMPLETED USING TWO (2) IDENTIFIERS: Name and Date of confirmedby patient verbally. FALL SCREENING: Has the patient had 2 falls in the last year or 1 fall with injury or currently using an Ambulatory Assistive Device (Walker, Cane, Wheelchair, Crutches, etc.)? No PATIENT GENDER DATA: Female. status: : No status: NO. PATIENT RELEVANT IMPLANT DATA REVIEWED: Not Applicable RADIOLOGY DEPARTMENT: General X-ray: Exam(s) Completed: Chest X-Ray PERIPHERAL IV DATA: Not applicable SIGNED BY: RT Jorge(R) May 04, 2021 3:25 PM [facility] note No data available for this section [facility] evaluation note* Diagnosis Malignant melanoma of torso excluding breast (HCC) documented in this encounter [facility] note* Diagnosis Dehydration- Primary documented in this encounter [facility] noteNo assessment information availableLutheran [facility] Work Phone: Evaluation note* Diagnosis Malignant melanoma of skin (HCC)- Primary Melanoma of skin, site unspecified Metastatic melanoma (HCC) Melanoma of skin, site unspecified documented in this encounter [facility] note* Diagnosis Malignant melanoma of torso excluding breast (HCC) documented in this encounter [facility] note* Diagnosis Malignant melanoma of torso excluding breast (HCC) documented in this encounter [facility] note* Diagnosis Malignant melanoma of torso excluding breast (HCC) documented in this encounter [facility] note* Diagnosis Malignant melanoma of skin (HCC)- Primary Melanoma of skin, site unspecified Malignant melanoma of torso excluding breast (HCC) Metastatic melanoma (HCC) Melanoma of skin, site unspecified Chemotherapy-induced nausea Nausea alone Dehydration documented in this encounter [facility] note* Diagnosis Metastatic melanoma (HCC)- Primary Melanoma of skin, site unspecified Malignant melanoma of skin (HCC) Melanoma of skin, site unspecified Malignant melanoma of torso excluding breast (HCC) Malignant melanoma of skin of breast (HCC) Malignant melanoma of skin of trunk, except scrotum documented in this encounter [facility] note* Diagnosis Malignant neoplasm of female breast (HCC) Malignant neoplasm of breast (female), unspecified site Nicotine use disorder, F17.2 Tobacco use disorder Preop examination- Primary Preoperative examination, unspecified Metastatic melanoma (HCC) Melanoma of skin, site unspecified Tobacco use Tobacco use disorder Malignant neoplasm of female breast, unspecified estrogen receptor status, unspecified laterality, unspecified site of breast (HCC) Port-A-Cath in place Other postprocedural status Malignant melanoma of torso excluding breast (HCC) [facility]* Diagnosis Malignant neoplasm of female breast (HCC) Malignant neoplasm of breast (female), unspecified site Nicotine use disorder, F17.2 Tobacco use disorder Preop examination- Primary Preoperative examination, unspecified Metastatic melanoma (HCC) Melanoma of skin, site unspecified Tobacco use Tobacco use disorder Malignant neoplasm of female breast, unspecified estrogen receptor status, unspecified laterality, unspecified site of breast (HCC) Port-A-Cath in place Other postprocedural status Metastatic melanoma (HCC) Melanoma of skin, site unspecified Malignant melanoma of skin of breast (HCC) Malignant melanoma of skin of trunk, except scrotum documented in this encounter [facility] note* Diagnosis Malignant neoplasm of female breast (HCC) Malignant neoplasm of breast (female), unspecified site Nicotine use disorder, F17.2 Tobacco use disorder Preop examination- Primary Preoperative examination, unspecified Metastatic melanoma (HCC) Melanoma of skin, site unspecified Tobacco use Tobacco use disorder Malignant neoplasm of female breast, unspecified estrogen receptor status, unspecified laterality, unspecified site of breast (HCC) Port-A-Cath in place Other postprocedural status Metastatic melanoma (HCC) Melanoma of skin, site unspecified Malignant melanoma of skin (HCC) Melanoma of skin, site unspecified Malignant melanoma of skin of breast (HCC) Malignant melanoma of skin of trunk, except scrotum [facility]* Diagnosis Malignant neoplasm of female breast (HCC) Malignant neoplasm of breast (female), unspecified site Nicotine use disorder, F17.2 Tobacco use disorder Preop examination- Primary Preoperative examination, unspecified Metastatic melanoma (HCC) Melanoma of skin, site unspecified Tobacco use Tobacco use disorder Malignant neoplasm of female breast, unspecified estrogen receptor status, unspecified laterality, unspecified site of breast (HCC) Port-A-Cath in place Other postprocedural status Malignant melanoma of skin (HCC) Melanoma of skin, site unspecified [facility]* Diagnosis Malignant neoplasm of female breast (HCC) Malignant neoplasm of breast (female), unspecified site Nicotine use disorder, F17.2 Tobacco use disorder Preop examination- Primary Preoperative examination, unspecified Metastatic melanoma (HCC) Melanoma of skin, site unspecified Tobacco use Tobacco use disorder Malignant neoplasm of female breast, unspecified estrogen receptor status, unspecified laterality, unspecified site of breast (HCC) Port-A-Cath in place Other postprocedural status Malignant melanoma of torso excluding breast (HCC) Malignant melanoma of skin (HCC) Melanoma of skin, site unspecified [facility]* Diagnosis Malignant neoplasm of female breast (HCC) Malignant neoplasm of breast (female), unspecified site Nicotine use disorder, F17.2 Tobacco use disorder Preop examination- Primary Preoperative examination, unspecified Metastatic melanoma (HCC) Melanoma of skin, site unspecified Tobacco use Tobacco use disorder Malignant neoplasm of female breast, unspecified estrogen receptor status, unspecified laterality, unspecified site of breast (HCC) Port-A-Cath in place Other postprocedural status Malignant melanoma of skin of breast (HCC)- Primary Malignant melanoma of skin of trunk, except scrotum Metastatic melanoma (HCC) Melanoma of skin, site unspecified Malignant melanoma of torso excluding breast (HCC) [facility]* Diagnosis Malignant neoplasm of female breast (HCC) Malignant neoplasm of breast (female), unspecified site Nicotine use disorder, F17.2 Tobacco use disorder Preop examination- Primary Preoperative examination, unspecified Metastatic melanoma (HCC) Melanoma of skin, site unspecified Tobacco use Tobacco use disorder Malignant neoplasm of female breast, unspecified estrogen receptor status, unspecified laterality, unspecified site of breast (HCC) Port-A-Cath in place Other postprocedural status Malignant melanoma of skin (HCC) Melanoma of skin, site unspecified [facility]* Diagnosis Metastatic melanoma (HCC)- Primary Melanoma of skin, site unspecified Malignant neoplasm of female breast (HCC) Malignant neoplasm of breast (female), unspecified site Nicotine use disorder, F17.2 Tobacco use disorder Preop examination- Primary Preoperative examination, unspecified Metastatic melanoma (HCC) Melanoma of skin, site unspecified Tobacco use Tobacco use disorder Malignant neoplasm of female breast, unspecified estrogen receptor status, unspecified laterality, unspecified site of breast (HCC) Port-A-Cath in place Other postprocedural status Malignant melanoma of skin (HCC) Melanoma of skin, site unspecified Metastatic melanoma (HCC) Melanoma of skin, site unspecified Malignant melanoma of torso excluding breast (HCC) [facility]* Diagnosis Metastatic melanoma (HCC)- Primary Melanoma of skin, site unspecified Malignant neoplasm of female breast (HCC) Malignant neoplasm of breast (female), unspecified site Nicotine use disorder, F17.2 Tobacco use disorder Preop examination- Primary Preoperative examination, unspecified Metastatic melanoma (HCC) Melanoma of skin, site unspecified Tobacco use Tobacco use disorder Malignant neoplasm of female breast, unspecified estrogen receptor status, unspecified laterality, unspecified site of breast (HCC) Port-A-Cath in place Other postprocedural status Malignant melanoma of skin (HCC) Melanoma of skin, site unspecified [facility]* Diagnosis Metastatic melanoma (HCC)- Primary Melanoma of skin, site unspecified Malignant neoplasm of female breast (HCC) Malignant neoplasm of breast (female), unspecified site Nicotine use disorder, F17.2 Tobacco use disorder Preop examination- Primary Preoperative examination, unspecified Metastatic melanoma (HCC) Melanoma of skin, site unspecified Tobacco use Tobacco use disorder Malignant neoplasm of female breast, unspecified estrogen receptor status, unspecified laterality, unspecified site of breast (HCC) Port-A-Cath in place Other postprocedural status Malignant melanoma of skin (HCC) Melanoma of skin, site unspecified Metastatic melanoma (HCC) Melanoma of skin, site unspecified Malignant melanoma of torso excluding breast (HCC) [facility]* Diagnosis Metastatic melanoma (HCC)- Primary Melanoma of skin, site unspecified Malignant neoplasm of female breast (HCC) Malignant neoplasm of breast (female), unspecified site Nicotine use disorder, F17.2 Tobacco use disorder Preop examination- Primary Preoperative examination, unspecified Metastatic melanoma (HCC) Melanoma of skin, site unspecified Tobacco use Tobacco use disorder Malignant neoplasm of female breast, unspecified estrogen receptor status, unspecified laterality, unspecified site of breast (HCC) Port-A-Cath in place Other postprocedural status Malignant melanoma of skin (HCC) Melanoma of skin, site unspecified Malignant melanoma of torso excluding breast (HCC) Metastatic melanoma (HCC) Melanoma of skin, site unspecified [facility] Diagnosis Preop examination- Primary Preoperative examination, unspecified Metastatic melanoma (HCC) Melanoma of skin, site unspecified Tobacco use Tobacco use disorder Malignant neoplasm of female breast, unspecified estrogen receptor status, unspecified laterality, unspecified site of breast (HCC) Port-A-Cath in place Other postprocedural status Preop examination Preoperative examination, unspecified Metastatic melanoma (HCC) Melanoma of skin, site unspecified documented in this encounter [facility] general Narrative - Reported* Type Description Date Medical History melanoma Surgical History excision melanoma chest 2014 Surgical History tumor Surgical History left mastectomy Surgical History left mastectomy axil promise lymph node dissection, port a cath insertion 2016 Surgical History breast biopsy 2016 Surgical History lymph node resection Surgical History biopsy, back Surgical History right axillary lymph node disse ction 2015 Surgical History Excision mass from spine 2019 Hospitalization History childbirth Hospitalization History see surgical hx Formerly [facility] [place] Other Progress note No data available for this section [facility] reason for referral (narrative)* Diagnostic Procedure Only (Routine) - Authorized Specialty Diagnoses / Procedures Referred By Jordan huitron Referred To Contact MOLECULAR & FUNCTIONAL IMAGING Diagnoses Malignant melanoma of skin (HCC) Procedures NM PET/CT WHOLE BODY SUBSEQUENT PET IMAGING FOR CT ATTENUATION WHOLE BODY Thiago Quintanilla MD [address] [place] [address] [place] [address] Molecular & Functional Imaging [address] [place] [address] Referral ID Status Reason Start Date Expiration Date Visits Requested Visits Authorized [id number] Authorized Auto-Generat ed Referral 04/08/2023 12/19/2023 1 1 [facility] for referral (narrative)* Diagnostic Procedure Only (Routine) - Authorized Specialty Diagnoses / Procedures Referred By Contac tomy Referred To Contact MOLECULAR & FUNCTIONAL IMAGING Diagnoses Malignant melanoma of skin (HCC) Procedures NM PET/CT WHOLE BODY SUBSEQUENT PET IMAGING FOR CT ATTENUATION WHOLE BODY Thiago Quintanilla MD [address] [place] [address] [place] [address] Molecular & Functional Imaging [address] [id number] Referral ID Status Reason Start Date Expiration Date Visits Requested Visits Authorized [id number] Authorized Auto-Generat ed Referral 12/12/2023 09/20/2024 1 1 [facility] for referral (narrative)* Diagnostic Procedure Only (Routine) - Authorized Specialty Diagnoses / Procedures Referred By Contac t Referred To Contact BR IMAGING Diagnoses Metastatic melanoma (HCC) Malignant melanoma of skin of breast (HCC) Procedures [facility] RIGHT DIAGNOSTIC MAMMOGRAPHY COMPUTER-AIDED [facility] Thiago Quintanilla MD [address] [place] [address] [place] [address] [facility] [address] [place] [address] Referral ID Status Reason Start Date Expiration Date Visits Requested Visits Authorized [id number] Authorized Auto-Generat ed Referral 03/26/2024 01/17/2025 1 1 * Diagnostic Procedure Only (Routine) - Authorized Specialty Diagnoses / Procedures Referred By [facility] Referred To Contact MOLECULAR & FUNCTIONAL IMAGING Diagnoses Metastatic melanoma (HCC) Malignant melanoma of skin (HCC) Malignant melanoma of skin of breast (HCC) Procedures NM PET/CT WHOLE BODY SUBSEQUENT PET IMAGING FOR CT ATTENUATION WHOLE BODY Thiago Quintanilla MD [address] [place] [address] [place] [address] Molecular & Functional Imaging [address] [id number] Referral ID Status Reason Start Date Expiration Date Visits Requested Visits Authorized [id number] Authorized Auto-Generat ed Referral 03/26/2024 01/17/2025 1 1 [facility] for referral (narrative)* Diagnostic Procedure Only (Routine) - Closed Specialty Diagnoses / Procedures Referred By [facility] Referred To Contact MOLECULAR & FUNCTIONAL IMAGING Diagnoses Metastatic melanoma (HCC) Malignant melanoma of skin (HCC) Malignant melanoma of skin of breast (HCC) Procedures NM PET/CT WHOLE BODY SUBSEQUENT PET IMAGING FOR CT ATTENUATION WHOLE BODY Thiago Quintanilla MD [address] [place] [address] [place] [address] Molecular & Functional Imaging [address] [place] [address] Referral ID Status Reason Start Date Expiration Date V isits Requested Visits Authorized [id number] Closed Auto-Generate d Referral 03/26/2024 01/17/2025 1 1 [facility] for referral (narrative)* Diagnostic Procedure Only (Routine) - Closed Specialty Diagnoses / Procedures Referred By [facility] t Referred To Contact MOLECULAR & FUNCTIONAL IMAGING Diagnoses Malignant melanoma of skin (HCC) Procedures NM PET/CT WHOLE BODY SUBSEQUENT PET IMAGING FOR CT ATTENUATION WHOLE BODY Thiago Quintanilla MD [address] [place] [address] [place] [address] Molecular & Functional Imaging [address] [place] [address] Referral ID Status Reason Start Date Expiration Date V isits Requested Visits Authorized [id number] Closed Auto-Generate d Referral 12/12/2023 09/20/2024 1 1 [facility] for referral (narrative)* Diagnostic Procedure Only (Routine) - Closed Specialty Diagnoses / Procedures Referred By Cont[facility] t Referred To Contact MOLECULAR & FUNCTIONAL IMAGING Diagnoses Malignant melanoma of torso excluding breast (HCC) Malignant melanoma of skin (HCC) Procedures NM PET/CT WHOLE BODY SUBSEQUENT PET IMAGING FOR CT ATTENUATION WHOLE BODY Thiago Quintanilla MD [address] [place] [address] [place] [address] Molecular & Functional Imaging [address] [place] [address] Referral ID Status Reason Start Date Expiration Date V isits Requested Visits Authorized [id number] Closed Auto-Generate d Referral 08/06/2023 05/15/2024 1 1 [facility] for referral (narrative)* Diagnostic Procedure Only (Routine) - Authorized Specialty Diagnoses / Procedures Referred By [facility] Referred To Contact MOLECULAR & FUNCTIONAL IMAGING Diagnoses Metastatic melanoma (HCC) Malignant melanoma of skin of breast (HCC) Procedures NM PET/CT WHOLE BODY SUBSEQUENT PET IMAGING FOR CT ATTENUATION WHOLE BODY Thiago Quintanilla MD [address] [place] [address] [place] [address] Molecular & Functional Imaging [address] [place] [address] Referral ID Status Reason Start Date Expiration Date Visits Requested Visits Authorized [id number] Authorized Auto-Generat ed Referral 05/09/2025 1 1 [facility] for referral (narrative)* Diagnostic Procedure Only (Routine) - Closed Specialty Diagnoses / Procedures Referred By [facility] Referred To Contact MOLECULAR & FUNCTIONAL IMAGING Diagnoses Malignant melanoma of skin (HCC) Procedures NM PET/CT WHOLE BODY SUBSEQUENT PET IMAGING FOR CT ATTENUATION WHOLE BODY Thiago Quintanilla MD [address] [place] [address] [place] [address] Molecular & Functional Imaging [address] [place] [address] Referral ID Status Reason Start Date Expiration Date V isits Requested Visits Authorized [id number] Closed Auto-Generate d Referral 04/08/2023 12/19/2023 1 1 [facility] for referral (narrative)* Diagnostic Procedure Only (Routine) - Closed Specialty Diagnoses / Procedures Referred By [facility] Referred To Contact MOLECULAR & FUNCTIONAL IMAGING Diagnoses Malignant melanoma of skin (HCC) Procedures NM PET/CT WHOLE BODY SUBSEQUENT PET IMAGING FOR CT ATTENUATION WHOLE BODY Thiago Quintanilla MD [address] [place] [address] [place] [address] Molecular & Functional Imaging [address] [place] [address] Referral ID Status Reason Start Date Expiration Date V isits Requested Visits Authorized [id number] Closed Auto-Generate d Referral 10/03/2022 07/05/2023 1 1 [facility] for referral (narrative)* Diagnostic Procedure Only (Routine) - Closed Specialty Diagnoses / Procedures Referred By [facility] t Referred To Contact MOLECULAR & FUNCTIONAL IMAGING Diagnoses Malignant melanoma of skin (HCC) Procedures NM PET/CT WHOLE BODY SUBSEQUENT PET IMAGING FOR CT ATTENUATION WHOLE BODY Thiago Quintanilla MD [address] [facility] [place] [address] Molecular & Functional Imaging [address] [place] [address] Referral ID Status Reason Start Date Expiration Date V isits Requested Visits Authorized [id number] Closed Auto-Generate d Referral 05/25/2022 02/22/2023 1 1 [facility] for referral (narrative)* Diagnostic Procedure Only (Routine) - Closed Specialty Diagnoses / Procedures Referred By Cont[facility] t Referred To Contact MOLECULAR & FUNCTIONAL IMAGING Diagnoses Malignant melanoma of skin (HCC) Procedures NM PET/CT WHOLE BODY SUBSEQUENT PET IMAGING FOR CT ATTENUATION WHOLE BODY Thiago Quintanilla MD [address] [facility] [place] [address] Molecular & Functional Imaging [address] [place] [address] Referral ID Status Reason Start Date Expiration Date V isits Requested Visits Authorized [id number] Closed Auto-Generate d Referral 12/28/2021 10/27/2022 1 1 [facility] for referral (narrative)* Diagnostic Procedure Only (Routine) - Closed Specialty Diagnoses / Procedures Referred By Contac t Referred To Contact MOLECULAR & FUNCTIONAL IMAGING Diagnoses Malignant melanoma of skin (HCC) Malignant melanoma of torso excluding breast (HCC) Metastatic melanoma (HCC) Procedures NM PET/CT WHOLE BODY SUBSEQUENT PET IMAGING FOR CT ATTENUATION WHOLE BODY Thiago Quintanilla MD [address] [place] [address] [place] [address] Molecular & Functional Imaging [address] [place] [address] Referral ID Status Reason Start Date Expiration Date V isits Requested Visits Authorized [id number] Closed Auto-Generate d Referral 09/12/2021 10/12/2022 1 1 [facility] Advance Directives No Advanced Directives Records FoundDocuments on File Type Date Recorded Patient Calender Wind Up Helper Expl anation Advance Directive(s) 05/18/2021 7:43 PM Advance Directive(s) 04/25/2021 12:54 PM Advance Directive Response Recorded Date/ Time Advance Directives No November 11, 2 023 4:59pm Medications Administered Section Inactive Administered Medications - up to 3 most recent administrations Medication Order MAR Action Action Date Dose Rate Site NaCl 0.9% 1,000 mL INTRAVENOUS, at 999 mL/hr, Administer over 1 Hours, ONCE, 1 dose, On 06/24/22 at 1330 New Bag/Syringe/Bottle 06/24/2022 1:15 PM EST 999 mL/hr Summary Purpose Family History No Family History Records Found Relationship Condition Age at Onset Recorded Date/T henri father Heart disease Unknown History of stroke Unknown Unknown Not Specified Unknown Malignant neoplasm Unknown Chief Complaint and Reason for Visit Chief Complaint Headache, Fever, Fat igue Additional Source Comments Source Comments (unrecognize d section and content) In the event this informatio n is protected by the Federal Confidentiality of Alcohol and Drug Abuse Patient Records regulations: The Federal rules restrict any use of the information to criminally investigate or prosecute any alcohol or drug abuse patient.[facility] the event this information is protected by the Federal Confidentiality of Alcohol and Drug Abuse Patient Records regulations: The Federal rules restrict any use of the information to criminally investigate or prosecute any alcohol or drug abuse patient.[facility] the event this information is protected by the Federal Confidentiality of Alcohol and Drug Abuse Patient Records regulations: The Federal rules restrict any use of the information to criminally investigate or prosecute any alcohol or drug abuse patient.[facility] the event this information is protected by the Federal Confidentiality of Alcohol and Drug Abuse Patient Records regulations: The Federal rules restrict any use of the information to criminally investigate or prosecute any alcohol or drug abuse patient.[facility] the event this information is protected by the Federal Confidentiality of Alcohol and Drug Abuse Patient Records regulations: The Federal rules restrict any use of the information to criminally investigate or prosecute any alcohol or drug abuse patient.[facility] the event this information is protected by the Federal Confidentiality of Alcohol and Drug Abuse Patient Records regulations: The Federal rules restrict any use of the information to criminally investigate or prosecute any alcohol or drug abuse patient.[facility] the event this information is protected by the Federal Confidentiality of Alcohol and Drug Abuse Patient Records regulations: The Federal rules restrict any use of the information to criminally investigate or prosecute any alcohol or drug abuse patient.[facility] the event this information is protected by the Federal Confidentiality of Alcohol and Drug Abuse Patient Records regulations: The Federal rules restrict any use of the information to criminally investigate or prosecute any alcohol or drug abuse patient.[facility] the event this information is protected by the Federal Confidentiality of Alcohol and Drug Abuse Patient Records regulations: The Federal rules restrict any use of the information to criminally investigate or prosecute any alcohol or drug abuse patient.[facility] the event this information is protected by the Federal Confidentiality of Alcohol and Drug Abuse Patient Records regulations: The Federal rules restrict any use of the information to criminally investigate or prosecute any alcohol or drug abuse patient.[facility] the event this information is protected by the Federal Confidentiality of Alcohol and Drug Abuse Patient Records regulations: The Federal rules restrict any use of the information to criminally investigate or prosecute any alcohol or drug abuse patient.[facility] the event this information is protected by the Federal Confidentiality of Alcohol and Drug Abuse Patient Records regulations: The Federal rules restrict any use of the information to criminally investigate or prosecute any alcohol or drug abuse patient.[facility] the event this information is protected by the Federal Confidentiality of Alcohol and Drug Abuse Patient Records regulations: The Federal rules restrict any use of the information to criminally investigate or prosecute any alcohol or drug abuse patient.[facility] the event this information is protected by the Federal Confidentiality of Alcohol and Drug Abuse Patient Records regulations: The Federal rules restrict any use of the information to criminally investigate or prosecute any alcohol or drug abuse patient.[facility] the event this information is protected by the Federal Confidentiality of Alcohol and Drug Abuse Patient Records regulations: The Federal rules restrict any use of the information to criminally investigate or prosecute any alcohol or drug abuse patient.[facility] the event this information is protected by the Federal Confidentiality of Alcohol and Drug Abuse Patient Records regulations: The Federal rules restrict any use of the information to criminally investigate or prosecute any alcohol or drug abuse patient.[facility] the event this information is protected by the Federal Confidentiality of Alcohol and Drug Abuse Patient Records regulations: The Federal rules restrict any use of the information to criminally investigate or prosecute any alcohol or drug abuse patient.[facility] the event this information is protected by the Federal Confidentiality of Alcohol and Drug Abuse Patient Records regulations: The Federal rules restrict any use of the information to criminally investigate or prosecute any alcohol or drug abuse patient.[facility] the event this information is protected by the Federal Confidentiality of Alcohol and Drug Abuse Patient Records regulations: The Federal rules restrict any use of the information to criminally investigate or prosecute any alcohol or drug abuse patient.[facility]In the event this information is protected by the Federal Confidentiality of Alcohol and Drug Abuse Patient Records regulations: The Federal rules restrict any use of the information to criminally investigate or prosecute any alcohol or drug abuse patient.[facility] the event this information is protected by the Federal Confidentiality of Alcohol and Drug Abuse Patient Records regulations: The Federal rules restrict any use of the information to criminally investigate or prosecute any alcohol or drug abuse patient.[facility]In the event this information is protected by the Federal Confidentiality of Alcohol and Drug Abuse Patient Records regulations: The Federal rules restrict any use of the information to criminally investigate or prosecute any alcohol or drug abuse patient.[facility] the event this information is protected by the Federal Confidentiality of Alcohol and Drug Abuse Patient Records regulations: The Federal rules restrict any use of the information to criminally investigate or prosecute any alcohol or drug abuse patient.[facility] the event this information is protected by the Federal Confidentiality of Alcohol and Drug Abuse Patient Records regulations: The Federal rules restrict any use of the information to criminally investigate or prosecute any alcohol or drug abuse patient.[facility]In the event this information is protected by the Federal Confidentiality of Alcohol and Drug Abuse Patient Records regulations: The Federal rules restrict any use of the information to criminally investigate or prosecute any alcohol or drug abuse patient.[facility]In the event this information is protected by the Federal Confidentiality of Alcohol and Drug Abuse Patient Records regulations: The Federal rules restrict any use of the information to criminally investigate or prosecute any alcohol or drug abuse patient.[facility]In the event this information is protected by the Federal Confidentiality of Alcohol and Drug Abuse Patient Records regulations: The Federal rules restrict any use of the information to criminally investigate or prosecute any alcohol or drug abuse patient.[facility]In the event this information is protected by the Federal Confidentiality of Alcohol and Drug Abuse Patient Records regulations: The Federal rules restrict any use of the information to criminally investigate or prosecute any alcohol or drug abuse patient.[facility] HospitalIn the event this information is protected by the Federal Confidentiality of Alcohol and Drug Abuse Patient Records regulations: The Federal rules restrict any use of the information to criminally investigate or prosecute any alcohol or drug abuse patient.[facility] Reason for Visit (unrecogniz ed section and content) Reason Comments Care Coordination Skin changes, Itchin g, Burning Pain Reason Comments Care Coordination Emergency Room Call Back Reason Comments Refill Request Reason Comments Care Coordination Scan Results Reason Comments Results Reason Comments Melanoma 5 month follow up Reason Comments Melanoma Reason Comments Care Coordination Medication Question Reason Comments Care Coordination PET Results Reason Comments Malignant Melanoma Reason Comments Radiology Mammogram Specialty Diagnoses / Procedures Referred By Contac t Referred To Contact BR IMAGING Diagnoses Metastatic melanoma (HCC) Malignant melanoma of skin of breast (HCC) Procedures [facility] RIGHT DIAGNOSTIC MAMMOGRAPHY COMPUTER-AIDED DETCJ UNI Thiago Quintanilla MD [address] [place] [address] [place] [address] Br Imaging [address] [place] [address] Referral ID Status Reason Start Date Expiration Date V isits Requested Visits Authorized [id number] Closed Auto-Generate d Referral 03/26/2024 01/17/2025 1 1 Reason Comments Radiology NM Specialty Diagnoses / Procedures Referred By [facility] Referred To Contact MOLECULAR & FUNCTIONAL IMAGING Diagnoses Metastatic melanoma (HCC) Malignant melanoma of skin (HCC) Malignant melanoma of skin of breast (HCC) Procedures NM PET/CT WHOLE BODY SUBSEQUENT PET IMAGING FOR CT ATTENUATION WHOLE BODY Thiago Quintanilla MD [address] [place] [address] [place] [address] Molecular & Functional Imaging [address] [place] [address] Referral ID Status Reason Start Date Expiration Date V isits Requested Visits Authorized [id number] Closed Auto-Generate d Referral 03/26/2024 01/17/2025 1 1 Specialty Diagnoses / Procedures Referred By Cont[facility] t Referred To Contact MOLECULAR & FUNCTIONAL IMAGING Diagnoses Malignant melanoma of skin (HCC) Procedures NM PET/CT WHOLE BODY SUBSEQUENT PET IMAGING FOR CT ATTENUATION WHOLE BODY Thiago Quintanilla MD [address] [place] [address] [place] [address] Molecular & Functional Imaging [address] [place] [address] Referral ID Status Reason Start Date Expiration Date V isits Requested Visits Authorized [id number] Closed Auto-Generate d Referral 12/12/2023 09/20/2024 1 1 Specialty Diagnoses / Procedures Referred By Cont[facility] t Referred To Contact MOLECULAR & FUNCTIONAL IMAGING Diagnoses Malignant melanoma of torso excluding breast (HCC) Malignant melanoma of skin (HCC) Procedures NM PET/CT WHOLE BODY SUBSEQUENT PET IMAGING FOR CT ATTENUATION WHOLE BODY Thiago Quintanilla MD [address] [place] [address] [place] [address] Molecular & Functional Imaging [address] [place] [address] Referral ID Status Reason Start Date Expiration Date V isits Requested Visits Authorized [id number] Closed Auto-Generate d Referral 08/06/2023 05/15/2024 1 1 Referral ID Status Reason Start Date Expiration Date V isits Requested Visits Authorized [id number] Closed Auto-Generate d Referral 04/08/2023 12/19/2023 1 1 Specialty Diagnoses / Procedures Referred By Contac t Referred To Contact MOLECULAR & FUNCTIONAL IMAGING Diagnoses Malignant melanoma of skin (HCC) Metastatic melanoma (HCC) Malignant melanoma of torso excluding breast (HCC) Procedures NM PET/CT SKULL-THIGH SUBSEQUENT TUMOR IMAGING PET W/CONC CT SKULL-THIGH Thiago Quintanilla MD [address] [place] [address] [place] [address] Molecular & Functional Imaging [address] [place] [address] Referral ID Status Reason Start Date Expiration Date V isits Requested Visits Authorized [id number] Closed Auto-Generate d Referral 05/24/2021 06/23/2022 1 1 Referral ID Status Reason Start Date Expiration Date V isits Requested Visits Authorized [id number] Closed Auto-Generate d Referral 05/25/2022 02/22/2023 1 1 Referral ID Status Reason Start Date Expiration Date V isits Requested Visits Authorized [id number] Closed Auto-Generate d Referral 12/28/2021 10/27/2022 1 1 Specialty Diagnoses / Procedures Referred By Contac t Referred To Contact MOLECULAR & FUNCTIONAL IMAGING Diagnoses Malignant melanoma of skin (HCC) Malignant melanoma of torso excluding breast (HCC) Metastatic melanoma (HCC) Procedures NM PET/CT WHOLE BODY SUBSEQUENT PET IMAGING FOR CT ATTENUATION WHOLE BODY Thiago Quintanilla MD [address] [place] [address] [place] [address] Molecular & Functional Imaging [address] [place] [address] Referral ID Status Reason Start Date Expiration Date V isits Requested Visits Authorized [id number] Closed Auto-Generate d Referral 09/12/2021 10/12/2022 1 1 Reason Comments Radio Gen RMP Reason Onset Date Comments Population Health Navigation Outreach 06/14/2024 ACO No PCP 11. - SharePoint Worksheet - Multiple Locations Care Teams (unrecognized sec tion and content) Rubber Mold Maker Relationship Specialty Start Date End Date Carly Jackson, BOILERMAKER [employer]IP.[employer] [address] [facility] [place] [place] [address] Nurse Practitioner Hematology/Oncology 08/10/19 Thiago Quintanilla MD [address] [facility] [place] [address] Physician Hematology/Oncology 10/05/19 Lacy Peña, RN [address] [place] [address] [place] [address] Specialty Claims Attorney Hematology/Oncology 12/02/19 Rubber Mold Maker Relationship Specialty Start Date End Date Carly Jackson, BOILERMAKER [employer].INSPECTOR [employer] [address] [place] [address] [place] [address] Nurse Practitioner Hematology/Oncology 08/10/19 Thiago Quintanilla MD [address] [facility] [place] [address] Physician Hematology/Oncology 10/05/19 Lacy Peña, MICKI [address] [facility] [place] [address] Specialty Claims Attorney Hematology/Oncology 12/02/19 Rubber Mold Maker Relationship Specialty Start Date End Date Carly Jackson, BOILERMAKER [employer].INSPECTOR [employer] [address] [facility] [place] [address] Nurse Practitioner Hematology/Oncology 08/10/19 Thiago Quintanilla MD [address] [facility] [place] [address] Physician Hematology/Oncology 10/05/19 Lacy Peña, MICKI [address] [facility] [place] [address] Specialty Claims Attorney Hematology/Oncology 12/02/19 Rubber Mold Maker Relationship Specialty Start Date End Date Carly Jackson, BOILERMAKER [employer] [address] [facility] [place] [address] Nurse Practitioner Hematology/Oncology 08/10/19 Thiago Quintanilla MD [address] [facility] [place] [address] Physician Hematology/Oncology 10/05/19 Lacy Peña, RN [address] [facility] [place] [address] Specialty Claims Attorney Hematology/Oncology 12/02/19 Team Status: Inactive Member Role Status Dates SHUBHAM Baer Attending Provider Active Rubber Mold Maker Relationship Specialty Start Date End Date Craly Jackson, BOILERMAKER SHIP.INSPECTOR [employer] [address] [facility] [place] [address] Nurse Practitioner Hematology/Oncology 08/10/19 Thiago Quintanilla MD [address] [facility] [place] [address] Physician Hematology/Oncology 10/05/19 Lacy Peña, MICKI [address] [facility] [place] [address] Specialty Claims Attorney Hematology/Oncology 12/02/19 Rubber Mold Maker Relationship Specialty Start Date End Date Carly Jackson, BOILERMAKER [employer].INSPECTOR [employer] [address] [facility] [place] [address] Nurse Practitioner Hematology/Oncology 08/10/19 Thiago Quintanilla MD [address] [facility] [place] [address] Physician Hematology/Oncology 10/05/19 Lacy Peña, MICKI [address] [facility] [place] [address] Specialty Claims Attorney Hematology/Oncology 12/02/19 Rubber Mold Maker Relationship Specialty Start Date End Date Carly Jackson, BOILERMAKER [employer].INSPECTOR [employer] [address] [facility] [place] [address] Nurse Practitioner Hematology/Oncology 08/10/19 Thiago Quintanilla MD [address] [facility] [place] [address] Physician Hematology/Oncology 10/05/19 Lacy Peña, MICKI [address] [facility] [place] [address] Specialty Claims Attorney Hematology/Oncology 12/02/19 Rubber Mold Maker Relationship Specialty Start Date End Date Carly Jakcson, BOILERMAKER SHIP.INSPECTOR HANDBAG FRAMES [address] [facility] [place] [address] Nurse Practitioner Hematology/Oncology 08/10/19 Thiago Quintanilla MD [address] [place] [address] Physician Hematology/Oncology 10/05/19 Lacy Peña, MICKI [address] [place] [address] Specialty Claims Attorney Hematology/Oncology 12/02/19 Team Status: Active Member Role Status Dates PHYSICIAN NO FAMILY Primary Care Provider Active Team Status: Inactive Member Role Status Dates PHYSICIAN NO FAMILY Primary Care Provider Active Start: October 27, 2023 End: October 27, 2023 Aubrie Ramos NP-C Attending Provider Active S tart: October 27, 2023 End: October 27, 2023 Rubber Mold Maker Relationship Specialty Start Date End Date Carly Jackson, BOILERMAKER SHIP.INSPECTOR HANDBAG FRAMES [address] [facility] [place] [address] Nurse Practitioner Hematology/Oncology 08/10/19 Thiago Quintanilla MD [address] [place] [address] Physician Hematology/Oncology 10/05/19 Lacy Peña, MICKI [address] [facility] [place] [address] Specialty Claims Attorney Hematology/Oncology 12/02/19 Rubber Mold Maker Relationship Specialty Start Date End Date Carly Jackson, BOILERMAKER SHIP.INSPECTOR HANDBAG FRAMES [address] [place] [address] Nurse Practitioner Hematology/Oncology 08/10/19 Thiago Quintanilla MD [address] [place] [address] Physician Hematology/Oncology 10/05/19 Lacy Peña, RN [address] [place] [address] Specialty Claims Attorney Hematology/Oncology 12/02/19 Rubber Mold Maker Relationship Specialty Start Date End Date Carly Jackson, BOILERMAKER SHIP.INSPECTOR HANDBAG FRAMES [address] [place] [address] Nurse Practitioner Hematology/Oncology 08/10/19 Thiago Quintanilla MD [address] [place] [address] Physician Hematology/Oncology 10/05/19 Lacy Peña, MICKI [address] [place] [address] Specialty Claims Attorney Hematology/Oncology 12/02/19 Rubber Mold Maker Relationship Specialty Start Date End Date Carly Jackson, BOILERMAKER SHIP.INSPECTOR HANDBAG FRAMES [address] [place] [address] Nurse Practitioner Hematology/Oncology 08/10/19 Thiago Quintanilla MD [address] [place] [address] Physician Hematology/Oncology 10/05/19 Lacy Peña, RN [address] [place] [address] Specialty Claims Attorney Hematology/Oncology 12/02/19 Rubber Mold Maker Relationship Specialty Start Date End Date Carly Jackson, BOILERMAKER SHIP.INSPECTOR [employer]BAG [employer]AMES [address] [place] [address] Nurse Practitioner Hematology/Oncology 08/10/19 Thiago Quintanilla MD [address] [place] [address] Physician Hematology/Oncology 10/05/19 Lacy Peña, MICKI [address] [place] [address] Specialty Claims Attorney Hematology/Oncology 12/02/19 Rubber Mold Maker Relationship Specialty Start Date End Date Carly Jackson, BOILERMAKER SHIP.INSPECTOR HANDBAG FRAMES [address] [place] [address] Nurse Practitioner Hematology/Oncology 08/10/19 Thiago Quintanilla MD [address] [place] [address] Physician Hematology/Oncology 10/05/19 Lacy Peña, MICKI [address] [place] [address] Specialty Claims Attorney Hematology/Oncology 12/02/19 Rubber Mold Maker Relationship Specialty Start Date End Date Carly Jackson, BOILERMAKER SHIP.INSPECTOR HANDBAG FRAMES [address] [place] [address] Nurse Practitioner Hematology/Oncology 08/10/19 Thiago Quintanilla MD [address] [place] [address] Physician Hematology/Oncology 10/05/19 Lacy Peña, MICKI [address] [place] [address] Specialty Claims Attorney Hematology/Oncology 12/02/19 Rubber Mold Maker Relationship Specialty Start Date End Date Carly Jackson, BOILERMAKER SHIP.INSPECTOR HANDBAG FRAMES [address] [place] [address] Nurse Practitioner Hematology/Oncology 08/10/19 Thiago Quintanilla MD [address] [place] [address] Physician Hematology/Oncology 10/05/19 Lacy Peña, MICKI [address] [place] [address] Specialty Claims Attorney Hematology/Oncology 12/02/19 Rubber Mold Maker Relationship Specialty Start Date End Date Carly Jackson, BOILERMAKER SHIP.INSPECTOR HANDBAG FRAMES [address] [facility] [place] [address] Nurse Practitioner Hematology/Oncology 08/10/19 Thiago Quintanilla MD [address] [facility] [place] [address] Physician Hematology/Oncology 10/05/19 Lacy Peña, MICKI [address] [place] [address] Specialty Claims Attorney Hematology/Oncology 12/02/19 Rubber Mold Maker Relationship Specialty Start Date End Date Carly Jackson, BOILERMAKER SHIP.INSPECTOR HANDBAG FRAMES [address] [facility] [place] [address] Nurse Practitioner Hematology/Oncology 08/10/19 Thiago Quintanilla MD [address] [facility] [place] [address] Physician Hematology/Oncology 10/05/19 Lacy Peña, RN [address] [place] [address] Specialty Claims Attorney Hematology/Oncology 12/02/19 Rubber Mold Maker Relationship Specialty Start Date End Date Carly Jackson, BOILERMAKER SHIP.INSPECTOR HANDBAG FRAMES [address] [place] [address] Nurse Practitioner Hematology/Oncology 08/10/19 Thiago Quintanilla MD [address] [place] [address] Physician Hematology/Oncology 10/05/19 Lacy Peña, MICKI [address] [place] [address] Specialty Claims Attorney Hematology/Oncology 12/02/19 Rubber Mold Maker Relationship Specialty Start Date End Date Carly Jackson, BOILERMAKER SHIP.INSPECTOR HANDBAG FRAMES [address] [place] [address] Nurse Practitioner Hematology/Oncology 08/10/19 Thiago Quintanilla MD [address] [place] [address] Physician Hematology/Oncology 10/05/19 Lacy Peña, MICKI [address] [place] [address] Specialty Claims Attorney Hematology/Oncology 12/02/19 Rubber Mold Maker Relationship Specialty Start Date End Date Pcp, No, BOILERMAKER SHIP PCP - General 04/25/21 11/24/21 Carly Jackson, BOILERMAKER SHIP.INSPECTOR HANDBAG FRAMES [address] [place] [address] Nurse Practitioner Hematology/Oncology 08/10/19 Thiago Quintanilla MD [address] [facility] [place] [address] Physician Hematology/Oncology 10/05/19 Lacy Peña, RN [address] [facility] [place] [address] Specialty Claims Attorney Hematology/Oncology 12/02/19 Rubber Mold Maker Relationship Specialty Start Date End Date Pcp, Flor, BOILERMAKER SHIP PCP - General 04/25/21 11/24/21 Carly Jackson, BOILERMAKER SHIP.INSPECTOR HANDBAG FRAMES [address] [place] [address] Nurse Practitioner Hematology/Oncology 08/10/19 Thiago Quintanilla MD [address] [place] [address] Physician Hematology/Oncology 10/05/19 Lacy Peña RN [address] [facility] [place] [address] Specialty Claims Attorney Hematology/Oncology 12/02/19 Rubber Mold Maker Relationship Specialty Start Date End Date Carly Jackson, BOILERMAKER SHIP.INSPECTOR HANDBAG FRAMES [address] [place] [address] Nurse Practitioner Hematology/Oncology 08/10/19 Thiago Quintanilla MD [address] [place] [address] Physician Hematology/Oncology 10/05/19 Lacy Peña, RN [address] [facility] [place] [address] Specialty Claims Attorney Hematology/Oncology 12/02/19 Goals (unrecognized section and content) Goals may be documented in a n alternate section INFORMATION SOURCE (unrecogn ized section and content) DATE CREATED AUTHOR 11/16/2022 [facility] DATE CREATED AUTHOR AUTHOR'S ORGANIZ ATION 12/04/2022 [facility] DATE CREATED AUTHOR AUTHOR'S ORGANIZ ATION 01/04/2023 [facility] DATE CREATED AUTHOR AUTHOR'S ORGANIZ ATION 03/31/2024 [facility] DATE CREATED AUTHOR AUTHOR'S ORGANIZ ATION 06/16/2024 [facility] FOR RECORDS PERTAINING TO PATIENTS WHO ARE OR HAVE BEEN ENROLLED IN A CHEMICAL DEPENDENCY/SUBSTANCEABUSE PROGRAM, SOME INFORMATION MAY BE OMITTED. This clinical summary was aggregated from multiple sources. Caution should be exercised in using it in the provision of clinical care. This summary normalizes information from multiple sources, and as a consequence, information in this document may materially change the coding, format and clinical context of patient data. In addition, data may be omitted in some cases. CLINICAL DECISIONS SHOULD BE BASED ON THE PRIMARY CLINICAL RECORDS. [employer] provides no warranty or guarantee of the accuracy or completeness of information in this document.
--- NOTE | 2024-07-09 14:51 | ED.GENADUL1 ---
HPI HPI - General Adult General Chief complaint: Skin/Abscess/Foreign Body Stated complaint: RESIDENT CARE DIRECTOR REMOVAL Time Seen by Provider: 07/09/24 14:27 Source: patient Mode of arrival: walk-in History of Present Illness HPI narrative: Patient is a 59-year-old female who returns to the emergency department for removal of nasal packing. She was seen in this emergency department yesterday for epistaxis from the right nostril. Rhino Rocket was placed. She has had no continued bleeding although she has noticed bloody mucus from the nostril. No other focal medical complaints at this time Related Data Home Medications ?Medication ?Instructions ?Recorded ?Confirmed cobimetinib 20 mg tablet (Cotellic) 60 mg PO Q24H 07/08/24 07/08/24 vemurafenib 240 mg tablet 1,200 mg PO Q12H 07/08/24 07/08/24 (Zelboraf) Previous Rx's ?Medication ?Instructions ?Recorded amlodipine 10 mg tablet 10 mg PO DAILY #20 tabs 07/08/24 blood pressure monitor #1 ea 07/08/24 cephalexin 500 mg capsule 500 mg PO BID #10 caps 07/08/24 Allergies Allergy/AdvReac Type Severity Reaction Status Date / Time No Known Drug Allergies Allergy Verified 07/08/24 11:26 Opioid HPI Opioid Management Most Recent Opioid Data: No Data to Display Review of Systems ROS Constitutional Denies: fever or chills Ears, nose, mouth, and throat Denies: throat pain or nasal congestion Respiratory Denies: shortness of breath or cough Gastrointestinal Denies: nausea or vomiting Integumentary/Breast Denies: rash Neurological Denies: numbness in extremities or weakness in extremities Hematologic/Lymphatic Reports: easy bruising and easy bleeding PFSH PFSH Social History Little interest or pleasure in doing things: not at all Feeling down, depressed, or hopeless: not at all Exam Narrative Exam Narrative: Gen.: Awake, alert, in no distress Head: Normocephalic, atraumatic ENT: Moist mucous membranes, Rhino Rocket in place to the right nostril with no active bleeding Respiratory: No respiratory distress Extremities: Moves extremities equally Psych: Normal mood and affect Neuro: No focal neuro deficit Skin: Warm, dry, intact Constitutional Vital Signs, click to edit/add: Last Vital Signs Temp 98.0 F 07/09/24 14:19 Pulse 86 07/09/24 14:19 Resp 18 07/09/24 14:19 BP 164/100 H 07/09/24 14:25 Pulse Ox 98 07/09/24 14:19 O2 Del Method Room Air 07/09/24 14:19 Course Vital Signs Vital signs: Vital Signs Temperature 98.0 F 07/09/24 14:19 Pulse Rate 86 07/09/24 14:19 Respiratory Rate 18 07/09/24 14:19 Blood Pressure 174/102 H 07/09/24 14:19 Pulse Oximetry 98 07/09/24 14:19 Oxygen Delivery Method Room Air 07/09/24 14:19 Temperature 98.0 F 07/09/24 14:19 Pulse Rate 86 07/09/24 14:19 Respiratory Rate 18 07/09/24 14:19 Blood Pressure 164/100 H 07/09/24 14:25 Pulse Oximetry 98 07/09/24 14:19 Oxygen Delivery Method Room Air 07/09/24 14:19 Medical Decision Making MDM Narrative Medical decision making narrative: Saline was used to irrigate the area, 10 mL of air were decompressed from the Rhino Rocket and it was removed fairly easily. Patient had some discomfort with removal but tolerated it well and there was no noted residual bleeding. She was observed for 20 minutes after removal, no persistent bleeding. She is discharged home, encouraged not to blow her nose and follow-up with PCP. Return to the ER if symptoms change or worsen. SUPERVISED APC VISIT, PHYSICIAN ATTESTATION: Based on the medical record the care appears appropriate. ? Medical Records Medical records reviewed: Yes I reviewed the patient's medical records Discharge Plan Discharge Chief Complaint: Skin/Abscess/Foreign Body Clinical Impression: Encounter for removal of nasal packing Patient Disposition: Home, Self-Care Time of Disposition Decision: 14:57 Condition: Good Prescriptions / Home Meds: No Action Cotellic 20 mg tablet 60 mg PO Q24H Zelboraf 240 mg tablet 1,200 mg PO Q12H amlodipine 10 mg tablet 10 mg PO DAILY Qty: 20 0RF cephalexin 500 mg capsule 500 mg PO BID Qty: 10 0RF (DME) blood pressure monitor Kit See Rx Instructions .Route Qty: 1 0RF Rx Instructions: As directed dx HTN Print Language: Greek Instructions: Nosebleed (ED) Referrals: Physician,Non-Staff, MD [Primary Care Provider] - 1 week
== END 2024-07-09 15:08 | disposition home or self-care (01) ==
PROVIDERS: Emergency Provider Emergency Medicine
DX: Z48.00 Encounter for change or removal of nonsurgical wound dressing (principal)
CPT/HCPCS: 99281